=== PATIENT | female | born 1945 | race Caucasian/White ===

== ENCOUNTER → 2020-03-12 13:32 | Outpatient (CLI) | payer MEDICARE, SELFPAY ==
--- NOTE | ~2020-03-12 | MM_ITS ---
EXAMINATION: MM screening jessica BI w piper HISTORY: Screening TECHNIQUE: Craniocaudal and mediolateral oblique 3-D tomosynthesis images were obtained and synthetic 2-D images were generated. CAD analysis was submitted and interpreted. COMPARISON: Comparison to multiple prior studies sequentially, with oldest reviewed study dated 10/19. BREAST PARENCHYMAL COMPOSITION: There are scattered areas of fibroglandular density. FINDINGS: There is no evidence of suspicious mass, calcification, or architectural distortion to sugg est malignancy in either breast. There has been no suspicious interval change. IMPRESSION: 1. No mammographic evidence of malignancy. 2. Recommend routine screening mammography in one year. BI-RADS Category 1: Negative Reviewed, dictated and finalized at location A.
== END ==
PROVIDERS: PCP Family Medicine; Visit Provider Family Medicine
DX: Z12.31 Encounter for screening mammogram for malignant neoplasm of breast (principal)
CPT/HCPCS: 77063; 77067

== ENCOUNTER 2020-04-28 09:16 | Outpatient (CLI) | payer MEDICARE, SELFPAY ==
[2020-04-28 09:58] LABS: Hemoglobin A1C 6.6 % (<5.7)
[2020-04-28 11:10] LABS: Alanine Aminotransferase 21 U/L (4-35); Albumin Level 4.3 g/dL (3.5-5.1); Alkaline Phosphatase 77 U/L (38-126); Anion Gap 8 mmol/L (8-16); Aspartate Amino Transferase 28 U/L (14-36); Bilirubin,Total 0.7 mg/dL (0.2-1.3); Blood Urea Nitrogen 20 mg/dL (7-17); Calcium 9.2 mg/dL (8.4-10.2); Carbon Dioxide 28 mmol/L (22-30); Chloride 103 mmol/L (98-107); Estimated Glomerular Filt Rate > 60; Glucose 142 mg/dL (65-105); Potassium 4.1 mmol/L (3.4-5.0); Sodium 139 mmol/L (137-145)
== END 2020-04-28 09:17 | disposition home or self-care (01) ==
PROVIDERS: PCP Family Medicine; Visit Provider Physician Assistant
DX: E11.65 Type 2 diabetes mellitus with hyperglycemia (principal); E53.8 Deficiency of other specified B group vitamins; I10 Essential (primary) hypertension
CPT/HCPCS: 36415; 80053; 82607; 82746; 83036

== ENCOUNTER 2020-06-03 09:45 | Emergency (ER) | payer MEDICARE, SELFPAY ==
--- NOTE | 2020-06-03 09:48 | ED.GENADULT ---
HPI - General Adult General Chief complaint: Unspecified Stated complaint: right side pain Time Seen by Provider: 06/03/20 10:10 Source: patient and RN notes reviewed Mode of arrival: ambulatory Limitations: no limitations History of Present Illness HPI narrative: 75-year-old female presents with concern for pain under her bra line, going from the right sided back under the axilla and around to the breast. Reports painful skin, hurts when her shirt touches it, she cannot wear a bra. She denies pain with movement, breathing, deep breathing, coughing. Reports history of shingles in that area, denies any current rash, reports however the pain precedes the rash when she gets shingles. Reports has been several years since she has had shingles. She denies any fever, bruising, rash, redness, blisters. MD complaint: Right-sided pain Related Data Allergies Allergy/AdvReac Type Severity Reaction Status Date / Time Sulfa (Sulfonamide Allergy Intermediate Difficulty Verified 06/03/20 10:05 Antibiotics) Breathing codeine Allergy Mild Gastrointestinal Verified 06/03/20 10:05 Upset Review of Systems Review of Systems: Narrative: CONSTITUTIONAL: Denies malaise, chills, sweats, or fever. ENT: Denies rhinorrhea, congestion, sinus pain, otalgia or sore throat. CARDIOVASCULAR: Denies chest pain, palpitations, or edema. RESPIRATORY: Denies cough or dyspnea. GASTROINTESTINAL: Denies abdominal pain, nausea, vomiting, diarrhea, bloody, or mucous stools. GENITOURINARY: Denies dysuria or hematuria. SKIN: Reports right sided skin pain, denies rash MUSCULOSKELETAL: Denies back pain, joint pain, or myalgia. NEUROLOGIC: Denies numbness, weakness, or headache. All systems reviewed & are unremarkable except as noted in HPI and below [facility] Past Medical History Medical History Anxiety CAD (coronary artery disease) CHF (congestive heart failure) Chronic GERD Hypertensive heart disease with heart failure Mild asthma [place] (myocardial infarction) Type 2 diabetes mellitus with hyperglycemia Vitamin B12 deficiency Surgical History Surgical History Hx of CABG Family History Family History Sibling Family history of chronic obstructive pulmonary disease Father Family history of diabetes mellitus in first degree relative Family history of heart disease in male family member before age 55 Diabetes mellitus Family history of cardiovascular disease Mother Family history of lung cancer Social History Social History (Updated 05/08/20 @ 13:31 by Marie Lopez) Smoking status: Never smoker Alcohol intake: never Substance use: never Gender identity (if verbalized by the patient): Female Comments At time of signature, agree with nursing past medical, surgical, social and family history. There is no relevant family history pertinent to the presenting complaint Exam Narrative: Exam Narrative: GENERAL: Well-appearing, well-nourished, and in no acute distress. HEAD: Normocephalic, atraumatic. EYES: PERRLA, conjunctivae clear ENT: Mucous membranes moist. NECK: Supple. CHEST: No respiratory distress. Clear to auscultation. No bony deformities, no asymmetry. Speaks in full sentences. HEART: Regular rate and rhythm. No murmur heard. EXTREMITIES: Right arm has grossly normal range of motion, normal strength and sensation. SKIN: Warm, dry, no rash. No right-sided chest, torso bruising, erythema. Right-sided pain to light touch NEURO: Alert and oriented x3. PSYCH: Normal mood and affect Course Course Emergency Course: Patient is aware of diagnosis, understands and agrees to treatment plan. Anticipatory guidance given. Patient agrees to follow-up as directed and is aware of reasons to seek care at the emergency department. Portions of this record may have been created
[2020-06-03 09:53] VITALS: BP 126/69; PULSE 67; RESP 16; TEMP 36.3; O2SAT 100
== END 2020-06-03 10:25 | disposition home or self-care (01) ==
PROVIDERS: Emergency Provider Nurse Practitioner; PCP Family Medicine
DX: B02.29 Other postherpetic nervous system involvement (principal); F41.9 Anxiety disorder, unspecified; I25.10 Atherosclerotic heart disease of native coronary artery without angina pectoris; I11.0 Hypertensive heart disease with heart failure; I50.9 Heart failure, unspecified; K21.9 Gastro-esophageal reflux disease without esophagitis; M19.90 Unspecified osteoarthritis, unspecified site; I25.2 Old myocardial infarction; E11.9 Type 2 diabetes mellitus without complications
CPT/HCPCS: 99213; G0463

== ENCOUNTER 2020-06-28 17:54 | Emergency (ER) | payer MEDICARE, SELFPAY ==
[2020-06-28 18:15] VITALS: BP 136/61; PULSE 60; RESP 17; TEMP 36.2; O2SAT 99
--- NOTE | 2020-06-28 18:15 | ECG_ITS ---
Measurements Intervals Early Rate: 58 P: 64 NM: 117 QRS: -59 QRSD: 114 T: 7 QT: 452 QTc: 448 Interpretive Statements SINUS BRADYCARDIA WITH SHORT NM INTERVAL INCOMPLETE LEFT BUNDLE BRANCH BLOCK INFERIOR INFARCT, AGE INDETERMINATE ANTEROSEPTAL INFARCT, AGE INDETERMINATE BORDERLINE ST-T WAVE ABNORMALITY- LAT/HIGH LAT LEADS ABNORMAL ECG Electronically Signed On 06-28-2020 18:50:30 [employer] by Martínez Steinberg D.O.
[2020-06-28 18:35] LABS: Basophils Percent Auto 0.4 % (0.2-1.2); Eosinophils Percent Auto 0.1 % (0-4.4); Hematocrit 42.1 % (37.0-47.0); Hemoglobin 13.6 g/dL (12.0-15.0); Immature Granulocyte Absolute 0.04 K/mm3 (0.00-0.031); Immature Granulocyte Percent A 0.4 % (0-0.5); Lymphocytes Percent Auto 14.8 % (18.3-44.2); Mean Corpuscular HGB Conc 32.3 g/dl (32-36); Mean Corpuscular Hemoglobin 27.9 pg (26-34); Mean Corpuscular Volume 86.4 fl (80-100); Mean Platelet Volume 11.5 fl (7.4-10.4); Monocytes Absolute Auto 0.4 K/mm3 (0.1-0.6); Monocytes Percent Auto 3.8 % (2.6-8.5); Neutrophils Absolute Auto 7.6 K/mm3 (1.3-6.7); Neutrophils Percent Auto 80.5 % (45.5-73.1); Platelet Count Result 192 k/mm3 (150-375); Red Blood Count 4.87 M/mm3 (4.2-5.4); Red Cell Distribution Width 15.3 % (11.5-14.5); White Blood Count 9.4 K/mm3 (4.5-10.0)
[2020-06-28 18:44] LABS: Anion Gap 8 mmol/L (8-16); Blood Urea Nitrogen 16 mg/dL (7-17); Calcium 9.3 mg/dL (8.4-10.2); Carbon Dioxide 25 mmol/L (22-30); Chloride 104 mmol/L (98-107); Estimated CRCL calculation 58 ml/min; Estimated Glomerular Filt Rate > 60; Glucose 178 mg/dL (65-105); Sodium 137 mmol/L (137-145)
[2020-06-28] MEDS: MECLIZINE HCL 25 MG TABLET PO (19:19)
[2020-06-28] MEDS: SODIUM CHLORIDE 0.9% IV 1,000 ML 999 ML IV CONT (19:19)
[2020-06-28 19:20] VITALS: BP 141/76; PULSE 60
[2020-06-28 19:22] VITALS: BP 162/80; BP 166/79; PULSE 63; PULSE 65
[2020-06-28 19:57] VITALS: BP 161/67; PULSE 60; RESP 16; O2SAT 97
--- NOTE | 2020-06-28 19:58 | ED.DIZZY ---
HPI - Dizziness General Chief Complaint: Dizziness Stated Complaint: dizziness Time Seen by Provider: 06/28/20 18:09 History of Present Illness HPI Narrative: Patient is a 75-year-old female who presents ER with complaints of vertigo. Patient reports she has had this in the past. Reports she was at physical therapy for her and she got a little upset and she has been around she began to get dizzy. At home she laid down she became extremely nauseated and vomited. Symptoms persist. Has not taken any medications for this. No focal weakness of an arm or leg. No slurred speech. No facial droop. Related Data Allergies Allergy/AdvReac Type Severity Reaction Status Date / Time Sulfa (Sulfonamide Allergy Intermediate Difficulty Verified 06/12/20 13:55 Antibiotics) Breathing codeine Allergy Mild Gastrointestinal Verified 06/12/20 13:55 Upset Review of Systems Review of Systems: All systems reviewed & are unremarkable except as noted in HPI and below Constitutional: Constitutional: Denies chills, Denies fever(s) and Denies weakness ENT: Reports dizziness Cardiovascular: Cardiovascular: Denies chest pain, Denies rapid heart rate and Denies radiating jaw, neck or arm pain Respiratory: Respiratory: Denies cough and Denies dyspnea Gastrointestinal: Gastrointestinal: Denies diarrhea, Reports nausea and Reports vomiting Neurologic: Reports dizziness, Denies syncope, Denies focal weakness and Denies numbness PMFSH Past Medical History Medical History (Updated 06/28/20 @ 20:05 by Greg Rosenthal MD) Anxiety CAD (coronary artery disease) CHF (congestive heart failure) Chronic GERD Hypertensive heart disease with heart failure Mild asthma [place] (myocardial infarction) Type 2 diabetes mellitus with hyperglycemia Vertigo Vitamin B12 deficiency Surgical History Surgical History Hx of CABG Family History Family History Sibling Family history of chronic obstructive pulmonary disease Father Family history of diabetes mellitus in first degree relative Family history of heart disease in male family member before age 55 Diabetes mellitus Family history of cardiovascular disease Mother Family history of lung cancer Social History Social History Smoking status: Never smoker Alcohol intake: never Substance use: never Gender identity (if verbalized by the patient): Female Exam Narrative: Exam Narrative: GENERAL: Well-appearing, well-nourished, and in no acute distress. HEAD: Normocephalic, atraumatic. EYES: PERRL and EOMI. CHEST: Clear to auscultation. No respiratory distress. HEART: Regular rate and rhythm. Normal peripheral pulses. EXTREMITIES: Normal range of motion. No edema. SKIN: Warm, dry, no rash. NEURO: Alert and oriented x3. Course Course Emergency Course: Patient resting comfortably. Feels much better after IV fluid and meclizine. Discharge home with supportive meds. Vital Signs Vital signs: Vital Signs Temperature 97.2 F L 06/28/20 18:15 Pulse Rate 60 06/28/20 18:15 Respiratory Rate 17 06/28/20 18:15 Blood Pressure 136/61 06/28/20 18:15 Pulse Oximetry 99 06/28/20 18:15 Temperature 97.2 F L 06/28/20 18:15 Pulse Rate 60 06/28/20 19:57 Respiratory Rate 16 06/28/20 19:57 Blood Pressure 161/67 H 06/28/20 19:57 Pulse Oximetry 97 06/28/20 19:57 MDM - Dizziness Lab Data Result diagrams: 06/28/20 18:23 06/28/20 18:23 Labs: Lab Results 06/28/20 06/28/20 Range/Units 18:23 18:23 WBC 9.4 (4.5-10.0) K/mm3 RBC 4.87 (4.2-5.4) M/mm3 Hgb 13.6 (12.0-15.0) g/dL Hct 42.1 (37.0-47.0) % MCV 86.4 (80-100) fl MCH 27.9 (26-34) pg MCHC 32.3 (32-36) g/dl RDW 15.3 H (11.5-14.5) % Plt Count 192 (150-375) k/mm3 MPV 11.5 H
== END 2020-06-28 20:22 | disposition home or self-care (01) ==
PROVIDERS: Emergency Provider Emergency Medicine; PCP Family Medicine
DX: R42 Dizziness and giddiness (principal); I25.10 Atherosclerotic heart disease of native coronary artery without angina pectoris; I50.9 Heart failure, unspecified; K21.9 Gastro-esophageal reflux disease without esophagitis; I11.0 Hypertensive heart disease with heart failure; J45.909 Unspecified asthma, uncomplicated; I25.2 Old myocardial infarction; E11.9 Type 2 diabetes mellitus without complications; E53.8 Deficiency of other specified B group vitamins; Z95.1 Presence of aortocoronary bypass graft; R00.1 Bradycardia, unspecified; I44.7 Left bundle-branch block, unspecified; R94.31 Abnormal electrocardiogram [ECG] [EKG]
CPT/HCPCS: 36415; 80048; 85025; 93005; 99284; A9270; J7030

== ENCOUNTER 2020-08-31 08:05 | Outpatient (CLI) | payer MEDICARE, SELFPAY ==
[2020-08-31 08:51] LABS: Hemoglobin A1C 6.7 % (<5.7)
[2020-08-31 08:58] LABS: Alanine Aminotransferase 25 U/L (4-35); Albumin Level 4.5 g/dL (3.5-5.1); Alkaline Phosphatase 75 U/L (38-126); Anion Gap 6 mmol/L (8-16); Aspartate Amino Transferase 33 U/L (14-36); Bilirubin,Total 0.7 mg/dL (0.2-1.3); Blood Urea Nitrogen 18 mg/dL (7-17); Calcium 9.3 mg/dL (8.4-10.2); Carbon Dioxide 30 mmol/L (22-30); Chloride 104 mmol/L (98-107); Estimated Glomerular Filt Rate > 60; Glucose 160 mg/dL (65-105); Potassium 4.3 mmol/L (3.4-5.0); Sodium 140 mmol/L (137-145)
== END 2020-08-31 08:06 | disposition home or self-care (01) ==
PROVIDERS: PCP Family Medicine; Visit Provider Physician Assistant
DX: E11.65 Type 2 diabetes mellitus with hyperglycemia (principal); I11.0 Hypertensive heart disease with heart failure
CPT/HCPCS: 36415; 80053; 83036

== ENCOUNTER 2020-11-09 08:14 | Emergency (ER) | payer MEDICARE, SELFPAY ==
[2020-11-09] VITALS (19 sets, daily range): BP systolic 130–160; BP diastolic 67–94; PULSE 56–73; RESP 11–21; TEMP 36.6; O2SAT 88–100
--- NOTE | ~2020-11-09 | XR_ITS ---
XR chest 1V 11/09/2020 09:20 Indication: Vertigo Procedure: AP view of the chest Comparison: Comparison to multiple prior studies sequentially, with oldest reviewed study dated 05/01. Findings: Status post median sternotomy for CABG. Mild cardiomegaly. No focal air space disease, pulm onary edema, pleural effusion or suspected pneumothorax. Impression: 1: No acute cardiopulmonary disease. 2: Mild cardiomegaly. Reviewed, dictated and finalized at location B. Impression: 1: No acute cardiopulmonary disease. 2: Mild cardiomegaly.
--- NOTE | ~2020-11-09 | CT_ITS ---
EXAMINATION: CT brain wo con DATE: 11/09/2020 09:18 INDICATION: Vertigo. TECHNIQUE: Computed tomography (CT) of the head was performed without intravenous contrast. The mA wa s adjusted according to patient size. Iterative reconstruction technique was employed. The dose-lengt h product was 529.67 mGy-cm. COMPARISON: Head CT 01/12/2018 FINDINGS: Again seen is a small area cystic encephalitis in the right frontal lobe centrum semiovale. There is no intracranial hemorrhage, acute infarction, or abnormal intracranial mass lesion. The alba tricles are normal in size. There is mild mucosal thickening in the paranasal sinuses. There are like ly changes of ocular lens replacement surgeries. The mastoid air cells are normal. IMPRESSION: 1. 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 Reviewed, dictated and finalized at location A. IMPRESSION: 1. Small area of chronic cystic encephalomalacia in the right frontal lobe cent rum semiovale.
--- NOTE | 2020-11-09 09:04 | ECG_ITS ---
Measurements Intervals Coulter Rate: 65 P: 58 VA: 136 QRS: -58 QRSD: 123 T: 80 QT: 463 QTc: 482 Interpretive Statements SINUS RHYTHM INTRAVENTRICULAR CONDUCTION DELAY INFERIOR INFARCT, AGE INDETERMINATE ANTEROSEPTAL INFARCT, AGE INDETERMINATE BASELINE ARTIFACT- II, III, AVR, AVF, V2-V6 ABNORMAL ECG Electronically Signed On 11-09-2020 12:30:25 CDT by Martínez Steinberg D.O.
--- NOTE | 2020-11-09 09:06 | ED.GENADULT ---
HPI - General Adult General Chief complaint: Nausea/Vomiting/Diarrhea Stated complaint: VERTIGO/VOMITING Time Seen by Provider: 11/09/20 08:38 Source: patient, EMS and RN notes reviewed Mode of arrival: EMS Limitations: no limitations History of Present Illness HPI narrative: Patient is 75 years old white female brought to the emergency room by ambulance from home because of vertigo. Patient developed vertigo after getting out of bed this morning, everything spins, associated with nausea, vomiting and diaphoresis. Last similar symptoms was 3 weeks ago, currently patient on Antivert. Patient denies any fever, chills, chest pain, shortness of breath, headache. Vertigo get worse with any movement or when she open her eyes. Better laying down and head turn to the left. Related Data Allergies Allergy/AdvReac Type Severity Reaction Status Date / Time Sulfa (Sulfonamide Allergy Intermediate Difficulty Verified 06/12/20 13:55 Antibiotics) Breathing codeine Allergy Mild Gastrointestinal Verified 06/12/20 13:55 Upset Review of Systems Review of Systems: Narrative: CONSTITUTIONAL: Denies fever, chills, or sweats. EYES: Denies visual changes, redness, or discharge. ENT: Denies rhinorrhea, congestion, sore throat, or otalgia. CARDIOVASCULAR: Denies chest pain, palpitations, or edema. RESPIRATORY: Denies cough or dyspnea. GASTROINTESTINAL: Denies abdominal pain, nausea, vomiting, or diarrhea. GENITOURINARY: Denies dysuria or hematuria. SKIN: Denies rash or itching. MUSCULOSKELETAL: Denies back pain, joint pain, or myalgia. NEUROLOGIC: Denies headache, numbness, or weakness. PSYCHIATRIC: Denies anxiety or depression. [facility] Past Medical History Medical History Anxiety CAD (coronary artery disease) CHF (congestive heart failure) Chronic GERD Hypertensive heart disease with heart failure Mild asthma [place] (myocardial infarction) Type 2 diabetes mellitus with hyperglycemia Vertigo Vitamin B12 deficiency Surgical History Surgical History Hx of CABG Family History Family History Sibling Family history of chronic obstructive pulmonary disease Father Family history of diabetes mellitus in first degree relative Family history of heart disease in male family member before age 55 Diabetes mellitus Family history of cardiovascular disease Mother Family history of lung cancer Social History Social History Smoking status: Never smoker Alcohol intake: never Substance use: never Gender identity (if verbalized by the patient): Female Exam Narrative: Exam Narrative: General appearance: Well-developed, well-nourished, laying down flat, cold towel on her forehead, head turned to the left Skin: Normal color Head: Normocephalic, nontraumatic Eyes: Horizontal nystagmus to the right ENT: Oropharynx normal, ears normal, nose normal Neck: Supple, nontender Chest and respiratory: Airway patent, no respiratory distress, no accessory muscle use Heart: Regular rate/rhythm Abdomen: Soft, nontender, no organomegaly, quiet bowel sounds Vascular: Normal peripheral pulses, normal capillary refill. Musculoskeletal: Normal range of motion, nontender back Neurologic: Alert and oriented ?3, MAILING MANAGER is normal as tested, no gross motor deficit Course Course Emergency Course: Stable Reevaluation(s) Reevaluation #1: Patient feeling much better, no nausea, no vomiting, no nystagmus, no dizziness. Patient ready to go home. Date: 11/09/20 Time: 12:25 Vital Signs
--- NOTE | 2020-11-09 09:10 | PC.NURSE ---
Pt taken to CT scan
[2020-11-09] MEDS: SODIUM CHLORIDE 0.9% IV 1,000 ML 999 ML IV CONT (09:51)
[2020-11-09] MEDS: diazePAM INJ (*CRX) 10 MG/2 ML SYRINGE 5 MG IV PUSH (09:52)
[2020-11-09 09:53] LABS: Basophils Percent Auto 0.3 % (0.2-1.2); Eosinophils Percent Auto 0.1 % (0-4.4); Hematocrit 40.7 % (37.0-47.0); Hemoglobin 12.6 g/dL (12.0-15.0); Immature Granulocyte Absolute 0.03 K/mm3 (0.00-0.031); Immature Granulocyte Percent A 0.3 % (0-0.5); Lymphocytes Absolute Auto 0.84 K/mm3 (0.9-3.2); Lymphocytes Percent Auto 9.3 % (18.3-44.2); Mean Corpuscular Hemoglobin 26.3 pg (26-34); Mean Corpuscular Volume 84.8 fl (80-100); Mean Platelet Volume 11.3 fl (7.4-10.4); Monocytes Absolute Auto 0.2 K/mm3 (0.1-0.6); Monocytes Percent Auto 2.7 % (2.6-8.5); Neutrophils Absolute Auto 7.9 K/mm3 (1.3-6.7); Neutrophils Percent Auto 87.3 % (45.5-73.1); Platelet Count Result 205 k/mm3 (150-375); Red Cell Distribution Width 14.6 % (11.5-14.5)
[2020-11-09] MEDS: ONDANSETRON INJ 4 MG/2 ML VIAL 8 MG IV PUSH (09:53)
[2020-11-09] MEDS: MECLIZINE HCL 25 MG TABLET PO (09:55)
[2020-11-09 10:01] LABS: Alanine Aminotransferase 25 U/L (4-35); Alkaline Phosphatase 77 U/L (38-126); Anion Gap 12 mmol/L (8-16); Aspartate Amino Transferase 31 U/L (14-36); Bilirubin,Total 0.6 mg/dL (0.2-1.3); Blood Urea Nitrogen 20 mg/dL (7-17); Calcium 8.9 mg/dL (8.4-10.2); Carbon Dioxide 24 mmol/L (22-30); Chloride 105 mmol/L (98-107); Estimated CRCL calculation 58 ml/min; Estimated Glomerular Filt Rate > 60; Glucose 195 mg/dL (65-105); Potassium 4.1 mmol/L (3.4-5.0); Sodium 141 mmol/L (137-145)
== END 2020-11-09 12:58 | disposition home or self-care (01) ==
PROVIDERS: Emergency Provider Emergency Medicine; PCP Family Medicine
DX: H81.10 Benign paroxysmal vertigo, unspecified ear (principal); I25.10 Atherosclerotic heart disease of native coronary artery without angina pectoris; Z59.1 Inadequate housing; I50.9 Heart failure, unspecified; K21.9 Gastro-esophageal reflux disease without esophagitis; I11.0 Hypertensive heart disease with heart failure; J45.909 Unspecified asthma, uncomplicated; I25.2 Old myocardial infarction; E11.9 Type 2 diabetes mellitus without complications; E53.8 Deficiency of other specified B group vitamins; I51.7 Cardiomegaly
CPT/HCPCS: 36415; 70450; 71045; 80053; 85025; 93005; 96361; 96374; 96375; 99284; A9270; J2405; J3360; J7030

== ENCOUNTER 2021-01-03 05:36 | Inpatient (IN) | payer MEDICARE, SELFPAY ==
[2021-01-03] VITALS (23 sets, daily range): BP systolic 115–155; BP diastolic 63–115; PULSE 69–122; RESP 14–25; TEMP 36.4–36.8; O2SAT 89–97
--- NOTE | ~2021-01-03 | XR_ITS ---
EXAMINATION: XR chest 1V portable DATE: 01/03/2021 06:10 INDICATION: Shortness of breath TECHNIQUE: frontal view of the chest was obtained. COMPARISON: Chest radiograph dated 11/09/2020 FINDINGS: Diffuse increased interstitial pattern consistent with mild pulmonary edema. Persistent streaky atele ctasis/scarring at the left lung base. No pleural effusion or pneumothorax. Cardiomegaly. Median ster notomy wires and mediastinal surgical clips are seen, likely from prior coronary artery bypass grafti ng. IMPRESSION: 1. Likely congestive heart failure related mild pulmonary edema. 2. Cardiomegaly. Reviewed, dictated and finalized at location A.
--- NOTE | ~2021-01-03 | XR_ITS ---
XR chest 1V portable 01/05/2021 06:02 Indication: Sinus tachycardia Procedure: AP portable chest Comparison: Comparison to multiple prior studies sequentially, with oldest reviewed study dated 10/26. Findings: Status post median sternotomy for CABG. Cardiomegaly. Left basilar infiltrates.. No signifi cant effusion, edema or pneumothorax. Impression: 1: Left basilar infiltrates, most likely atelectasis/scarring. Reviewed, dictated and finalized at location A. Impression: 1: Left basilar infiltrates, most likely atelectasis/scarring.
--- NOTE | 2021-01-03 06:01 | ECG_ITS ---
Measurements Intervals Horace Rate: 75 P: 169 ND: 108 QRS: -52 QRSD: 128 T: 66 QT: 431 QTc: 482 Interpretive Statements SINUS RHYTHM WITH SHORT ND INTERVAL LEFT AXIS DEVIATION LEFT BUNDLE BRANCH BLOCK BASELINE ARTIFACT- I, II, AVR ABNORMAL ECG Electronically Signed On 01-03-2021 6:52:43 CDT by Martínez Steinberg D.O.
[2021-01-03] MEDS: ALBUTEROL SULFATE NEB 2.5 MG/0.5 ML INH 5 MG INHALATION ×4 (06:14→21:59)
[2021-01-03] MEDS: IPRATROPIUM BR 0.02% INH SOLN 0.5 MG/2.5 ML VIAL INHALATION ×4 (06:14→21:59)
--- NOTE | 2021-01-03 06:17 | ED.GENADULT ---
HPI - General Adult General Chief complaint: Shortness of Breath/Dyspnea Stated complaint: DIFFICULTY BREATHING Time Seen by Provider: 01/03/21 05:51 History of Present Illness HPI narrative: Patient 75-year-old female presents emerged part with chief complaint of shortness of breath. Patient reports that she has history of asthma she also reports history of congestive heart failure and states that in the last few hours she started getting more more short of breath. Patient reports she was wheezing reports that she has had no fever no productive cough patient reports no peripheral edema denies PND does report that she gets a bit more short of breath whenever she ambulates. The patient reports this feels more like she has asthma exacerbation. Patient reports that she has been vaccinated for COVID-19 and has completed to 2 doses of the vaccine. Related Data Allergies Allergy/AdvReac Type Severity Reaction Status Date / Time Sulfa (Sulfonamide Allergy Intermediate Difficulty Verified 01/03/21 05:45 Antibiotics) Breathing codeine Allergy Mild Gastrointestinal Verified 01/03/21 05:45 Upset Review of Systems Review of Systems: A 10 system review of systems was completed on the patient and is negative except for what is stated in the HPI. Nursing and ancillary documentation was reviewed. [facility] Past Medical History Medical History Anxiety CAD (coronary artery disease) CHF (congestive heart failure) Chronic GERD Hypertensive heart disease with heart failure Mild asthma [place] (myocardial infarction) Type 2 diabetes mellitus with hyperglycemia Vertigo Vitamin B12 deficiency Surgical History Surgical History Hx of CABG Family History Family History Sibling Family history of chronic obstructive pulmonary disease Father Family history of diabetes mellitus in first degree relative Family history of heart disease in male family member before age 55 Diabetes mellitus Family history of cardiovascular disease Mother Family history of lung cancer Social History Social History Smoking status: Never smoker Alcohol intake: never Substance use: never Gender identity (if verbalized by the patient): Female Exam Narrative: GENERAL: Well-appearing, well-nourished, and in no acute distress. HEAD: Normocephalic, atraumatic. EYES: PERRLA and EOMI. ENT: Nares clear, no rhinorrhea or epistaxis. Mucous membranes moist. NECK: Supple. CHEST: Scattered wheezes present bilaterally. No respiratory distress. HEART: Regular rate and rhythm. No murmur heard. Normal peripheral pulses. ABDOMEN: Soft, nontender, nondistended, normal active bowel sounds. EXTREMITIES: Normal range of motion. No edema. SKIN: Warm, dry, no rash. NEURO: No focal deficits. Alert and oriented x3. PSYCH: Normal mood and affect. Course Vital Signs Vital signs: Vital Signs Pulse Rate 88 01/03/21 05:41 Respiratory Rate 25 H 01/03/21 05:41 Pulse Oximetry 92 01/03/21 05:41 Pulse Rate 81 01/03/21 07:34 Respiratory Rate 24 H 01/03/21 07:34 Blood Pressure 155/115 H 01/03/21 07:34 Pulse Oximetry 95 01/03/21 07:34 Medical Decision Making Vital Signs Vital Signs: Vital Signs Pulse Rate 88 01/03/21 05:41 Respiratory Rate 25 H 01/03/21 05:41 Pulse Oximetry 92 01/03/21 05:41 Pulse Rate 81 01/03/21 07:34 Respiratory Rate 24 H 01/03/21 07:34 Blood Pressure 155/115 H 01/03/21 07:34 Pulse Oximetry 95 01/03/21 07:34 Lab Data Result diagrams: 01/03/21 06:23 01/03/21 06:23 Labs: Lab Results 01/03/21 01/03/21 01/03/21 Range/Units 06:23 06:23 06:23 WBC 8.7 (4.5-10.0) K/mm3 RBC 4.27 (4.2-5.4) M/mm3 Hgb 11.4 L
[2021-01-03] MEDS: methylPREDNISolone SOD SUCC 125 MG VIAL IV PUSH (06:25)
[2021-01-03 06:31] LABS: Basophils Absolute Auto 0.1 K/mm3 (0.0-0.1); Basophils Percent Auto 0.6 % (0.2-1.2); Eosinophils Absolute Auto 0.1 K/mm3 (0-0.3); Eosinophils Percent Auto 1.3 % (0-4.4); Hematocrit 35.7 % (37.0-47.0); Hemoglobin 11.4 g/dL (12.0-15.0); Immature Granulocyte Absolute 0.05 K/mm3 (0.00-0.031); Immature Granulocyte Percent A 0.6 % (0-0.5); Lymphocytes Absolute Auto 1.72 K/mm3 (0.9-3.2); Lymphocytes Percent Auto 19.8 % (18.3-44.2); Mean Corpuscular HGB Conc 31.9 g/dl (32-36); Mean Corpuscular Hemoglobin 26.7 pg (26-34); Mean Corpuscular Volume 83.6 fl (80-100); Mean Platelet Volume 11.9 fl (7.4-10.4); Monocytes Absolute Auto 0.4 K/mm3 (0.1-0.6); Monocytes Percent Auto 5.1 % (2.6-8.5); Neutrophils Absolute Auto 6.3 K/mm3 (1.3-6.7); Neutrophils Percent Auto 72.6 % (45.5-73.1); Platelet Count Result 211 k/mm3 (150-375); Red Blood Count 4.27 M/mm3 (4.2-5.4); Red Cell Distribution Width 16.7 % (11.5-14.5); White Blood Count 8.7 K/mm3 (4.5-10.0)
[2021-01-03 06:41] LABS: Lactic Acid Reflex 1.6 mmol/L (0.7-2.1)
[2021-01-03 06:42] LABS: Add Urine Microscopic? NO; Appearance Urine Clear (Clear); Bilirubin Urine Negative (Negative); Blood Urine Negative (Negative); Color Urine Yellow (Yellow); Glucose Urine UA Negative (Negative); Ketones Urine Negative (Negative); Leukocyte Esterase Ur Negative LEU/UL (Negative); Nitrate Urine Negative (Negative); Protein Urine Negative (Negative); Specific Grav Ur 1.013 (1.001-1.035); Urobilinogen Urine Negative mg/dL (<2.0)
[2021-01-03 06:43] LABS: Alanine Aminotransferase 41 U/L (4-35); Albumin Level 4.1 g/dL (3.5-5.1); Alkaline Phosphatase 86 U/L (38-126); Anion Gap 9 mmol/L (8-16); Aspartate Amino Transferase 39 U/L (14-36); Bilirubin,Total 0.8 mg/dL (0.2-1.3); Blood Urea Nitrogen 15 mg/dL (7-17); Carbon Dioxide 23 mmol/L (22-30); Chloride 103 mmol/L (98-107); Estimated CRCL calculation 68 ml/min; Estimated Glomerular Filt Rate > 60; Glucose 189 mg/dL (65-110); INR 0.9; Potassium 3.7 mmol/L (3.4-5.0); Prothrombin Time 12.2 Seconds (11.1-14.7); Sodium 135 mmol/L (137-145)
[2021-01-03 06:44] LABS: Partial Thromboplastin Time 25.9 SECONDS (22.3-36.8)
[2021-01-03 06:54] LABS: NT Pro B Type Natriuretic Pept 509 pg/mL (5-100); Troponin I < 0.012 ng/mL (0.000-0.034)
[2021-01-03] MEDS: FUROSEMIDE INJ 40 MG/4 ML VIAL IV PUSH ×2 (07:05→20:53)
--- NOTE | 2021-01-03 07:34 | PM.IMHP ---
H&P: HPI History of Present Illness Date/Time: 01/03/21 07:34 patient is a 75-year-old female past medical history of anxiety, Asthma, CHF, CAD, [place] Status post CABG, type 2 diabetes presents to ED with complaints of dyspnea for few hours. she has not had all asthma attack in many years however over the last week she has been using her rescue inhaler multiple times. She has had no triggers for asthma exacerbation. No new exposures or chemicals. She also has history of congestive heart failure for which she takes diuretics however has not had any change to her diet. Normally she gets edema in her lower extremities however she did not note that this time. She has had history of pneumonias in the past but not since getting the Pneumovax. she states that the feeling she has now is not like her previous pneumonias. She has no sputum production or fevers. Patient has been vaccinated for COVID-19 x2. Patient denies fever, chills, nausea, vomiting, diarrhea, chest pain. She endorses wheezing and shortness of breath. patient admitted for observation for asthma exacerbation. Chief Complaint: dyspnea Review of Systems Review of Systems: All systems reviewed & are unremarkable except as noted in HPI and below PMFSH Past Medical History Medical History Anxiety CAD (coronary artery disease) CHF (congestive heart failure) Chronic GERD Hypertensive heart disease with heart failure Mild asthma [place] (myocardial infarction) Type 2 diabetes mellitus with hyperglycemia Vertigo Vitamin B12 deficiency Surgical History Surgical History Hx of CABG Family History Family History Sibling Family history of chronic obstructive pulmonary disease Father Family history of diabetes mellitus in first degree relative Family history of heart disease in male family member before age 55 Diabetes mellitus Family history of cardiovascular disease Mother Family history of lung cancer Social History Social History Smoking status: Never smoker Alcohol intake: never Substance use: never Gender identity (if verbalized by the patient): Female Spiritual care concerns: No Meds Home Medications and Allergies Home Medications Medication Instructions Recorded Confirmed Type albuterol sulfate 90 mcg/actuation 1 inhalation INHALATION Q4H PRN 08/18/19 01/03/21 Rx aerosol inhaler #18 gm meclizine 25 mg PO TID PRN #14 tablet 06/28/20 01/03/21 Rx potassium chloride 10 mEq 20 meq PO DAILY #180 cap 08/01/20 01/03/21 Rx capsule,extended release lancets 30 gauge #100 each 08/23/20 01/03/21 Rx blood sugar diagnostic #100 each 10/09/20 01/03/21 Rx amlodipine 5 mg tablet 5 mg PO DAILY #30 tablet 12/03/20 01/03/21 Rx acetaminophen [Tylenol] 650 mg PO Q4H PRN 01/03/21 01/03/21 History aspirin 324 mg PO DAILY 01/03/21 01/03/21 History buspirone 5 mg PO BID 01/03/21 01/03/21 History cyanocobalamin (vitamin B-12) 500 mcg PO DAILY 01/03/21 01/03/21 History [Vitamin B-12] furosemide 40 mg PO DAILY 01/03/21 01/03/21 History lorazepam 1 mg PO Q6H PRN 01/03/21 01/03/21 History losartan 50 mg PO DAILY 01/03/21 01/03/21 History omeprazole 40 mg PO DAILY 01/03/21 01/03/21 History ondansetron HCl 4 mg PO Q8H PRN 01/03/21 01/03/21 History sitagliptin-metformin [Janumet] 1 tablet PO BIDWM 01/03/21 01/03/21 History Allergies Allergy/AdvReac Type Severity Reaction Status Date / Time Sulfa (Sulfonamide Allergy Intermediate Difficulty Verified 01/03/21 08:54 Antibiotics) Breathing codeine Allergy Mild Gastrointestinal Verified 01/03/21 08:54 Upset Vital Signs Vital Signs - 24 hr 01/03/21 05:41 01/03/21 06:15 01/03/21 06:20 Pulse Rate 88 77 75 Respiratory Rate 25 H 22 H 18 Blood Pressure Pulse
--- NOTE | 2021-01-03 08:42 | ADMGEN ---
This patient, Fina Adair, was admitted to 3 [facility] Room 325-01. Patient/family oriented to hospital policies and general routines including ID bracelet, bed and alarms, visiting hours, pain management, procedures, bathroom and other care routines, personal items, smoking policy, room service/diet, and visiting hours. Information on how to activate the Rapid Response Team has been discussed. Patient/Family are encouraged to report perceived risks to care and to ask questions if they do not understand what they are told or what they should do.
[2021-01-03 09:31] LABS: Troponin I < 0.012 ng/mL (0.000-0.034)
[2021-01-03 12:36] LABS: Troponin I < 0.012 ng/mL (0.000-0.034)
[2021-01-03] MEDS: ACETAMINOPHEN 325 MG TABLET 650 MG PO ×2 (14:42→20:53)
[2021-01-03] MEDS: BENZONATATE 100 MG CAPSULE 200 MG PO ×2 (14:42→20:54)
[2021-01-03] MEDS: busPIRone HCL 5 MG TABLET PO (17:21)
[2021-01-03] MEDS: metFORMIN HCL 500 MG TABLET 1000 MG PO (17:21)
[2021-01-04] VITALS (13 sets, daily range): BP systolic 112–119; BP diastolic 64–83; PULSE 93–136; RESP 16–20; TEMP 36.3–36.6; O2SAT 94–97
[2021-01-04] MEDS: ALBUTEROL SULFATE NEB 2.5 MG/0.5 ML INH 5 MG INHALATION (01:56)
[2021-01-04] MEDS: IPRATROPIUM BR 0.02% INH SOLN 0.5 MG/2.5 ML VIAL INHALATION (01:57)
[2021-01-04 06:45] LABS: Basophils Percent Auto 0.2 % (0.2-1.2); Eosinophils Percent Auto 0.2 % (0-4.4); Hematocrit 35.3 % (37.0-47.0); Immature Granulocyte Absolute 0.05 K/mm3 (0.00-0.031); Immature Granulocyte Percent A 0.4 % (0-0.5); Lymphocytes Absolute Auto 2.97 K/mm3 (0.9-3.2); Lymphocytes Percent Auto 24.3 % (18.3-44.2); Mean Corpuscular HGB Conc 31.2 g/dl (32-36); Mean Corpuscular Hemoglobin 26.2 pg (26-34); Mean Platelet Volume 11.8 fl (7.4-10.4); Monocytes Absolute Auto 0.8 K/mm3 (0.1-0.6); Monocytes Percent Auto 6.7 % (2.6-8.5); Neutrophils Absolute Auto 8.3 K/mm3 (1.3-6.7); Neutrophils Percent Auto 68.2 % (45.5-73.1); Platelet Count Result 203 k/mm3 (150-375); White Blood Count 12.2 K/mm3 (4.5-10.0)
[2021-01-04 06:59] LABS: Anion Gap 8 mmol/L (8-16); Blood Urea Nitrogen 19 mg/dL (7-17); Calcium 9.3 mg/dL (8.4-10.2); Carbon Dioxide 24 mmol/L (22-30); Chloride 104 mmol/L (98-107); Estimated CRCL calculation 68 ml/min; Estimated Glomerular Filt Rate > 60; Glucose 110 mg/dL (65-110); Potassium 3.6 mmol/L (3.4-5.0); Sodium 136 mmol/L (137-145)
[2021-01-04 08:20] LABS: Glucose Point of Care 112 mg/dl (65-105)
[2021-01-04] MEDS: BENZONATATE 100 MG CAPSULE 200 MG PO ×2 (09:13→21:19)
[2021-01-04] MEDS: LOSARTAN POTASSIUM 50 MG TABLET PO (09:14)
[2021-01-04] MEDS: POTASSIUM CHLORIDE 10 MEQ TABLET.ER 20 MEQ PO (09:14)
[2021-01-04] MEDS: CYANOCOBALAMIN 500 MCG TABLET PO (09:15)
[2021-01-04] MEDS: metFORMIN HCL 500 MG TABLET 1000 MG PO ×2 (09:15→18:06)
[2021-01-04] MEDS: predniSONE 20 MG TABLET 40 MG PO (09:15)
[2021-01-04] MEDS: busPIRone HCL 5 MG TABLET PO ×2 (09:16→18:06)
[2021-01-04] MEDS: FUROSEMIDE INJ 40 MG/4 ML VIAL IV PUSH ×2 (09:16→23:48)
[2021-01-04] MEDS: amLODIPine BESYLATE 5 MG TABLET PO (09:16)
[2021-01-04] MEDS: ENOXAPARIN 40 MG/0.4 ML SYRINGE SUB-Q (09:16)
[2021-01-04] MEDS: PANTOPRAZOLE 40 MG TABLET PO ×2 (09:16→21:14)
[2021-01-04] MEDS: ASPIRIN 81 MG CHEWABLE TABLET 324 MG PO (09:17)
--- NOTE | 2021-01-04 11:03 | ECG_ITS ---
Measurements Intervals [place] Rate: 127 P: [place]: 0 QRS: -53 QRSD: 121 T: 89 QT: 326 QTc: 475 Interpretive Statements ATRIAL FLUTTER/TACHYCARDIA WITH RAPID VENTRICULAR RESPONSE LEFT AXIS DEVIATION LEFT BUNDLE BRANCH BLOCK ANTEROSEPTAL INFARCT OR DUE TO LBBB ABNORMAL ECG Electronically Signed On 01-04-2021 12:03:40 CDT by Martínez Steinberg D.O.
[2021-01-04 12:38] LABS: Glucose Point of Care 195 mg/dl (65-105)
--- NOTE | 2021-01-04 13:41 | ECG_ITS ---
Measurements Intervals [place] Rate: 124 P: [place]: 0 QRS: -51 QRSD: 116 T: 116 QT: 328 QTc: 471 Interpretive Statements ATRIAL FLUTTER/TACHYCARDIA WITH RAPID VENTRICULAR RESPONSE LEFT AXIS DEVIATION LEFT BUNDLE BRANCH BLOCK INFERIOR INFARCT, AGE INDETERMINATE ANTEROSEPTAL INFARCT OR DUE TO LBBB ABNORMAL ECG Electronically Signed On 01-04-2021 14:35:39 CDT by Martínez Steinberg D.O.
--- NOTE | 2021-01-04 13:50 | WPDPN ---
Progress Note: A&P Assessment and Plan (1) Sinus tachycardia: Code(s): R00.0 - Tachycardia, unspecified Status: Acute Assessment and Plan: -likely triggered by beta agonist, overall patient feels better, no sign of pneumonia or other triggering etiology - patient has history of perioperative atrial fibrillation for which she was temporarily on Coumadin amiodarone. I reviewed EKG today her heart rate 120s appears to be regular rhythm likely sinus tachycardia. Will give 5 mg IV metoprolol, starting Coreg this evening. On chest x-ray heart is enlarged cardiomegaly. will obtain echocardiogram. Holding off on any anticoagulation at this time. - patient can follow-up with cardiology in 1 week (2) Asthma exacerbation: Qualifiers: Asthma persistence: unspecified Asthma severity: mild Qualified Code(s): J45.901 - Unspecified asthma with (acute) exacerbation Code(s): J45.901 - Unspecified asthma with (acute) exacerbation Status: Acute Assessment and Plan: -continue steroid course and DuoNebs. - Mild persistent asthma with his exacerbation. Patient will be discharged with Rx for inhalers and short steroid course (3) Acute on chronic diastolic (congestive) heart failure: Code(s): I50.33 - Acute on chronic diastolic (congestive) heart failure Status: Acute Assessment and Plan: - continue Lasix changed IV to home PO - echocardiogram, has not had one recently (4) Acute respiratory failure with hypoxia: Code(s): J96.01 - Acute respiratory failure with hypoxia Status: Acute Assessment and Plan: resolved, on room air (5) HTN (hypertension): Qualifiers: Hypertension type: primary hypertension Qualified Code(s): I10 - Essential (primary) hypertension Code(s): I10 - Essential (primary) hypertension Status: Acute Assessment and Plan: continue home medication Additional Plan Diet: Diabetic DVT prophylaxis: Lovenox Code status: Full code disposition: Home tomorrow Time Spent With Patient Time: explained in detail updates to patient and daughter bedside Time with patient: Greater than 35 minutes Subjective Date/time seen: 01/04/21 13:50 Patient examined. She feels well today, no wheezing. However she was tachycardic heart rate 120s. EKG was read as atrial flutter however looks like sinus tachycardia with regular rhythm. atrial tachycardia may have been triggered by beta agonist albuterol. patient denies fever, chills, nausea, vomiting, diarrhea. She states her breathing is improved. Patient has a history of atrial fibrillation. 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 She had postoperative atrial fibrillation which she was on amiodarone and Coumadin for a short period time. Subsequent office visit heart was normal sinus rhythm and her anticoagulation and amiodarone was stopped. she was seen to have small bilateral pleural effusions and pulmonary congestion on x-rays. She previously was on Coreg and losartan. family updated bedside. We discussed trying some beta-nimisha today and getting echocardiogram tomorrow. Review of Systems Review of Systems: All systems reviewed & are unremarkable except as noted in HPI and below Exam Narrative: - GENERAL: No acute distress. Well-nourished. pleasant older woman - EYES: EOMI. Anicteric. - HENT: Moist mucous membranes. - LUNGS: Clear to auscultation bilaterally - CARDIOVASCULAR: Regular rate and rhythm. No murmur. - ABDOMEN: Soft, non-tender and non-distended. No palpable masses. - EXTREMITIES: trace edema. Peripheral pulses 2+. Non-tender. - NEUROLOGIC: No focal neurological deficits. CN II-XII grossly intact. - PSYCHIATRIC: Awake, Alert and oriented x 3. Appropriate mood and affect. - SKIN: No rashes or lesions. Warm. - LYMPH: No cervical lymphadenopathy. Objective Data Vital Signs Vital Sig
[2021-01-04] MEDS: METOPROLOL TARTRATE INJ 5 MG/5 ML VIAL IV PUSH (15:42)
[2021-01-04] MEDS: INSULIN ASPART (*BKC) 100 UNITS/ML SUB-Q (17:19)
[2021-01-04 17:45] LABS: Glucose Point of Care 280 mg/dl (65-105)
[2021-01-04 18:18] LABS: Glucose Point of Care 252 mg/dl (65-105)
[2021-01-04] MEDS: dilTIAZem HCL 30 MG TABLET PO (18:45)
[2021-01-04] MEDS: dilTIAZem HCL TAB 30 MG, dilTIAZem HCL TAB 60 MG 90 MG PO (21:14)
[2021-01-04] MEDS: ACETAMINOPHEN 325 MG TABLET 650 MG PO (21:19)
[2021-01-04 21:28] LABS: Glucose Point of Care 165 mg/dl (65-105)
[2021-01-04] MEDS: carvediloL 3.125 MG TABLET PO (23:48)
[2021-01-05] VITALS (27 sets, daily range): BP systolic 92–131; BP diastolic 58–81; PULSE 67–145; RESP 14–22; TEMP 36.4–36.6; O2SAT 96–100
--- NOTE | 2021-01-05 | ECHO_ITS ---
Patient Info Name: Fina Adair Age: 75 years : 1945 Gender: Female Ht: 64 in Wt: 148 lbs BSA: 1.75 m2 HR: 108 bpm BP: 109 / 77 mmHg Heart Rhythm: Atrial Flutter Technical Quality: Good Exam Date: 01/05/2021 6:55 AM Exam Location: [facility] Card Pulmonary Patient Status: Inpatient Admit Date: 01/03/2021 Staff Ordering Physician: Yolis Ann DO [employer] Lead: Liat Naranjo RDCS Attending Provider: Nico Oglesby MD Referring Physician: Seth TERRY; Exam Type: CA echo dop color flow w con Study Info Complete two-dimensional, color flow and Doppler transthoracic echocardiogram is performed. Summary 1. Complete two-dimensional, color flow and Doppler transthoracic echocardiogram is performed. 2. Left ventricular chamber dimension is normal. 3. Left ventricular systolic function is moderately reduced, estimated at 40-45%. 4. Left ventricular septal wall motion is abnormal with septal motion related to bundle branch block. 5. Left atrial chamber dimension is mildly enlarged. 6. Right atrial chamber dimension is moderately enlarged. 7. There is mild to moderate aortic valve stenosis with a peak velocity of 145.47 cm/s, mean gradient of 5 mmHg, and aortic valve area of 1.42 cm2. 8. There is no aortic valve regurgitation. 9. There is mild aortic valve calcification. 10. There is moderate mitral valve regurgitation. 11. There is severe tricuspid valve regurgitation. 12. No pulmonary hypertension, estimated pulmonary arterial systolic pressure is 34 mmHg. Left Ventricle Left ventricular chamber dimension is normal. Left ventricular systolic function is moderately reduced, estimated at 40-45%. There is mildly increased left ventricular wall thickness. Left ventricular septal wall motion is abnormal with septal motion related to bundle branch block. The left ventricular diastolic function is indeterminate. Right Ventricle Right ventricular chamber dimension is normal. Right ventricular systolic function is normal. Left Atria Left atrial chamber dimension is mildly enlarged. Right Atria Right atrial chamber dimension is moderately enlarged. Aortic Valve The aortic valve is probable trileaflet. There is mild to moderate aortic valve stenosis with a peak velocity of 145.47 cm/s, mean gradient of 5 mmHg, and aortic valve area of 1.42 cm2. There is no aortic valve regurgitation. There is mild aortic valve calcification. Pulmonic Valve The pulmonic valve is not well visualized. There is trace pulmonic regurgitation. Mitral Valve The mitral valve has normal leaflets. There is moderate mitral valve regurgitation. The mitral valve annulus is mildly calcified. Tricuspid Valve The tricuspid valve leaflets are normal. There is severe tricuspid valve regurgitation. No pulmonary hypertension, estimated pulmonary arterial systolic pressure is 34 mmHg. Pericardium/Pleural The pericardium appears normal. There is no pericardial effusion. Inferior Vena Cava Normal inferior vena cava with >50% collapse upon inspiration consistent with normal right atrial pressure, 5 mmHg. Aorta The aortic root size at the sinus of Valsalva is normal. There is mild aortic atherosclerosis. Left Ventricular Outflow Tract Name Value Normal LVOT 2D
--- NOTE | 2021-01-05 02:13 | PC.NURSE ---
Called Dr. Linder at 21:30 about pts HR in the 130s, she ordered a ONCE dose of diltiazem at 90mg and by 11:30pm the patient's heart rate had not changed from 130-135. Called Dr. Linder again and she said to give the patients prescribed coreg as well as a one time dose of lasix with the thought that maybe she is retaining fluid and it is increasing her HR. She has gotten down to 110s since, but consistently stays at 130.. She is having a significant amount of urine output.
--- NOTE | 2021-01-05 03:11 | PC.NURSE ---
called Dr. Linder because the patient's W[place] was in the 140s.. she asked that I give her morning dose of Coreg early.
[2021-01-05] MEDS: carvediloL 3.125 MG TABLET PO (03:19)
--- NOTE | 2021-01-05 03:52 | PC.NURSE ---
called Dr. Linder at 0330 because pt said she felt like her heart is pounding out of her chest .. I checked her blood pressure which was WNL, she states she is feeling shaky and had a small run of A.fib according to tele. The ordered labs and a routine ekg, and chest xray..
--- NOTE | 2021-01-05 04:22 | ECG_ITS ---
Measurements Intervals [place] Rate: 142 P: [place]: 0 QRS: -51 QRSD: 112 T: 110 QT: 310 QTc: 477 Interpretive Statements ATRIAL FLUTTER/TACHYCARDIA WITH RAPID VENTRICULAR RESPONSE LEFT BUNDLE BRANCH BLOCK INFERIOR INFARCT, AGE INDETERMINATE ANTEROSEPTAL INFARCT, AGE INDETERMINATE BASELINE ARTIFACT- I, II, III, AVR, AVL, AVF ABNORMAL ECG Electronically Signed On 01-11-2021 5:52:08 CDT by Martínez Steinberg D.O.
--- NOTE | 2021-01-05 04:37 | PM.EVENT ---
Event Note Event Note Event Note: A rapid response was called to the patient's room due to acute sudden onset of chest pressure upon arrival to the room the patient is sitting by the edge of the bed she signals to her retrosternal area stating that she feels pressure in there. Patient's blood pressure was 130/70 her heart rate was in the 140. Nitroglycerin insulin was 0.4 was given patient stated some relieve, she received morphine 1 mg IV push as well. A stat EKG shows supraventricular tachycardia. Decision was made to transfer the patient to IMU. Patient saturating 100% on room air as well.
[2021-01-05 04:40] LABS: Basophils Percent Auto 0.2 % (0.2-1.2); Eosinophils Percent Auto 0.2 % (0-4.4); Hematocrit 39.4 % (37.0-47.0); Hemoglobin 12.5 g/dL (12.0-15.0); Immature Granulocyte Absolute 0.06 K/mm3 (0.00-0.031); Immature Granulocyte Percent A 0.5 % (0-0.5); Lymphocytes Absolute Auto 4.17 K/mm3 (0.9-3.2); Lymphocytes Percent Auto 31.5 % (18.3-44.2); Mean Corpuscular HGB Conc 31.7 g/dl (32-36); Mean Corpuscular Hemoglobin 26.3 pg (26-34); Mean Corpuscular Volume 82.8 fl (80-100); Mean Platelet Volume 11.7 fl (7.4-10.4); Monocytes Absolute Auto 0.7 K/mm3 (0.1-0.6); Monocytes Percent Auto 5.6 % (2.6-8.5); Neutrophils Absolute Auto 8.2 K/mm3 (1.3-6.7); Platelet Count Result 275 k/mm3 (150-375); Red Blood Count 4.76 M/mm3 (4.2-5.4); White Blood Count 13.2 K/mm3 (4.5-10.0)
[2021-01-05 04:52] LABS: Anion Gap 12 mmol/L (8-16); Blood Urea Nitrogen 22 mg/dL (7-17); Carbon Dioxide 20 mmol/L (22-30); Chloride 103 mmol/L (98-107); Estimated CRCL calculation 58 ml/min; Estimated Glomerular Filt Rate > 60; Glucose 173 mg/dL (65-110); Magnesium 1.8 mg/dL (1.6-2.3); Potassium 4.1 mmol/L (3.4-5.0); Sodium 135 mmol/L (137-145)
[2021-01-05] MEDS: dilTIAZem HCl INJ 25 MG/5 ML VIAL 20 MG IV PUSH (04:52)
[2021-01-05] MEDS: NITROGLYCERIN SL 0.4 MG TABLET SUBLINGUAL (04:55)
[2021-01-05] MEDS: MORPHINE SULFATE (*CRX) 2 MG/ML INJ 1 MG IV PUSH (04:55)
--- NOTE | 2021-01-05 04:56 | PC.NURSE ---
pt transferred to 206 at 0430 due to high HR
[2021-01-05 05:03] LABS: Troponin I < 0.012 ng/mL (0.000-0.034)
[2021-01-05 05:04] LABS: NT Pro B Type Natriuretic Pept 1870 pg/mL (5-100)
[2021-01-05 05:04] LABS: Glucose Point of Care 170 mg/dl (65-105)
--- NOTE | 2021-01-05 05:13 | PC.NURSE ---
called patient's daughter Madhavi about the rapid as well as the room change.
[2021-01-05] MEDS: ACETAMINOPHEN 325 MG TABLET 650 MG PO ×2 (05:15→21:48)
[2021-01-05] MEDS: ENOXAPARIN 80 MG/0.8 ML SYRINGE 70 MG SUB-Q ×2 (05:21→17:20)
--- NOTE | 2021-01-05 06:14 | PC.NURSE ---
This patient, Fina Adair, was received from [facility] on 01/05/21 at 0435. Patient/family oriented to unit policies and routines
--- NOTE | 2021-01-05 08:00 | ECG_ITS ---
Measurements Intervals [place] Rate: 130 P: [place]: 0 QRS: -49 QRSD: 120 T: 91 QT: 324 QTc: 477 Interpretive Statements ATRIAL FLUTTER/TACHYCARDIA WITH RAPID VENTRICULAR RESPONSE LEFT BUNDLE BRANCH BLOCK INFERIOR INFARCT OR DUE TO LBBB EXTENSIVE ANTERIOR INFARCT OR DUE TO LBBB ABNORMAL ECG Electronically Signed On 01-05-2021 16:48:39 CDT by Martínez Steinberg D.O.
[2021-01-05 09:04] LABS: Glucose Point of Care 148 mg/dl (65-105)
[2021-01-05] MEDS: ASPIRIN 81 MG CHEWABLE TABLET 324 MG PO (09:13)
[2021-01-05] MEDS: amLODIPine BESYLATE 5 MG TABLET PO (09:14)
[2021-01-05] MEDS: metFORMIN HCL 500 MG TABLET 1000 MG PO ×2 (09:14→17:19)
[2021-01-05] MEDS: FUROSEMIDE 40 MG TABLET PO (09:14)
[2021-01-05] MEDS: predniSONE 20 MG TABLET 40 MG PO (09:14)
[2021-01-05] MEDS: POTASSIUM CHLORIDE 10 MEQ TABLET.ER 20 MEQ PO (09:14)
[2021-01-05] MEDS: busPIRone HCL 5 MG TABLET PO ×2 (09:15→17:19)
[2021-01-05] MEDS: PANTOPRAZOLE 40 MG TABLET PO ×2 (09:15→21:01)
[2021-01-05] MEDS: LOSARTAN POTASSIUM 50 MG TABLET PO (09:15)
[2021-01-05] MEDS: CYANOCOBALAMIN 500 MCG TABLET PO (09:15)
[2021-01-05] MEDS: METOPROLOL TARTRATE INJ 5 MG/5 ML VIAL IV PUSH (10:43)
--- NOTE | 2021-01-05 12:05 | PM.CNCAR ---
Assessment and Plan Assessment and plan (1) Atrial flutter with rapid ventricular response: Code(s): I48.92 - Unspecified atrial flutter Status: Acute Assessment and Plan: New onset, persistent symptomatic with chest pain, shortness of breath palpitations improved with rate control. Continue diltiazem infusion at 10 milligrams/hour for now. Add metoprolol IV 5 mg x 1 to observe response. Initially oral beta-nimisha therapy with attempt to wean diltiazem off as tolerated. Discussed at length embolic stroke risk, need for systemic anticoagulation. Management strategies including rate versus rhythm control. Discussed CICI guided cardioversion to restore sinus rhythm if atrial flutter persistent and refractory to medical therapy. Discussed options as an outpatient such as ablation depending on clinical course. Patient understands the above and agrees. Will attempt to control with medical therapy, initiate anticoagulation observe tolerance. 2D echocardiogram will be reviewed with recommendation to follow. Pending at this time. Monitor and replete electrolytes as appropriate to keep potassium above 4 magnesium around 2. Check TSH. Enoxaparin 1 milligram/kilogram subcutaneous q.12 hours for now with plans to transition over to oral systemic anticoagulation Eliquis 5 mg b.i.d. insurance permitting. Discussed risks, benefits, alternatives with cardioversion and medical management options. Patient in agreement. Recommendation to follow. (2) CAD (coronary artery disease): Code(s): I25.10 - Atherosclerotic heart disease of [place] coronary artery without angina pectoris Status: Acute Assessment and Plan: Chest pain secondary to atrial flutter with RVR, probable demand ischemia. Negative troponins thus far no evidence for infarction or acute coronary event. Continue medical therapy with aspirin. She needs to be on statin therapy. Initiate atorvastatin 40 mg at bedtime. Check lipid panel. (3) Asthma exacerbation: Qualifiers: Asthma severity: mild Asthma persistence: unspecified Qualified Code(s): J45.901 - Unspecified asthma with (acute) exacerbation Code(s): J45.901 - Unspecified asthma with (acute) exacerbation Status: Acute Assessment and Plan: Per primary service. Stable at this time. Discussed potential bronchoconstriction with beta-nimisha therapy. Will monitor closely although I suspect she will tolerate. Recommendation follow. (4) HTN (hypertension): Qualifiers: Hypertension type: primary hypertension Qualified Code(s): I10 - Essential (primary) hypertension Code(s): I10 - Essential (primary) hypertension Status: Acute Assessment and Plan: Stable, no acute issues at this time. Continue to monitor closely. (5) Type 2 diabetes mellitus with hyperglycemia: Code(s): E11.65 - Type 2 diabetes mellitus with hyperglycemia Status: Acute Assessment and Plan: Per primary service. History of Present Illness History of Present Illness Consult date/time: Date of service: 01/05/21 12:05 Cardiology consultation at the request of Dr. Linder for opinion regarding chest pain and atrial flutter with rapid ventricular response Requesting physician: Tanvir Linder MD Consult reason: chest pain and atrial fibrillation (Atrial flutter with RVR) Reason For Visit: chf exacerbation,dyspnea Narrative: Patient is a very pleasant 75-year-old female with a history of CAD status post three-vessel CABG, diabetes mellitus, hypertension asthma, postoperative atrial fibrillation 2016 he states she was in her usual state of health where she noted worsening intermittent shortness of breath requiring increased use of her inhalers over the past 1-2 weeks. She states 1 week ago she had episode of approximately 45 minutes of elevated heart rate with palpitations which she felt anxious for which he took her anxiety medication which improved her sympt
[2021-01-05] MEDS: INSULIN ASPART (*BKC) 100 UNITS/ML SUB-Q ×2 (12:43→17:20)
[2021-01-05 12:59] LABS: Cholesterol 222 mg/dL (0-200); HDL Direct 59 mg/dL; Triglycerides 265 mg/dL (<150)
[2021-01-05 13:10] LABS: LDL Cholesterol Direct 113 mg/dL
[2021-01-05 13:10] LABS: Glucose Point of Care 327 mg/dl (65-105)
[2021-01-05] MEDS: METOPROLOL TARTRATE 25 MG TABLET PO ×2 (15:04→21:01)
--- NOTE | 2021-01-05 15:39 | PM.IMPN ---
Progress Note: A&P Assessment and Plan (1) Atrial flutter with rapid ventricular response: Code(s): I48.92 - Unspecified atrial flutter Status: Acute Assessment and Plan: -patient started on Cardizem rate of 5 mg/hr, increased this AM to 10 mg/hr -cardiology consult, patient started on metoprolol tartrate 25 mg q.8 hours. Possible cardioversion however will need anticoagulation, started on full-dose Lovenox. We may transition to Eliquis. (2) Acute combined systolic and diastolic heart failure: Code(s): I50.41 - Acute combined systolic (congestive) and diastolic (congestive) heart failure Status: Acute Assessment and Plan: -echocardiogram 01/05/2021: EF of 40-45%, left ventricle septal wall motion abnormality related to bundle-branch block, indeterminate diastolic function. She previous was noted to have diastolic dysfunction, likely has a combination systolic and diastolic heart failure. -patient will need to be on appropriate medications for systolic heart failure. Continue home losartan, continue home Lasix. -cardiology consulted: starting metoprolol for rate control and heart failure (3) Asthma exacerbation: Qualifiers: Asthma persistence: unspecified Asthma severity: mild Qualified Code(s): J45.901 - Unspecified asthma with (acute) exacerbation Code(s): J45.901 - Unspecified asthma with (acute) exacerbation Status: Acute Assessment and Plan: stopping steroids, improved, will give inhalers (4) Acute respiratory failure with hypoxia: Code(s): J96.01 - Acute respiratory failure with hypoxia Status: Acute Assessment and Plan: resolved, on room air (5) Type 2 diabetes mellitus with hyperglycemia: Code(s): E11.65 - Type 2 diabetes mellitus with hyperglycemia Status: Acute Assessment and Plan: Continue Januvia, metformin, sliding scale insulin, hypoglycemia protocol Additional Plan Diet: Diabetic DVT prophylaxis: Lovenox full dose, will transition to Eliquis Code status: Full code disposition: pending clinical course, home in 2-3 days Subjective Date/time seen: 01/05/21 15:39 Patient examined. She was started on diltiazem drip overnight and moved to IMU. Cardiology consult today to start anticoagulation, statin, rate control medications. Echocardiogram for today. She feels well otherwise, denies fever, chills, nausea, vomiting, diarrhea, or chest pain. Review of Systems Review of Systems: All systems reviewed & are unremarkable except as noted in HPI and below Exam Narrative: - GENERAL: No acute distress. Well-nourished. pleasant older woman - EYES: EOMI. Anicteric. - HENT: Moist mucous membranes. - LUNGS: Clear to auscultation bilaterally - CARDIOVASCULAR: Irregularly irregular. No murmur. - ABDOMEN: Soft, non-tender and non-distended. . - EXTREMITIES: trace edema. Peripheral pulses 2+. . - NEUROLOGIC: No focal neurological deficits. CN II-XII grossly intact. - PSYCHIATRIC: Awake, Alert and oriented x 3. Appropriate mood and affect. - SKIN: No rashes or lesions. Warm. - LYMPH: No cervical lymphadenopathy. Objective Data Vital Signs Vital Signs: Vital Signs - 24 hr 01/04/21 16:00 01/04/21 20:00 01/04/21 22:00 Temperature 36.6 C Pulse Rate 129 H 136 H 133 H Respiratory Rate 20 Blood Pressure 119/83 Pulse Oximetry 97 01/04/21 23:48 01/05/21 00:00 01/05/21 03:19 Temperature Pulse Rate 135 H 135 H 145 H Respiratory Rate Blood Pressure Pulse Oximetry 01/05/21 03:34 01/05/21 03:54 01/05/21 03:56 Temperature Pulse Rate 135 H 135 H Respiratory Rate Blood Pressure 131/76 Pulse Oximetry 01/05/21 03:59 01/05/21 04:00 01/05/21 04:10 Temperature 36.6 C Pulse Rate 145 H 139 H 144 H Respiratory Rate 22 H 22 H Blood Pressure 131/76 130/81 Pulse Oximetry 99 01/05/21 04:19 01/05/21 04:28 01/05/21 04:35 Temperature Pulse Rate 142 H 139 H Respi
[2021-01-05 16:56] LABS: Glucose Point of Care 320 mg/dl (65-105)
[2021-01-05 20:53] LABS: Glucose Point of Care 338 mg/dl (65-105)
[2021-01-06] VITALS (16 sets, daily range): BP systolic 91–119; BP diastolic 61–76; PULSE 70–132; RESP 14–20; TEMP 36.3–36.8; O2SAT 97–100
[2021-01-06] MEDS: METOPROLOL TARTRATE 25 MG TABLET PO (05:53)
[2021-01-06] MEDS: ENOXAPARIN 80 MG/0.8 ML SYRINGE 70 MG SUB-Q (05:53)
[2021-01-06 05:55] LABS: LDL Cholesterol Direct 103 mg/dL
[2021-01-06 05:56] LABS: Anion Gap 9 mmol/L (8-16); Blood Urea Nitrogen 24 mg/dL (7-17); Calcium 9.4 mg/dL (8.4-10.2); Carbon Dioxide 21 mmol/L (22-30); Chloride 103 mmol/L (98-107); Cholesterol 209 mg/dL (0-200); Estimated CRCL calculation 58 ml/min; Estimated Glomerular Filt Rate > 60; Glucose 125 mg/dL (65-110); HDL Direct 60 mg/dL; Magnesium 1.9 mg/dL (1.6-2.3); Potassium 3.9 mmol/L (3.4-5.0); Sodium 133 mmol/L (137-145); Triglycerides 206 mg/dL (<150)
[2021-01-06 08:25] LABS: Glucose Point of Care 117 mg/dl (65-105)
[2021-01-06] MEDS: PANTOPRAZOLE 40 MG TABLET PO ×2 (08:33→20:35)
[2021-01-06] MEDS: busPIRone HCL 5 MG TABLET PO ×2 (08:33→17:58)
[2021-01-06] MEDS: POTASSIUM CHLORIDE 10 MEQ TABLET.ER 20 MEQ PO (08:33)
[2021-01-06] MEDS: ASPIRIN 81 MG CHEWABLE TABLET 324 MG PO (08:33)
[2021-01-06] MEDS: FUROSEMIDE 40 MG TABLET PO (08:33)
[2021-01-06] MEDS: CYANOCOBALAMIN 500 MCG TABLET PO (08:33)
[2021-01-06] MEDS: metFORMIN HCL 500 MG TABLET 1000 MG PO ×2 (08:33→17:57)
[2021-01-06] MEDS: ATORVASTATIN 40 MG TABLET PO (08:34)
[2021-01-06 12:20] LABS: Glucose Point of Care 149 mg/dl (65-105)
--- NOTE | 2021-01-06 12:47 | PM.PNCARD ---
Progress Note: A&P Assessment and Plan (1) Atrial flutter with rapid ventricular response: Code(s): I48.92 - Unspecified atrial flutter Status: Acute Assessment and Plan: New onset, persistent symptomatic with chest pain, shortness of breath palpitations improved with rate control. Continue diltiazem infusion at 10 milligrams/hour for now. Add metoprolol IV 5 mg x 1 to observe response. Initially oral beta-nimisha therapy with atte Once again in detail, discussed CICI guided cardioversion to restore sinus rhythm if atrial flutter persistent and refractory to medical therapy. Patient understands the above and agrees. 2D echo with LV dysfunction EF 40-45% difficult assessment due to tachyarrhythmia. Echo personally reviewed and discussed. [id number] aortic stenosis. Monitor and replete electrolytes as appropriate to keep potassium above 4 magnesium around 2. Enoxaparin 1 milligram/kilogram subcutaneous q.12 hours for now with plans to transition over to oral systemic anticoagulation Eliquis 5 mg b.i.d. insurance permitting. Discussed risks, benefits, alternatives with cardioversion and medical management options. Patient in agreement. Recommendation to follow. Increase metoprolol to 50 mg p.o. q.8 hours tolerated. Discontinue diltiazem infusion if heart rate maintaining less than 120 beats per minute. NPO after midnight for CICI guided cardioversion. Continue enoxaparin 1 milligram/kilogram subcutaneous q.12 hours today. Transition to Eliquis 5 mg p.o. b.i.d. beginning this evening. Further recommendation to follow. (2) CAD (coronary artery disease): Code(s): I25.10 - Atherosclerotic heart disease of [place] coronary artery without angina pectoris Status: Acute Assessment and Plan: Chest pain secondary to atrial flutter with RVR, probable demand ischemia. Negative serial troponins without evidence for infarction or acute coronary event. Continue medical therapy with aspirin. Started Atorvastatin 40 mg at bedtime. LDL not ideally controlled 103 goal less than 70. (3) Asthma exacerbation: Qualifiers: Asthma severity: mild Asthma persistence: unspecified Qualified Code(s): J45.901 - Unspecified asthma with (acute) exacerbation Code(s): J45.901 - Unspecified asthma with (acute) exacerbation Status: Acute Assessment and Plan: Per primary service. Stable at this time. Discussed potential bronchoconstriction with beta-nimisha therapy. Will monitor closely although I suspect she will tolerate. Recommendation follow. (4) HTN (hypertension): Qualifiers: Hypertension type: primary hypertension Qualified Code(s): I10 - Essential (primary) hypertension Code(s): I10 - Essential (primary) hypertension Status: Acute Assessment and Plan: Stable, no acute issues at this time. Continue to monitor closely. Hold amlodipine and losartan, BP lower at times and this morning. (5) Type 2 diabetes mellitus with hyperglycemia: Code(s): E11.65 - Type 2 diabetes mellitus with hyperglycemia Status: Acute Assessment and Plan: Per primary service. Subjective Date/time seen: Date of service: 01/06/21 12:47 Follow-up for atrial flutter with rapid ventricular response, shortness of breath Patient had intermittent episodes of tachycardia which appeared to correspond with shortness of breath. No chest pain. Patient fatigued and shortness of breath with activity associated elevated heart rate. Otherwise heart rate has been under better range of 80s to low 100s. Probable atrial flutter with variable AV block, possible intermittent atrial fibrillation. Review of Systems Review of Systems: All systems reviewed & are unremarkable except as noted in HPI and below Constitutional: Constitutional: Reports as per HPI, Reports no additional constitutional complaints, Reports fatigue and Denies headache(s) Eyes: Eyes: Reports as per HPI a
[2021-01-06] MEDS: DOCUSATE SODIUM 100 MG CAPSULE PO (13:25)
[2021-01-06] MEDS: METOPROLOL TARTRATE 50 MG TAB PO ×2 (13:25→22:18)
--- NOTE | 2021-01-06 15:22 | PM.IMPN ---
Progress Note: A&P Assessment and Plan (1) Atrial flutter with rapid ventricular response: Code(s): I48.92 - Unspecified atrial flutter Status: Acute Assessment and Plan: - I discussed case with Cardiology Dr. Ramires for possible cardioversion tomorrow, will keep NPO midnight - increasing metoprolol to 50 mg q.8 hours and will try to remove diltiazem drip today - patient is an anticoagulation now Eliquis (2) Acute combined systolic and diastolic heart failure: Code(s): I50.41 - Acute combined systolic (congestive) and diastolic (congestive) heart failure Status: Acute Assessment and Plan: - continue home Lasix, breathing much more comfortably - new found reduced ejection fraction 40-44%, which may be secondary to tachyarrhythmia, will need to re-evaluate once heart rate is normalized - will stop Cozaar for switching to Entresto - have added beta-nimisha to help with AFib as well as heart failure, patient is on home Lasix already (3) Asthma exacerbation: Qualifiers: Asthma severity: mild Asthma persistence: unspecified Qualified Code(s): J45.901 - Unspecified asthma with (acute) exacerbation Code(s): J45.901 - Unspecified asthma with (acute) exacerbation Status: Acute Assessment and Plan: resolved (4) Acute respiratory failure with hypoxia: Code(s): J96.01 - Acute respiratory failure with hypoxia Status: Acute Assessment and Plan: resolved Additional Plan Diet: Diabetic, NPO midnight for possible cardioversion DVT prophylaxis: starting Eliquis Code status: Full code disposition: possible cardioversion tomorrow, home in 2-3 days Time Spent With Patient Time with patient: 25 - 35 minutes Subjective Date/time seen: 01/06/21 15:22 patient examined. she feels very exhausted even doing little activity, will have PT OT evaluate. I discussed case with Cardiology echocardiogram finding LV dysfunction EF 40-45% that was while patient was in tachyarrhythmia so it is unclear whether true ejection fraction may be once heart is settled. We will plan on Eliquis for anticoagulation, continue statin for hyperlipidemia, patient may require Entresto for heart failure. Plan will be to re-evaluate tomorrow for possible cardioversion. Will keep NPO at midnight. Patient denies fever, chills nausea, vomiting, diarrhea, chest pain, abdominal pains. She endorses generalized weakness. Review of Systems Review of Systems: All systems reviewed & are unremarkable except as noted in HPI and below Exam Narrative: - GENERAL: No acute distress. Well-nourished. pleasant older woman - EYES: EOMI. Anicteric. - HENT: Moist mucous membranes. - LUNGS: Clear to auscultation bilaterally - CARDIOVASCULAR: Irregularly irregular. No murmur. - ABDOMEN: Soft, non-tender and non-distended - EXTREMITIES: trace edema. Peripheral pulses 2+ - NEUROLOGIC: No focal neurological deficits. CN II-XII grossly intact. - PSYCHIATRIC: Awake, Alert and oriented x 3. Appropriate mood and affect. - SKIN: No rashes or lesions. Warm. - LYMPH: No cervical lymphadenopathy. Objective Data Vital Signs Vital Signs: Vital Signs - 24 hr 01/05/21 16:00 01/05/21 17:55 01/05/21 19:27 Temperature 36.4 C 36.6 C Pulse Rate 79 67 74 Respiratory Rate 14 20 Blood Pressure 107/58 L 98/62 L Pulse Oximetry 96 97 01/05/21 20:00 01/05/21 21:01 01/05/21 22:00 Temperature Pulse Rate 74 81 86 Respiratory Rate Blood Pressure Pulse Oximetry 97 01/06/21 00:00 01/06/21 02:00 01/06/21 04:00 Temperature 36.3 C L 36.8 C Pulse Rate 109 H 100 87 Respiratory Rate 16 16 Blood Pressure 104/62 103/67 Pulse Oximetry 99 99 01/06/21 05:53 01/06/21 06:00 01/06/21 08:00 Temperature 36.5 C Pulse Rate 94 89 81 Respiratory Rate 14 Blood Pressure 109/65 Pulse Oximetry 97 01/06/21 09:52 01/06/21 12:00 01/06/21 13:25 Temperature 36.4 C L Pulse Rate 111 H 93 102
[2021-01-06 17:19] LABS: Glucose Point of Care 198 mg/dl (65-105)
[2021-01-06 20:28] LABS: Glucose Point of Care 173 mg/dl (65-105)
[2021-01-06] MEDS: APIXABAN 5 MG TABLET PO (20:32)
[2021-01-07] VITALS (20 sets, daily range): BP systolic 103–122; BP diastolic 56–86; PULSE 57–106; RESP 16–22; TEMP 35.6–36.6; O2SAT 95–100
--- NOTE | 2021-01-07 | ECHO_ITS ---
Patient: Fina Adair MR#: [id number] : 1945 Acct:[id number] Age/Sex: 75 / F ADM Date: 1 Loc: [facility] 206-[address]: Nico Oglesby MD cc: Ayden Gardner MD; Antonio Oglesby MD; Antonio Duarte MD~ TRANSESOPHAGEAL ECHOCARDIOGRAM/CARDIOVERSION Date of procedure:: 01/07/21 Performing physician:: Pierre Nieto MD Indication:: recurrent, symptomatic atrial fib Brief clinical history:: this is a 75-year-old woman with a previous history of coronary disease, surgical revascularization and atrial fibrillation. She entered the hospital with some shortness of breath felt to be have modest congestive heart failure and also in atrial fibrillation in a recurrent fashion. She has been anticoagulated with apixaban and rate controlled with metoprolol. SUKH/cardioversion was recommended to attempt to restore sinus rhythm. Procedure Procedure performed:: Sukh/cardioversion Sedation/Medication given:: intravenous propofol and aliquots total dosage of 70 mg given Estimated blood loss:: no blood loss Procedure note:: patient was brought to the veterinarian laboratory animal care holding area in the postabsorptive state. She was in the supine position where defibrillator patches were placed in the AP position. we then administered topical benzocaine for or pharyngeal topical anesthesia. After this the defibrillator patches were placed in the AP position. The patient then had a bite block placed and she was given propofol 1st dose of 40 mg was given which provided very good sedation for SUKH. The a atrium was dilated and inspected carefully. There was evidence of spontaneous contrast or so-called smoke in the left atrium but no discernible thrombus was identified. The SUKH probe was then withdrawn and the patient was given an additional 30 mg of propofol and after additional sedation was cardioverted in a synchronized fashion using 200 joules restoring sinus bradycardia heart rate of 50. Findings:: As above Conclusion:: successful uncomplicated DC cardioversion following SUHK which was performed to rule out presence of left atrial clot. Two hundred joules was used to successfully restore sinus rhythm. Pierre Nieto MD [facility] This dictation may have been done utilizing a voice recognition system. Attempts have been made to correct errors. However, there may be uncorrected grammatical, spelling, and recognition errors present. Report Initialized date/time: Pierre Nieto MD 01/07/21 / 1237 Electronically signed by: Pierre Nieto MD 01/07/21 1237 [facility]
[2021-01-07 05:25] LABS: Anion Gap 8 mmol/L (8-16); Blood Urea Nitrogen 21 mg/dL (7-17); Calcium 9.2 mg/dL (8.4-10.2); Carbon Dioxide 21 mmol/L (22-30); Chloride 106 mmol/L (98-107); Estimated CRCL calculation 58 ml/min; Estimated Glomerular Filt Rate > 60; Glucose 150 mg/dL (65-110); Magnesium 1.6 mg/dL (1.6-2.3); Sodium 135 mmol/L (137-145)
[2021-01-07] MEDS: METOPROLOL TARTRATE 50 MG TAB PO ×2 (05:57→14:00)
[2021-01-07 09:09] LABS: Glucose Point of Care 186 mg/dl (65-105)
[2021-01-07] MEDS: POTASSIUM CHLORIDE 10 MEQ TABLET.ER 20 MEQ PO (09:32)
[2021-01-07] MEDS: ASPIRIN 81 MG CHEWABLE TABLET 324 MG PO (09:33)
[2021-01-07] MEDS: MAGNESIUM SULF 2 GM/WATER 50ML 2 GM/50 ML BAG IVPB (09:39)
[2021-01-07] MEDS: APIXABAN 5 MG TABLET PO (09:44)
[2021-01-07] MEDS: ATORVASTATIN 40 MG TABLET PO (09:44)
[2021-01-07] MEDS: busPIRone HCL 5 MG TABLET PO ×2 (09:44→17:32)
[2021-01-07] MEDS: FUROSEMIDE 40 MG TABLET PO (09:45)
[2021-01-07] MEDS: CYANOCOBALAMIN 500 MCG TABLET PO (09:45)
[2021-01-07] MEDS: PANTOPRAZOLE 40 MG TABLET PO (09:45)
--- NOTE | 2021-01-07 12:11 | WPDMODSED ---
Moderate Sedation Note-Pt Data Patient Data Diagnosis: atrial fibrillation recurrent /symptomatic coronary artery disease with previous CABG Present Complaint: shortness of breath Procedure to be performed/Plan: CICI/cardioversion Allergies Allergy/AdvReac Type Severity Reaction Status Date / Time Sulfa (Sulfonamide Allergy Intermediate Difficulty Verified 01/03/21 08:54 Antibiotics) Breathing codeine Allergy Mild Gastrointestinal Verified 01/03/21 08:54 Upset Home Medications Medication Instructions Recorded Confirmed Type albuterol sulfate 90 mcg/actuation 1 inhalation INHALATION Q4H PRN 08/18/19 01/03/21 Rx aerosol inhaler #18 gm meclizine 25 mg PO TID PRN #14 tablet 06/28/20 01/03/21 Rx potassium chloride 10 mEq 20 meq PO DAILY #180 cap 08/01/20 01/03/21 Rx capsule,extended release lancets 30 gauge #100 each 08/23/20 01/03/21 Rx blood sugar diagnostic #100 each 10/09/20 01/03/21 Rx amlodipine 5 mg tablet 5 mg PO DAILY #30 tablet 12/03/20 01/03/21 Rx acetaminophen [Tylenol] 650 mg PO Q4H PRN 01/03/21 01/03/21 History aspirin 324 mg PO DAILY 01/03/21 01/03/21 History buspirone 5 mg PO BID 01/03/21 01/03/21 History cyanocobalamin (vitamin B-12) 500 mcg PO DAILY 01/03/21 01/03/21 History [Vitamin B-12] furosemide 40 mg PO DAILY 01/03/21 01/03/21 History lorazepam 1 mg PO Q6H PRN 01/03/21 01/03/21 History losartan 50 mg PO DAILY 01/03/21 01/03/21 History omeprazole 40 mg PO DAILY 01/03/21 01/03/21 History ondansetron HCl 4 mg PO Q8H PRN 01/03/21 01/03/21 History sitagliptin-metformin [Janumet] 1 tablet PO BIDWM 01/03/21 01/03/21 History Current Medications: Active Medications Acetaminophen (Acetaminophen 325 Mg Tablet) 650 mg PO Q4H PRN PRN Reason: Pain Last Admin: 01/05/21 21:48 Dose: 650 mg Documented by: Albuterol (Albuterol Sulfate (*Sp) Aerosol 1 Puff) 1 puff INHALATION Q4H PRN PRN Reason: shortness of breath or wheezing Amlodipine Besylate (Amlodipine Besylate 5 Mg Tablet) 5 mg PO DAILY [facility] Last Admin: 01/05/21 09:14 Dose: 5 mg Documented by: Apixaban (Apixaban 5 Mg Tablet) 5 mg PO Q12HR [facility] Last Admin: 01/07/21 09:44 Dose: 5 mg Documented by: Aspirin (Aspirin 81 Mg Chewable Tablet) 324 mg PO DAILY@0800 [facility] Last Admin: 01/07/21 09:33 Dose: 324 mg Documented by: Atorvastatin Calcium (Atorvastatin 40 Mg Tablet) 40 mg PO DAILY [facility] Last Admin: 01/07/21 09:44 Dose: 40 mg Documented by: Benzonatate (Benzonatate 100 Mg Capsule) 200 mg PO Q6HR PRN PRN Reason: Cough Last Admin: 01/04/21 21:19 Dose: 200 mg Documented by: Buspirone HCl (Buspirone Hcl 5 Mg Tablet) 5 mg PO BID [facility] Last Admin: 01/07/21 09:44 Dose: 5 mg Documented by: Cyanocobalamin (Cyanocobalamin 500 Mcg Tablet) 500 mcg PO DAILY [facility] Last Admin: 01/07/21 09:45 Dose: 500 mcg Documented by: Dextrose (Dextrose 50% 25 Gm/50 Ml Syringe) 12.5 gm IV PUSH PRN PRN; Protocol PRN Reason: Hypoglycemia Docusate Sodium (Docusate Sodium 100 Mg Capsule) 100 mg PO Q12H PRN PRN Reason: Constipation Last Admin: 01/06/21 13:25 Dose: 100 mg Documented by: Furosemide (Furosemide 40 Mg Tablet) 40 mg PO DAILY [facility] Last Admin: 01/07/21 09:45 Dose: 40 mg Documented by: Glucagon (Glucagon For Inj 1 Mg Vial) 1 mg IM PRN PRN; Protocol PRN Reason: Hypoglycemia Glucose (Glucose Oral Gel 15 Gm Of Glucse In 37.5 Gm Tube) 15 gm PO PRN PRN; Protocol PRN Reason: Hypoglycemia Dextrose (Dextrose 5% 1,000 Ml) 1,000 mls @ 100 mls/hr IVPB PRN PRN; Protocol PRN Reason: Hypoglycemia Insulin Aspart (Insulin Aspart (*Bkc) 100 Units/Ml) 3 - 6 units SUB-Q TIDWM [facility]; Protocol Last Admin: 01/07/21 09:30 Dose: Not Given Documented by: Ipratropium [place] (Ipratropium Br 0.02% Inh Soln 0.5 Mg/2.5 Ml Vial) 0.5 mg INHALATION Q6HRT PRN PRN Reason: Dyspnea Levalbuterol HCl (Levalbuterol Neb 1.25 Mg/0.5 Ml) 1.25 mg INHALATION Q6HRT PRN PRN Reason: Dyspnea Lorazepam (Lorazepam (*Crx) 1 Mg Tablet) 1 mg PO Q6H PRN PRN Reason: anx
--- NOTE | 2021-01-07 12:34 | WPDCARDPROC ---
Cardiac Cath Procedure Note Date of procedure:: 01/07/21 Performing physician:: Pierre Nieto MD Indication:: recurrent, symptomatic atrial fib Brief clinical history:: this is a 75-year-old woman with a previous history of coronary disease, surgical revascularization and atrial fibrillation. She entered the hospital with some shortness of breath felt to be have modest congestive heart failure and also in atrial fibrillation in a recurrent fashion. She has been anticoagulated with apixaban and rate controlled with metoprolol. SUKH/cardioversion was recommended to attempt to restore sinus rhythm. Procedure Procedure performed:: Sukh/cardioversion Sedation/Medication given:: intravenous propofol and aliquots total dosage of 70 mg given Estimated blood loss:: no blood loss Procedure note:: patient was brought to the agricultural labor camp manager holding area in the postabsorptive state. She was in the supine position where defibrillator patches were placed in the AP position. we then administered topical benzocaine for or pharyngeal topical anesthesia. After this the defibrillator patches were placed in the AP position. The patient then had a bite block placed and she was given propofol 1st dose of 40 mg was given which provided very good sedation for SUKH. The a atrium was dilated and inspected carefully. There was evidence of spontaneous contrast or so-called smoke in the left atrium but no discernible thrombus was identified. The SUKH probe was then withdrawn and the patient was given an additional 30 mg of propofol and after additional sedation was cardioverted in a synchronized fashion using 200 joules restoring sinus bradycardia heart rate of 50. Findings:: As above Conclusion:: successful uncomplicated DC cardioversion following SUKH which was performed to rule out presence of left atrial clot. Two hundred joules was used to successfully restore sinus rhythm. Pierre Nieto MD [facility]
[2021-01-07 12:36] LABS: Glucose Point of Care 182 mg/dl (65-105)
--- NOTE | 2021-01-07 12:39 | ECG_ITS ---
Measurements Intervals [place] Rate: 53 P: 54 NH: 154 QRS: -52 QRSD: 111 T: 71 QT: 464 QTc: 436 Interpretive Statements SINUS BRADYCARDIA ATRIAL PREMATURE COMPLEX LOW QRS VOLTAGE IN PRECORDIAL LEADS ANTEROSEPTAL INFARCT, AGE INDETERMINATE INFERIOR INFARCT, AGE INDETERMINATE ST-T WAVE ABNORMALITY IN HIGH LATERAL LEADS- CONSIDER ISCHEMIA ABNORMAL ECG Electronically Signed On 01-07-2021 12:45:33 CDT by Martínez Steinberg D.O.
--- NOTE | 2021-01-07 16:50 | PM.DS ---
DS: Admitting Diagnosis Admitting Diagnosis Asthma exacerbation DS: Discharge Diagnosis Discharge Diagnosis (1) Asthma exacerbation: Qualifiers: Asthma severity: mild Asthma persistence: unspecified Qualified Code(s): J45.901 - Unspecified asthma with (acute) exacerbation Code(s): J45.901 - Unspecified asthma with (acute) exacerbation Status: Acute Assessment and Plan: Patient presented with wheezing and history of asthma exacerbation with improvement with albuterol. She appeared to be in asthma exacerbation treated with steroids and DuoNebs. However she had rapid improvement and steroids were discontinued (2) Acute combined systolic and diastolic heart failure: Code(s): I50.41 - Acute combined systolic (congestive) and diastolic (congestive) heart failure Status: Acute Assessment and Plan: Echocardiogram was done while patient was in atrial flutter, EF reduced to 40-45%, left ventricle septal wall motion abnormal with septal motion related to bundle-branch block. The reduced EF is new on this hospitalization, it may be related to the flutter so is unclear what her true ejection fraction is. We discussed starting beta-nimisha, patient is already on an Arb. Patient will follow-up with cardiology to see if she needs to be on Entresto and further management of her heart failure. She will be started on cholesterol medication statin Lipitor. She could not tolerate statin therapy in the past, however she will try again, she may be a candidate for Repatha or an alternative. Patient was weaned very quickly on to room air after single dose of diuretic, with her wheezing and lack of rales unclear how much of a component of her dyspnea was from heart failure as opposed asthma exacerbation. (3) Atrial flutter with rapid ventricular response: Code(s): I48.92 - Unspecified atrial flutter Status: Acute Assessment and Plan: Patient at 1st was thought to have developed atrial tachycardia secondary to the albuterol which was you being used for treating asthma. Later appeared to be in atrial flutter rhythm. She was started on diltiazem drip and started on metoprolol with not much improvement she was subsequently cardioverted with 200 joules x1. She return to normal sinus rhythm and will be continued on metoprolol succinate 100 mg daily for rate control. For anticoagulation she will be on apixaban. Patient will follow-up with cardiology for any other medication changes. (4) Acute respiratory failure with hypoxia: Code(s): J96.01 - Acute respiratory failure with hypoxia Status: Acute Assessment and Plan: Secondary to asthma exacerbation, resolved DS: Summary Hospital Course Reason for hospitalization: Shortness of breath, asthma exacerbation Hospital Course: Patient is a 75-year-old female with past medical history of anxiety, is asthma, CHF, CAD, [place] status post CABG, type 2 diabetes who presents to ED with complaints of dyspnea. She is found to have significant wheezing throughout on lung exam suggesting asthma exacerbation as per her history of asthma. She had not had an asthma exacerbation in many years however over last week she has been using her rescue inhaler many times which has helped. She has no known triggers for asthma exacerbations no new chemicals or exposures. She was treated with DuoNebs and steroids with rapid improvement weaning down to room air the next day. Her steroids were stopped and patient may need further workup for her asthma. She may need outpatient PFTs. For now we will continue rescue inhaler and she will follow-up with PCP for further management of asthma especially considering this is been very rare episodes of exacerbations. She then developed a tachyarrhythmia at 1st thought to be atrial tachycardia later found to be atrial flutter which did not improve despite being on diltiazem drip and metoprolol. She successfully was cardioverted with 200
[2021-01-07 17:10] LABS: Glucose Point of Care 234 mg/dl (65-105)
== END 2021-01-07 17:35 | disposition home or self-care (01) | DRG 292 ==
LOC: ANHED 07:40 → ANH3MEDSUR 08:06 → ANHIMU 01-05 04:45
PROVIDERS: Internal Medicine; Internal Medicine Cardiovascular Disease; Specialist; Admitting Provider Internal Medicine; Emergency Provider Emergency Medicine; PCP Family Medicine; Visit Provider Student in an Organized Health Care Education/Training Program
PROC: 5A2204Z Restoration of Cardiac Rhythm, Single (ICD-10-PCS; principal; 2021-01-07 12:30)
PROC: B24BZZ4 Ultrasonography of Heart with Aorta, Transesophageal (ICD-10-PCS; CPT 93312; 2021-01-07 12:30)
DX: I11.0 Hypertensive heart disease with heart failure (principal); J45.901 Unspecified asthma with (acute) exacerbation; I48.92 Unspecified atrial flutter; I50.33 Acute on chronic diastolic (congestive) heart failure; E11.65 Type 2 diabetes mellitus with hyperglycemia; H81.10 Benign paroxysmal vertigo, unspecified ear; I25.10 Atherosclerotic heart disease of native coronary artery without angina pectoris; E11.649 Type 2 diabetes mellitus with hypoglycemia without coma
CPT/HCPCS: 36415; 71045; 80048; 80053; 80061; 81003; 82948; 83605; 83735; 83880; 84443; 84484; 85025; 85610; 85730; 92960; 93005; 93312; 93320; 93325; 94640; 96365; 96366; 96372; 96374; 96375; 96376; 97161; 97165; 99285; A9270; C8929; G0378; J1650; J1815; J1940; J2270; J2704; J2930; J3475; J7040; J7512; Q9957

== ENCOUNTER 2021-01-12 20:23 | Observation (INO) | payer MEDICARE, SELFPAY ==
--- NOTE | ~2021-01-12 | XR_ITS ---
EXAMINATION: XR chest 2V DATE: 01/12/2021 21:00 INDICATION: Chest tightness and shortness of breath. TECHNIQUE: PA and lateral views of the chest were obtained. COMPARISON: Chest radiograph dated 01/05/2021 FINDINGS: Minimally increased interstitial pattern at the lower lung zones consistent with mild pulmonary edema . Tiny right pleural effusion. No pneumothorax. Mild cardiomegaly. Median sternotomy wires, ostial ma rkers and mediastinal surgical clips consistent with prior coronary artery bypass grafting. Thoracolu mbar levocurvature with moderate to severe spondylosis. IMPRESSION: 1. Minimal increased interstitial pattern at the lower lung zones most likely mild pulmonary edema wi th differential including less likely pneumonia. 2. Tiny right pleural effusion. 3. Cardiomegaly. Reviewed, dictated and finalized at location A. IMPRESSION: 1. Minimal increased interstitial pattern at the lower lung zones most likely m ild pulmonary edema with differential including less likely pneumonia. 2. Tiny right pleural effusion. 3. Cardiomegaly.
--- NOTE | ~2021-01-12 | CT_ITS ---
EXAMINATION: CTA chest PE protocol DATE: 01/12/2021 21:18 INDICATION: Shortness of breath TECHNIQUE: Computed tomography (CT) pulmonary angiogram of the chest was performed with 100 mL Omnipa que-350 intravenous contrast. Additional 3D reconstructions utilizing coronal maximum intensity proje ction (MIP) were performed. Automated exposure control and iterative reconstruction technique were em ployed. The dose-length product was 358.45 mGy-cm. COMPARISON: None FINDINGS: Excellent contrast opacification of the pulmonary arteries. There is mild streak artifact from dense contrast in the superior vena cava and right atrium. Minimal scattered respiratory motion artifact wh ich does not significantly limit evaluation. No pulmonary embolism. Mild smooth septal line thickenin g at the basilar left lower lobe consistent with minimal pulmonary edema. Small right pleural effusio n with minimal atelectasis at the right posterior sulcus. Mild emphysema. No pneumonia. Borderline he art size with biatrial enlargement. Postoperative change of prior median sternotomy and coronary khoi ry bypass grafting. Thoracic aorta is normal in caliber. No pathologically enlarged thoracic lymphade nopathy. Diffuse hepatic steatosis. Moderate thoracic spondylosis. IMPRESSION: 1. No pulmonary embolism. 2. Likely congestive heart failure with borderline heart size, minimal pulmonary edema at the left jacqueline ng base and small right pleural effusion. 3. Mild emphysema. 4. Diffuse hepatic steatosis. Reviewed, dictated and finalized at location A. IMPRESSION: 1. No pulmonary embolism. 2. Likely congestive heart failure with borderline heart size, minimal pulmonar y edema at the left lung base and small right pleural effusion. 3. Mild emphysema. 4. Diffuse hepatic steatosis.
--- NOTE | 2021-01-12 20:31 | ECG_ITS ---
Measurements Intervals [place] Rate: 54 P: MS: 0 QRS: -53 QRSD: 111 T: 34 QT: 457 QTc: 434 Interpretive Statements SINUS RHYTHM WITH SINUS ARRHYTHMIA AND WITH SHORT MS INTERVAL LEFT AXIS DEVIATION INTRAVENTRICULAR CONDUCTION DELAY INFERIOR INFARCT, AGE INDETERMINATE ANTEROSEPTAL INFARCT, AGE INDETERMINATE BASELINE ARTIFACT- I, II, AVR, AVL, AVF, V1-V6 ABNORMAL ECG Electronically Signed On 01-13-2021 6:49:44 CDT by Martínez Steinberg D.O.
[2021-01-12 20:42] VITALS: BP 135/64; PULSE 54; RESP 17; TEMP 36.3; O2SAT 100
[2021-01-12 21:17] LABS: Estimated CRCL calculation 50 ml/min; Estimated Glomerular Filt Rate > 60
[2021-01-12 21:24] LABS: Basophils Percent Auto 0.3 % (0.2-1.2); Eosinophils Absolute Auto 0.1 K/mm3 (0-0.3); Eosinophils Percent Auto 1.2 % (0-4.4); Hematocrit 35.7 % (37.0-47.0); Hemoglobin 10.9 g/dL (12.0-15.0); Immature Granulocyte Absolute 0.08 K/mm3 (0.00-0.031); Immature Granulocyte Percent A 0.8 % (0-0.5); Lymphocytes Percent Auto 26.3 % (18.3-44.2); Mean Corpuscular HGB Conc 30.5 g/dl (32-36); Mean Corpuscular Hemoglobin 26.2 pg (26-34); Mean Corpuscular Volume 85.8 fl (80-100); Mean Platelet Volume 12.2 fl (7.4-10.4); Monocytes Absolute Auto 0.6 K/mm3 (0.1-0.6); Monocytes Percent Auto 6.5 % (2.6-8.5); Neutrophils Absolute Auto 6.2 K/mm3 (1.3-6.7); Neutrophils Percent Auto 64.9 % (45.5-73.1); Platelet Count Result 226 k/mm3 (150-375); Red Blood Count 4.16 M/mm3 (4.2-5.4); Red Cell Distribution Width 16.8 % (11.5-14.5); White Blood Count 9.5 K/mm3 (4.5-10.0)
[2021-01-12 21:29] LABS: INR 1.1; Partial Thromboplastin Time 28.6 SECONDS (22.3-36.8); Prothrombin Time 14.3 Seconds (11.1-14.7)
[2021-01-12 21:30] LABS: Alanine Aminotransferase 90 U/L (4-35); Alkaline Phosphatase 126 U/L (38-126); Anion Gap 13 mmol/L (8-16); Aspartate Amino Transferase 53 U/L (14-36); Bilirubin,Total 0.6 mg/dL (0.2-1.3); Blood Urea Nitrogen 18 mg/dL (7-17); Calcium 9.3 mg/dL (8.4-10.2); Carbon Dioxide 19 mmol/L (22-30); Chloride 105 mmol/L (98-107); Estimated CRCL calculation 50 ml/min; Estimated Glomerular Filt Rate > 60; Glucose 127 mg/dL (65-110); Potassium 4.6 mmol/L (3.4-5.0); Sodium 137 mmol/L (137-145)
[2021-01-12 21:31] VITALS: BP 122/59; PULSE 54; RESP 12; O2SAT 99
[2021-01-12 21:42] LABS: NT Pro B Type Natriuretic Pept 1380 pg/mL (5-100); Troponin I < 0.012 ng/mL (0.000-0.034)
[2021-01-12] MEDS: FUROSEMIDE INJ 40 MG/4 ML VIAL IV PUSH (22:14)
--- NOTE | 2021-01-12 22:30 | ED.SOB ---
HPI - SOB/Dyspnea General Chief Complaint: Shortness of Breath/Dyspnea Stated Complaint: short of breath Time Seen by Provider: 01/12/21 20:39 History of Present Illness HPI Narrative: Patient presents with shortness of breath. Patient reports recent hospitalization for asthma CHF A. fib requiring cardioversion. Patient initially felt well on discharge however since that time she has been having increasing shortness of breath and difficult to see with minimal physical activity so she came back in for repeat evaluation. She denies any chest pain or cough she reports mild lightheadedness denies any fevers, chills, nausea, vomiting Related Data Home Medications Medication Instructions Recorded Confirmed Janumet 1 tablet PO BIDWM 01/03/21 01/03/21 acetaminophen [Tylenol] 650 mg PO Q4H PRN 01/03/21 01/03/21 aspirin 324 mg PO DAILY 01/03/21 01/03/21 buspirone 5 mg PO BID 01/03/21 01/03/21 cyanocobalamin (vitamin B-12) 500 mcg PO DAILY 01/03/21 01/03/21 [Vitamin B-12] furosemide 40 mg PO DAILY 01/03/21 01/03/21 lorazepam 1 mg PO Q6H PRN 01/03/21 01/03/21 losartan 50 mg PO DAILY 01/03/21 01/03/21 omeprazole 40 mg PO DAILY 01/03/21 01/03/21 ondansetron HCl 4 mg PO Q8H PRN 01/03/21 01/03/21 Allergies Allergy/AdvReac Type Severity Reaction Status Date / Time Sulfa (Sulfonamide Allergy Intermediate Difficulty Verified 01/03/21 08:54 Antibiotics) Breathing codeine Allergy Mild Gastrointestinal Verified 01/03/21 08:54 Upset Review of Systems Review of Systems: CONSTITUTIONAL: Denies fever, chills, or sweats. EYES: Denies visual changes, redness, or discharge. ENT: Denies rhinorrhea, congestion, sore throat, or otalgia. CARDIOVASCULAR: Denies chest pain, palpitations, or edema. RESPIRATORY: Reports shortness of breath GASTROINTESTINAL: Denies abdominal pain, nausea, vomiting, or diarrhea. GENITOURINARY: Denies dysuria or hematuria. SKIN: Denies rash or itching. MUSCULOSKELETAL: Denies back pain, joint pain, or myalgia. NEUROLOGIC: Denies headache, numbness, or weakness. PSYCHIATRIC: Denies anxiety or depression. All systems reviewed & are unremarkable except as noted in HPI and below PMFSH Past Medical History Medical History Anxiety CAD (coronary artery disease) CHF (congestive heart failure) Chronic GERD Hypertensive heart disease with heart failure Mild asthma [place] (myocardial infarction) Type 2 diabetes mellitus with hyperglycemia Vertigo Vitamin B12 deficiency Surgical History Surgical History Hx of CABG Family History Family History Sibling Family history of chronic obstructive pulmonary disease Father Family history of diabetes mellitus in first degree relative Family history of heart disease in male family member before age 55 Diabetes mellitus Family history of cardiovascular disease Mother Family history of lung cancer Social History Social History Smoking status: Never smoker Alcohol intake: never Substance use: never Gender identity (if verbalized by the patient): Female Spiritual care concerns: No Exam Narrative: GENERAL: Well-appearing, well-nourished, and in no acute distress. HEAD: Normocephalic, atraumatic. EYES: PERRLA and EOMI. ENT: Nares clear, no rhinorrhea or epistaxis. Mucous membranes moist. NECK: Supple. No masses. No JVD CHEST: Clear to auscultation. No respiratory distress. No wheezes rales or rhonchi HEART: Irregular bradycardia. No murmur heard. Normal peripheral pulses. ABDOMEN: Soft, nontender, nondistended, normal active bowel sounds. EXTREMITIES: Normal range of motion. No edema. SKIN: Warm, dry, no rash. NEURO: No focal deficits. Alert and oriented x3. PSYCH: Normal mood and affect. Course Reevaluation(s) Reevaluation #1: P
[2021-01-12 23:41] VITALS: BP 109/50; PULSE 54; RESP 20; O2SAT 99
[2021-01-13] VITALS (10 sets, daily range): BP systolic 109–128; BP diastolic 48–59; PULSE 49–60; RESP 16–20; TEMP 35.7–36.6; O2SAT 96–99; BMI 25.7
[2021-01-13 00:18] LABS: Troponin I < 0.012 ng/mL (0.000-0.034)
--- NOTE | 2021-01-13 01:14 | ADMGEN ---
This patient, Fina Adair, was admitted to 3 Med Surg Room 321-01. Patient/family oriented to hospital policies and general routines including ID bracelet, bed and alarms, visiting hours, pain management, procedures, bathroom and other care routines, personal items, smoking policy, room service/diet, and visiting hours. Information on how to activate the Rapid Response Team has been discussed. Patient/Family are encouraged to report perceived risks to care and to ask questions if they do not understand what they are told or what they should do.
--- NOTE | 2021-01-13 02:12 | PM.IMHP ---
H&P: HPI History of Present Illness Date/Time: 01/13/21 02:13 Chief Complaint: Shortness of breath Narrative: Patient presents with shortness of breath. Patient reports recent hospitalization for asthma CHF A. fib requiring cardioversion. Patient initially felt well on discharge however since thursday she started noticing increased shortness of breath with minimal activity. She went to see her cableman on Thursday and had an EKG done which showed normal sinus rhythm she was sent home over the weekend she started getting more short of breath with minimal physical activity and hence came in for evaluation She denies any chest pain or cough she reports mild lightheadedness denies any fevers, chills, nausea, vomiting. Repeat EKG in the ER reveals atrial fibrillation Chest x-ray with minimal increased interstitial pattern to the lower lung zones most likely mild pulmonary edema with differential included a less likely pneumonia. Tiny right pleural effusion. Cardiomegaly CTA with no PE likely congestive heart failure with borderline heart size, minimal pulmonary edema at the left lung base and small right pleural effusion. Mild emphysema. Diffuse hepatic steatosis Review of Systems Review of Systems: - CONSTITUTIONAL: Denies weight loss, fever and chills. - HEENT: Denies changes in vision and hearing - RESPIRATORY: Reports SOB and denies cough. - CV: Denies palpitations and CP. - GI: Denies abdominal pain, nausea, vomiting and diarrhea. - : Denies dysuria and urinary frequency. - MSK: Denies myalgia and joint pain. - SKIN: Denies rash and pruritus. - NEUROLOGICAL: Denies headache and syncope. - PSYCHIATRIC: Denies recent changes in mood. Denies anxiety and depression. All systems reviewed & are unremarkable except as noted in HPI and below Constitutional: Constitutional: Reports fatigue and Reports weakness Neurologic: Reports weakness Endocrine: Endocrine: Reports fatigue [facility] Past Medical History Medical History Anxiety CAD (coronary artery disease) CHF (congestive heart failure) Chronic GERD Hypertensive heart disease with heart failure Mild asthma [place] (myocardial infarction) Type 2 diabetes mellitus with hyperglycemia Vertigo Vitamin B12 deficiency Surgical History Surgical History Hx of CABG Family History Family History Sibling Family history of chronic obstructive pulmonary disease Father Family history of diabetes mellitus in first degree relative Family history of heart disease in male family member before age 55 Diabetes mellitus Family history of cardiovascular disease Mother Family history of lung cancer Social History Social History Smoking status: Never smoker Alcohol intake: never Substance use: never Gender identity (if verbalized by the patient): Female Spiritual care concerns: No Meds Home Medications and Allergies Home Medications Medication Instructions Recorded Confirmed Type meclizine 25 mg PO TID PRN #14 tablet 06/28/20 01/13/21 Rx potassium chloride 10 mEq 20 meq PO DAILY #180 cap 08/01/20 01/13/21 Rx capsule,extended release lancets 30 gauge #100 each 08/23/20 01/13/21 Rx blood sugar diagnostic #100 each 10/09/20 01/13/21 Rx amlodipine 5 mg tablet 5 mg PO DAILY #30 tablet 12/03/20 01/13/21 Rx Janumet 1 tablet PO BIDWM 01/03/21 01/13/21 History acetaminophen [Tylenol] 650 mg PO Q4H PRN 01/03/21 01/13/21 History aspirin 324 mg PO DAILY 01/03/21 01/13/21 History buspirone 5 mg PO BID 01/03/21 01/13/21 History cyanocobalamin (vitamin B-12) 500 mcg PO DAILY 01/03/21 01/13/21 History [Vitamin B-12] furosemide 40 mg PO DAILY 01/03/21 01/13/21 History lorazepam 1 mg PO Q6H PRN 01/03/21 01/13/21 History losartan 50 mg PO DAILY 01/03
[2021-01-13 03:38] LABS: Troponin I < 0.012 ng/mL (0.000-0.034)
--- NOTE | 2021-01-13 06:00 | ECG_ITS ---
Measurements Intervals [place] Rate: 49 P: 39 CT: 123 QRS: -54 QRSD: 109 T: 8 QT: 513 QTc: 465 Interpretive Statements SINUS BRADYCARDIA WITH SHORT CT INTERVAL EXTENSIVE ANTERIOR INFARCT, AGE INDETERMINATE INFERIOR INFARCT, AGE INDETERMINATE BORDERLINE ST ABNORMALITY- HIGH LATERAL LEADS ABNORMAL ECG Electronically Signed On 01-13-2021 12:05:20 CDT by Martínez Steinberg D.O.
[2021-01-13] MEDS: POTASSIUM CHLORIDE 20 MEQ TABLET PO (08:37)
[2021-01-13] MEDS: metFORMIN HCL 500 MG TABLET 1000 MG PO (08:37)
[2021-01-13] MEDS: ASPIRIN 81 MG CHEWABLE TABLET 324 MG PO (08:37)
[2021-01-13] MEDS: FUROSEMIDE INJ 40 MG/4 ML VIAL IV PUSH ×2 (08:38→16:47)
[2021-01-13] MEDS: CYANOCOBALAMIN 500 MCG TABLET PO (08:38)
[2021-01-13] MEDS: LOSARTAN POTASSIUM 50 MG TABLET PO (08:38)
[2021-01-13] MEDS: busPIRone HCL 5 MG TABLET PO ×2 (08:38→16:47)
[2021-01-13] MEDS: APIXABAN 5 MG TABLET PO ×2 (08:38→20:17)
[2021-01-13] MEDS: amLODIPine BESYLATE 5 MG TABLET PO (08:38)
[2021-01-13] MEDS: METOPROLOL SUCCINATE EXT REL 100 MG TABCR PO (08:39)
[2021-01-13] MEDS: PANTOPRAZOLE 40 MG TABLET PO (08:40)
[2021-01-13] MEDS: ATORVASTATIN 40 MG TABLET PO (09:46)
[2021-01-13 09:57] LABS: Glucose Point of Care 152 mg/dl (65-105)
--- NOTE | 2021-01-13 11:50 | PC.NURSE ---
Patient c/o mid sternal chest pressure, denies pain states feels short of breath. b/p 142/67 pulse 54 resp 20 100% on room air. states may have had this pain along time ago, doesn't remember, denies any radiation of pain. Dr. Crawford here examined patient orders received and recorded. secured entrance monitor placed on patient. shows SB 53
--- NOTE | 2021-01-13 12:02 | PM.EVENT ---
Event Note Event Note Event Note: pt w epigastric pain (CP) serial trops and STAT EKG has already had negative trops x 3 since admission. Cardiology was consulted on admission. carafate x 1 PPI QD
[2021-01-13 12:14] LABS: Glucose Point of Care 180 mg/dl (65-105)
[2021-01-13 12:30] LABS: Hemoglobin A1C 7.6 % (<5.7)
--- NOTE | 2021-01-13 12:45 | PM.CNCAR ---
Assessment and Plan Additional Plan Acute on chronic likely systolic heart failure, Hx of CAD and prior CABG, Paroxysmal AF, HTN, plan TTE, lasix IV 40 mg BID, cont metoprolol, chnage amlodipine to lisinopril if EF confirmed in TTE to be < 40%. History of Present Illness History of Present Illness Consult date/time: 01/13/21 12:45 Reason For Visit: chf excerbation Narrative: Patient presents with progressive SOB that started on and currently SOB with minimal activity including walking to bathroom and occasionally SOB in bed, feels better with sitting rather than lying flat. She was recenrtl admitted to hospital with CHF and paroxysmal AF required cardioversion. She was discharged on thursday and started feeling bad on Thursday. She is compliant with her medications and diet. She had Hx of CAG and prior CABG Review of Systems Review of Systems: All systems reviewed & are unremarkable except as noted in HPI and below PMFSH Past Medical History Medical History Anxiety CAD (coronary artery disease) CHF (congestive heart failure) Chronic GERD Hypertensive heart disease with heart failure Mild asthma [place] (myocardial infarction) Type 2 diabetes mellitus with hyperglycemia Vertigo Vitamin B12 deficiency Surgical History Surgical History Hx of CABG Family History Family History Sibling Family history of chronic obstructive pulmonary disease Father Family history of diabetes mellitus in first degree relative Family history of heart disease in male family member before age 55 Diabetes mellitus Family history of cardiovascular disease Mother Family history of lung cancer Social History Social History Smoking status: Never smoker Alcohol intake: never Substance use: never Gender identity (if verbalized by the patient): Female Spiritual care concerns: No Meds Home Medications and Allergies Home Medications Medication Instructions Recorded Confirmed Type meclizine 25 mg PO TID PRN #14 tablet 06/28/20 01/13/21 Rx potassium chloride 10 mEq 20 meq PO DAILY #180 cap 08/01/20 01/13/21 Rx capsule,extended release lancets 30 gauge #100 each 08/23/20 01/13/21 Rx blood sugar diagnostic #100 each 10/09/20 01/13/21 Rx amlodipine 5 mg tablet 5 mg PO DAILY #30 tablet 12/03/20 01/13/21 Rx Janumet 1 tablet PO BIDWM 01/03/21 01/13/21 History acetaminophen [Tylenol] 650 mg PO Q4H PRN 01/03/21 01/13/21 History aspirin 324 mg PO DAILY 01/03/21 01/13/21 History buspirone 5 mg PO BID 01/03/21 01/13/21 History cyanocobalamin (vitamin B-12) 500 mcg PO DAILY 01/03/21 01/13/21 History [Vitamin B-12] furosemide 40 mg PO DAILY 01/03/21 01/13/21 History lorazepam 1 mg PO Q6H PRN 01/03/21 01/13/21 History losartan 50 mg PO DAILY 01/03/21 01/13/21 History omeprazole 40 mg PO DAILY 01/03/21 01/13/21 History ondansetron HCl 4 mg PO Q8H PRN 01/03/21 01/13/21 History albuterol sulfate [ProAir HFA] 1 inhalation INHALATION Q4H PRN 01/07/21 01/13/21 Rx #18 gm apixaban [Eliquis] 5 mg PO Q12HR 30 Days #60 tablet 01/07/21 01/13/21 Rx atorvastatin 40 mg PO DAILY 30 Days #30 tablet 01/07/21 01/13/21 Rx metoprolol succinate 100 mg PO DAILY #30 tablet 01/07/21 01/13/21 Rx Allergies Allergy/AdvReac Type Severity Reaction Status Date / Time Sulfa (Sulfonamide Allergy Intermediate Difficulty Verified 01/03/21 08:54 Antibiotics) Breathing codeine Allergy Mild Gastrointestinal Verified 01/03/21 08:54 Upset Vital Signs Vital Signs - 24 hr 01/12/21 20:42 01/12/21 21:31 01/12/21 23:41 Temperature 36.3 C L Pulse Rate 54 L 54 L 54 L Respiratory Rate 17 12 20 Blood Pressure 135/64 122/59 L 109/50 L Pulse Oximetry 100 99 99 01/13/21 00:00 01/13/21 00:35 01/13/21 04:21 Temperature 35.7 C L 36
[2021-01-13] MEDS: SUCRALFATE SUSP 100 MG/ML 10 ML UDC 1000 MG PO (12:46)
[2021-01-13 13:05] LABS: Troponin I < 0.012 ng/mL (0.000-0.034)
[2021-01-13] MEDS: PANTOPRAZOLE SODIUM IV 40 MG VIAL IV PUSH (16:47)
[2021-01-13 16:48] LABS: Glucose Point of Care 144 mg/dl (65-105)
[2021-01-13 21:56] LABS: Glucose Point of Care 210 mg/dl (65-105)
[2021-01-14] VITALS (11 sets, daily range): BP systolic 102–136; BP diastolic 52–61; PULSE 49–57; RESP 18; TEMP 36–36.7; O2SAT 94–98
[2021-01-14 07:31] LABS: Hemoglobin 10.9 g/dL (12.0-15.0); Mean Corpuscular HGB Conc 31.1 g/dl (32-36); Mean Corpuscular Hemoglobin 26.7 pg (26-34); Mean Corpuscular Volume 85.6 fl (80-100); Mean Platelet Volume 12.1 fl (7.4-10.4); Platelet Count Result 216 k/mm3 (150-375); Red Blood Count 4.09 M/mm3 (4.2-5.4); Red Cell Distribution Width 16.8 % (11.5-14.5); White Blood Count 7.8 K/mm3 (4.5-10.0)
[2021-01-14 08:45] LABS: Glucose Point of Care 158 mg/dl (65-105)
[2021-01-14 08:49] LABS: Anion Gap 3 mmol/L (8-16); Blood Urea Nitrogen 16 mg/dL (7-17); Carbon Dioxide 25 mmol/L (22-30); Chloride 105 mmol/L (98-107); Estimated CRCL calculation 58 ml/min; Estimated Glomerular Filt Rate > 60; Glucose 151 mg/dL (65-110); Potassium 3.8 mmol/L (3.4-5.0); Sodium 133 mmol/L (137-145)
[2021-01-14] MEDS: busPIRone HCL 5 MG TABLET PO ×2 (09:28→16:54)
[2021-01-14] MEDS: ATORVASTATIN 40 MG TABLET PO (09:28)
[2021-01-14] MEDS: amLODIPine BESYLATE 5 MG TABLET PO (09:29)
[2021-01-14] MEDS: APIXABAN 5 MG TABLET PO ×2 (09:29→21:17)
[2021-01-14] MEDS: LOSARTAN POTASSIUM 50 MG TABLET PO ×2 (09:29→11:57)
[2021-01-14] MEDS: METOPROLOL SUCCINATE EXT REL 100 MG TABCR PO (09:29)
[2021-01-14] MEDS: CYANOCOBALAMIN 500 MCG TABLET PO (09:30)
[2021-01-14] MEDS: POTASSIUM CHLORIDE 20 MEQ TABLET PO (09:30)
[2021-01-14] MEDS: FUROSEMIDE INJ 40 MG/4 ML VIAL IV PUSH ×2 (09:30→16:50)
[2021-01-14] MEDS: PANTOPRAZOLE SODIUM IV 40 MG VIAL IV PUSH (09:30)
[2021-01-14] MEDS: ASPIRIN 81 MG CHEWABLE TABLET PO (09:31)
--- NOTE | 2021-01-14 09:34 | PM.PNCARD ---
Progress Note: A&P Assessment and Plan (1) Acute systolic CHF (congestive heart failure): Code(s): I50.21 - Acute systolic (congestive) heart failure Status: Acute Assessment and Plan: Cardiomyopathy, EF 40-45%. Diuresing and feeling better. Rec one more day of IV diuretics, switch to p.o. tomorrow, probably discharge tomorrow. Usually takes furosemide 40 mg daily at home, will increase to 60 mg. Maximize ARB; increase losartan to: 100 mg daily. If low blood pressure will discontinue the amlodipine. (2) Paroxysmal atrial flutter: Code(s): I48.92 - Unspecified atrial flutter Status: Acute Assessment and Plan: New onset atrial flutter, status post cardioversion last week. Persistently bradycardic but not excessively so, at rest. Continue metoprolol and Eliquis. (3) CAD (coronary artery disease): Code(s): I25.10 - Atherosclerotic heart disease of [place] coronary artery without angina pectoris Status: Acute Assessment and Plan: History of CAD and CABG, stable. (4) Hypertensive heart disease with heart failure: Code(s): I11.0 - Hypertensive heart disease with heart failure Status: Acute Assessment and Plan: Systolic blood pressure running in the 130s. Increasing losartan. Subjective Date/time seen: 01/14/21 09:34 Interval history: Follow-up for CHF, atrial flutter, CAD. The patient has a history of CAD and CABG followed by Dr. Nieto. Also diabetes hypertension, and asthma. Admitted 01/03/2021 with asthma and developed new onset atrial flutter, and underwent a CICI guided cardioversion. EF was 40-45%. She was discharged on Eliquis and metoprolol. She was readmitted with congestive heart failure on 01/13/2021. Chest x-ray showed mild CHF and proBNP was 1400. Started on Lasix 40 mg IV push b.i.d. EKG shows patient has maintained sinus rhythm/sinus bradycardia. Date of service 01/14/2021: Feeling better, no longer short of breath walking to the bathroom, urinating a lot. Never had any swelling. Still has a dry cough. Always sleeps with her head of bed up, but no problems with PND. Hopes to go home soon. Heart rate 49-60 BPM. Review of Systems Constitutional: Constitutional: Reports fatigue ENT: Denies epistaxis and Denies nasal congestion Cardiovascular: Cardiovascular: Denies chest pain, Denies pedal edema, Denies leg edema, Denies lightheadedness and Denies palpitations Respiratory: Respiratory: Denies chest congestion, Reports cough, Denies hemoptysis and Denies dyspnea Gastrointestinal: Gastrointestinal: Denies abdominal pain Genitourinary: Genitourinary: Denies hematuria Musculoskeletal: Musculoskeletal: Reports no additional musculoskeletal complaints Psychiatric: Psychiatric: Reports no additional psychiatric complaints Exam Const: General: comfortable and no acute distress HENMT: General nose exam: no epistaxis Eyes: EOM: EOMs intact bilaterally Neck: Neck: supple Resp: Auscultation: rales Other: Very few fine scattered rales in the bases Cardio: Rate: regular rate and bradycardic Rhythm: regular rhythm GI: GI Palp: Yes Soft to palpation Skin: General skin exam: no rashes or lesions noted Neuro: Cognition (Neuro): normal cognition Speech: normal speech Motor exam (neuro): Normal motor muscle tone present throughout Extrem: General: no edema and no pedal edema Psych: Mental Status: mental status grossly normal Affect: normal affect Objective Data Vital Signs Vital Signs: Vital Signs - 24 hr 01/13/21 12:00 01/13/21 14:00 01/13/21 16:00 Temperature 96.9 F L Pulse Rate 53 L 58 L 49 L Respiratory Rate 20 Blood Pressure
--- NOTE | 2021-01-14 11:57 | PM.IMPN ---
Progress Note: A&P Assessment and Plan (1) CHF (congestive heart failure): Qualifiers: Heart failure chronicity: unspecified Heart failure type: unspecified Qualified Code(s): I50.9 - Heart failure, unspecified Code(s): I50.9 - Heart failure, unspecified Status: Acute Assessment and Plan: Patient present with SOB with CXR consistent with congestive heart failure. Recent Echo showing EF 40-45%. BNP 1380. Started on Lasix IV. Clinically improved and patietn feels back to baseline. Plan to transtion to oral Lasix in the morning. Appreciate Turning Lathe Tender input (2) Atrial fibrillation with controlled ventricular rate: Code(s): I48.91 - Unspecified atrial fibrillation Status: Acute Assessment and Plan: Patient with AFIb earlier this month when hospitalized. She underwent CICI cardioversion with successful return to sinus mechanism. Maintianing sinus mechanism with bradycardia at times. Continue Eliquis for stroke prophylaxis and Toprol (3) HTN (hypertension): Qualifiers: Hypertension type: primary hypertension Qualified Code(s): I10 - Essential (primary) hypertension Code(s): I10 - Essential (primary) hypertension Status: Acute Assessment and Plan: Patient's blood pressure was reviewed on 01/14 Blood pressure remains well controlled. Medications being adjusted. Will continue current medications. Monitor closely. (4) CAD (coronary artery disease): Code(s): I25.10 - Atherosclerotic heart disease of [place] coronary artery without angina pectoris Status: Acute Assessment and Plan: CAD s/p CABG. Continue medical management (5) Mild asthma: Code(s): J45.909 - Unspecified asthma, uncomplicated Status: Acute Assessment and Plan: No wheezing. She does have mild cough but could be related to the resolving pulmonary edema. Albuterol available prn. Follow (6) Type 2 diabetes mellitus with hyperglycemia: Code(s): E11.65 - Type 2 diabetes mellitus with hyperglycemia Status: Acute Assessment and Plan: A1c 7.6. The patient's blood glucose was reviewed on 01/14 Glucose remains mostly well controlled with glucose running 150-210. Continue AccuCheks covering with sliding scale. Hypoglycemia protocol available as needed. (7) DVT prophylaxis: Code(s): Z29.9 - Encounter for prophylactic measures, unspecified Status: Acute Assessment and Plan: Eliquis Subjective Date/time seen: 01/14/21 11:57 Interval history: 75yo female with history of CAD s/pCABG, DM, HTn and asthma here for SOB and found to have CHF exacerbation. She was admitted 01/03 with asthma and developed new onset atrial flutte, and underwent a CICI guided cardioversion on 01/07. ECHO with EF of 40-45%, mild-mod and moderate MR. Home on Eliquis and metoprolol. She was readmitted with congestive heart failure on 01/13/2021. Assuming care. Chart reviewed. She feels much better. No longer SOB. Walking to the BR and denies GALLAGHER. Sleeps normally with 2 pillows and she feels this is back to baseline. No CP. No pedal edema. Slight nagging cough. Slept okay last night. Exam Narrative: AF 96.8 131/61 57 18 94% ra Gen - NARD lying semi-recumbent in bed Chest - CTA bilaterally, nml RR CV - RRR S1/S2; Tele showing sinus bradycardia with brief runs of NSVT (3-4 beats) Abd - Soft, NT/ND, Positive BS Ext - No pedal edema Psych - Nml mood and affect Skin - Warm and dry Objective Data Vital Signs Vital Signs: Vital Signs - 24 hr 01/13/21 12:00 01/13/21 14:00 01/13/21 16:00 Temperature 96.9 F L Pulse Rate 53 L 58 L 49 L Respiratory Rate 20 Blood Pressure 121/58 L Pulse Oximetry 96 01/13/21 20:00 01/13/21 20:49 01/14/21 00:50 Temperature 97.8 F Pulse Rate 52 L 52 L 49 L Respiratory Rate 16 Blood Pressure 128/48 L Pulse Oximetry 97 01/14/21 02:01 01/14/21 04
[2021-01-14 12:11] LABS: Glucose Point of Care 257 mg/dl (65-105)
[2021-01-14] MEDS: INSULIN ASPART (*BKC) 100 UNITS/ML SUB-Q ×2 (12:43→17:28)
[2021-01-14 16:46] LABS: Glucose Point of Care 205 mg/dl (65-105)
[2021-01-15] VITALS: PULSE 51
[2021-01-15 04:00] VITALS: PULSE 56
[2021-01-15 06:00] VITALS: BP 141/60; PULSE 52; RESP 20; TEMP 36.3; O2SAT 94
[2021-01-15 07:19] LABS: Anion Gap 9 mmol/L (8-16); Blood Urea Nitrogen 16 mg/dL (7-17); Calcium 8.7 mg/dL (8.4-10.2); Carbon Dioxide 25 mmol/L (22-30); Chloride 100 mmol/L (98-107); Estimated CRCL calculation 68 ml/min; Estimated Glomerular Filt Rate > 60; Glucose 164 mg/dL (65-110); Potassium 3.3 mmol/L (3.4-5.0); Sodium 134 mmol/L (137-145)
[2021-01-15] MEDS: ASPIRIN 81 MG CHEWABLE TABLET PO (08:45)
[2021-01-15] MEDS: POTASSIUM CHLORIDE 20 MEQ TABLET PO ×2 (08:45→10:14)
[2021-01-15] MEDS: FUROSEMIDE 20 MG TABLET 60 MG PO (08:46)
[2021-01-15] MEDS: busPIRone HCL 5 MG TABLET PO (08:46)
[2021-01-15] MEDS: APIXABAN 5 MG TABLET PO (08:46)
[2021-01-15 08:47] VITALS: PULSE 72
[2021-01-15] MEDS: METOPROLOL SUCCINATE EXT REL 100 MG TABCR PO (08:47)
[2021-01-15] MEDS: ATORVASTATIN 40 MG TABLET PO (08:48)
[2021-01-15] MEDS: amLODIPine BESYLATE 5 MG TABLET PO (08:48)
[2021-01-15] MEDS: LOSARTAN POTASSIUM 100 MG TABLET PO (08:48)
[2021-01-15] MEDS: PANTOPRAZOLE SODIUM IV 40 MG VIAL IV PUSH (08:49)
[2021-01-15] MEDS: CYANOCOBALAMIN 500 MCG TABLET PO (08:49)
[2021-01-15 09:50] LABS: Glucose Point of Care 179 mg/dl (65-105)
--- NOTE | 2021-01-15 11:34 | PM.PNCARD ---
Progress Note: A&P Assessment and Plan (1) Acute systolic CHF (congestive heart failure): Code(s): I50.21 - Acute systolic (congestive) heart failure Status: Acute Assessment and Plan: Cardiomyopathy, EF 40-45%. Diuresing and feeling better. She has been shifted to p.o. furosemide. Usually takes furosemide 40 mg daily at home, will increase to 60 mg. Maximize ARB; increase losartan to: 100 mg daily. BP has been acceptable. (2) Paroxysmal atrial flutter: Code(s): I48.92 - Unspecified atrial flutter Status: Acute Assessment and Plan: New onset atrial flutter, status post cardioversion last week. Persistently bradycardic but not excessively so, at rest. Continue metoprolol and Eliquis. (3) CAD (coronary artery disease): Code(s): I25.10 - Atherosclerotic heart disease of [place] coronary artery without angina pectoris Status: Acute Assessment and Plan: History of CAD and CABG, stable. (4) Hypertensive heart disease with heart failure: Code(s): I11.0 - Hypertensive heart disease with heart failure Status: Acute Assessment and Plan: Systolic blood pressure running in the 130s. Increasing losartan. Subjective Date/time seen: 01/15/21 11:34 Interval history: Follow-up for CHF, atrial flutter, CAD. The patient has a history of CAD and CABG followed by Dr. Nieto. Also diabetes hypertension, and asthma. Admitted 01/03/2021 with asthma and developed new onset atrial flutter, and underwent a CICI guided cardioversion. EF was 40-45%. She was discharged on Eliquis and metoprolol. She was readmitted with congestive heart failure on 01/13/2021. Chest x-ray showed mild CHF and proBNP was 1400. Started on Lasix 40 mg IV push b.i.d. EKG shows patient has maintained sinus rhythm/sinus bradycardia. Date of service 01/14/2021: Feeling better, no longer short of breath walking to the bathroom, urinating a lot. Never had any swelling. Still has a dry cough. Always sleeps with her head of bed up, but no problems with PND. Hopes to go home soon. Heart rate 49-60 BPM. Date of service 01/15/2021: She feels well today. Denies any shortness of breath, no dyspnea with exertion. Denies palpitations. Heart rate remains well controlled. Plan for discharge today. Review of Systems Review of Systems: All systems reviewed & are unremarkable except as noted in HPI and below Constitutional: Constitutional: Reports fatigue ENT: Denies epistaxis and Denies nasal congestion Cardiovascular: Cardiovascular: Denies chest pain, Denies pedal edema, Denies leg edema, Denies lightheadedness, Denies palpitations and Denies dyspnea Respiratory: Respiratory: Denies chest congestion, Reports cough, Denies hemoptysis and Denies dyspnea Gastrointestinal: Gastrointestinal: Denies abdominal pain Genitourinary: Genitourinary: Denies hematuria Musculoskeletal: Musculoskeletal: Reports no additional musculoskeletal complaints Psychiatric: Psychiatric: Reports no additional psychiatric complaints Endocrine: Endocrine: Reports fatigue and Denies palpitations Exam Const: General: comfortable and no acute distress Other: Able to lie flat HENMT: General nose exam: Normal nares present and no epistaxis Mouth: Yes moist mucous membranes Eyes: General: appearance normal, both eyes and all related structures Pupils: Equal, round and reactive pupils present EOM: EOMs intact bilaterally Neck: Neck: supple, JVD and no JVD Carotids: no bruits Resp: Effort & Inspection: normal respiratory effort Auscultation: clear to auscultation bilaterally Cardio: Rate: bradycardic Rhythm: regular rhythm Heart sounds:
[2021-01-15 12:39] LABS: Glucose Point of Care 285 mg/dl (65-105)
--- NOTE | 2021-01-15 12:47 | PM.DS ---
DS: Admitting Diagnosis Admitting Diagnosis Shortness of breath DS: Discharge Diagnosis Discharge Diagnosis (1) CHF (congestive heart failure): Qualifiers: Heart failure chronicity: unspecified Heart failure type: unspecified Qualified Code(s): I50.9 - Heart failure, unspecified Code(s): I50.9 - Heart failure, unspecified Status: Acute Assessment and Plan: Patient present with SOB. CXR consistent with congestive heart failure. Recent Echo showing EF 40-45%. BNP 1380. Started on Lasix IV. I/O's not accurate. Clinically improved and patient feels back to baseline. Transitioned to oral Lasix. Appreciate Deck Steward input. (2) Atrial fibrillation with controlled ventricular rate: Code(s): I48.91 - Unspecified atrial fibrillation Status: Acute Assessment and Plan: Patient with AFIb earlier this month when hospitalized. She underwent CICI cardioversion with successful return to sinus mechanism. Maintaining sinus mechanism with bradycardia at times. We continued Eliquis for stroke prophylaxis and Toprol XL. (3) HTN (hypertension): Qualifiers: Hypertension type: primary hypertension Qualified Code(s): I10 - Essential (primary) hypertension Code(s): I10 - Essential (primary) hypertension Status: Acute Assessment and Plan: Patient's blood pressure was monitored closely. We advnaced her Cozaar and she toelrted this well. (4) CAD (coronary artery disease): Code(s): I25.10 - Atherosclerotic heart disease of [place] coronary artery without angina pectoris Status: Acute Assessment and Plan: Patient with hx of CAD s/p CABG. We continued medical management. (5) Mild asthma: Code(s): J45.909 - Unspecified asthma, uncomplicated Status: Acute Assessment and Plan: No wheezing appreciated. She does have mild cough but felt related to the resolving pulmonary edema. Albuterol was available prn. (6) Type 2 diabetes mellitus with hyperglycemia: Code(s): E11.65 - Type 2 diabetes mellitus with hyperglycemia Status: Acute Assessment and Plan: A1c 7.6. The patient's blood glucose was monitored closely with AccuCheks covering with sliding scale. Hypoglycemia protocol was available as needed. DS: Summary Hospital Course Reason for hospitalization: 75yo female with history of CAD s/pCABG, DM, HTN and asthma here for SOB and found to have CHF exacerbation. Please see H&P for detials Hospital Course: Please see above for details of hospital course Status at Discharge Cognitive/behavioral status at discharge: Stable Time Spent with Patient Time attestation: Total time spent providing and/or coordinating discharge services:38 minutes Time spent: Greater than 30 minutes Exam Narrative: AF 97.3 141/60 52 20 94% ra Gen - NARD lying semi-recumbent in bed Chest - CTA bilaterally, nml RR CV - RRR S1/S2; Tele showing sinus bradycardia at times Abd - Soft, NT/ND, Positive BS Ext - No pedal edema Psych - Nml mood and affect Skin - Warm and dry DS: Data Data Completed and Pending Labs on day of discharge: Labs from last 24 hours 01/15/21 01/15/21 01/15/21 12:15 08:44 06:27 Sodium 134 L Potassium 3.3 L Chloride 100 Carbon Dioxide 25 Anion Gap 9 BUN 16 Creatinine 0.50 L Estim Creat Clear Calc 68 Estimated GFR > 60 Glucose 164 H POC Capillary Glucose 285 H 179 H Calcium 8.7 01/14/21 16:29 Sodium Potassium Chloride Carbon Dioxide Anion Gap BUN Creatinine Estim Creat Clear Calc Estimated GFR Glucose POC Capillary Glucose 205 H Calcium Discharge Plan Discharge Attending physician on discharge: Nico Oglesby Consulting providers: Lucius Guzman Discharging Clinician: Nico Oglesby Anticipated Discharge Date/Time: 01/15/21 12:58 Patient Disposition: Home, Self-Care
[2021-01-15] MEDS: INSULIN ASPART (*BKC) 100 UNITS/ML SUB-Q (12:55)
== END 2021-01-15 15:45 | disposition home or self-care (01) ==
LOC: ANHED 22:35 → ANH3MEDSUR 01-14 07:54
PROVIDERS: Emergency Medicine; Hospitalist; Internal Medicine Cardiovascular Disease; Admitting Provider Internal Medicine; Emergency Provider Emergency Medicine; PCP Family Medicine; Visit Provider Internal Medicine
DX: I11.0 Hypertensive heart disease with heart failure (principal); I50.43 Acute on chronic combined systolic (congestive) and diastolic (congestive) heart failure; I48.92 Unspecified atrial flutter; R09.02 Hypoxemia; R06.00 Dyspnea, unspecified; I25.10 Atherosclerotic heart disease of native coronary artery without angina pectoris; E11.65 Type 2 diabetes mellitus with hyperglycemia; I48.91 Unspecified atrial fibrillation; I25.2 Old myocardial infarction; I35.0 Nonrheumatic aortic (valve) stenosis; J45.909 Unspecified asthma, uncomplicated; F41.9 Anxiety disorder, unspecified; E53.8 Deficiency of other specified B group vitamins; K21.9 Gastro-esophageal reflux disease without esophagitis; Z95.1 Presence of aortocoronary bypass graft; Z79.01 Long term (current) use of anticoagulants; Z79.82 Long term (current) use of aspirin; Z79.51 Long term (current) use of inhaled steroids; Z79.84 Long term (current) use of oral hypoglycemic drugs
CPT/HCPCS: 36415; 71046; 71275; 80048; 80076; 82948; 83036; 83880; 84484; 85025; 85027; 85610; 85730; 93005; 96374; 96375; 96376; 99285; A9270; C9113; G0378; J1815; J1940; Q9967

== ENCOUNTER 2021-01-22 09:37 | Outpatient (CLI) | payer MEDICARE, SELFPAY ==
[2021-01-22 10:34] LABS: Alanine Aminotransferase 42 U/L (4-35); Albumin Level 4.2 g/dL (3.5-5.1); Alkaline Phosphatase 89 U/L (38-126); Anion Gap 10 mmol/L (8-16); Aspartate Amino Transferase 30 U/L (14-36); Bilirubin,Total 1.1 mg/dL (0.2-1.3); Blood Urea Nitrogen 18 mg/dL (7-17); Calcium 9.3 mg/dL (8.4-10.2); Carbon Dioxide 21 mmol/L (22-30); Chloride 105 mmol/L (98-107); Estimated Glomerular Filt Rate > 60; Glucose 203 mg/dL (65-110); Potassium 4.2 mmol/L (3.4-5.0); Sodium 136 mmol/L (137-145)
[2021-01-22 11:32] LABS: Hemoglobin A1C 7.6 % (<5.7)
== END 2021-01-22 09:38 | disposition home or self-care (01) ==
PROVIDERS: PCP Family Medicine; Referring Provider Internal Medicine; Visit Provider Physician Assistant
DX: E11.65 Type 2 diabetes mellitus with hyperglycemia (principal); I11.0 Hypertensive heart disease with heart failure
CPT/HCPCS: 36415; 80053; 83036

== ENCOUNTER 2021-02-24 10:42 | Emergency (ER) | payer MEDICARE, SELFPAY ==
[2021-02-24] VITALS (12 sets, daily range): BP systolic 109–120; BP diastolic 56–74; PULSE 83–94; RESP 16–26; TEMP 36.6; O2SAT 92–97
--- NOTE | ~2021-02-24 | XR_ITS ---
EXAMINATION: XR chest 2V EXAM DATE: 02/24/2021 11:25 INDICATION: Shortness of breath, hx CHF, CAD, [place] DM2 . TECHNIQUE: Frontal and lateral projections of the chest obtained and reviewed. Comparison is made to prior examination from 01/12/2021. FINDINGS: There is mild cardiomegaly and pulmonary vascular congestion. There is indistinct reticula tion with a bibasal predominance which may indicate pulmonary edema. Small right pleural effusion. Pn eumonia not excludable. There is no pneumothorax suspected. Sternotomy wires are present without find ings to suggest sternal dehiscence. There are bony degenerative changes. IMPRESSION: Findings consistent with CHF exacerbation. Pneumonia not excludable. Reviewed, dictated and finalized at location A. IMPRESSION: Findings consistent with CHF exacerbation. Pneumonia not excludabl e.
--- NOTE | 2021-02-24 10:55 | ECG_ITS ---
Measurements Intervals [place] Rate: 86 P: ND: 0 QRS: 220 QRSD: 128 T: 170 QT: 392 QTc: 470 Interpretive Statements ATRIAL FIBRILLATION LIMB LEAD REVERSAL LEFT BUNDLE BRANCH BLOCK ANTEROSEPTAL INFARCT OR DUE TO LBBB INFERIOR INFARCT OR DUE TO LBBB BASELINE ARTIFACT- I, II, III, AVR, AVL, AVF ABNORMAL ECG Electronically Signed On 02-24-2021 11:17:21 CDT by Martínez Steinberg D.O.
[2021-02-24 11:48] LABS: Basophils Percent Auto 0.3 % (0.2-1.2); Eosinophils Absolute Auto 0.1 K/mm3 (0-0.3); Eosinophils Percent Auto 0.6 % (0-4.4); Hemoglobin 11.4 g/dL (12.0-15.0); Immature Granulocyte Absolute 0.06 K/mm3 (0.00-0.031); Immature Granulocyte Percent A 0.6 % (0-0.5); Lymphocytes Percent Auto 13.8 % (18.3-44.2); Mean Corpuscular HGB Conc 31.7 g/dl (32-36); Mean Corpuscular Hemoglobin 28.1 pg (26-34); Mean Corpuscular Volume 88.9 fl (80-100); Mean Platelet Volume 11.8 fl (7.4-10.4); Monocytes Absolute Auto 0.4 K/mm3 (0.1-0.6); Monocytes Percent Auto 4.5 % (2.6-8.5); Neutrophils Absolute Auto 7.6 K/mm3 (1.3-6.7); Neutrophils Percent Auto 80.2 % (45.5-73.1); Platelet Count Result 206 k/mm3 (150-375); Red Blood Count 4.05 M/mm3 (4.2-5.4); Red Cell Distribution Width 15.9 % (11.5-14.5); White Blood Count 9.4 K/mm3 (4.5-10.0)
[2021-02-24] MEDS: FUROSEMIDE INJ 40 MG/4 ML VIAL IV PUSH (11:50)
[2021-02-24 11:59] LABS: INR 1.4; Prothrombin Time 16.7 Seconds (11.1-14.7)
[2021-02-24 12:00] LABS: Partial Thromboplastin Time 29.9 SECONDS (22.3-36.8)
[2021-02-24 12:02] LABS: Anion Gap 9 mmol/L (8-16); Blood Urea Nitrogen 22 mg/dL (7-17); Calcium 9.3 mg/dL (8.4-10.2); Carbon Dioxide 26 mmol/L (22-30); Chloride 102 mmol/L (98-107); Estimated CRCL calculation 52 ml/min; Estimated Glomerular Filt Rate > 60; Glucose 231 mg/dL (65-110); Potassium 4.3 mmol/L (3.4-5.0); Sodium 137 mmol/L (137-145)
[2021-02-24 12:14] LABS: NT Pro B Type Natriuretic Pept 1440 pg/mL (5-100); Troponin I < 0.012 ng/mL (0.000-0.034)
--- NOTE | 2021-02-24 12:24 | ED.SOB ---
HPI - SOB/Dyspnea General Chief Complaint: Shortness of Breath/Dyspnea Stated Complaint: SOB Time Seen by Provider: 02/24/21 10:59 History of Present Illness HPI Narrative: Patient presents with shortness of breath. Patient ports she has felt short since her last hospitalization for CHF exacerbation. Reports her symptoms of being progressive worse over the past couple days and this morning had a left-sided chest pain which is now resolved. The pain is atypical or so she came to the ER for evaluation she has not noted fevers or cough denies any abdominal pain nausea vomiting or diaphoresis Related Data Home Medications Medication Instructions Recorded Confirmed buspirone 5 mg PO BID 01/03/21 01/24/21 cyanocobalamin (vitamin B-12) 500 mcg PO DAILY 01/03/21 01/24/21 [Vitamin B-12] lorazepam 1 mg PO Q6H PRN 01/03/21 01/24/21 omeprazole 40 mg PO DAILY 01/03/21 01/24/21 amiodarone 200 mg PO QAM 02/24/21 amiodarone 400 mg PO QPM 02/24/21 furosemide 80 mg PO DAILY 02/24/21 Allergies Allergy/AdvReac Type Severity Reaction Status Date / Time Sulfa (Sulfonamide Allergy Intermediate Difficulty Verified 02/24/21 11:05 Antibiotics) Breathing codeine AdvReac Mild Gastrointestinal Verified 02/24/21 11:05 Upset Review of Systems Review of Systems: CONSTITUTIONAL: Denies fever, chills, or sweats. EYES: Denies visual changes, redness, or discharge. ENT: Denies rhinorrhea, congestion, sore throat, or otalgia. CARDIOVASCULAR: Denies palpitations, or edema. RESPIRATORY: Denies cough GASTROINTESTINAL: Denies abdominal pain, nausea, vomiting, or diarrhea. GENITOURINARY: Denies dysuria or hematuria. SKIN: Denies rash or itching. MUSCULOSKELETAL: Denies back pain, joint pain, or myalgia. NEUROLOGIC: Denies headache, numbness, dizziness, or weakness. PSYCHIATRIC: Denies anxiety or depression. All systems reviewed & are unremarkable except as noted in HPI and below PMFSH Past Medical History Medical History Anxiety CAD (coronary artery disease) CHF (congestive heart failure) Chronic GERD Hypertensive heart disease with heart failure Mild asthma [place] (myocardial infarction) Paroxysmal atrial flutter Type 2 diabetes mellitus with hyperglycemia Vertigo Vitamin B12 deficiency Surgical History Surgical History Hx of CABG Family History Family History Sibling Family history of chronic obstructive pulmonary disease Father Family history of diabetes mellitus in first degree relative Family history of heart disease in male family member before age 55 Diabetes mellitus Family history of cardiovascular disease Mother Family history of lung cancer Social History Social History Smoking status: Never smoker Alcohol intake: never Substance use: never Gender identity (if verbalized by the patient): Female Spiritual care concerns: No Exam Narrative: GENERAL: Well-appearing, well-nourished, and in no acute distress. HEAD: Normocephalic, atraumatic. EYES: PERRLA and EOMI. ENT: Nares clear, no rhinorrhea or epistaxis. Mucous membranes moist. NECK: Supple. No masses. CHEST: Clear to auscultation. No respiratory distress. No appreciable wheezing or rhonchi HEART: Regular rate and rhythm. No murmur heard. Normal peripheral pulses. ABDOMEN: Soft, nontender, nondistended, normal active bowel sounds. EXTREMITIES: Normal range of motion. SKIN: Warm, dry, no rash. NEURO: No focal deficits. Alert and oriented x3. PSYCH: Normal mood and affect. Course Reevaluation(s) Reevaluation #1: Patient reports feeling improved patient reports she is ambulating with less shortness of breath. Results discussed with patient. Patient would prefer to go home and follow-up with her adzing and boring machine operator patient instructed
--- NOTE | 2021-02-24 13:05 | PC.NURSE ---
PT AMBULATORY AROUND ED NURSES STATION, PULSE OX 91-92 % ON RA, HR 98-103.
== END 2021-02-24 13:45 | disposition home or self-care (01) ==
PROVIDERS: Emergency Provider Emergency Medicine; PCP Family Medicine
DX: I50.9 Heart failure, unspecified (principal); F41.9 Anxiety disorder, unspecified; I25.10 Atherosclerotic heart disease of native coronary artery without angina pectoris; I11.0 Hypertensive heart disease with heart failure; I25.2 Old myocardial infarction; I48.92 Unspecified atrial flutter; E11.9 Type 2 diabetes mellitus without complications; Z95.1 Presence of aortocoronary bypass graft
CPT/HCPCS: 36415; 71046; 80048; 83880; 84484; 85025; 85610; 85730; 93005; 96374; 99284; J1940

== ENCOUNTER → 2021-03-05 10:00 | Day surgery (SDC) | payer MEDICARE, SELFPAY ==
--- NOTE | 2021-03-05 10:00 | ECG_ITS ---
Measurements Intervals [place] Rate: 82 P: 198 AR: 271 QRS: -52 QRSD: 128 T: 72 QT: 427 QTc: 501 Interpretive Statements SINUS RHYTHM WITH FIRST DEGREE AV BLOCK WITH MARKED RHYTHM IRREGULARITY, POSSIBLE NON-CONDUCTED PAC, SA BLOCK, AV BLOCK, OR SIN LEFT AXIS DEVIATION LEFT BUNDLE BRANCH BLOCK ANTEROSEPTAL INFARCT OR DUE TO LBBB INFERIOR INFARCT OR DUE TO LBBB BASELINE ARTIFACT- I, II, AVR ABNORMAL ECG Electronically Signed On 03-05-2021 11:50:04 CDT by Martínez Steinberg D.O.
[2021-03-05 10:50] VITALS: BP 125/78; PULSE 88; RESP 16; TEMP 36.1; O2SAT 97
[2021-03-05 10:59] VITALS: BMI 26.9
[2021-03-05 11:16] LABS: Anion Gap 9 mmol/L (8-16); Blood Urea Nitrogen 21 mg/dL (7-17); Calcium 9.1 mg/dL (8.4-10.2); Carbon Dioxide 30 mmol/L (22-30); Chloride 100 mmol/L (98-107); Estimated CRCL calculation 45 ml/min; Estimated Glomerular Filt Rate > 60; Glucose 172 mg/dL (65-110); Magnesium 1.3 mg/dL (1.6-2.3); Potassium 3.8 mmol/L (3.4-5.0); Sodium 139 mmol/L (137-145)
--- NOTE | 2021-03-05 11:29 | ECG_ITS ---
Measurements Intervals [place] Rate: 88 P: [place]: 0 QRS: -51 QRSD: 133 T: 59 QT: 445 QTc: 539 Interpretive Statements ATRIAL FIBRILLATION LEFT AXIS DEVIATION LEFT BUNDLE BRANCH BLOCK ANTEROSEPTAL INFARCT OR DUE TO LBBB INFERIOR INFARCT OR DUE TO LBBB ABNORMAL ECG Electronically Signed On 03-06-2021 8:18:02 CDT by Martínez Steinberg D.O.
--- NOTE | 2021-03-05 11:30 | ECG_ITS ---
Measurements Intervals [place] Rate: 88 P: 252 AL: 247 QRS: -50 QRSD: 136 T: 65 QT: 441 QTc: 534 Interpretive Statements SINUS RHYTHM WITH FIRST DEGREE AV BLOCK LEFT BUNDLE BRANCH BLOCK INFERIOR INFARCT OR DUE TO LBBB ANTEROSEPTAL INFARCT OR DUE TO LBBB BASELINE ARTIFACT- II, III ABNORMAL ECG Electronically Signed On 03-05-2021 10:27:25 CDT by Martínez Steinberg D.O.
--- NOTE | 2021-04-22 11:02 | SUR.PREOP ---
Late entry, patient was cancelled due to questionable EKG (SR VS Afib) MD confirmed. EM charges entered late.
== END | disposition home or self-care (01) ==
PROVIDERS: Internal Medicine Cardiovascular Disease; PCP Family Medicine; Visit Provider Specialist
PROC: 5A2204Z Restoration of Cardiac Rhythm, Single (ICD-10-PCS; principal; 2021-03-05 11:30)
DX: I48.92 Unspecified atrial flutter (principal); Z53.9 Procedure and treatment not carried out, unspecified reason
CPT/HCPCS: 36415; 80048; 83735; 99211; 99212; G0463

== ENCOUNTER 2021-03-16 16:44 | Emergency (ER) | payer MEDICARE, SELFPAY ==
--- NOTE | ~2021-03-16 | XR_ITS ---
EXAMINATION: XR chest 1V portable DATE: 03/16/2021 17:22 INDICATION: Shortness of breath. TECHNIQUE: A single frontal view of the chest was obtained. COMPARISON: Chest 2 views 02/24/2021, chest CT 01/12/2021 FINDINGS: There is mild atelectasis at left lung base. No pleural effusion or pneumothorax. Cardiomeg eliana is noted. Median sternotomy wires and mediastinal surgical clips are seen, likely from prior tyler nary artery bypass grafting. IMPRESSION: 1. Mild atelectasis at left lung base. 2. Cardiomegaly. Reviewed, dictated and finalized at location A.
--- NOTE | 2021-03-16 16:45 | ECG_ITS ---
Measurements Intervals [place] Rate: 46 P: [place]: 0 QRS: -56 QRSD: 113 T: 45 QT: 486 QTc: 428 Interpretive Statements ECTOPIC ATRIAL BRADYCARDIA INCOMPLETE LEFT BUNDLE BRANCH BLOCK ANTEROSEPTAL INFARCT, AGE INDETERMINATE INFERIOR INFARCT, AGE INDETERMINATE BORDERLINE ST ABNORMALITY- HIGH LATERAL LEADS ABNORMAL ECG Electronically Signed On 03-17-2021 6:34:31 CDT by Martínez Steinberg D.O.
[2021-03-16 16:47] VITALS: BP 131/57; PULSE 46; RESP 20; TEMP 37.2; O2SAT 100
[2021-03-16 17:02] VITALS: PULSE 46
[2021-03-16 17:05] LABS: Basophils Absolute Auto 0.1 K/mm3 (0.0-0.1); Basophils Percent Auto 0.5 % (0.2-1.2); Eosinophils Absolute Auto 0.1 K/mm3 (0-0.3); Eosinophils Percent Auto 0.9 % (0-4.4); Hematocrit 36.1 % (37.0-47.0); Hemoglobin 11.4 g/dL (12.0-15.0); Immature Granulocyte Absolute 0.05 K/mm3 (0.00-0.031); Immature Granulocyte Percent A 0.5 % (0-0.5); Lymphocytes Absolute Auto 2.73 K/mm3 (0.9-3.2); Lymphocytes Percent Auto 27.6 % (18.3-44.2); Mean Corpuscular HGB Conc 31.6 g/dl (32-36); Mean Corpuscular Hemoglobin 28.2 pg (26-34); Mean Corpuscular Volume 89.4 fl (80-100); Mean Platelet Volume 11.8 fl (7.4-10.4); Monocytes Absolute Auto 0.8 K/mm3 (0.1-0.6); Monocytes Percent Auto 7.7 % (2.6-8.5); Neutrophils Absolute Auto 6.2 K/mm3 (1.3-6.7); Neutrophils Percent Auto 62.8 % (45.5-73.1); Platelet Count Result 225 k/mm3 (150-375); Red Blood Count 4.04 M/mm3 (4.2-5.4); Red Cell Distribution Width 15.2 % (11.5-14.5); White Blood Count 9.9 K/mm3 (4.5-10.0)
[2021-03-16 17:15] LABS: INR 1.1; Prothrombin Time 14.1 Seconds (11.1-14.7)
[2021-03-16 17:16] LABS: Partial Thromboplastin Time 29.8 SECONDS (22.3-36.8)
--- NOTE | 2021-03-16 17:18 | PC.NURSE ---
Called lab and spoke to Diana to add on Hepatic
--- NOTE | 2021-03-16 17:25 | ED.SOB ---
HPI - SOB/Dyspnea General Chief Complaint: Shortness of Breath/Dyspnea Stated Complaint: SOB Time Seen by Provider: 03/16/21 16:59 Source: patient History of Present Illness HPI Narrative: Patient presents with shortness of breath. Reports symptoms started last night have been getting progressively worse so she came to the ER for evaluation. Reports a history of CHF and asthma. She attempted her albuterol inhaler but not noticed any improvement in her symptoms. Shortness of breath is constant she is unsure if she is having increased from her baseline cough she denies fevers, nausea, vomiting. She denies any chest pain, known sick contacts. Related Data Home Medications Medication Instructions Recorded Confirmed buspirone 5 mg PO BID 01/03/21 01/24/21 cyanocobalamin (vitamin B-12) 500 mcg PO DAILY 01/03/21 01/24/21 [Vitamin B-12] lorazepam 1 mg PO Q6H PRN 01/03/21 01/24/21 omeprazole 40 mg PO DAILY 01/03/21 01/24/21 furosemide 80 mg PO DAILY 02/24/21 Allergies Allergy/AdvReac Type Severity Reaction Status Date / Time Sulfa (Sulfonamide Allergy Intermediate Difficulty Verified 03/16/21 16:51 Antibiotics) Breathing codeine AdvReac Mild Gastrointestinal Verified 03/16/21 16:51 Upset Review of Systems Review of Systems: CONSTITUTIONAL: Denies fever, chills, or sweats. EYES: Denies visual changes, redness, or discharge. ENT: Denies rhinorrhea, congestion, sore throat, or otalgia. CARDIOVASCULAR: Denies chest pain, palpitations, or edema. RESPIRATORY: Shortness of breath and cough GASTROINTESTINAL: Denies abdominal pain, nausea, vomiting, or diarrhea. GENITOURINARY: Denies dysuria or hematuria. SKIN: Denies rash or itching. MUSCULOSKELETAL: Denies back pain, joint pain, or myalgia. NEUROLOGIC: Denies headache, numbness, dizziness, or weakness. PSYCHIATRIC: Denies anxiety or depression. All systems reviewed & are unremarkable except as noted in HPI and below PMFSH Past Medical History Medical History Anxiety CAD (coronary artery disease) CHF (congestive heart failure) Chronic GERD Hypertensive heart disease with heart failure Mild asthma [place] (myocardial infarction) Paroxysmal atrial flutter Type 2 diabetes mellitus with hyperglycemia Vertigo Vitamin B12 deficiency Surgical History Surgical History Hx of CABG Family History Family History Sibling Family history of chronic obstructive pulmonary disease Father Family history of diabetes mellitus in first degree relative Family history of heart disease in male family member before age 55 Diabetes mellitus Family history of cardiovascular disease Mother Family history of lung cancer Social History Social History Smoking status: Never smoker Alcohol intake: never Substance use: never Gender identity (if verbalized by the patient): Female Spiritual care concerns: No Exam Narrative: GENERAL: Well-appearing, well-nourished, and in no acute distress. HEAD: Normocephalic, atraumatic. EYES: PERRLA and EOMI. ENT: Nares clear, no rhinorrhea or epistaxis. Mucous membranes moist. NECK: Supple. No masses. No JVD CHEST: Clear to auscultation. No respiratory distress. No wheezes rales or rhonchi HEART: Regular rate and rhythm. No murmur heard. Normal peripheral pulses. ABDOMEN: Soft, nontender, nondistended, normal active bowel sounds. EXTREMITIES: Normal range of motion. No edema. SKIN: Warm, dry, no rash. NEURO: No focal deficits. Alert and oriented x3. PSYCH: Normal mood and affect. Course Reevaluation(s) Reevaluation #1: I patient feels much improved particularly when she ambulates compared to earlier today discussed results with patient. Patient prefers to be discharged home and follow-up with her ornamental bronze worker.
[2021-03-16 17:28] LABS: Alanine Aminotransferase 48 U/L (4-35); Albumin Level 4.9 g/dL (3.5-5.1); Alkaline Phosphatase 80 U/L (38-126); Aspartate Amino Transferase 99 U/L (14-36); Bilirubin,Total 0.7 mg/dL (0.2-1.3)
[2021-03-16] MEDS: FUROSEMIDE INJ 40 MG/4 ML VIAL IV PUSH (17:28)
[2021-03-16 17:33] LABS: Anion Gap 16 mmol/L (8-16); Blood Urea Nitrogen 36 mg/dL (7-17); Calcium 9.5 mg/dL (8.4-10.2); Carbon Dioxide 21 mmol/L (22-30); Chloride 99 mmol/L (98-107); Estimated CRCL calculation 34 ml/min; Estimated Glomerular Filt Rate 54; Glucose 177 mg/dL (65-110); Potassium 4.5 mmol/L (3.4-5.0); Sodium 136 mmol/L (137-145)
[2021-03-16] MEDS: IPRATROPIUM BR 0.02% INH SOLN 0.5 MG/2.5 ML VIAL INHALATION ×3 (17:35→17:37)
[2021-03-16] MEDS: ALBUTEROL SULFATE NEB 2.5 MG/0.5 ML INH 5 MG INHALATION ×3 (17:35→17:38)
[2021-03-16 17:38] VITALS: PULSE 49; RESP 19
[2021-03-16 17:44] LABS: NT Pro B Type Natriuretic Pept 1200 pg/mL (5-100); Troponin I < 0.012 ng/mL (0.000-0.034)
[2021-03-16 19:30] VITALS: BP 110/60; PULSE 52; RESP 18; O2SAT 96
== END 2021-03-16 19:47 | disposition home or self-care (01) ==
PROVIDERS: Emergency Medicine; Emergency Provider Emergency Medicine; PCP Family Medicine
DX: R00.1 Bradycardia, unspecified (principal); R06.00 Dyspnea, unspecified; I25.10 Atherosclerotic heart disease of native coronary artery without angina pectoris; I50.9 Heart failure, unspecified; I11.0 Hypertensive heart disease with heart failure; E11.9 Type 2 diabetes mellitus without complications; I25.2 Old myocardial infarction; J45.909 Unspecified asthma, uncomplicated; I48.92 Unspecified atrial flutter; K21.9 Gastro-esophageal reflux disease without esophagitis; E53.8 Deficiency of other specified B group vitamins; F41.9 Anxiety disorder, unspecified; Z95.1 Presence of aortocoronary bypass graft; I51.7 Cardiomegaly; Z79.01 Long term (current) use of anticoagulants; Z79.82 Long term (current) use of aspirin
CPT/HCPCS: 36415; 71045; 80048; 80076; 83880; 84484; 85025; 85610; 85730; 93005; 94640; 96374; 99284; J1940

== ENCOUNTER 2021-03-18 15:53 | Emergency (ER) | payer MEDICARE, SELFPAY ==
--- NOTE | ~2021-03-18 | CT_ITS ---
EXAMINATION: CTA chest PE protocol DATE: 03/18/2021 19:41 INDICATION: Shortness of breath and chest tightness TECHNIQUE: Computed tomography angiography (CTA) of the chest was performed with 100 mL Omnipaque-350 intravenous contrast timed to evaluate the pulmonary arteries. Coronal maximum intensity projection 3D-reconstructions were created by the technologist. The dose-length product (DLP) was 214.15 mGy-cm. Automated exposure control and iterative reconstruction technique were employed. COMPARISON: 01/12/2021 FINDINGS: The pulmonary arteries are well-opacified. No pulmonary embolism is identified. There is mi ld emphysema. The lungs are free of acute opacities. There is no pleural effusion or pneumothorax. Ca rdiomegaly is noted. There are no pathologically enlarged thoracic lymph nodes. Changes of coronary a rtery bypass grafting are noted. There is moderate thoracic spondylosis. IMPRESSION: 1. No pulmonary embolism or acute cardiopulmonary abnormality. 2. Mild emphysema. 3. Cardiomegaly. Reviewed, dictated and finalized at location A.
--- NOTE | ~2021-03-18 | XR_ITS ---
EXAMINATION: XR chest 1V portable INDICATION: Shortness of breath TECHNIQUE: Portable AP chest at 1638 hours COMPARISON: 03/16/2021 FINDINGS: Cardiomegaly is noted. The lungs are free of acute opacities. There is no pleural effusion or pneumothorax. Median sternotomy wires and mediastinal surgical clips are seen, likely from prior c oronary artery bypass grafting. IMPRESSION: 1. Cardiomegaly. Reviewed, dictated and finalized at location A. IMPRESSION: 1. Cardiomegaly.
--- NOTE | 2021-03-18 16:10 | ECG_ITS ---
Measurements Intervals [place] Rate: 40 P: [place]: 0 QRS: -56 QRSD: 122 T: -2 QT: 523 QTc: 428 Interpretive Statements SINUS OR ECTOPIC ATRIAL BRADYCARDIA LEFT BUNDLE BRANCH BLOCK INFERIOR INFARCT OR DUE TO LBBB ANTEROSEPTAL INFARCT OR DUE TO LBBB ABNORMAL ECG Electronically Signed On 03-18-2021 17:16:45 CDT by Martínez Steinberg D.O.
[2021-03-18 16:11] VITALS: BP 115/58; PULSE 40; RESP 20; TEMP 36.3; O2SAT 99
[2021-03-18 16:41] VITALS: BP 115/49; PULSE 41; RESP 20; O2SAT 98
[2021-03-18 16:52] VITALS: PULSE 40
[2021-03-18 17:07] LABS: Anion Gap 13 mmol/L (8-16); Blood Urea Nitrogen 36 mg/dL (7-17); Calcium 9.1 mg/dL (8.4-10.2); Carbon Dioxide 23 mmol/L (22-30); Chloride 99 mmol/L (98-107); Estimated CRCL calculation 30 ml/min; Estimated Glomerular Filt Rate 43; Glucose 162 mg/dL (65-110); Potassium 4.4 mmol/L (3.4-5.0); Sodium 135 mmol/L (137-145)
[2021-03-18 17:16] LABS: Basophils Percent Auto 0.5 % (0.2-1.2); Eosinophils Absolute Auto 0.1 K/mm3 (0-0.3); Eosinophils Percent Auto 0.9 % (0-4.4); Hematocrit 34.7 % (37.0-47.0); Hemoglobin 10.9 g/dL (12.0-15.0); Immature Granulocyte Absolute 0.04 K/mm3 (0.00-0.031); Immature Granulocyte Percent A 0.5 % (0-0.5); Lymphocytes Absolute Auto 1.94 K/mm3 (0.9-3.2); Lymphocytes Percent Auto 22.9 % (18.3-44.2); Mean Corpuscular HGB Conc 31.4 g/dl (32-36); Mean Corpuscular Hemoglobin 28.2 pg (26-34); Mean Corpuscular Volume 89.7 fl (80-100); Mean Platelet Volume 12.6 fl (7.4-10.4); Monocytes Absolute Auto 0.7 K/mm3 (0.1-0.6); Monocytes Percent Auto 7.7 % (2.6-8.5); Neutrophils Absolute Auto 5.7 K/mm3 (1.3-6.7); Neutrophils Percent Auto 67.5 % (45.5-73.1); Platelet Count Result 191 k/mm3 (150-375); Red Blood Count 3.87 M/mm3 (4.2-5.4); Red Cell Distribution Width 15.4 % (11.5-14.5); White Blood Count 8.5 K/mm3 (4.5-10.0)
[2021-03-18 17:19] LABS: NT Pro B Type Natriuretic Pept 1790 pg/mL (5-100); Troponin I < 0.012 ng/mL (0.000-0.034)
[2021-03-18 17:34] LABS: INR 1.2
[2021-03-18 17:35] LABS: Partial Thromboplastin Time 30.1 SECONDS (22.3-36.8)
--- NOTE | 2021-03-18 18:11 | PC.NURSE ---
Called lab to add D Dimer on at 18:11
--- NOTE | 2021-03-18 18:18 | ED.GENADULT ---
HPI - General Adult General Chief complaint: Shortness of Breath/Dyspnea Stated complaint: sob Time Seen by Provider: 03/18/21 17:34 Source: patient History of Present Illness HPI narrative: Patient is a 76 y/o female complaining of moderate SOB for last 3 days. She states that activity makes her SOB worse. She also has some chest tightness. She had leg swelling yesterday, but that resolved today. Related Data Home Medications Medication Instructions Recorded Confirmed buspirone 5 mg PO BID 01/03/21 01/24/21 cyanocobalamin (vitamin B-12) 500 mcg PO DAILY 01/03/21 01/24/21 [Vitamin B-12] lorazepam 1 mg PO Q6H PRN 01/03/21 01/24/21 omeprazole 40 mg PO DAILY 01/03/21 01/24/21 furosemide 80 mg PO DAILY 02/24/21 Allergies Allergy/AdvReac Type Severity Reaction Status Date / Time Sulfa (Sulfonamide Allergy Intermediate Difficulty Verified 03/16/21 16:51 Antibiotics) Breathing codeine AdvReac Mild Gastrointestinal Verified 03/16/21 16:51 Upset Review of Systems Constitutional: Constitutional: Denies chills, Denies fever(s), Denies headache(s) and Denies weakness Eyes: Eyes: Denies blurry vision ENT: Denies headache(s) and Denies neck pain Cardiovascular: Cardiovascular: Reports chest pain and Reports dyspnea Respiratory: Respiratory: Denies cough and Reports dyspnea Gastrointestinal: Gastrointestinal: Denies abdominal pain, Denies diarrhea, Denies nausea and Denies vomiting Genitourinary: Genitourinary: Denies hematuria and Denies dysuria Musculoskeletal: Musculoskeletal: Denies back pain and Denies neck pain Neurologic: Denies headache(s) and Denies weakness [facility] Past Medical History Medical History Anxiety CAD (coronary artery disease) CHF (congestive heart failure) Chronic GERD Hypertensive heart disease with heart failure Mild asthma [place] (myocardial infarction) Paroxysmal atrial flutter Type 2 diabetes mellitus with hyperglycemia Vertigo Vitamin B12 deficiency Surgical History Surgical History Hx of CABG Family History Family History Sibling Family history of chronic obstructive pulmonary disease Father Family history of diabetes mellitus in first degree relative Family history of heart disease in male family member before age 55 Diabetes mellitus Family history of cardiovascular disease Mother Family history of lung cancer Social History Social History Smoking status: Never smoker Alcohol intake: never Substance use: never Gender identity (if verbalized by the patient): Female Spiritual care concerns: No Exam Const: General: no acute distress and well developed Orientation/consciousness: oriented to person, oriented to place, oriented to time and patient oriented x3 HENMT: Head: normocephalic Ears: external ears normal General nose exam: Normal external nose present Eyes: General: appearance normal, both eyes and all related structures Conjunctivae: conjunctivae normal Neck: Neck: normal visual inspection and full ROM Chest: Chest palpation & inspection: normal inspection of the chest and no tenderness Resp: Effort & Inspection: normal respiratory effort Auscultation: clear to auscultation bilaterally Cardio: Rate: regular rate Rhythm: regular rhythm GI: GI Palp: No abdominal tenderness and Yes Soft to palpation Skin: General skin exam: normal color and turgor normal Neuro: General: oriented to person, oriented to place, oriented to time and patient oriented x3 Cognition (Neuro): normal cognition Extrem: General: normal to inspection, full ROM and no pedal edema Psych: Appearance: grossly normal Mental Status: mental status grossly normal Affect: normal affect Course Vital Signs Vital signs: Vital Signs Temperature 36.3 C L
[2021-03-18 18:19] LABS: D Dimer 0.78 ug/mL (<0.48)
[2021-03-18 19:24] VITALS: BP 114/54; PULSE 47; RESP 17; O2SAT 100
[2021-03-19 02:01] VITALS: BP 138/48; PULSE 48; RESP 14; O2SAT 97
== END 2021-03-18 21:05 | disposition home or self-care (01) ==
PROVIDERS: Emergency Medicine; Emergency Provider Emergency Medicine; PCP Family Medicine
DX: I11.0 Hypertensive heart disease with heart failure (principal); I50.9 Heart failure, unspecified; I25.10 Atherosclerotic heart disease of native coronary artery without angina pectoris; J45.909 Unspecified asthma, uncomplicated; I25.2 Old myocardial infarction; I48.92 Unspecified atrial flutter; E11.9 Type 2 diabetes mellitus without complications; E53.8 Deficiency of other specified B group vitamins; K21.9 Gastro-esophageal reflux disease without esophagitis; F41.9 Anxiety disorder, unspecified; Z95.1 Presence of aortocoronary bypass graft; Z79.82 Long term (current) use of aspirin; Z79.01 Long term (current) use of anticoagulants; Z79.84 Long term (current) use of oral hypoglycemic drugs; I44.7 Left bundle-branch block, unspecified; R94.31 Abnormal electrocardiogram [ECG] [EKG]
CPT/HCPCS: 36415; 71045; 71275; 80048; 83880; 84484; 85025; 85380; 85610; 85730; 93005; 99284; Q9967

== ENCOUNTER → 2021-05-07 14:49 | Outpatient (CLI) | payer MEDICARE, SELFPAY ==
--- NOTE | ~2021-05-07 | MM_ITS ---
EXAMINATION: MM screening jessica BI w piper HISTORY: Screening TECHNIQUE: Craniocaudal and mediolateral oblique 3-D tomosynthesis images were obtained and synthetic 2-D images were generated. CAD analysis was submitted and interpreted. COMPARISON: Comparison to multiple prior studies sequentially, with oldest reviewed study dated 10/20. BREAST PARENCHYMAL COMPOSITION: Breast composed of scattered areas of fibroglandular density. FINDINGS: There is no evidence of suspicious mass, calcification, or architectural distortion to sugg est malignancy in either breast. There has been no suspicious interval change. IMPRESSION: 1. No mammographic evidence of malignancy. 2. Recommend routine screening mammography in one year. BI-RADS Category 1: Negative Reviewed, dictated and finalized at location A. TICS LOADER
== END ==
PROVIDERS: PCP Family Medicine; Visit Provider Family Medicine
DX: Z12.31 Encounter for screening mammogram for malignant neoplasm of breast (principal)
CPT/HCPCS: 77063; 77067

== ENCOUNTER 2021-05-30 10:33 | Outpatient (CLI) | payer MEDICARE, SELFPAY ==
[2021-05-30 11:28] LABS: Alanine Aminotransferase 17 U/L (4-35); Albumin Level 4.9 g/dL (3.5-5.1); Alkaline Phosphatase 73 U/L (38-126); Anion Gap 12 mmol/L (8-16); Aspartate Amino Transferase 24 U/L (14-36); Bilirubin,Total 0.7 mg/dL (0.2-1.3); Blood Urea Nitrogen 16 mg/dL (7-17); Calcium 9.8 mg/dL (8.4-10.2); Carbon Dioxide 26 mmol/L (22-30); Chloride 102 mmol/L (98-107); Estimated Glomerular Filt Rate > 60; Glucose 161 mg/dL (65-110); Potassium 4.1 mmol/L (3.4-5.0); Sodium 140 mmol/L (137-145)
[2021-05-30 11:33] LABS: Hemoglobin A1C 7.4 % (<5.7)
== END 2021-05-30 10:34 | disposition home or self-care (01) ==
LOC: ANHLAB 10:36
PROVIDERS: PCP Family Medicine; Visit Provider Physician Assistant
DX: E11.65 Type 2 diabetes mellitus with hyperglycemia (principal); I10 Essential (primary) hypertension
CPT/HCPCS: 36415; 80053; 83036

== ENCOUNTER 2021-06-20 14:57 | Observation (INO) | payer MEDICARE, SELFPAY ==
--- NOTE | ~2021-06-20 | XR_ITS ---
EXAMINATION: XR chest 2V EXAM DATE: 06/20/2021 15:20 INDICATION: Chest pain, left side sharp pain, h/o open heart sx. TECHNIQUE: Frontal and lateral projections of the chest obtained and reviewed. Comparison is made to prior examination from 03/18/2021. FINDINGS: Sternotomy wires are present without findings to suggest sternal dehiscence. Mild cardiome ana. Mild chronic hyperinflation. No confluent consolidation or pneumothorax. There are bony degener ative changes. IMPRESSION: Mild cardiomegaly and hyperinflation. No acute findings. Reviewed, dictated and finalized at location B. ERY OPERATOR
[2021-06-20 14:58] VITALS: BP 125/69; PULSE 100; RESP 20; TEMP 37.1; O2SAT 97
--- NOTE | 2021-06-20 15:05 | ECG_ITS ---
Measurements Intervals [place] Rate: 81 P: [place]: 0 QRS: -51 QRSD: 124 T: 78 QT: 397 QTc: 464 Interpretive Statements SINUS OR ECTOPIC ATRIAL RHYTHM ATRIAL PREMATURE COMPLEXES LEFT BUNDLE BRANCH BLOCK ANTEROSEPTAL INFARCT OR DUE TO LBBB INFERIOR INFARCT OR DUE TO LBBB ABNORMAL ECG Electronically Signed On 06-20-2021 15:29:37 ENGINEERING SURVEYOR by Martínez Steinberg D.O.
[2021-06-20 15:20] LABS: Basophils Absolute Auto 0.1 K/mm3 (0.0-0.1); Basophils Percent Auto 0.8 % (0.2-1.2); Eosinophils Absolute Auto 0.1 K/mm3 (0-0.3); Eosinophils Percent Auto 1.4 % (0-4.4); Hematocrit 36.5 % (37.0-47.0); Hemoglobin 11.7 g/dL (12.0-15.0); Immature Granulocyte Absolute 0.03 K/mm3 (0.00-0.031); Immature Granulocyte Percent A 0.4 % (0-0.5); Lymphocytes Absolute Auto 1.89 K/mm3 (0.9-3.2); Mean Corpuscular HGB Conc 32.1 g/dl (32-36); Mean Corpuscular Hemoglobin 27.9 pg (26-34); Mean Corpuscular Volume 86.9 fl (80-100); Monocytes Absolute Auto 0.5 K/mm3 (0.1-0.6); Monocytes Percent Auto 5.8 % (2.6-8.5); Neutrophils Absolute Auto 5.3 K/mm3 (1.3-6.7); Neutrophils Percent Auto 67.6 % (45.5-73.1); Platelet Count Result 214 k/mm3 (150-375); Red Cell Distribution Width 15.8 % (11.5-14.5); White Blood Count 7.9 K/mm3 (4.5-10.0)
[2021-06-20 15:29] LABS: Alanine Aminotransferase 17 U/L (4-35); Albumin Level 4.4 g/dL (3.5-5.1); Alkaline Phosphatase 69 U/L (38-126); Anion Gap 13 mmol/L (8-16); Aspartate Amino Transferase 25 U/L (14-36); Bilirubin,Total 0.6 mg/dL (0.2-1.3); Blood Urea Nitrogen 14 mg/dL (7-17); Calcium 9.1 mg/dL (8.4-10.2); Carbon Dioxide 20 mmol/L (22-30); Chloride 104 mmol/L (98-107); Estimated CRCL calculation 49 ml/min; Estimated Glomerular Filt Rate > 60; Glucose 176 mg/dL (65-110); Lipase 88 U/L (23-300); Sodium 137 mmol/L (137-145)
[2021-06-20 15:30] LABS: Prothrombin Time 13.5 Seconds (11.1-14.7)
[2021-06-20 15:31] LABS: Partial Thromboplastin Time 29.1 SECONDS (22.3-36.8)
[2021-06-20 15:41] LABS: Troponin I < 0.012 ng/mL (0.000-0.034)
--- NOTE | 2021-06-20 16:01 | ED.GENADULT ---
HPI - General Adult General Chief complaint: Chest Pain Stated complaint: chest pain Time Seen by Provider: 06/20/21 15:27 History of Present Illness HPI narrative: Patient is 76-year-old female who presents the emergency department with chief complaint of chest discomfort. Patient states that she has history of A. fib and started having some tightness in her chest and also some sharp pain. The patient states that she had an episode yesterday that lasted for short period of time and then this morning she started having discomfort that is been pretty well constant by the time she arrived to the emergency department it is improved and is almost completely resolved the patient states that prior to coming to the emergency department she called her mixer operator helper hot metal office who recommended that she come to the ER. Related Data Home Medications Medication Instructions Recorded Confirmed cyanocobalamin (vitamin B-12) 500 mcg PO DAILY 01/03/21 05/30/21 [Vitamin B-12] omeprazole 40 mg PO DAILY 01/03/21 05/30/21 furosemide 80 mg PO DAILY 02/24/21 05/30/21 Allergies Allergy/AdvReac Type Severity Reaction Status Date / Time Sulfa (Sulfonamide Allergy Intermediate Difficulty Verified 05/30/21 09:55 Antibiotics) Breathing atorvastatin [From Lipitor] AdvReac Severe Swelling / Verified 05/30/21 09:55 painful legs / hard to walk codeine AdvReac Mild Gastrointestinal Verified 05/30/21 09:55 Upset Review of Systems Review of Systems: A 10 system review of systems was completed on the patient and is negative except for what is stated in the HPI. Nursing and ancillary documentation was reviewed. [facility] Past Medical History Medical History Anxiety CAD (coronary artery disease) CHF (congestive heart failure) Chronic GERD Hypertensive heart disease with heart failure Mild asthma [place] (myocardial infarction) Paroxysmal atrial flutter Type 2 diabetes mellitus with hyperglycemia Vertigo Vitamin B12 deficiency Surgical History Surgical History Hx of CABG Family History Family History Sibling Family history of chronic obstructive pulmonary disease Father Family history of diabetes mellitus in first degree relative Family history of heart disease in male family member before age 55 Diabetes mellitus Family history of cardiovascular disease Mother Family history of lung cancer Social History Social History Alcohol intake: never Substance use: never Gender identity (if verbalized by the patient): Female Spiritual care concerns: No Exam Narrative: GENERAL: Well-appearing, well-nourished, and in no acute distress. HEAD: Normocephalic, atraumatic. EYES: PERRLA and EOMI. ENT: Nares clear, no rhinorrhea or epistaxis. Mucous membranes moist. NECK: Supple. CHEST: Clear to auscultation. No respiratory distress. HEART: Regular rate and rhythm. No murmur heard. Normal peripheral pulses. ABDOMEN: Soft, nontender, nondistended, normal active bowel sounds. EXTREMITIES: Normal range of motion. No edema. SKIN: Warm, dry, no rash. NEURO: No focal deficits. Alert and oriented x3. PSYCH: Normal mood and affect. Course Vital Signs Vital signs: Vital Signs Temperature 37.1 C 06/20/21 14:58 Pulse Rate 100 06/20/21 14:58 Respiratory Rate 06/20/21 14:58 Blood Pressure 125/69 06/20/21 14:58 Pulse Oximetry 97 06/20/21 14:58 Temperature 37.1 C 06/20/21 14:58 Pulse Rate 100 06/20/21 14:58 Respiratory Rate 06/20/21 14:58 Blood Pressure 125/69 06/20/21 14:58 Pulse Oximetry 97 06/20/21 14:58 Medical Decision Making Vital Signs Vital Signs: Vital Signs Temperature 37.1 C 06/20/21 14:58 Pulse Rate 100 0
[2021-06-20] MEDS: NITROGLYCERIN SL 0.4 MG TABLET SUBLINGUAL ×2 (16:47→22:10)
--- NOTE | 2021-06-20 17:05 | PC.NURSE ---
patient received 1 nitro and reports pain relief. Dr britton
[2021-06-20] MEDS: BELLADONNA ALK/PHENOB ELIX 10 ML, MAG HYDROX/ALUMINUM HYD/SIMETH 30 ML, LIDOCAINE HCL 2... PO ×2 (18:05→22:10)
[2021-06-20 18:10] LABS: NT Pro B Type Natriuretic Pept 985 pg/mL (5-100)
--- NOTE | 2021-06-20 19:30 | PM.IMHP ---
H&P: HPI History of Present Illness Date/Time: 06/20/21 19:30 Chief Complaint: Chest pain. Narrative: This is a 76-year-old female with coronary artery disease status post bypass 2016, hypertension, paroxysmal atrial flutter, asthma, and type 2 diabetes who presented to the emergency department earlier today from home for evaluation of chest pain. At about 10:00, perhaps a couple of hours after eating Cheerios for breakfast, she developed a sharp stabbing pain in the left lateral chest region which pretty quickly turned into a dull and constant aching discomfort radiating across her lower chest/upper abdomen. She took a couple of Tylenol however her symptoms did not improve and she decided to come in for evaluation. She reports a similar episode that woke her from sleep at 04:00 yesterday, lasting an hour so after taking Tylenol. Aside from mild shortness of breath she has no other associated symptoms and she specifically denies syncope, near syncope, nausea, vomiting, and sweats. She denies chest pain with exertion, pleuritic pain, reproducible chest pain, lower extremity edema, and history of venous thromboembolism. She also denies history of gallbladder disease, pancreatitis, and peptic ulcers. Symptoms are not similar to though she experiences with GERD. Review of Systems Review of Systems: Twelve systems were reviewed. Patient has had intermittent episodes of atrial flutter over the last several months and in fact she wore an event monitor for approximately 1 month in May. She was referred to Dr. Arce, plate mill mill hand at [place], and has an upcoming appoint with him within the next month or so. She occasionally feels palpitations but is not feeling them at this time however her heart rate does vary between the low 90s to upper 1 teens at the time my evaluation. She really sees a glucose over 130. No recent cold or flu symptoms. Except as documented, all other systems were reviewed and are negative. [facility] Past Medical History Medical History (Updated 06/20/21 @ 21:28 by Lexii Jean PA-C) Anxiety Chronic GERD Combined systolic and diastolic congestive heart failure Coronary artery disease Mild asthma Paroxysmal atrial flutter Type 2 diabetes mellitus Vertigo Vitamin B12 deficiency Surgical History Surgical History (Updated 06/20/21 @ 21:28 by Lexii Jean PA-C) History of hysterectomy History of three vessel coronary artery bypass (2016) Family History Family History Sibling Family history of chronic obstructive pulmonary disease Father Family history of diabetes mellitus in first degree relative Family history of heart disease in male family member before age 55 Diabetes mellitus Family history of cardiovascular disease Mother Family history of lung cancer Social History Social History (Updated 06/20/21 @ 21:28 by Lexii Jean PA-C) Social History: Surrogate decision maker: Madhavi Weems, daughter. Code status: Full code. Smoking status: Never smoker Alcohol intake: never Substance use: never Meds Home Medications and Allergies Home Medications Medication Instructions Recorded Confirmed Type lancets 30 gauge #100 each 08/23/20 05/30/21 Rx blood sugar diagnostic #100 each 10/09/20 05/30/21 Rx cyanocobalamin (vitamin B-12) 500 mcg PO DAILY 01/03/21 05/30/21 History [Vitamin B-12] omeprazole 40 mg PO DAILY 01/03/21 05/30/21 History albuterol sulfate [ProAir HFA] 1 inhalation INHALATION Q4H PRN 01/07/21 05/30/21 Rx #18 gm aspirin [Children's Aspirin] 81 mg PO DAILY@0800 #0 tablet 01/15/21 05/30/21 Rx furosemide 80 mg PO DAILY 02/24/21 05/30/21 History potassium chloride 10 mEq 20 meq PO DAILY #180 cap 03/21/21 05/30/21 Rx capsule,extended release meclizine 25 mg tablet 25 mg PO TID PRN #60 tablet 04/05/21 05/30/21 Rx amlodipine 5 mg tablet 5 mg PO DAILY #30 tablet 05/20/21 05/30/21 Rx alprazolam 0.25 mg
[2021-06-20 19:48] LABS: Troponin I < 0.012 ng/mL (0.000-0.034)
[2021-06-20 20:26] LABS: SARS-CoV-2 RNA PCR Negative
--- NOTE | 2021-06-20 21:55 | PC.NURSE ---
patient c/o left chest pain with radiating across chest. Dr Linder aware and new orders received
[2021-06-20 22:30] LABS: Troponin I < 0.012 ng/mL (0.000-0.034)
[2021-06-21] VITALS (14 sets, daily range): BP systolic 111–147; BP diastolic 67–87; PULSE 89–120; RESP 17–20; TEMP 36.4–37; O2SAT 95–98; BMI 22.5
--- NOTE | 2021-06-21 00:14 | PC.NURSE ---
c/o left chest pain started at 2230 startes under left breast going to substernal area sharp pain 02/08
--- NOTE | 2021-06-21 00:33 | PC.NURSE ---
spoke with dr dunn informed of patients chest pain will order ntg paste and ms for pain
[2021-06-21] MEDS: MORPHINE SULFATE (*CRX) 2 MG/ML INJ 1 MG IV PUSH (00:48)
--- NOTE | 2021-06-21 01:55 | PC.NURSE ---
This patient, Fina Adair, was admitted to IMU Room 201-01. Patient/family oriented to hospital policies and general routines including ID bracelet, bed and alarms, visiting hours, pain management, procedures, bathroom and other care routines, personal items, smoking policy, room service/diet, and visiting hours. Information on how to activate the Rapid Response Team has been discussed. Patient/Family are encouraged to report perceived risks to care and to ask questions if they do not understand what they are told or what they should do.
--- NOTE | 2021-06-21 02:01 | PC.NURSE ---
pharm called at 1245 for ntg transdermal patch did not receive ntg before pt was transported to [facility]
[2021-06-21] MEDS: NITROGLYCERIN 0.4 MG/HR PATCH 1 PATCH TRANSDERM (02:32)
--- NOTE | 2021-06-21 07:33 | PM.IMPN ---
Progress Note: A&P Assessment and Plan (1) Chest pain: Qualifiers: Chest pain type: unspecified Qualified Code(s): R07.9 - Chest pain, unspecified Code(s): R07.9 - Chest pain, unspecified Status: Acute Assessment and Plan: Patient currently evaluated for atypical chest pain. Somewhat atypical presentation for cardiac related pain. She has had 3 negative troponins and EKG shows no acute findings. There is no reproducible tenderness to palpation of the chest wall. Pancreatitis and cholecystitis are considerations but seem less likely given lab in exam findings. Patient has a previously known diagnosis of atrial flutter, is aware of her arrhythmia that she describes as a fluttering. However she is not able to certify whether or not her chest pain is related to episodes of fluttering. (2) Paroxysmal atrial flutter: Code(s): I48.92 - Unspecified atrial flutter Status: Acute Assessment and Plan: Currently in atrial flutter with variable heart rate. Her chest discomfort does not seem to be related to the atrial flutter. Continue apixaban for stroke prophylaxis. (3) Type 2 diabetes mellitus: Code(s): E11.9 - Type 2 diabetes mellitus without complications Status: Acute Assessment and Plan: Recent hemoglobin A1c was 7.4%. Continue Janumet. Fasting blood glucose was 176. Initiate sliding scale insulin, Accu-Cheks, and hypoglycemic protocol. (4) Combined systolic and diastolic congestive heart failure: Code(s): I50.40 - Unspecified combined systolic (congestive) and diastolic (congestive) heart failure Status: Acute Assessment and Plan: Clinically compensated. Subjective Date/time seen: 06/21/21 07:33 Narrative: Ms. Fina Adair is a 76-year-old lady with previously diagnosed coronary artery disease status post bypass 2016, hypertension, paroxysmal atrial flutter, asthma, and type 2 diabetes who presented to the emergency department yesterday from home for evaluation of chest pain. She describes a sharp stabbing pain in the left lateral chest region which pretty quickly turned into a dull and constant aching discomfort radiating across her lower chest/upper abdomen at 10:00 a.m. her symptoms did not improve with Tylenol. She reports a previous similar episode that woke her from sleep at 04:00 on the day before yesterday, lasting an hour so after taking Tylenol. Aside from mild shortness of breath she has no other associated symptoms and she specifically denies syncope, near syncope, nausea, vomiting, and sweats. She denies chest pain with exertion, pleuritic pain, reproducible chest pain, lower extremity edema, and history of venous thromboembolism. She also denies history of gallbladder disease, pancreatitis, and peptic ulcers. Symptoms are not similar to though she experiences with GERD. Three sets of troponin were negative. EKG did not reveal any ST-T changes. Patient has a known history of paroxysmal atrial flutter, currently on prophylactic anticoagulation with Eliquis and scheduled to see an ferry captain, Dr. Arce, at [place] in the upcoming months. Cardiology was consulted. S:Patient was seen and examined at the bedside. At the moment left-sided chest pain is rated 2/10. Pain does not seem to worsen with deep inspiration, or changes of position. Patient is aware of her atrial flutter that she describes as a fluttering sensation. Review of Systems Review of Systems: All systems reviewed & are unremarkable except as noted in HPI and below Constitutional: Constitutional: Reports as per HPI and Reports no additional constitutional complaints Eyes: Eyes: Reports as per HPI, Reports no additional eye complaints and Denies loss of vision ENT: Reports system reviewed and no additional complaints, except as documented and Reports as per HPI Cardiovascular: Cardiovascular: Reports as per HPI, Reports no additional cardiovascular complaints, R
[2021-06-21 08:28] LABS: Glucose Point of Care 165 mg/dl (65-105)
--- NOTE | 2021-06-21 09:57 | PM.CNCAR ---
Assessment and Plan Additional Plan 76-year-old lady with: Coronary artery disease with surgical revascularization about 5-6 years ago and no significant ischemic problems since then. Her current symptoms of chest and epigastric pain are atypical in nature and acute coronary syndrome has been ruled out with serial troponins. As stated above she also has a history of atrial flutter which has been persistent for about 3 or 4 months at this time. Obviously this has nothing to do with the chest pain that began yesterday. She is not really on anything at all for rate control at this time I am going to recommend shifting her from amlodipine to diltiazem and of course continuing systemic anticoagulation with apixaban. I believe she can be discharged later today after taking a dose of diltiazem in watching her heart rhythm for a little while. There is no need in my opinion to initiate an ischemia workup at this time since the symptoms are atypical and the troponin levels are negative. Pierre Nieto MD [facility] History of Present Illness History of Present Illness Consult date/time: 06/21/21 09:57 Consult reason: chest pain Reason For Visit: chest pain Narrative: This is a very pleasant 76-year-old woman who I know from office follow-up in previous care at the hospital. She has a history of coronary artery disease as well as atrial flutter. She came into the hospital yesterday afternoon because of some chest pain symptoms that raise concern. She was at home conducting her normal household activities about 10:00 a.m. in the morning she said she had the onset of some sharp pain under the left breast in the inframammary region after short time this then began to be more of a dull aching sensation in the low substernal to epigastric region. The symptoms were persistent for most of the day she called the office and was directed to the emergency room for evaluation. In the emergency room she was not clinically unstable she is in atrial flutter with a controlled ventricular response with a left bundle branch block which is a chronic finding. Cardiac biomarkers were negative she was admitted to the hospital IMU for further evaluation and management. She has had 3 sets of troponin levels done which are all negative. She feels reasonably well this morning the discomfort she came in with has largely subsided but is still present with a small amount of discomfort in the epigastrium. She is being seen in consultation in this setting. The electrocardiogram in addition atrial flutter of course shows her chronic left bundle branch block. The patient has a history of coronary artery disease initially presenting to this hospital in September of 2015. She underwent catheterization following which she was referred to [facility] for coronary bypass grafting which was done at that time. She initially did very well following surgery she has had quite a bit of difficulty with atrial arrhythmias in the past she did have some atrial fibrillation but primarily she has a history of atrial flutter. She was seen a number of times throughout the year 2020 for appointments in the office admissions in the hospital with shortness of breath and tachyarrhythmias. She underwent a CICI guided cardioversion last summer after which she was unfortunately found to be back in atrial flutter. Amiodarone as an outpatient was increased to a loading dose she underwent a another attempted cardioversion her however when she came into the hospital the procedure was canceled because of suspicion she might be in sinus rhythm. In retrospect she was still in atrial flutter with a controlled ventricular response. She was continued on amiodarone as an outpatient and eventually she did medically convert to sinus rhythm but when she was in sinus rhythm she was severely bradycardic with heart rates in the 40s. At that time both amiodarone and metoprolol were discontinued. As expected after short period of time she was
[2021-06-21] MEDS: APIXABAN 5 MG TABLET PO (11:27)
[2021-06-21] MEDS: ASPIRIN 81 MG CHEWABLE TABLET PO (11:27)
[2021-06-21] MEDS: LOSARTAN POTASSIUM 100 MG TABLET PO (11:27)
[2021-06-21] MEDS: dilTIAZem HCL CD 180 MG CAP.ER.24H PO (11:27)
[2021-06-21] MEDS: POTASSIUM CHLORIDE 10 MEQ TABLET.ER 20 MEQ PO (11:27)
[2021-06-21] MEDS: FUROSEMIDE 40 MG TABLET 80 MG PO (11:28)
[2021-06-21] MEDS: CYANOCOBALAMIN 500 MCG TABLET PO (11:28)
[2021-06-21] MEDS: ALPRAZolam (*CRX) 0.125 MG TABLET PO (11:29)
[2021-06-21 11:54] LABS: Glucose Point of Care 151 mg/dl (65-105)
[2021-06-21 15:50] LABS: Glucose Point of Care 309 mg/dl (65-105)
--- NOTE | 2021-06-21 16:54 | PM.DS ---
DS: Admitting Diagnosis Discharge Date 06/21/2021. Admitting Diagnosis Chest pain DS: Summary Hospital Course Reason for hospitalization: Chest pain. Hospital Course: Please refer to admission H& P. Briefly, this is a pleasant 76-year-old lady well known from our cardiology group who carries a past medical history of coronary artery disease and atrial flutter. She came into the hospital yesterday afternoon because of some chest pain symptoms that raise concern. She was at home conducting her normal household activities about 10:00 a.m. in the morning she said she had the onset of some sharp pain under the left breast in the inframammary region after short time this then began to be more of a dull aching sensation in the low substernal to epigastric region. The symptoms were persistent for most of the day she called the office and was directed to the emergency room for evaluation. In the emergency room she was not clinically unstable she is in atrial flutter with a controlled ventricular response with a left bundle branch block which is a chronic finding. Cardiac biomarkers were negative she was admitted to the hospital IMU for further evaluation and management. She has had 3 sets of troponin levels done which are all negative. She feels reasonably well this morning the discomfort she came in with has largely subsided but is still present with a small amount of discomfort in the epigastrium. She is being seen in consultation in this setting. The electrocardiogram in addition atrial flutter of course shows her chronic left bundle branch block. The patient has a history of coronary artery disease initially presenting to this hospital in September of 2015. She underwent catheterization following which she was referred to [facility] for coronary bypass grafting which was done at that time. She initially did very well following surgery she has had quite a bit of difficulty with atrial arrhythmias in the past she did have some atrial fibrillation but primarily she has a history of atrial flutter. She was seen a number of times throughout the year 2020 for appointments in the office admissions in the hospital with shortness of breath and tachyarrhythmias. She underwent a CICI guided cardioversion last summer after which she was unfortunately found to be back in atrial flutter. Amiodarone as an outpatient was increased to a loading dose she underwent a another attempted cardioversion her however when she came into the hospital the procedure was canceled because of suspicion she might be in sinus rhythm. In retrospect she was still in atrial flutter with a controlled ventricular response. She was continued on amiodarone as an outpatient and eventually she did medically convert to sinus rhythm but when she was in sinus rhythm she was severely bradycardic with heart rates in the 40s. At that time both amiodarone and metoprolol were discontinued. As expected after short period of time she was back in atrial flutter and has been seen in the office on number of occasions. She does not wish to resume either amiodarone or metoprolol and has been anticoagulated with apixaban. If after all of this she was referred for consultation to electrophysiology at [place] who saw the patient in April. She was persisting in atrial flutter with a reasonable heart rate. She had a 30 day event monitor done. Attempts at rhythm control with alternative antiarrhythmic medication or ablation were discussed at were declined by the patient. According to the records she has therefore been in atrial flutter for about 3-4 months at this time. A currently the patient is at bedrest in the IMU has heart rate that varies between the 90s to about 120. She is not specifically aware of this in the way of palpitations or sense of tachycardia. She also admits to a significant amount of anxiety and stress at home since the of her in the early summer. Coronary artery disease
[2021-06-21] MEDS: metFORMIN HCL 500 MG TABLET 1000 MG PO (17:02)
== END 2021-06-21 17:00 | disposition home or self-care (01) ==
LOC: ANHED 18:15 → ANHIMU 22:30
PROVIDERS: Emergency Medicine; Admitting Provider Internal Medicine; Emergency Provider Emergency Medicine; PCP Family Medicine; Visit Provider Internal Medicine
DX: R07.9 Chest pain, unspecified (principal); I50.40 Unspecified combined systolic (congestive) and diastolic (congestive) heart failure; I48.91 Unspecified atrial fibrillation; I25.10 Atherosclerotic heart disease of native coronary artery without angina pectoris; I25.2 Old myocardial infarction; I11.0 Hypertensive heart disease with heart failure; R06.02 Shortness of breath; E11.9 Type 2 diabetes mellitus without complications; E53.8 Deficiency of other specified B group vitamins; F41.8 Other specified anxiety disorders; Z79.82 Long term (current) use of aspirin; Z79.84 Long term (current) use of oral hypoglycemic drugs; J45.909 Unspecified asthma, uncomplicated; Z95.1 Presence of aortocoronary bypass graft; Z79.01 Long term (current) use of anticoagulants; Z20.822 Contact with and (suspected) exposure to COVID-19; Z90.710 Acquired absence of both cervix and uterus
CPT/HCPCS: 36415; 71046; 80053; 82948; 83690; 83880; 84484; 85025; 85610; 85730; 93005; 96374; 99285; A9270; C9803; G0378; J2270; U0003; U0005

== ENCOUNTER 2021-09-10 10:32 | Outpatient (CLI) | payer MEDICARE, SELFPAY ==
[2021-09-10 11:08] LABS: Alanine Aminotransferase 15 U/L (4-35); Albumin Level 4.5 g/dL (3.5-5.1); Alkaline Phosphatase 86 U/L (38-126); Anion Gap 12 mmol/L (8-16); Aspartate Amino Transferase 28 U/L (14-36); Bilirubin,Total 0.7 mg/dL (0.2-1.3); Blood Urea Nitrogen 20 mg/dL (7-17); Calcium 8.9 mg/dL (8.4-10.2); Carbon Dioxide 24 mmol/L (22-30); Chloride 100 mmol/L (98-107); Estimated Glomerular Filt Rate > 60; Glucose 258 mg/dL (65-110); Sodium 136 mmol/L (137-145)
[2021-09-10 11:21] LABS: Hemoglobin A1C 6.8 % (<5.7)
== END 2021-09-10 10:33 | disposition home or self-care (01) ==
PROVIDERS: PCP Family Medicine; Visit Provider Physician Assistant
DX: E11.65 Type 2 diabetes mellitus with hyperglycemia (principal); I10 Essential (primary) hypertension
CPT/HCPCS: 36415; 80053; 83036

== ENCOUNTER 2021-10-09 00:24 | Observation (INO) | payer MEDICARE, SELFPAY ==
[2021-10-09] VITALS (18 sets, daily range): BP systolic 113–154; BP diastolic 70–95; PULSE 81–117; RESP 18–28; TEMP 36.4–36.8; O2SAT 91–97; BMI 26.1
--- NOTE | 2021-10-09 | ECHO_ITS ---
Patient Info Name: Fina Adair Age: 76 years : 1945 Gender: Female Ht: 63 in Wt: 147 lbs BSA: 1.74 m2 HR: 98 bpm BP: 132 / 70 mmHg Heart Rhythm: Atrial Fibrillation Technical Quality: Fair Exam Date: 10/09/2021 3:36 PM Exam Location: [facility] Patient Status: Outpatient Admit Date: 10/09/2021 Staff Ordering Physician: Tanvir Linder MD Outreach Consultant: Gi Fajardo RDCS Attending Provider: Tanvir Linder MD Referring Physician: Kailash FRANCO; Exam Type: CA echo doppler color flow Study Info Indications - sob Complete two-dimensional, color flow and Doppler transthoracic echocardiogram is performed. Summary 1. Complete two-dimensional, color flow and Doppler transthoracic echocardiogram is performed. 2. Left ventricular chamber dimension is moderately enlarged. 3. Left ventricular systolic function is moderately reduced, estimated at 30-35%. 4. The left ventricular diastolic function is abnormal. 5. E/e' 19.6 is elevated. 6. Right ventricular systolic function is reduced. 7. Left atrial chamber dimension is severely enlarged. 8. There is mild aortic valve sclerosis. 9. There is moderate to severe mitral valve regurgitation. 10. There is mild to moderate tricuspid valve regurgitation. 11. Mild pulmonary hypertension, estimated pulmonary arterial systolic pressure is 40 mmHg. 12. There is trace pulmonic regurgitation. Left Ventricle Left ventricular chamber dimension is moderately enlarged. Left ventricular systolic function is moderately reduced, estimated at 30-35%. There is no increased left ventricular wall thickness. Left ventricular septal wall motion is normal. The left ventricular diastolic function is abnormal. E/e' 19.6 is elevated. Right Ventricle Right ventricular chamber dimension is normal. Right ventricular systolic function is reduced. Left Atria Left atrial chamber dimension is severely enlarged. Right Atria Right atrial chamber dimension is normal. Atrial Septum Intact interatrial septum visualized by color flow imaging. Aortic Valve The aortic valve is trileaflet. There is mild aortic valve sclerosis. There is no aortic valve stenosis. There is no aortic valve regurgitation. Pulmonic Valve The pulmonic valve is normal. There is no pulmonic valve stenosis. There is trace pulmonic regurgitation. Mitral Valve The mitral valve has normal leaflets. There is no mitral valve stenosis. There is moderate to severe mitral valve regurgitation. Tricuspid Valve The tricuspid valve leaflets are normal. There is no significant tricuspid valve stenosis. There is mild to moderate tricuspid valve regurgitation. Mild pulmonary hypertension, estimated pulmonary arterial systolic pressure is 40 mmHg. Pericardium/Pleural The pericardium appears normal. There is no pericardial effusion. Inferior Vena Cava Normal inferior vena cava with <50% collapse upon inspiration consistent with elevated right atrial pressure, 10 mmHg. Aorta The aortic root size at the sinus of Valsalva is normal. The prox ascending aorta size is normal. Left Ventricular Outflow Tract Name Value Normal LVOT 2D LVOT Diameter 2.
--- NOTE | ~2021-10-09 | XR_ITS ---
EXAMINATION: XR chest 2V DATE: 10/09/2021 01:14 INDICATION: Shortness of breath TECHNIQUE: PA and lateral views of the chest are obtained. COMPARISON: 06/20/2021 FINDINGS: Cardiomegaly is noted. There are minimal interstitial opacities of the lower lung zones. Th ere is no pleural effusion or pneumothorax. Median sternotomy wires and mediastinal surgical clips ar e seen, likely from prior coronary artery bypass grafting. There is severe thoracic spondylosis. IMPRESSION: 1. Cardiomegaly with mild pulmonary edema. Reviewed, dictated and finalized at location A.
[2021-10-09 00:59] LABS: Basophils Absolute Auto 0.1 K/mm3 (0.0-0.1); Basophils Percent Auto 0.4 % (0.2-1.2); Eosinophils Absolute Auto 0.2 K/mm3 (0-0.3); Eosinophils Percent Auto 1.3 % (0-4.4); Hematocrit 33.7 % (37.0-47.0); Hemoglobin 10.4 g/dL (12.0-15.0); Immature Granulocyte Absolute 0.05 K/mm3 (0.00-0.031); Immature Granulocyte Percent A 0.4 % (0-0.5); Lymphocytes Absolute Auto 2.26 K/mm3 (0.9-3.2); Lymphocytes Percent Auto 19.6 % (18.3-44.2); Mean Corpuscular HGB Conc 30.9 g/dl (32-36); Mean Corpuscular Hemoglobin 27.1 pg (26-34); Mean Corpuscular Volume 87.8 fl (80-100); Mean Platelet Volume 11.2 fl (7.4-10.4); Monocytes Absolute Auto 0.6 K/mm3 (0.1-0.6); Monocytes Percent Auto 5.5 % (2.6-8.5); Neutrophils Absolute Auto 8.4 K/mm3 (1.3-6.7); Neutrophils Percent Auto 72.8 % (45.5-73.1); Platelet Count Result 227 k/mm3 (150-375); Red Blood Count 3.84 M/mm3 (4.2-5.4); Red Cell Distribution Width 15.5 % (11.5-14.5); White Blood Count 11.5 K/mm3 (4.5-10.0)
--- NOTE | 2021-10-09 01:01 | ECG_ITS ---
Measurements Intervals [place] Rate: 105 P: [place]: 0 QRS: -37 QRSD: 122 T: 99 QT: 366 QTc: 484 Interpretive Statements ATRIAL FIBRILLATION WITH RAPID VENTRICULAR RESPONSE VENTRICULAR PREMATURE COMPLEX LEFT BUNDLE BRANCH BLOCK ANTEROSEPTAL INFARCT OR DUE TO LBBB INFERIOR INFARCT OR DUE TO LBBB ABNORMAL ECG Electronically Signed On 10-09-2021 6:46:35 CDT by Martínez Steinberg D.O.
[2021-10-09 01:10] LABS: Alanine Aminotransferase 16 U/L (6-35); Alkaline Phosphatase 84 U/L (38-126); Anion Gap 8 mmol/L (8-16); Aspartate Amino Transferase 23 U/L (14-36); Bilirubin,Total 0.5 mg/dL (0.2-1.3); Blood Urea Nitrogen 18 mg/dL (7-17); Calcium 8.7 mg/dL (8.4-10.2); Carbon Dioxide 20 mmol/L (22-30); Chloride 106 mmol/L (98-107); Estimated CRCL calculation 57 ml/min; Estimated Glomerular Filt Rate > 60; Glucose 135 mg/dL (65-110); INR 1.2; Prothrombin Time 15.1 Seconds (11.1-14.7); Sodium 134 mmol/L (137-145)
[2021-10-09 01:22] LABS: NT Pro B Type Natriuretic Pept 814 pg/mL (5-100); Troponin I < 0.012 ng/mL (0.000-0.034)
[2021-10-09 01:35] LABS: SARS-CoV-2 RNA PCR Negative
--- NOTE | 2021-10-09 02:08 | ED.GENADULT ---
HPI - General Adult General Chief complaint: Shortness of Breath/Dyspnea Stated complaint: cough, short of breath, chest pressure Time Seen by Provider: 10/09/21 00:45 Source: patient, family, RN notes reviewed and old records reviewed Mode of arrival: ambulatory Limitations: no limitations History of Present Illness HPI narrative: 76-year-old female history of paroxysmal atrial fibrillation and congestive heart failure presented to the emergency department for evaluation of worsening shortness of breath over the last 3 days. Patient reports the shortness of breath has been progressive does occur with exertion but patient also has increased work of breathing even at rest. Patient is not on oxygen at home. Patient is on Eliquis for her paroxysmal A. fib. Patient is rate controlled with Cardizem. Patient also does take furosemide 80 mg daily. Patient is scheduled to have a cardiac ablation at [facility] by Dr. 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 Patient does complain of shortness of breath but denies any associated chest pain. Patient states she does have some abdominal tightness which she associates with worsened cough and heavier breathing. Patient does appear winded during the exam. Related Data Home Medications Medication Instructions Recorded Confirmed cyanocobalamin (vitamin B-12) 500 mcg PO DAILY 01/03/21 10/09/21 [Vitamin B-12] furosemide 80 mg PO DAILY 02/24/21 10/09/21 Allergies Allergy/AdvReac Type Severity Reaction Status Date / Time Sulfa (Sulfonamide Allergy Intermediate Difficulty Verified 09/17/21 10:18 Antibiotics) Breathing atorvastatin [From Lipitor] AdvReac Severe Swelling / Verified 09/17/21 10:18 painful legs / hard to walk codeine AdvReac Mild Gastrointestinal Verified 09/17/21 10:18 Upset Review of Systems Review of Systems: CONSTITUTIONAL: Denies fever, chills, or sweats. EYES: Denies visual changes, redness, or discharge. ENT: Denies rhinorrhea, congestion, sore throat, or otalgia. CARDIOVASCULAR: Denies chest pain, palpitations, or edema. RESPIRATORY: See HPI GASTROINTESTINAL: Denies abdominal pain, nausea, vomiting, or diarrhea. GENITOURINARY: Denies dysuria or hematuria. SKIN: Denies rash or itching. MUSCULOSKELETAL: Denies back pain, joint pain, or myalgia. NEUROLOGIC: Denies headache, numbness, or weakness. [facility] Past Medical History Medical History Anxiety Chronic GERD Combined systolic and diastolic congestive heart failure Coronary artery disease Mild asthma Paroxysmal atrial flutter Type 2 diabetes mellitus Vertigo Vitamin B12 deficiency Surgical History Surgical History History of hysterectomy History of three vessel coronary artery bypass (2016) Family History Family History Sibling Family history of chronic obstructive pulmonary disease Father Family history of diabetes mellitus in first degree relative Family history of heart disease in male family member before age 55 Diabetes mellitus Family history of cardiovascular disease Mother Family history of lung cancer Social History Social History Social History: Surrogate decision maker: Madhavi Weems, daughter. Code status: Full code. Smoking status: Never smoker Second hand tobacco smoke exposure: No Alcohol intake: never Substance use: never Substance use type: does not use Spiritual care concerns: No Exam Narrative: APPEARANCE: increased work of breathing HEAD: normocephalic, atraumatic. EYES: PERRLA/EOMI, conjunctivae clear. NOSE: Normal no drainage NECK: Supple. No adenopathy, no masses. RESPIRATORY: Airway patent, respirations nonlabored. Rhonchi bilaterally CARDIOVASCULAR: Regular rate and rhythm without murmurs rubs or gallops.
[2021-10-09] MEDS: FUROSEMIDE INJ 40 MG/4 ML VIAL IV PUSH ×3 (02:13→20:07)
--- NOTE | 2021-10-09 02:30 | PM.IMHP ---
H&P: HPI History of Present Illness Date/Time: 10/09/21 02:30 Chief Complaint: SHORTNESS OF BREATH. Narrative: This is a 76-year-old female with past medical history significant for coronary artery disease status post coronary artery bypass graft, paroxysmal atrial fibrillation, systolic heart failure, GERD, type 2 diabetes mellitus controlled with oral agents. Patient comes to the hospital due to progressively worsening shortness of breath over the last 3 days or so initially present at minimal exertion now is present at rest as well, patient denies any cough, sputum production, fevers, rigors, chills, no leg swelling, no pedal swelling, no chest pain, no dizziness, no lightheadedness, no calves pain. Patient presents from home with her daughter. Upon arrival to the emergency room patient was noted to be working hard to breathe and her oxygen saturation was 90% sitting at the edge of the bed. Daughter remarked that her father's 1 year anniversary since his passing away is coming up and this could be possibly affecting her as well. Decision has been made to admit the patient for further evaluation management and treatment. Review of Systems Review of Systems: Shortness of breath initially with minimal exertion and now present at rest. Constitutional: Constitutional: Denies chills, Denies fatigue, Denies fever(s), Denies malaise, Denies night sweats, Denies poor appetite, Denies weakness and Reports weight loss Eyes: Eyes: Denies change in vision ENT: Denies dysphagia, Denies vertigo, Denies dizziness, Denies nasal congestion, Denies nasal discharge, Denies nasal obstruction and Denies odynophagia Cardiovascular: Cardiovascular: Denies chest pain, Denies chest pain with activity, Denies pedal edema, Denies claudication, Denies leg edema, Denies lightheadedness, Denies radiating jaw, neck or arm pain, Reports dyspnea on exertion and Reports orthopnea Respiratory: Respiratory: Denies cough, Denies excessive phlegm production and Denies wheezing Gastrointestinal: Gastrointestinal: Denies abdominal pain, Denies dyspepsia, Denies heartburn, Denies diarrhea, Denies nausea and Denies vomiting Genitourinary: Genitourinary: Denies dysuria Musculoskeletal: Musculoskeletal: Denies myalgias, Denies arthralgias and Denies joint swelling Integumentary/Breasts: Skin/Breast: Denies rash Neurologic: Denies focal weakness, Denies Sensory deficit (Neuro) and Reports tremor(s) Psychiatric: Psychiatric: Reports no additional psychiatric complaints and Reports as per HPI Endocrine: Endocrine: Denies cold intolerance, Denies heat intolerance, Denies polyphagia, Denies polydipsia and Denies palpitations Hematologic/Lymphatic: Hematologic/Lymphatic: Reports no additional hematologic/lymphatic complaints and Reports as per HPI Allergic/Immunologic: Allergic/Immunologic: Reports no additional allergic/immunologic complaints and Reports as per HPI [facility] Past Medical History Medical History Anxiety Chronic GERD Combined systolic and diastolic congestive heart failure Coronary artery disease Mild asthma Paroxysmal atrial flutter Type 2 diabetes mellitus Vertigo Vitamin B12 deficiency Surgical History Surgical History History of hysterectomy History of three vessel coronary artery bypass (2016) Family History Family History Sibling Family history of chronic obstructive pulmonary disease Father Family history of diabetes mellitus in first degree relative Family history of heart disease in male family member before age 55 Diabetes mellitus Family history of cardiovascular disease Mother Family history of lung cancer Social History Social History Social History: Surrogate decision maker: Madhavi Weems, daughter. Code status: Full code.
[2021-10-09 02:40] LABS: Appearance Urine Clear (Clear); Bilirubin Urine Negative (Negative); Blood Urine Negative (Negative); Color Urine Yellow (Yellow); Glucose Urine UA Negative (Negative); Ketones Urine Negative (Negative); Leukocyte Esterase Ur Negative LEU/UL (Negative); Nitrate Urine Negative (Negative); Protein Urine Negative (Negative); Urobilinogen Urine 0.2 mg/dL (<2.0); pH Urine 5.5 (5.0-9.0)
[2021-10-09 02:44] LABS: Mucus Urine Rare /lpf; RBC Urine 0-2 /hpf (0-2); Squamous Epithelial Cell Urine Occasional /hpf (Few); WBC Urine 0-3 /hpf
[2021-10-09] MEDS: ALBUTEROL SULFATE NEB 2.5 MG/3 ML INH 5 MG INHALATION (02:47)
[2021-10-09 02:48] LABS: Add Urine Microscopic? NO
--- NOTE | 2021-10-09 04:06 | ADMGEN ---
This patient, Fina Adair, was admitted to 3 Med Surg Room 326-01. Patient/family oriented to hospital policies and general routines including ID bracelet, bed and alarms, visiting hours, pain management, procedures, bathroom and other care routines, personal items, smoking policy, room service/diet, and visiting hours. Information on how to activate the Rapid Response Team has been discussed. Patient/Family are encouraged to report perceived risks to care and to ask questions if they do not understand what they are told or what they should do.
[2021-10-09 07:01] LABS: Troponin I < 0.012 ng/mL (0.000-0.034)
[2021-10-09 08:14] LABS: Glucose Point of Care 168 mg/dl (65-105)
[2021-10-09] MEDS: INSULIN ASPART (*BKC) 100 UNITS/ML SUB-Q ×3 (08:35→17:02)
[2021-10-09] MEDS: IPRATROPIUM BR 0.02% INH SOLN 0.5 MG/2.5 ML VIAL INHALATION ×3 (09:01→20:27)
[2021-10-09] MEDS: ALBUTEROL SULFATE NEB 2.5 MG/3 ML INH INHALATION ×3 (09:02→20:27)
[2021-10-09 12:02] LABS: Glucose Point of Care 160 mg/dl (65-105)
[2021-10-09] MEDS: ACETAMINOPHEN 325 MG TABLET 650 MG PO (12:25)
--- NOTE | 2021-10-09 13:27 | PM.IMPN ---
Progress Note: A&P Assessment and Plan (1) Asthma: Code(s): J45.909 - Unspecified asthma, uncomplicated Status: Acute Assessment and Plan: Continue nebulizer treatments (2) Combined systolic and diastolic congestive heart failure: Code(s): I50.40 - Unspecified combined systolic (congestive) and diastolic (congestive) heart failure Status: Acute Assessment and Plan: BNP slightly elevated at 800 IV lasix bid to continue Echocardiogram in a.m. (3) Atrial fibrillation with controlled ventricular rate: Code(s): I48.91 - Unspecified atrial fibrillation Status: Acute Assessment and Plan: Continue home meds Continue to monitor (4) CAD (coronary artery disease): Code(s): I25.10 - Atherosclerotic heart disease of [place] coronary artery without angina pectoris Status: Acute Assessment and Plan: Chest pain Continue to monitor (5) Hypertensive heart disease with heart failure: Code(s): I11.0 - Hypertensive heart disease with heart failure Status: Acute Assessment and Plan: Continue home meds Continue to monitor (6) Chronic GERD: Code(s): K21.9 - Gastro-esophageal reflux disease without esophagitis Status: Acute Assessment and Plan: PPI as needed (7) Type 2 diabetes mellitus: Code(s): E11.9 - Type 2 diabetes mellitus without complications Status: Acute Assessment and Plan: Patient on sitagliptin metformin will be holding Insulin sliding scale as needed (8) Benign paroxysmal positional vertigo: Code(s): H81.10 - Benign paroxysmal vertigo, unspecified ear Status: Acute Assessment and Plan: Meclizine p.r.n. as needed Subjective Date/time seen: 10/09/21 13:27 Interval history: 76-year-old female with past medical history significant for coronary artery disease status post coronary artery bypass graft, paroxysmal atrial fibrillation, systolic heart failure, GERD, type 2 diabetes mellitus controlled with oral agents. Patient comes to the hospital due to progressively worsening shortness of breath over the last 3 days. Pt still feeling SOB today continue current treatment with iv lasix and nebulizer treatments Review of Systems Review of Systems: All systems reviewed & are unremarkable except as noted in HPI and below Exam Narrative: Pt is unwell sob with cough Resp: Effort & Inspection: normal respiratory effort Auscultation: diminished lung sounds Cardio: Jugular venous distension: no JVD Rate: regular rate Rhythm: abnormal rhythm irregularly irregular Heart sounds: S1 normal heart sound present and S2 normal heart sound present GI: Inspection: normal to inspection Extrem: General: normal to inspection, full ROM, no joint enlargement and no pedal edema Objective Data Vital Signs Vital Signs: Vital Signs - 24 hr 10/09/21 00:40 10/09/21 00:50 10/09/21 02:13 Temperature 36.4 C L Pulse Rate 105 H 97 Respiratory Rate 24 H 19 Blood Pressure 154/87 H 122/82 Pulse Oximetry 95 94 95 10/09/21 02:48 10/09/21 02:58 10/09/21 03:28 Temperature Pulse Rate 109 H 90 83 Respiratory Rate 28 H 19 22 H Blood Pressure 139/95 H Pulse Oximetry 97 10/09/21 04:15 10/09/21 09:02 10/09/21 09:03 Temperature 36.4 C Pulse Rate 98 91 Respiratory Rate 18 20 Blood Pressure 132/70 Pulse Oximetry 91 95 10/09/21 09:12 10/09/21 12:00 Temperature Pulse Rate 96 92 Respiratory Rate 22 H Blood Pressure Pulse Oximetry Intake/Output Intake/Output: Intake & Output 10/06/21 10/07/21 10/08/21 10/09/21 23:59 23:59 23:59 23:59 Intake Total 100 Balance 100 Meds/Results Medications: Active Medications Generic Name Dose Route Start Last Admin Trade Name Freq PRN Reason Stop Dose Admin Acetaminophen 650 mg 10/09/21 12:02 10/09/21 12:25 Acetaminophen 325 Mg Tablet PO 650 mg Q8H PRN Administration Mild Pain (1-3)
[2021-10-09 16:34] LABS: Glucose Point of Care 213 mg/dl (65-105)
[2021-10-09] MEDS: PANTOPRAZOLE 40 MG TABLET PO (20:13)
[2021-10-09] MEDS: APIXABAN 5 MG TABLET PO (20:14)
[2021-10-09] MEDS: ALPRAZolam (*CRX) 0.125 MG TABLET PO (21:16)
--- NOTE | 2021-10-09 21:31 | ECG_ITS ---
Measurements Intervals [place] Rate: 127 P: MI: 0 QRS: -44 QRSD: 126 T: 102 QT: 341 QTc: 496 Interpretive Statements ATRIAL FIBRILLATION WITH RAPID VENTRICULAR RESPONSE LEFT AXIS DEVIATION LEFT BUNDLE BRANCH BLOCK BASELINE ARTIFACT- I, III, AVR, AVL, AVF ABNORMAL ECG Electronically Signed On 10-10-2021 6:35:35 CDT by Martínez Steinberg D.O.
[2021-10-10] VITALS (10 sets, daily range): BP systolic 105–110; BP diastolic 67–76; PULSE 73–107; RESP 15–20; TEMP 36.2–36.7; O2SAT 92–95
[2021-10-10] MEDS: IPRATROPIUM BR 0.02% INH SOLN 0.5 MG/2.5 ML VIAL INHALATION ×2 (02:32→14:44)
[2021-10-10] MEDS: ALBUTEROL SULFATE NEB 2.5 MG/3 ML INH INHALATION ×2 (02:32→14:44)
--- NOTE | 2021-10-10 04:14 | PC.NURSE ---
10/11 at 2210 Pt o sabra had been runnung Aib but was crossing into [facility] with [facility] Talked to Zeina and that the had missed a dose of diltiem was missed.Zeina said to give her dose of diltizem at this time.
[2021-10-10 07:24] LABS: Potassium 3.7 mmol/L (3.4-5.0)
[2021-10-10 08:27] LABS: Glucose Point of Care 174 mg/dl (65-105)
[2021-10-10] MEDS: INSULIN ASPART (*BKC) 100 UNITS/ML SUB-Q ×2 (09:45→12:26)
[2021-10-10] MEDS: metFORMIN HCL 500 MG TABLET 1000 MG PO (09:45)
[2021-10-10] MEDS: PANTOPRAZOLE 40 MG TABLET PO (09:46)
[2021-10-10] MEDS: LOSARTAN POTASSIUM 100 MG TABLET PO (09:46)
[2021-10-10] MEDS: ASPIRIN 81 MG CHEWABLE TABLET PO (09:46)
[2021-10-10] MEDS: APIXABAN 5 MG TABLET PO (09:46)
[2021-10-10] MEDS: CYANOCOBALAMIN 500 MCG TABLET PO (09:46)
[2021-10-10] MEDS: POTASSIUM CHLORIDE 10 MEQ TABLET.ER 20 MEQ PO (09:47)
[2021-10-10] MEDS: FUROSEMIDE INJ 40 MG/4 ML VIAL IV PUSH (09:47)
[2021-10-10] MEDS: dilTIAZem HCL CD 180 MG CAP.ER.24H PO (09:50)
--- NOTE | 2021-10-10 11:07 | PM.CNCAR ---
Assessment and Plan Assessment and plan (1) Acute on chronic HFrEF (heart failure with reduced ejection fraction): Code(s): I50.23 - Acute on chronic systolic (congestive) heart failure Status: Acute Assessment and Plan: Continue IV Lasix today. May be able to transition to oral Lasix tomorrow depending on response. Discontinue losartan in favor of Entresto 24/26 mg twice daily to begin after 36 hour washout. Last dose of losartan 100 mg a.m. 10/10/2021. Discussed consideration for repeat ischemic evaluation although troponins negative, no anginal symptoms yet EF has declined to 30-35% by echocardiogram down from 40-45% December 2020. Discussed preference to avoid diltiazem given LV dysfunction, however, given her complex history with tachycardia bradycardia syndrome, and limited medical options at this time will continue with diltiazem for the time being. This was discussed at length. She understands and accepts this plan of care. Further recommendations to follow based on patient's response to therapy. Accurate input and output, daily weight. 2 g daily sodium intake. (2) Ischemic cardiomyopathy: Code(s): I25.5 - Ischemic cardiomyopathy Status: Acute Assessment and Plan: Decline in EF precise etiology unclear, however, cannot exclude progression of underlying CAD although troponins negative, no anginal symptoms. Ischemic evaluation reasonable but will be deferred until patient is further stabilized. Possibility this is related to poorly controlled tachyarrhythmia, however, she is scheduled for ablation within 1 month. Continue stabilization. Discontinue losartan in favor of Entresto as above. (3) Atrial fibrillation with rapid ventricular response: Code(s): I48.91 - Unspecified atrial fibrillation Status: Acute Assessment and Plan: Heart rate reasonably controlled on diltiazem. As above, prefer to avoid given LV dysfunction, however, previous intolerance of amiodarone plus metoprolol due to bradycardia. She has historically difficult to manage atrial fibrillation and at this time she is reasonable with regards to heart rate control and tolerance. Therefore despite suboptimal management will continue this time as options are limited. She is scheduled for AFib ablation as above within 1 month. Continue apixaban 5 mg twice daily. Telemetry. Will prefer not to up titrate diltiazem as eventually alternative management would be ideal heart rate is not unreasonable at breath. Discussed all these options on clinical scenario at length with the patient who verbalized understanding and agreed with plan of care. All questions answered to their satisfaction. (4) CAD (coronary artery disease): Qualifiers: Associated angina: without angina Coronary Disease-Associated Artery/Lesion type: [place] artery [place] vs. transplanted heart: [place] heart Qualified Code(s): I25.10 - Atherosclerotic heart disease of [place] coronary artery without angina pectoris Code(s): I25.10 - Atherosclerotic heart disease of [place] coronary artery without angina pectoris Status: Acute Assessment and Plan: Negative troponins, no anginal symptoms. See above. Aspirin 81 mg daily. She is intolerant to statins, PCSK9 inhibitor discussions as an outpatient have been held already. (5) Type 2 diabetes mellitus: Qualifiers: Diabetes mellitus complication status: with circulatory complication Diabetes mellitus half-way insulin use: without meterman use Code(s): E11.9 - Type 2 diabetes mellitus without complications Status: Acute Assessment and Plan: Management per primary service. History of Present Illness History of Present Illness Consult date/time: Date of service: 10/10/21 11:07 Cardiology consultation at the request of Dr. Kaplan for our opinion regarding CHF and atrial fibrillation. Requesting physician: Emi Kaplan MD Consult reason: atrial f
[2021-10-10 11:36] LABS: Glucose Point of Care 211 mg/dl (65-105)
--- NOTE | 2021-10-10 15:04 | PM.DS ---
DS: Admitting Diagnosis Discharge Date October 10, 2021 Admitting Diagnosis Shortness of breath DS: Discharge Diagnosis Discharge Diagnosis (1) Asthma: Code(s): J45.909 - Unspecified asthma, uncomplicated Status: Acute Assessment and Plan: Continue nebulizer treatments (2) Combined systolic and diastolic congestive heart failure: Code(s): I50.40 - Unspecified combined systolic (congestive) and diastolic (congestive) heart failure Status: Acute Assessment and Plan: BNP slightly elevated at 800 IV lasix bid to continue Echocardiogram in a.m. (3) Atrial fibrillation with controlled ventricular rate: Code(s): I48.91 - Unspecified atrial fibrillation Status: Acute Assessment and Plan: Continue home meds Continue to monitor (4) CAD (coronary artery disease): Qualifiers: Coronary Disease-Associated Artery/Lesion type: [place] artery [place] vs. transplanted heart: [place] heart Associated angina: without angina Qualified Code(s): I25.10 - Atherosclerotic heart disease of [place] coronary artery without angina pectoris Code(s): I25.10 - Atherosclerotic heart disease of [place] coronary artery without angina pectoris Status: Acute Assessment and Plan: Chest pain Continue to monitor (5) Hypertensive heart disease with heart failure: Code(s): I11.0 - Hypertensive heart disease with heart failure Status: Acute Assessment and Plan: Continue home meds Continue to monitor (6) Chronic GERD: Code(s): K21.9 - Gastro-esophageal reflux disease without esophagitis Status: Acute Assessment and Plan: PPI as needed (7) Type 2 diabetes mellitus: Qualifiers: Diabetes mellitus keno terminal operator insulin use: without keno terminal operator use Diabetes mellitus complication status: with circulatory complication Code(s): E11.9 - Type 2 diabetes mellitus without complications Status: Acute Assessment and Plan: Patient on sitagliptin metformin will be holding Insulin sliding scale as needed (8) Benign paroxysmal positional vertigo: Code(s): H81.10 - Benign paroxysmal vertigo, unspecified ear Status: Acute Assessment and Plan: Meclizine p.r.n. as needed DS: Summary Hospital Course Reason for hospitalization: Shortness of breath Hospital Course: 68-year-old female with past medical history significant for coronary disease status post CABG, paroxysmal atrial fibrillation, systolic heart failure, GERD, type 2 diabetes mellitus is presenting to the ER with shortness of breath, worsening over the last 3 days. Add 1st bullet with exertion, prior to admission it was also happening at rest. She denied cough, fevers or chills. No swelling of her hands or feet or calves. In the ER, she was noted to have an oxygen saturation 90% on room air. Of note, daughter stated that it has been over 1 year since her father, the patient's , . She was admitted and noted to have adult onset asthma they will likely need better management with her inhalers from her family doctor. Chest x-ray did show hyperinflation but no other acute findings. Coronary disease appeared stable. She was started on IV Lasix and nebulizer treatments and seemed to improve significantly. Cardiology was consulted and recommend starting Entresto and discontinuing losartan. Echo done recently showed an EF of 30-35% down 45 in December 2020. Diltiazem was continued despite concern of her low EF due to her complex history of tachy-nelsy syndrome. Patient symptoms resolved and she was discharged in good condition mass on new p.o. medications per Cardiology recommendations. Status at Discharge Overall status at discharge: patient is progressing back to baseline Time Spent with Patient Time attestation: Total time spent providing and/or coordinating discharge services: Greater than 30 minutes Time spent: Greater than 30 minutes Exam Const
== END 2021-10-10 16:50 | disposition home or self-care (01) ==
LOC: ANHED 00:52 → ANH3MEDSUR 03:28
PROVIDERS: Family Medicine; Admitting Provider Internal Medicine; Emergency Provider Emergency Medicine; PCP Family Medicine; Visit Provider Student in an Organized Health Care Education/Training Program
DX: I11.0 Hypertensive heart disease with heart failure (principal); I50.23 Acute on chronic systolic (congestive) heart failure; I48.0 Paroxysmal atrial fibrillation; I25.5 Ischemic cardiomyopathy; I25.10 Atherosclerotic heart disease of native coronary artery without angina pectoris; J45.909 Unspecified asthma, uncomplicated; E11.9 Type 2 diabetes mellitus without complications; E53.8 Deficiency of other specified B group vitamins; K21.9 Gastro-esophageal reflux disease without esophagitis; H81.10 Benign paroxysmal vertigo, unspecified ear; F41.9 Anxiety disorder, unspecified; Z95.1 Presence of aortocoronary bypass graft; Z79.01 Long term (current) use of anticoagulants; Z20.822 Contact with and (suspected) exposure to COVID-19
CPT/HCPCS: 36415; 71046; 80053; 81003; 82948; 83880; 84132; 84484; 85025; 85610; 93005; 93306; 94640; 96374; 96376; 99285; A9270; C9803; G0378; J1815; J1940; U0003; U0005

== ENCOUNTER 2022-01-06 09:00 | Outpatient (CLI) | payer MEDICARE, SELFPAY ==
[2022-01-06 09:42] LABS: Basophils Percent Auto 0.5 % (0.2-1.2); Eosinophils Absolute Auto 0.1 K/mm3 (0-0.3); Eosinophils Percent Auto 1.3 % (0-4.4); Hematocrit 44.6 % (37.0-47.0); Hemoglobin 13.7 g/dL (12.0-15.0); Immature Granulocyte Absolute 0.03 K/mm3 (0.00-0.031); Immature Granulocyte Percent A 0.4 % (0-0.5); Lymphocytes Absolute Auto 2.33 K/mm3 (0.9-3.2); Lymphocytes Percent Auto 30.3 % (18.3-44.2); Mean Corpuscular HGB Conc 30.7 g/dl (32-36); Monocytes Absolute Auto 0.5 K/mm3 (0.1-0.6); Monocytes Percent Auto 6.5 % (2.6-8.5); Neutrophils Absolute Auto 4.7 K/mm3 (1.3-6.7); Platelet Count Result 230 k/mm3 (150-375); Red Blood Count 5.07 M/mm3 (4.2-5.4); Red Cell Distribution Width 15.6 % (11.5-14.5); White Blood Count 7.7 K/mm3 (4.5-10.0)
[2022-01-06 10:00] LABS: Hemoglobin A1C 8.3 % (<5.7)
[2022-01-06 10:06] LABS: Alanine Aminotransferase 20 U/L (6-35); Albumin Level 4.8 g/dL (3.5-5.1); Alkaline Phosphatase 115 U/L (38-126); Anion Gap 13 mmol/L (8-16); Aspartate Amino Transferase 26 U/L (14-36); Bilirubin,Total 0.7 mg/dL (0.2-1.3); Blood Urea Nitrogen 23 mg/dL (7-17); Calcium 9.9 mg/dL (8.4-10.2); Carbon Dioxide 28 mmol/L (22-30); Chloride 98 mmol/L (98-107); Cholesterol 307 mg/dL (0-200); Estimated Glomerular Filt Rate > 60; Glucose 223 mg/dL (65-110); HDL Direct 77 mg/dL; Sodium 139 mmol/L (137-145); Triglycerides 196 mg/dL (<150)
[2022-01-06 10:08] LABS: Appearance Urine Clear (Clear); Bilirubin Urine Negative (Negative); Blood Urine Negative (Negative); Color Urine Yellow (Yellow); Glucose Urine UA 2+ mg/dL (Negative); Ketones Urine Negative (Negative); Leukocyte Esterase Ur Negative LEU/UL (NEGATIVE); Nitrate Urine Negative (Negative); Protein Urine Negative (Negative); Urobilinogen Urine 0.2 mg/dL (<2.0)
[2022-01-06 10:14] LABS: Mucus Urine Rare /lpf; RBC Urine 0-2 /hpf (0-2); Squamous Epithelial Cell Urine Rare /hpf (Few); WBC Urine 0-3 /hpf (0-3)
[2022-01-06 10:18] LABS: LDL Cholesterol Direct 175 mg/dL
[2022-01-06 10:21] LABS: Microalbumin Urine Random 6.4 mg/L (0-16.7)
[2022-01-06 10:27] LABS: Add Urine Microscopic? YES
[2022-01-06 11:11] LABS: Folic Acid 10.3 ng/mL (2.76->20)
== END 2022-01-06 09:01 | disposition home or self-care (01) ==
LOC: ANHLAB 09:01
PROVIDERS: PCP Family Medicine; Visit Provider Physician Assistant
DX: E11.9 Type 2 diabetes mellitus without complications (principal); R00.0 Tachycardia, unspecified; I48.92 Unspecified atrial flutter; I25.10 Atherosclerotic heart disease of native coronary artery without angina pectoris; I11.0 Hypertensive heart disease with heart failure; I10 Essential (primary) hypertension; F41.9 Anxiety disorder, unspecified; E53.8 Deficiency of other specified B group vitamins
CPT/HCPCS: 36415; 80053; 80061; 81001; 82043; 82607; 82746; 83036; 84443; 85025

== ENCOUNTER 2022-01-13 12:58 | Outpatient (CLI) | payer MEDICARE, SELFPAY ==
[2022-01-13 13:51] LABS: Appearance Urine Slightly Cloudy (Clear); Bilirubin Urine Negative (Negative); Color Urine Yellow (Yellow); Glucose Urine UA 3+ mg/dL (Negative); Ketones Urine Negative (Negative); Leukocyte Esterase Ur 1+ LEU/UL (NEGATIVE); Nitrate Urine Negative (Negative); Protein Urine Negative (Negative); Urobilinogen Urine 0.2 mg/dL (<2.0)
[2022-01-13 13:55] LABS: Mucus Urine Rare /lpf; Squamous Epithelial Cell Urine Rare /hpf (Few); WBC Clumps Urine Present /HPF; WBC Urine 51-75 /hpf (0-3)
[2022-01-13 13:56] LABS: Add Urine Microscopic? YES; Blood Urine Trace-Intact (Negative)
== END 2022-01-13 12:59 | disposition home or self-care (01) ==
LOC: ANHLAB 13:00
PROVIDERS: PCP Family Medicine; Visit Provider Nurse Practitioner Family
DX: N39.0 Urinary tract infection, site not specified (principal)
CPT/HCPCS: 81001; 87086; 87088

== ENCOUNTER 2022-05-07 09:26 | Outpatient (CLI) | payer MEDICARE, SELFPAY ==
[2022-05-07 10:03] LABS: Alanine Aminotransferase 23 U/L (6-35); Albumin Level 4.7 g/dL (3.5-5.1); Alkaline Phosphatase 105 U/L (38-126); Anion Gap 10 mmol/L (8-16); Aspartate Amino Transferase 27 U/L (14-36); Bilirubin,Total 0.8 mg/dL (0.2-1.3); Blood Urea Nitrogen 17 mg/dL (7-17); Calcium 9.1 mg/dL (8.4-10.2); Carbon Dioxide 28 mmol/L (22-30); Chloride 97 mmol/L (98-107); Estimated Glomerular Filt Rate > 60; Glucose 286 mg/dL (65-110); Potassium 3.9 mmol/L (3.4-5.0); Sodium 135 mmol/L (137-145)
[2022-05-07 10:48] LABS: Hemoglobin A1C 9.3 % (<5.7)
== END 2022-05-07 09:27 | disposition home or self-care (01) ==
PROVIDERS: PCP Family Medicine; Visit Provider Physician Assistant
DX: E11.9 Type 2 diabetes mellitus without complications (principal)
CPT/HCPCS: 36415; 80053; 83036

== ENCOUNTER → 2022-07-22 13:18 | Outpatient (CLI) | payer MEDICARE, SELFPAY ==
--- NOTE | ~2022-07-22 | MM_ITS ---
EXAMINATION: MM screening jessica BI w piper HISTORY: Screening mammogram TECHNIQUE: Craniocaudal and mediolateral oblique 3-D tomosynthesis images were obtained and synthetic 2-D images were generated. CAD analysis was submitted and interpreted. COMPARISON: 05/07/2021, 03/12/2020, 12/10/2018 bilateral screening mammogram examinations BREAST PARENCHYMAL COMPOSITION: The breasts are heterogeneously dense, which may obscure small masses . FINDINGS: Scattered bilateral benign calcifications. There is no evidence of suspicious mass, calcifi cation, or architectural distortion to suggest malignancy in either breast. There has been no suspici ous interval change. IMPRESSION: 1. No mammographic evidence of malignancy. 2. Recommend routine screening mammography in one year. BI-RADS Category 2: Benign finding(s). Reviewed, dictated and finalized at location A. IFIED TECHNICIAN SPECIALIST
--- NOTE | ~2022-07-22 | DEXA_ITS ---
Bone Density Report Name: KENDRA COMBS Age: 77 Sex: Female Ethnicity: White Date of : 1945 Indication: postmenopausal; screening for osteoporosis; height loss; hysterectomy; Referring Provider: BERNARDA NG Study: Bone densitometry was performed. Exam Date: July 22, 2022 Accession number: [id number] Bone Density: Region BMD T-score Z-score Classification AP Spine (L1-L4) 1.189 1.3 3.9 Normal Femoral Neck (Left) 0.712 -1.2 1.0 Osteopenia Total Hip (Left) 0.845 -0.8 1.2 Normal Femoral Neck (Right) 0.746 -0.9 1.3 Normal Total Hip (Right) 0.851 -0.7 1.3 Normal Total Hip Mean 0.848 -0.8 1.3 Normal World Health Organization criteria for BMD impression classify patients as: Normal (T-score at or above -1.0), Osteopenia (T-score between -1.0 and -2.5), or Osteoporosis (T-score at or below -2.5). 10-year Fracture Risk(1): Major Osteoporotic Fracture 12% Hip Fracture 2.6% Reported Risk Factors: [place] (), Neck BMD=0.712, BMI=25.1 (1) FRAX(R) Version 3.08. Fracture probability calculated for an untreated patient. Fracture probability may be lower if the patient has received treatment. Previous Exams: Region Exam Age BMD T-score BMD Change BMD Change Date g/cm2 vs Baseline vs Previous AP Spine(L1-L4) 07/22/2022 77 1.189 1.3 -0.098* -0.111* 09/11/2011 66 1.300 2.3 0.013 -0.008 07/25/2009 64 1.307 2.4 0.021 0.021 09/02/2004 59 1.287 2.2 Total Hip(Left) 07/22/2022 77 0.845 -0.8 -0.385* -0.207* 09/11/2011 66 1.052 0.9 -0.178* -0.040* 07/25/2009 64 1.092 1.2 -0.138* -0.138* 09/02/2004 59 1.230 2.4 Total Hip(Right) 07/22/2022 77 0.851 -0.7 -0.317* -0.181* 09/11/2011 66 1.032 0.7 -0.136* -0.018 07/25/2009 64 1.050 0.9 -0.118* -0.118* 09/02/2004 59 1.168 1.9 *Denotes significance at 95% confidence level, LSC for AP Spine = 0.022 g/cm2, LSC for Total Hip = 0.027 g/cm2 Clinical Information Provided by Patient: Has the following medical conditions: Hysterectomy Patient maximum height was 64.0 Menopause Age: 38 No regular weight bearing exercise Onset of menses at age 12 Number of children 5 Impression: The patient has low bone mass, based on the Left Femoral Neck T-score. The patient has an estimated
== END ==
PROVIDERS: PCP Family Medicine; Visit Provider Physician Assistant
DX: Z12.31 Encounter for screening mammogram for malignant neoplasm of breast (principal); Z78.0 Asymptomatic menopausal state; M85.852 Other specified disorders of bone density and structure, left thigh
CPT/HCPCS: 77063; 77067; 77080

== ENCOUNTER 2022-08-22 10:37 | Inpatient (IN) | payer MEDICARE, SELFPAY ==
[2022-08-22] VITALS (20 sets, daily range): BP systolic 95–136; BP diastolic 51–82; PULSE 72–134; RESP 16–22; TEMP 36.4–36.9; O2SAT 90–100; BMI 25.1
--- NOTE | ~2022-08-22 | CT_ITS ---
Non-contrast CT scan of the Abdomen and Pelvis Clinical indication: Bacteremia Technique: 2.5 mm axial scans were obtained through the abdomen and pelvis without intravenous or or al contrast. Dose reduction technique was used on this scan by utilizing automated exposure control a nd iterative reconstruction technique. The dose-length product (DLP) was 321.56 mGy-cm. COMPARISON: 10/03/2015 Findings: Images through the lung bases reveal no abnormalities. There is no evidence of renal or ureteral calculi. The kidneys and the ureters are nondilated. The liver, spleen, pancreas, and adrenals appear normal. Cholelithiasis noted. There are atherosclero tic calcifications of the aorta. There is no evidence of bowel obstruction. Images through the pelvis were performed. There is no evidence of ascites or lymphadenopathy. Urinary bladder unremarkable. No pelvic mass seen. Impression: Cholelithiasis. Reviewed, dictated and finalized at [facility]. Impression: Cholelithiasis.
--- NOTE | ~2022-08-22 | XR_ITS ---
XR chest 1V portable DATE: 08/23/2022 18:51 INDICATION: Altered mental state. Open heart surgery in 2016. TECHNIQUE: Portable upright AP chest on 08/23/2022 at 1841 hours COMPARISON: 08/18/2022 portable AP views at 1221 hours FINDINGS: Status post sternotomy and coronary artery bypass graft surgery. There is cardiomegaly. The re is aortic calcification and mild unfolding. Suggestion of mild infiltrate in the right mid and lower lung soria and minimal atelectasis at the l eft lung base. Right-sided Leila B-lines are suggested, which may be due to interstitial edema or pn eumonitis. No pleural effusion is evident. Pulmonary vascularity appears within normal range. Osteopenia. IMPRESSION: Status post coronary petrous graft surgery Cardiomegaly Aortic atherosclerosis Mild infiltrate in the right mid and lower lung zone Mild atelectasis at left lung base Reviewed, dictated and finalized at location A.
--- NOTE | ~2022-08-22 | XR_ITS ---
EXAMINATION: XR chest 1V portable INDICATION: Chest pain TECHNIQUE: Portable AP chest at 1221 hours COMPARISON: 10/09/2021 FINDINGS: Cardiomegaly is noted. The lungs are free of acute opacities. No pleural effusion or pneumo thorax. Median sternotomy wires and mediastinal surgical clips are seen, likely from prior coronary a rtery bypass grafting. IMPRESSION: 1. Cardiomegaly. Reviewed, dictated and finalized at location B. IMPRESSION: 1. Cardiomegaly.
--- NOTE | 2022-08-22 10:38 | ECG_ITS ---
Measurements Intervals [place] Rate: 122 P: MT: 0 QRS: -66 QRSD: 129 T: 91 QT: 318 QTc: 454 Interpretive Statements ATRIAL FIBRILLATION WITH RAPID VENTRICULAR RESPONSE LEFT AXIS DEVIATION LEFT BUNDLE BRANCH BLOCK INFERIOR INFARCT OR DUE TO LBBB EXTENSIVE ANTERIOR INFARCT OR DUE TO LBBB ABNORMAL ECG COMPARED TO ECG 10/09/2021 21:49:28 NO SIGNIFICANT CHANGES Electronically Signed On 08-22-2022 12:40:13 CDT by Martínez Steinberg D.O.
[2022-08-22 11:07] LABS: Hematocrit 41.9 % (37.0-47.0); Hemoglobin 13.9 g/dL (12.0-15.0); Mean Corpuscular HGB Conc 33.2 g/dl (32-36); Mean Corpuscular Hemoglobin 30.3 pg (26-34); Mean Corpuscular Volume 91.5 fl (80-100); Mean Platelet Volume 11.4 fl (7.4-10.4); Platelet Count Result 192 k/mm3 (150-375); Red Blood Count 4.58 M/mm3 (4.2-5.4); White Blood Count 10.2 K/mm3 (4.5-10.0)
[2022-08-22 11:20] LABS: INR 1.2; Prothrombin Time 14.4 Seconds (11.1-14.7)
[2022-08-22 11:26] LABS: Magnesium 1.9 mg/dL (1.6-2.3)
[2022-08-22] MEDS: dilTIAZem 100 MG/100 ML 100 MG/100 ML BAG IV CONT (11:31)
[2022-08-22 11:32] LABS: Band Neutrophils Percent 14 % (0-6); Lymphocytes Absolute Manual 0.61 K/mm3 (1.1-4.5); Lymphocytes Percent Manual 6 % (18-44); Monocytes Percent Manual 1 % (3-9); Neutrophils Absolute Manual 9.48 K/mm3 (1.7-7.2); Neutrophils Percent Manual 79 % (46-73); Platelet Estimate Adequate (Adequate); Schistocytes None Seen (NORMAL); Total Cells Counted 100
[2022-08-22 11:33] LABS: Alanine Aminotransferase 22 U/L (6-35); Albumin Level 4.1 g/dL (3.5-5.1); Alkaline Phosphatase 100 U/L (38-126); Anion Gap 11 mmol/L (8-16); Aspartate Amino Transferase 25 U/L (14-36); Bilirubin,Total 1.7 mg/dL (0.2-1.3); Blood Urea Nitrogen 16 mg/dL (7-17); Calcium 8.7 mg/dL (8.4-10.2); Carbon Dioxide 22 mmol/L (22-30); Chloride 104 mmol/L (98-107); Estimated CRCL calculation 60 ml/min; Estimated Glomerular Filt Rate > 60; Glucose 169 mg/dL (65-110); Lipase 35 U/L (23-300); Potassium 3.7 mmol/L (3.4-5.0); Sodium 137 mmol/L (137-145)
[2022-08-22 11:35] LABS: NT Pro B Type Natriuretic Pept 2820 pg/mL (19.9-100)
[2022-08-22 11:36] LABS: NT Pro B Type Natriuretic Pept 2830 pg/mL (19.9-100)
[2022-08-22 11:43] LABS: Troponin I < 0.012 ng/mL (0.000-0.034)
[2022-08-22 11:57] LABS: Appearance Urine Clear (Clear); Bilirubin Urine Negative (Negative); Blood Urine Negative (Negative); Color Urine Yellow (Yellow); Glucose Urine UA 3+ mg/dL (Negative); Ketones Urine 3+ mg/dL (Negative); Leukocyte Esterase Ur Negative LEU/UL (Negative); Nitrate Urine Negative (Negative); Protein Urine Negative (Negative); Specific Grav Ur 1.028 (1.001-1.035); Urobilinogen Urine 0.2 mg/dL (<2.0); pH Urine 5.5 (5.0-9.0)
[2022-08-22 12:20] LABS: Influenza A QL RT-PCR Negative (Negative); Influenza B QL RT-PCR Negative (Negative); SARS-CoV-2 RNA PCR Negative
[2022-08-22 12:23] LABS: Add Urine Microscopic? NO
--- NOTE | 2022-08-22 12:37 | ED.CHESTPAIN ---
HPI - Chest Pain General Chief Complaint: Chest Pain Stated Complaint: chest tightness that began this morning Time Seen by Provider: 08/22/22 10:52 Source: RN notes reviewed History of Present Illness HPI narrative: Patient presents emergency department from home for chest pain shortness of breath. Patient states she awoke this morning and felt very shaky states that she had pain in the lower midsternal chest that was described as a pressure and felt short of breath. She denies having fevers or chills she denies any abdominal pain nausea vomiting or any other symptoms. States she has a history of atrial fibrillation is followed by Dr. Nieto states she did not take her morning medications this morning because she felt shaky. States that nothing makes the chest pain better or worse Related Data Home Medications Medication Instructions Recorded Confirmed cyanocobalamin (vitamin B-12) 500 500 mcg PO DAILY 01/03/21 07/22/22 mcg tablet (Vitamin B-12) furosemide 40 mg tablet 40 mg PO BID 12/11/21 07/22/22 carvedilol 6.25 mg tablet 6.25 mg PO Q12H 07/22/22 07/22/22 Allergies Allergy/AdvReac Type Severity Reaction Status Date / Time Sulfa (Sulfonamide Allergy Intermediate Difficulty Verified 08/22/22 10:59 Antibiotics) Breathing atorvastatin [From Lipitor] AdvReac Severe Swelling / Verified 08/22/22 10:59 painful legs / hard to walk codeine AdvReac Mild Gastrointestinal Verified 08/22/22 10:59 Upset Review of Systems Review of Systems: Gen.: Denies fevers or chills ENT: Denies congestion Respiratory: Reports shortness of breath CV: Reports chest pain GI: Denies abdominal pain nausea, emesis or diarrhea Musculoskeletal: Denies back pain or muscle pain Neuro: Denies numbness, tingling, weakness or focal weakness Skin: Denies rash Except as documented, all other systems reviewed and negative [facility] Past Medical History Medical History Anxiety Chronic GERD Combined systolic and diastolic congestive heart failure Coronary artery disease Mild asthma Paroxysmal atrial flutter Type 2 diabetes mellitus Vertigo Vitamin B12 deficiency Surgical History Surgical History History of hysterectomy History of three vessel coronary artery bypass (2016) Family History Family History Sibling Family history of chronic obstructive pulmonary disease Father Family history of diabetes mellitus in first degree relative Family history of heart disease in male family member before age 55 Diabetes mellitus Family history of cardiovascular disease Mother Family history of lung cancer Social History Social History Social History: Surrogate decision maker: Madhavi Weems, daughter. Code status: Full code. Smoking status: Never smoker Second hand tobacco smoke exposure: No Alcohol intake: never Substance use: never Substance use type: does not use Living arrangements: with family Occupation/Education: retired Spiritual care concerns: No Exam Narrative: APPEARANCE: No acute distress, nontoxic, resting in bed EYES: EOMI HEENT: Normocephalic, atraumatic, OMM RESPIRATORY: No respiratory distress Clear to auscultation bilaterally with no rhonchi wheezing or rales. CARDIOVASCULAR: Tachycardic and irregular without murmurs rubs or gallops. ABDOMINAL: Soft, nontender, nondistended, no rebound or guarding MUSCULOSKELETAl: Moves all extremities. No clubbing, cyanosis or edema. NEURO: Awake and alert. Following commands, speech normal, no focal deficits SKIN:: Warm, dry. No rashes lesions or abrasions PSYCHIATRIC: Normal affect/mood, Course Course Emergency Course: Patient started on Cardizem for A-fib with RVR Called and discussed with HARLAN Irene for Dr. Wolf
[2022-08-22] MEDS: APIXABAN 5 MG TABLET PO ×2 (13:04→21:39)
[2022-08-22 14:06] LABS: Troponin I < 0.012 ng/mL (0.000-0.034)
--- NOTE | 2022-08-22 14:48 | PM.CNCAR ---
Assessment and Plan Assessment and plan (1) Atrial fibrillation with rapid ventricular response: Code(s): I48.91 - Unspecified atrial fibrillation Status: Acute (2) Ischemic cardiomyopathy: Code(s): I25.5 - Ischemic cardiomyopathy Status: Acute (3) Chest pain: Qualifiers: Chest pain type: unspecified Qualified Code(s): R07.9 - Chest pain, unspecified Code(s): R07.9 - Chest pain, unspecified Status: Acute Plan This is a 77-year-old white female with a challenging situation including underlying coronary disease ischemic LV dysfunction and recurrent problem problematic atrial fibrillation. She is symptomatic today with yet another recurrence of her atrial fib. There are probably not many antiarrhythmic drug options that can be considered to attempt to maintain normal rhythm in this lady since she failed amiodarone already. 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 I suspect that the latter is probably where we have arrived at this point. I would like to transition her beta-nimisha from carvedilol to metoprolol which is more effective for heart rate control. After she gets some metoprolol we will hopefully be able to wean off the diltiazem infusion. I would continue her Entresto and apixaban which have been on her chronic med list at home. Follow her with you during this hospitalization and hopefully we can get her feeling better with control of her heart rate Pierre Nieto MD [facility] History of Present Illness History of Present Illness Consult date/time: 08/22/22 14:48 Consult reason: atrial fibrillation Reason For Visit: chest tightness that began this morning Narrative: This is a 77-year-old patient well known to me history of ischemic heart disease and atrial fibrillation as well as ischemic cardiomyopathy who is being seen in the emergency room. She presented here short time ago with symptoms of chest pain with generalized weakness and tachycardia that began abruptly this morning. She states she arouse arose from sleep this morning feeling fairly well she went into her whole a kitchen and was carrying on normal activities in the mole of the morning and suddenly felt the onset of a feeling unwell with some discomfort in her chest and tachycardia and palpitations. She has been in atrial fib with RVR a number of times in the past was obviously concerned about this and her family that brought her into the hospital for evaluation and management. Her electrocardiogram on arrival shows atrial fib with RVR with an incomplete left bundle branch block pattern. She has been given intravenous diltiazem which has slowed her heart rate down into the 90s with that maneuver she feels better she is no longer having any chest discomfort and is relatively comfortable visiting with her daughters who are with her in the emergency room. The patient is known to have coronary disease and underwent coronary bypass for revascularization at [place] I believe back in 2015. She has had problematic atrial fib as well as atypical atrial flutter for the last couple of years. The patient has been treated here at [facility] a number of times with antiarrhythmic drugs most recently with amiodarone and despite cardioversions has failed to maintain sinus rhythm. She was referred to Dr. Arce at [place] for electrophysiology evaluation and she underwent ablation procedure at [place] in October of 2021. Following that she has been in sinus rhythm for the most part. She has recent follow-up with her conservation of resources commissioner and an event monitor that was done last fall that demonstrated a low AF burden but perm primarily sinus rhythm. She was seen
--- NOTE | 2022-08-22 15:15 | ADMGEN ---
This patient, Fina Adair, was admitted to IMU Room 211-01. Patient/family oriented to hospital policies and general routines including ID bracelet, bed and alarms, visiting hours, pain management, procedures, bathroom and other care routines, personal items, smoking policy, room service/diet, and visiting hours. Information on how to activate the Rapid Response Team has been discussed. Patient/Family are encouraged to report perceived risks to care and to ask questions if they do not understand what they are told or what they should do.
--- NOTE | 2022-08-22 15:45 | PM.IMHP ---
H&P: HPI History of Present Illness Date/Time: 08/22/22 15:45 Chief Complaint: Chest tightness and shortness of breath. Narrative: This is a pleasant 77-year-old female with coronary artery disease status post bypass 2015, ischemic cardiomyopathy with an EF of 30 to 35% in September 2021, hypertension, paroxysmal atrial fibrillation and flutter, asthma, and type 2 diabetes mellitus who presented to the emergency department earlier today from home for evaluation of chest tightness and shortness of breath. Patient provides the following history. She felt fine awoke this morning and she did her usual morning routine including checking her weight and glucose which were both unremarkable. While brushing her teeth she developed sudden shaking and she describes what sounds like rigors. She was so cold that she went back to bed and got underneath several covers. She called her daughter Madhavi who came over and opted to take her to the ER as the patient seemed to be a bit short of breath. Daughter also noted that the patient coughed several times this morning though that was nonproductive. The patient did not have a fever to her knowledge and she denies sweats. She also denies chest and pleuritic pain, sinus congestion, sore throat, sensations of racing heart, fluttering, nausea, vomiting, diarrhea, dysuria, syncope, and near syncope. She denies sick contacts. On arrival to the ED she was found to be in atrial fibrillation with rapid ventricular response and was started on a diltiazem drip. Vital signs are otherwise stable. Labs showed a mild leukocytosis (10.2) with 14% bands noted on differential. Chemistries were relatively unremarkable. COVID and influenza negative. Urine showed 3+ glucose and proteins but was otherwise unremarkable. Chest x-ray showed cardiomegaly with no acute findings. Currently she feels back to her usual self and she has complaints. Review of Systems Review of Systems: Twelve systems were reviewed and are negative except for as per HPI. [facility] Past Medical History Medical History (Updated 08/22/22 @ 20:57 by Lexii Jean PA-C) Anxiety Chronic anticoagulation Chronic GERD Combined systolic and diastolic congestive heart failure Coronary artery disease Ischemic cardiomyopathy Mild asthma Paroxysmal atrial fibrillation Paroxysmal atrial flutter Type 2 diabetes mellitus Vertigo Vitamin B12 deficiency Surgical History Surgical History History of hysterectomy History of three vessel coronary artery bypass (2016) Family History Family History Sibling Family history of chronic obstructive pulmonary disease Father Family history of diabetes mellitus in first degree relative Family history of heart disease in male family member before age 55 Diabetes mellitus Family history of cardiovascular disease Mother Family history of lung cancer Social History Social History Social History: Surrogate decision maker: Madhavi Weems, daughter. Code status: Full code. Smoking status: Never smoker Second hand tobacco smoke exposure: No Alcohol intake: former Substance use: never Substance use type: does not use Lack of Transportation: No Lack of Food: Never True Current Housing: I Have Housing Concerned About Future Housing: No Difficulty Paying Gas/Electric Bills: No Difficulty Paying for Meds: No Currently Unemployed: No Education: High School Diploma/GED Difficulty w/ Childcare or Family Care: No Living arrangements: with family Occupation/Education: retired Spiritual care concerns: No Meds Home Medications and Allergies Home Medications Medication Instructions Recorded Confirmed Type cyanocobalamin (vitamin B-12) 500 500 mcg PO DAILY 01/03/21 08/22/22 History mcg tablet (Vitamin B-12) albuterol nicholson
[2022-08-22] MEDS: METOPROLOL SUCCINATE EXT REL 50 MG TABCR PO (16:57)
[2022-08-22 17:06] LABS: Troponin I < 0.012 ng/mL (0.000-0.034)
[2022-08-22 18:51] LABS: Glucose Point of Care 254 mg/dl (65-105)
[2022-08-22 20:45] LABS: Glucose Point of Care 231 mg/dl (65-105)
[2022-08-22] MEDS: ACETAMINOPHEN 500 MG TABLET 1000 MG PO (21:36)
[2022-08-22] MEDS: ALPRAZolam (*CRX) 0.125 MG TABLET PO (21:37)
[2022-08-22] MEDS: SACUBITRIL/VALSARTAN 24-26 MG TABLET 1 TAB PO (21:39)
[2022-08-22] MEDS: ONDANSETRON INJ 4 MG/2 ML VIAL IV PUSH (21:43)
[2022-08-22 22:09] LABS: Hemoglobin A1C 8.2 % (<5.7)
[2022-08-23] VITALS (19 sets, daily range): BP systolic 86–127; BP diastolic 45–78; PULSE 78–131; RESP 18–36; TEMP 36.2–39.4; O2SAT 90–99
--- NOTE | 2022-08-23 | ECHO_ITS ---
Patient Info Name: Fina Adair Age: 77 years : 1945 Gender: Female Ht: 62 in Wt: 144 lbs BSA: 1.71 m2 HR: 95 bpm BP: 86 / 48 mmHg Heart Rhythm: Atrial Fibrillation Technical Quality: Fair Exam Date: 08/23/2022 12:46 PM Exam Location: [facility]am Room: 211 Patient Status: Inpatient Admit Date: 08/22/2022 Staff Ordering Physician: Randi Garcia DO Process Planner: Kendy Albright RDCS Attending Provider: Gee Beckman MD Referring Physician: Jose WELLS; Exam Type: CA echo doppler color flow Study Info Indications - AFIB CHF BACTEREMI chf Complete two-dimensional, color flow and Doppler transthoracic echocardiogram is performed. Summary 1. Complete two-dimensional, color flow and Doppler transthoracic echocardiogram is performed. 2. Left ventricular enlargement with moderate global systolic dysfunction ejection fraction approximately 40%. 3. Sclerotic aortic valve which is not stenotic. 4. Severe biatrial dilation. 5. Mild right ventricular dilation. 6. Mild mitral and tricuspid regurgitation. 7. Compared to examination from September of 2021 findings are similar other than mitral valve regurgitation is less. 8. Atrial fibrillation. Left Ventricle Left ventricular chamber dimension is moderately enlarged. Left ventricular systolic function is moderately reduced, estimated at 35-40%. The left ventricular diastolic function is abnormal. Right Ventricle Right ventricular chamber dimension is mildly enlarged. Left Atria Left atrial chamber dimension is severely enlarged. Right Atria Right atrial chamber dimension is severely enlarged. Aortic Valve The aortic valve is trileaflet. There is mild aortic valve sclerosis. Pulmonic Valve The pulmonic valve is not well visualized. Mitral Valve The mitral valve has normal leaflets. There is mild mitral valve regurgitation. Tricuspid Valve The tricuspid valve leaflets are normal. There is mild tricuspid valve regurgitation. Pericardium/Pleural The pericardium appears normal. Aorta The aortic root size at the sinus of Valsalva is normal. Left Ventricular Outflow Tract Name Value Normal LVOT 2D LVOT Diameter 2.0 cm LVOT Doppler LVOT Peak Gradient 5 mmHg LVOT Mean Gradient 3 mmHg LVOT VTI 17 cm LVOT VTI/AV VTI Ratio 0.9 LVOT Stroke Volume 54 ml LVOT CO 14.1 l/min LVOT CI 8.3 l/min/m2 Pulmonic Valve Name Value Normal PV Doppler PV Peak Gradient 2 mmHg Mitral Valve Name Value Normal
[2022-08-23 04:00] LABS: Basophils Percent Auto 0.3 % (0.2-1.2); Hematocrit 35.6 % (37.0-47.0); Hemoglobin 11.6 g/dL (12.0-15.0); Immature Granulocyte Absolute 0.04 K/mm3 (0.00-0.031); Immature Granulocyte Percent A 0.4 % (0-0.5); Lymphocytes Percent Auto 13.4 % (18.3-44.2); Mean Corpuscular HGB Conc 32.6 g/dl (32-36); Mean Corpuscular Hemoglobin 29.6 pg (26-34); Mean Corpuscular Volume 90.8 fl (80-100); Mean Platelet Volume 11.8 fl (7.4-10.4); Monocytes Absolute Auto 0.5 K/mm3 (0.1-0.6); Monocytes Percent Auto 4.6 % (2.6-8.5); Neutrophils Absolute Auto 8.5 K/mm3 (1.3-6.7); Neutrophils Percent Auto 81.3 % (45.5-73.1); Platelet Count Result 167 k/mm3 (150-375); Red Blood Count 3.92 M/mm3 (4.2-5.4); Red Cell Distribution Width 14.3 % (11.5-14.5); White Blood Count 10.4 K/mm3 (4.5-10.0)
[2022-08-23 04:15] LABS: Alanine Aminotransferase 31 U/L (6-35); Albumin Level 3.6 g/dL (3.5-5.1); Alkaline Phosphatase 92 U/L (38-126); Anion Gap 6 mmol/L (8-16); Aspartate Amino Transferase 55 U/L (14-36); Bilirubin,Total 1.9 mg/dL (0.2-1.3); Blood Urea Nitrogen 19 mg/dL (7-17); Calcium 8.3 mg/dL (8.4-10.2); Carbon Dioxide 25 mmol/L (22-30); Chloride 102 mmol/L (98-107); Estimated CRCL calculation 44 ml/min; Estimated Glomerular Filt Rate > 60; Glucose 202 mg/dL (65-110); Magnesium 2.2 mg/dL (1.6-2.3); Potassium 3.7 mmol/L (3.4-5.0); Sodium 133 mmol/L (137-145)
--- NOTE | 2022-08-23 05:24 | PM.PNCARD ---
Progress Note: A&P Assessment and Plan (1) Atrial fibrillation with rapid ventricular response: Code(s): I48.91 - Unspecified atrial fibrillation Status: Acute (2) Chest pain: Code(s): R07.9 - Chest pain, unspecified Status: Acute (3) Coronary artery disease: Code(s): I25.10 - Atherosclerotic heart disease of tanana coronary artery without angina pectoris Status: Acute Plan This is a 77-year-old woman as described above with chronic ischemic heart disease, previous CABG as well as problematic atrial fibrillation. She also in the past has had atypical atrial flutter. Patient has undergone aggressive measures to attempt to maintain sinus rhythm including antiarrhythmic treatment including with amiodarone, previous cardioversions and ablation/pulmonary vein isolation in October of 2021 over at [facility]. Despite this she is back in atrial fibrillation and the likelihood she will have to except chronic AF. I have transitioned her beta-nimisha from Coreg to metoprolol which seems to be providing good rate control at this time. Later today she needs to be ambulated to observe her heart rate response and if she is under reasonable control she can be discharged. Follow up will be with myself as well as Dr. Arce, her occupational physician to ensure that there are no other measures to be considered to restore sinus rhythm. If she can be made to feel well with rate control with metoprolol then further procedures we may not be required. Pierre Nieto MD [facility] Subjective Date/time seen: Date date of service: 08/23/22 05:24 Interval history: Follow-up visit in this 77-year-old woman with: Chronic coronary artery disease with previous CABG and paroxysmal AFib admitted with symptomatic recurrence of this yesterday. Patient also has moderate ischemic cardiomyopathy. Patient was placed on metoprolol for rate control. IV diltiazem has been discontinued. She is asymptomatic this morning Exam Const: General: comfortable and no acute distress Other: Very pleasant woman appearing her stated age resting quietly in bed offers no complaints upon awakening no chest pain no palpitations no dyspnea this morning HENMT: Mouth: Yes moist mucous membranes Eyes: Sclera: sclerae normal Pupils: Equal, round and reactive pupils present Neck: Neck: supple and no JVD Resp: Effort & Inspection: normal respiratory effort Auscultation: clear to auscultation bilaterally Cardio: Rate: regular rate Rhythm: abnormal rhythm irregularly irregular GI: GI Palp: Yes Soft to palpation Auscultation: normal bowel sounds Skin: General skin exam: normal color Neuro: Other: Alert and oriented normal mentation Extrem: Other: No edema good distal perfusion Objective Data Vital Signs Vital Signs: Vital Signs - 24 hr 08/22/22 10:42 08/22/22 10:55 08/22/22 11:00 Temperature 36.6 C Pulse Rate 134 H 120 H Respiratory Rate 20 20 Blood Pressure 131/62 128/82 Pulse Oximetry 96 96 Oxygen Delivery Room Air Room Air Room Air 08/22/22 11:31 08/22/22 10:58 08/22/22 11:01 Temperature Pulse Rate 128 H 134 H 125 H Respiratory Rate 20 20 Blood Pressure 114/73 108/67 128/82 Pulse Oximetry 98 96 Oxygen Delivery 08/22/22 12:09 08/22/22 13:01 08/22/22 13:00 Temperature Pulse Rate 109 H 110 H 75 Respiratory Rate 18 18 Blood Pressure 105/70 111/66 111/66 Pulse Oximetry 97 95 Oxygen Delivery 08/22/22 12:15 08/22/22 13:15 08/22/22 14:04 Temperature Pulse Rate 113 H 110 H 105 H Respiratory Rate 19 21 H 22 H Blood Pressure 105/70 112/60 95/69 L Pulse Oximetry 95 95 95 Oxygen Delivery 08/22/22 15:00 08/22/22 16:00 08/22/22 15:15 Temperature 36.4 C L Pulse Rate 96 88 Respiratory Rate 20 18 Blood Pressure 110/71 105/57 L Pulse Oximetry 95 98 Oxygen Delivery Room Air 08/22/22 16:00 08/22/22 16:57 08/22/22 17:29 Temperature Pulse Rate 98 76 72 Respiratory R
[2022-08-23 05:28] LABS: Thyroid Stimulating Hormone Reflex 0.374 uIU/mL (0.465-4.68)
[2022-08-23 06:05] LABS: Free T4 Free Thyroxine Reflex 1.29 ng/dL (0.78-2.19)
[2022-08-23 07:32] LABS: Glucose Point of Care 208 mg/dl (65-105)
[2022-08-23] MEDS: ALPRAZolam (*CRX) 0.125 MG TABLET PO ×2 (08:49→23:39)
[2022-08-23] MEDS: ACETAMINOPHEN 500 MG TABLET 1000 MG PO ×2 (08:49→17:53)
[2022-08-23] MEDS: ASPIRIN 81 MG CHEWABLE TABLET PO (08:50)
[2022-08-23] MEDS: PANTOPRAZOLE 40 MG TABLET PO (08:50)
[2022-08-23] MEDS: metFORMIN HCL 500 MG TABLET PO ×2 (08:50→13:56)
[2022-08-23] MEDS: CYANOCOBALAMIN 500 MCG TABLET PO (08:50)
[2022-08-23] MEDS: FUROSEMIDE 40 MG TABLET PO ×2 (08:51→17:20)
[2022-08-23] MEDS: EMPAGLIFLOZIN 25 MG TABLET PO (08:51)
[2022-08-23] MEDS: SACUBITRIL/VALSARTAN 24-26 MG TABLET 1 TAB PO ×2 (08:51→21:03)
[2022-08-23] MEDS: POTASSIUM CHLORIDE 10 MEQ TABLET.ER PO (08:51)
[2022-08-23] MEDS: APIXABAN 5 MG TABLET PO ×2 (08:51→21:03)
[2022-08-23] MEDS: METOPROLOL SUCCINATE EXT REL 50 MG TABCR PO (08:52)
[2022-08-23] MEDS: INSULIN ASPART (*BKC) 100 UNITS/ML SUB-Q ×2 (08:57→11:46)
--- NOTE | 2022-08-23 11:44 | PM.IMPN ---
Progress Note: A&P Assessment and Plan (1) Atrial fibrillation with rapid ventricular response: Code(s): I48.91 - Unspecified atrial fibrillation Status: Acute Assessment and Plan: Appreciate cardiology consultation, Coreg has been discontinued in favor of metoprolol, patient has a long history of refractory AFib having failed multiple antiarrhythmic drugs and ablation in 2021, Cardiology is recommending stabilization here and then discharge with EP consultation and possible AV node ablation with pacemaker implantation (2) Chest tightness: Code(s): R07.89 - Other chest pain Status: Acute Assessment and Plan: Resolved (3) Ischemic cardiomyopathy: Code(s): I25.5 - Ischemic cardiomyopathy Status: Acute Assessment and Plan: As above (4) Combined systolic and diastolic congestive heart failure: Code(s): I50.40 - Unspecified combined systolic (congestive) and diastolic (congestive) heart failure Status: Acute Assessment and Plan: Echo from September 2021 showed an EF of 30-35% with abnormal diastolic dysfunction, mild pulmonary hypertension and moderate to severe valvular dysfunction (5) Chronic anticoagulation: Code(s): 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 Status: Acute Assessment and Plan: Eliquis (6) Type 2 diabetes mellitus: Qualifiers: Diabetes mellitus complication status: with circulatory complication Diabetes mellitus ad terminal makeup operator insulin use: without mcc use Code(s): E11.9 - Type 2 diabetes mellitus without complications Status: Acute Assessment and Plan: Uncontrolled, A1c 8.2 Accu-Cheks, sliding scale insulin (7) Bacteremia: Code(s): R78.81 - Bacteremia Status: Acute Assessment and Plan: Gram-negative bacilli growing in both the anaerobic and aerobic bottles of 1 of 2 cultures Check urine culture, procalcitonin, lactic acid, CRP, d-dimer Broad-spectrum antibiotic coverage with imipenem, do not suspect MRSA, could be ESBL E coli MRSA swab pending Unsure of source at this time, suspect urinary, but UA was benign, follow urine culture Check echo, minimal concern for endocarditis at this time Concern for possible urinary retention, check bladder scan/PVR Plan DVT prophylaxis with Eliquis GI prophylaxis with PPI Code status full code Subjective Date/time seen: 08/23/22 11:44 Interval history: 77-year-old female with coronary artery disease with previous CABG, ischemic cardiomyopathy with an EF of 30-35% 10/20, diabetes, paroxysmal AFib admitted with chest pain and shortness of breath and found to have AFib with RVR, Cardiology discontinue Coreg in favor of metoprolol for improved rate control and are recommending outpatient EP consultation for possible AV node ablation with pacemaker implantation. No overnight events noted. No chest pain or shortness of breath. No nausea, vomiting or diarrhea. No fevers or chills. She does state that when she urinates she feels like she is not completely emptying her bladder. She denies dysuria, hematuria or pain with urination. Review of Systems Review of Systems: 12 point review of systems was assessed and was negative except as noted in the HPI Exam Narrative: General: No acute distress, alert and oriented per baseline HEENT: Atraumatic, normocephalic, mucous membranes moist, no JVD CV: Irregularly irregular, S1, S2 Lungs: Clear to auscultation bilaterally, no rales or crackles noted, no wheezes, good air entry Abdomen: Soft, nontender, nondistended Extremities: Normal to inspection Skin: No rashes noted, no lesions or wounds seen Psych: Euthymic, normal affect Objective Data Vital Signs Vital Signs: Vital Signs - 24 hr 08/22/22 12:09 08/22/22 13:01 08/22/22 13:00 Temperature Pulse Rate 109 H 110 H 75 Respiratory Rate 18 18 Blood Pressure 105/70 111/66 11
[2022-08-23 12:07] LABS: Glucose Point of Care 231 mg/dl (65-105)
[2022-08-23 13:03] LABS: D Dimer 0.38 ug/mL (<0.48)
[2022-08-23 13:06] LABS: CRP 7.5 mg/dL (<1.0)
[2022-08-23 14:11] LABS: Total Triiodothyronine (T3) 0.71 NG/ML (0.97-1.69)
[2022-08-23 14:21] LABS: Procalcitonin 25.5 ng/mL
[2022-08-23 15:45] LABS: Reflex Lactic Acid Yes or No Add Lactic
[2022-08-23 16:23] LABS: Lactic Acid 5.1 mmol/L (0.7-2.0)
[2022-08-23 17:08] LABS: Glucose Point of Care 205 mg/dl (65-105)
[2022-08-23] MEDS: LORazepam INJ (*CRX) 2 MG/ML VIAL 1 MG IV PUSH (17:19)
[2022-08-23 17:57] LABS: Glucose Point of Care 241 mg/dl (65-105)
[2022-08-23 18:42] LABS: Lactic Acid Reflex 1.9 mmol/L (0.7-2.0)
[2022-08-23 18:53] LABS: Troponin I < 0.012 ng/mL (0.000-0.034)
[2022-08-23] MEDS: metroNIDAZOLE 500 MG/ISO 100ML 500 MG/100 ML BAG 100 MG IVPB (19:00)
[2022-08-23 20:06] LABS: Procalcitonin 18.1 ng/mL
[2022-08-23 20:07] LABS: Glucose Point of Care 307 mg/dl (65-105)
[2022-08-24] VITALS (16 sets, daily range): BP systolic 83–112; BP diastolic 51–78; PULSE 74–109; RESP 12–20; TEMP 36.4–37.1; O2SAT 90–100
[2022-08-24] MEDS: metroNIDAZOLE 500 MG/ISO 100ML 500 MG/100 ML BAG 100 MG IVPB ×4 (01:35→18:39)
[2022-08-24 04:05] LABS: Estimated CRCL calculation 50 ml/min; Estimated Glomerular Filt Rate > 60
[2022-08-24] MEDS: ACETAMINOPHEN 500 MG TABLET 1000 MG PO ×2 (06:28→20:40)
[2022-08-24] MEDS: ALPRAZolam (*CRX) 0.125 MG TABLET PO (06:28)
--- NOTE | 2022-08-24 08:02 | PM.IMPN ---
Progress Note: A&P Assessment and Plan (1) Pneumonia: Code(s): J18.9 - Pneumonia, unspecified organism Status: Acute Assessment and Plan: infection not noted on admission, preliminary blood cultures came back positive with GNB, vanc + imipenem + flagyl started 08/23 CXR done late 08/23 showed new pneumonia not seen on 08/22 CXR Blood and urine cultures pending, continue current antibiotics for now, will likely be able to deescalate soon (2) Bacteremia: Code(s): R78.81 - Bacteremia Status: Acute Assessment and Plan: Likely 2/2 PNA, see above Gram-negative bacilli growing in both the anaerobic and aerobic bottles of 1 of 2 cultures Broad-spectrum antibiotic coverage with imipenem, do not suspect MRSA, could be ESBL E coli MRSA swab pending Check echo, minimal concern for endocarditis at this time Concern for possible urinary retention, check bladder scan/PVR CXR 08/23 shows pna that was not seen on 08/22 (3) Atrial fibrillation with rapid ventricular response: Code(s): I48.91 - Unspecified atrial fibrillation Status: Acute Assessment and Plan: Appreciate cardiology consultation, Coreg has been discontinued in favor of metoprolol, patient has a long history of refractory AFib having failed multiple antiarrhythmic drugs and ablation in 2021, Cardiology is recommending stabilization here and then discharge with EP consultation and possible AV node ablation with pacemaker implantation (4) Chest tightness: Code(s): R07.89 - Other chest pain Status: Acute Assessment and Plan: Resolved (5) Ischemic cardiomyopathy: Code(s): I25.5 - Ischemic cardiomyopathy Status: Acute Assessment and Plan: As above (6) Combined systolic and diastolic congestive heart failure: Code(s): I50.40 - Unspecified combined systolic (congestive) and diastolic (congestive) heart failure Status: Acute Assessment and Plan: Appears euvolemic, cont home po diuretics, monitor Echo from September 2021 showed an EF of 30-35% with abnormal diastolic dysfunction, mild pulmonary hypertension and moderate to severe valvular dysfunction (7) Chronic anticoagulation: Code(s): Z79.01 - retirement (current) use of anticoagulants Status: Acute Assessment and Plan: Priyankaquerick (8) Type 2 diabetes mellitus: Qualifiers: Diabetes mellitus complication status: with circulatory complication 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 insulin use: without bed bug exterminator use Code(s): E11.9 - Type 2 diabetes mellitus without complications Status: Acute Assessment and Plan: Uncontrolled, A1c 8.2 Accu-Cheks, sliding scale insulin Plan DVT prophylaxis with Eliquis GI prophylaxis with PPI Code status full code Subjective Date/time seen: 08/24/22 08:02 Interval history: 77-year-old female with coronary artery disease with previous CABG, ischemic cardiomyopathy with an EF of 30-35% 10/20, diabetes, paroxysmal AFib admitted with chest pain and shortness of breath and found to have AFib with RVR, Cardiology discontinue Coreg in favor of metoprolol for improved rate control and are recommending outpatient EP consultation for possible AV node ablation with pacemaker implantation. No overnight events noted. No chest pain or shortness of breath. No nausea, vomiting or diarrhea. No fevers or chills. Patient states she feels better when she came in but continues to have shaking spells. Daughter in laws in the room and states patient has a long history of anxiety. Patient admits that when she gets any kind of chills episode she does then have a panic attack. Ativan has been helping. Review of Systems Review of Systems: 12 point review of systems was assessed and was negative except as noted in the HPI Exam Narrative: General: No acute distress, alert and oriented per baseline HEENT: Atraumatic, normocephalic, mucous mem
[2022-08-24 08:07] LABS: Glucose Point of Care 188 mg/dl (65-105)
[2022-08-24 08:28] LABS: Basophils Percent Auto 0.4 % (0.2-1.2); Eosinophils Percent Auto 0.4 % (0-4.4); Hematocrit 33.1 % (37.0-47.0); Hemoglobin 10.8 g/dL (12.0-15.0); Immature Granulocyte Absolute 0.01 K/mm3 (0.00-0.031); Immature Granulocyte Percent A 0.1 % (0-0.5); Lymphocytes Absolute Auto 1.64 K/mm3 (0.9-3.2); Lymphocytes Percent Auto 22.1 % (18.3-44.2); Mean Corpuscular HGB Conc 32.6 g/dl (32-36); Mean Corpuscular Hemoglobin 30.5 pg (26-34); Mean Corpuscular Volume 93.5 fl (80-100); Mean Platelet Volume 12.2 fl (7.4-10.4); Monocytes Absolute Auto 0.7 K/mm3 (0.1-0.6); Platelet Count Result 144 k/mm3 (150-375); Red Blood Count 3.54 M/mm3 (4.2-5.4); Red Cell Distribution Width 14.4 % (11.5-14.5); White Blood Count 7.4 K/mm3 (4.5-10.0)
[2022-08-24 08:39] LABS: Alanine Aminotransferase 53 U/L (6-35); Albumin Level 3.3 g/dL (3.5-5.1); Alkaline Phosphatase 115 U/L (38-126); Anion Gap 5 mmol/L (8-16); Aspartate Amino Transferase 64 U/L (14-36); Bilirubin,Total 1.2 mg/dL (0.2-1.3); Blood Urea Nitrogen 21 mg/dL (7-17); Calcium 8.1 mg/dL (8.4-10.2); Carbon Dioxide 27 mmol/L (22-30); Chloride 103 mmol/L (98-107); Estimated CRCL calculation 50 ml/min; Estimated Glomerular Filt Rate > 60; Glucose 205 mg/dL (65-110); Potassium 3.5 mmol/L (3.4-5.0); Sodium 135 mmol/L (137-145)
--- NOTE | 2022-08-24 09:55 | PM.PNCARD ---
Progress Note: A&P Assessment and Plan (1) Atrial fibrillation with rapid ventricular response: Code(s): I48.91 - Unspecified atrial fibrillation Status: Acute Plan 77-year-old lady with chronic ischemic heart disease as well as problematic atrial arrhythmias. Admitted with sustained recurrence of her atrial fibrillation. Heart rate is well controlled after shifting her beta-nimisha to metoprolol. Systemic anticoagulation is being continued. Surprisingly and unexpectedly she now has been found to be febrile and have Gram-negative bacteremia/sepsis. Obviously this significantly complicates the management and will lengthen this hospitalization. Pierre Nieto MD [facility] Subjective Date/time seen: Date of service: 08/24/22 09:55 Interval history: Follow-up visit in this 77-year-old woman with: Chronic coronary artery disease with previous CABG and paroxysmal AFib admitted with symptomatic recurrence of this yesterday. Patient also has moderate ischemic cardiomyopathy. Patient was placed on metoprolol for rate control. IV diltiazem has been discontinued. She is asymptomatic this morning 08/24/2022: Patient has no cardiovascular complaints today. Her heart rate is well controlled with metoprolol. Was called last night when she was once again a bit more tachycardic however was also total the same time that she now has blood cultures positive for Gram-negative rods. This is under evaluation. She was febrile at that time as well Exam Const: General: comfortable and no acute distress Other: Very pleasant woman appearing her stated age resting quietly in bed offers no complaints upon awakening no chest pain no palpitations no dyspnea this morning HENMT: Mouth: Yes moist mucous membranes Eyes: Sclera: sclerae normal Pupils: Equal, round and reactive pupils present Neck: Neck: supple and no JVD Resp: Effort & Inspection: normal respiratory effort Auscultation: clear to auscultation bilaterally Cardio: Rate: regular rate Rhythm: abnormal rhythm irregularly irregular GI: Auscultation: normal bowel sounds Skin: General skin exam: normal color Neuro: Cranial nerves: Yes Equal, round and reactive pupils present Other: Alert and oriented normal mentation Extrem: Other: No edema good distal perfusion Objective Data Vital Signs Vital Signs: Vital Signs - 24 hr 08/23/22 10:00 08/23/22 12:00 08/23/22 12:00 Temperature 37.2 C Pulse Rate 99 86 Respiratory Rate 20 Blood Pressure 86/48 L Pulse Oximetry 91 96 Oxygen Delivery Room Air Oxygen Flow Rate 08/23/22 12:00 08/23/22 14:00 08/23/22 16:00 Temperature Pulse Rate 111 H 108 H Respiratory Rate Blood Pressure Pulse Oximetry Oxygen Delivery Room Air Oxygen Flow Rate 08/23/22 16:00 08/23/22 16:00 08/23/22 17:53 Temperature 38.1 C H 39.4 C H Pulse Rate 109 H 113 H Respiratory Rate 20 Blood Pressure 108/45 L Pulse Oximetry 90 Oxygen Delivery Oxygen Flow Rate 08/23/22 17:45 08/23/22 18:08 08/23/22 18:00 Temperature Pulse Rate 126 H 131 H 122 H Respiratory Rate 20 36 H Blood Pressure 127/78 Pulse Oximetry 91 91 Oxygen Delivery Nasal Cannula Oxygen Flow Rate 4 08/23/22 18:28 08/23/22 18:57 08/23/22 20:00 Temperature 39.3 C H 38.5 C H Pulse Rate 121 H Respiratory Rate 20 Blood Pressure 90/56 L Pulse Oximetry 92 97 Oxygen Delivery High Flow Therapy with Na Oxygen Flow Rate 4 08/24/22 00:00 08/23/22 20:00 08/24/22 00:00 Temperature 37.1 C Pulse Rate 88 Respiratory Rate 16 Blood Pressure 83/51 L Pulse Oximetry 90 99 99 Oxygen Delivery High Flow Nasal Cannula High Flow Nasal Cannula Oxygen Flow Rate 4 4 08/23/22 20:00 08/23/22 22:00 08/24/22 00:00 Temperature Pulse Rate 108 H 93 83 Respiratory Rate Blood Pressure Pulse Oximetry Oxygen Delivery Oxygen Flow Rate 08/24/22 02:00 08/24/22 04:00
[2022-08-24] MEDS: ASPIRIN 81 MG CHEWABLE TABLET PO (11:05)
[2022-08-24] MEDS: metFORMIN HCL 500 MG TABLET PO ×3 (11:06→16:59)
[2022-08-24] MEDS: CYANOCOBALAMIN 500 MCG TABLET PO (11:06)
[2022-08-24] MEDS: APIXABAN 5 MG TABLET PO ×2 (11:06→20:40)
[2022-08-24] MEDS: FUROSEMIDE 40 MG TABLET PO ×2 (11:06→16:59)
[2022-08-24] MEDS: METOPROLOL SUCCINATE EXT REL 50 MG TABCR PO (11:07)
[2022-08-24] MEDS: EMPAGLIFLOZIN 25 MG TABLET PO (11:07)
[2022-08-24] MEDS: POTASSIUM CHLORIDE 10 MEQ TABLET.ER PO (11:07)
[2022-08-24] MEDS: PANTOPRAZOLE 40 MG TABLET PO ×2 (11:08→16:59)
[2022-08-24] MEDS: SACUBITRIL/VALSARTAN 24-26 MG TABLET 1 TAB PO ×2 (11:08→20:40)
[2022-08-24 12:42] LABS: Glucose Point of Care 217 mg/dl (65-105)
[2022-08-24] MEDS: LORazepam (*CRX) 0.5 MG TABLET PO ×3 (13:51→20:40)
[2022-08-24 17:37] LABS: Glucose Point of Care 222 mg/dl (65-105)
[2022-08-24 20:03] LABS: Glucose Point of Care 188 mg/dl (65-105)
--- NOTE | 2022-08-24 22:17 | PC.NURSE ---
PATIENT CALLED OUT STATING THAT SHE WAS FREEZING, SOB, FEELING ANXIOUS. O2 ON ROOM AIR AT THAT TIME WAS 98%. NO TEMP. TEMP WAS 97.2. SHE CALLED OUT MULTIPLE TIMES SAYING THAT SHE WAS FREEZING AND COULDN'T BREATHE. I WAS STILL WAITING TO TALK TO DR. 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 OK TO GIVE MEDICATION EARLY FOR ANXIETY. SHE C/O HEADACHE. TYLENOL GIVEN. PLACED PATIENT ON 2L NC. PATIENT WAS BREATHING VERY SHALLOW AND O2 DROPPED INTO MID 80'S.
[2022-08-25] VITALS (11 sets, daily range): BP systolic 101–122; BP diastolic 56–77; PULSE 64–115; RESP 18–22; TEMP 36.4–36.9; O2SAT 94–100
[2022-08-25] MEDS: metroNIDAZOLE 500 MG/ISO 100ML 500 MG/100 ML BAG 100 MG IVPB ×2 (00:08→06:02)
[2022-08-25] MEDS: ACETAMINOPHEN 500 MG TABLET 1000 MG PO (03:31)
[2022-08-25 05:12] LABS: Basophils Percent Auto 0.5 % (0.2-1.2); Eosinophils Absolute Auto 0.1 K/mm3 (0-0.3); Eosinophils Percent Auto 1.4 % (0-4.4); Hematocrit 33.6 % (37.0-47.0); Hemoglobin 11.3 g/dL (12.0-15.0); Immature Granulocyte Absolute 0.02 K/mm3 (0.00-0.031); Immature Granulocyte Percent A 0.3 % (0-0.5); Lymphocytes Absolute Auto 0.97 K/mm3 (0.9-3.2); Lymphocytes Percent Auto 13.2 % (18.3-44.2); Mean Corpuscular HGB Conc 33.6 g/dl (32-36); Mean Corpuscular Hemoglobin 30.1 pg (26-34); Mean Corpuscular Volume 89.4 fl (80-100); Mean Platelet Volume 11.8 fl (7.4-10.4); Monocytes Absolute Auto 0.6 K/mm3 (0.1-0.6); Monocytes Percent Auto 8.6 % (2.6-8.5); Neutrophils Absolute Auto 5.6 K/mm3 (1.3-6.7); Platelet Count Result 161 k/mm3 (150-375); Red Blood Count 3.76 M/mm3 (4.2-5.4); Red Cell Distribution Width 14.1 % (11.5-14.5); White Blood Count 7.3 K/mm3 (4.5-10.0)
[2022-08-25 05:26] LABS: Alanine Aminotransferase 44 U/L (6-35); Albumin Level 3.4 g/dL (3.5-5.1); Alkaline Phosphatase 94 U/L (38-126); Anion Gap 5 mmol/L (8-16); Aspartate Amino Transferase 44 U/L (14-36); Bilirubin,Total 1.3 mg/dL (0.2-1.3); Blood Urea Nitrogen 16 mg/dL (7-17); Carbon Dioxide 26 mmol/L (22-30); Chloride 107 mmol/L (98-107); Estimated CRCL calculation 68 ml/min; Estimated Glomerular Filt Rate > 60; Glucose 135 mg/dL (65-110); Potassium 3.4 mmol/L (3.4-5.0); Sodium 138 mmol/L (137-145)
[2022-08-25] MEDS: LORazepam (*CRX) 0.5 MG TABLET PO ×2 (06:02→12:22)
[2022-08-25] MEDS: CYANOCOBALAMIN 500 MCG TABLET PO (08:44)
[2022-08-25] MEDS: POTASSIUM CHLORIDE 10 MEQ TABLET.ER PO (08:44)
[2022-08-25] MEDS: metFORMIN HCL 500 MG TABLET PO ×3 (08:44→16:06)
[2022-08-25] MEDS: APIXABAN 5 MG TABLET PO ×2 (08:44→20:54)
[2022-08-25] MEDS: EMPAGLIFLOZIN 25 MG TABLET PO (08:45)
[2022-08-25] MEDS: PANTOPRAZOLE 40 MG TABLET PO ×2 (08:45→16:07)
[2022-08-25] MEDS: ASPIRIN 81 MG CHEWABLE TABLET PO (08:45)
[2022-08-25] MEDS: FUROSEMIDE 40 MG TABLET PO ×2 (08:46→16:07)
[2022-08-25] MEDS: SACUBITRIL/VALSARTAN 24-26 MG TABLET 1 TAB PO ×2 (08:46→20:53)
--- NOTE | 2022-08-25 09:27 | PM.PNCARD ---
Progress Note: A&P Assessment and Plan (1) Atrial fibrillation with rapid ventricular response: Code(s): I48.91 - Unspecified atrial fibrillation Status: Acute Assessment and Plan: Persistent atrial fibrillation s/p multiple cardioversions. She presented to the hospital with a chief complaint of shortness of breath and was found to be in atrial fibrillation with RVR. She is being rate controlled with metoprolol and is on systemic anticoagulation with apixaban. Will increase her metoprolol dose to 75mg daily as she is still having some episodes of tachycardia. Continue telemetry for now. Subjective Date/time seen: 08/25/22 09:27 Interval history: Follow-up visit in this 77-year-old woman with: Chronic coronary artery disease with previous CABG and paroxysmal AFib admitted with symptomatic recurrence of this yesterday. Patient also has moderate ischemic cardiomyopathy. Patient was placed on metoprolol for rate control. IV diltiazem has been discontinued. She is asymptomatic this morning 08/24/2022: Patient has no cardiovascular complaints today. Her heart rate is well controlled with metoprolol. Was called last night when she was once again a bit more tachycardic however was also total the same time that she now has blood cultures positive for Gram-negative rods. This is under evaluation. She was febrile at that time as well 08/25/2022: She is generally well rate controlled but is having some tachycardia, at which times she can feel palpitations. No chest pain or shortness of breath. Complaining of fever and chills. Review of Systems Constitutional: Constitutional: Reports fatigue Eyes: Eyes: Reports no additional eye complaints ENT: Reports system reviewed and no additional complaints, except as documented Cardiovascular: Cardiovascular: Reports as per HPI, Reports chest pain and Reports palpitations Respiratory: Respiratory: Reports no additional respiratory complaints Gastrointestinal: Gastrointestinal: Reports no additional gastrointestinal complaints Musculoskeletal: Musculoskeletal: Reports no additional musculoskeletal complaints Integumentary/Breasts: Skin/Breast: Reports system reviewed and no additional complaints, except as docu Endocrine: Endocrine: Reports no additional endocrine complaints, Reports fatigue and Reports palpitations Hematologic/Lymphatic: Hematologic/Lymphatic: Reports no additional hematologic/lymphatic complaints Allergic/Immunologic: Allergic/Immunologic: Reports no additional allergic/immunologic complaints Exam Const: General: comfortable and no acute distress Other: Very pleasant woman appearing her stated age resting quietly in bed offers no complaints upon awakening no chest pain no palpitations no dyspnea this morning HENMT: Mouth: Yes moist mucous membranes Eyes: Sclera: sclerae normal Pupils: Equal, round and reactive pupils present Neck: Neck: supple and no JVD Resp: Effort & Inspection: normal respiratory effort Auscultation: clear to auscultation bilaterally Cardio: Rate: regular rate Rhythm: abnormal rhythm irregularly irregular GI: Auscultation: normal bowel sounds Skin: General skin exam: normal color Neuro: Cranial nerves: Yes Equal, round and reactive pupils present Other: Alert and oriented normal mentation Extrem: Other: No edema good distal perfusion Objective Data Vital Signs Vital Signs: Vital Signs - 24 hr 08/24/22 09:32 08/24/22 11:07 08/24/22 12:00 Temperature 36.4 C Pulse Rate 91 87 Respiratory Rate 16 Blood Pressure 99/60 L Pulse Oximetry 96 99 Oxygen Delivery High Flow Nasal Cannula Oxygen Flow Rate 5 Fraction of Inspired Oxygen 08/24/22 16:20 08/24/22 10:00 08/24/22 12:00 Temperature Pulse Rate 91 99 100 Respiratory Rate 18 Blood Pressure Pulse Oximetry 96 Oxygen Delivery Room Air Oxygen Flow Rate Fraction of Inspired Oxygen 21 08/24/22 14:00 03
--- NOTE | 2022-08-25 09:51 | PM.IMPN ---
Progress Note: A&P Assessment and Plan (1) Pneumonia: Code(s): J18.9 - Pneumonia, unspecified organism Status: Acute Assessment and Plan: Infection not noted on admission, initial chest x-ray was nonacute, however, preliminary blood cultures came back positive with GNB, vanc + imipenem + flagyl started 08/23, CXR done late 08/23 showed new pneumonia not seen on 08/22 CXR MRSA swab positive, do not suspect MRSA infection, however, vanc d/c 08/25 2/ Blood cultures from 08/22 showed pansensitive E coli, repeat blood cultures 08/25 pending Plan to de-escalate to augmentin to complete 14 day course once repeat blood cultures from 08/25 are negative 08/25: D/c vanc, imipenem, flagyl, start ampicillin 500 mg IV q6h for now (2) Bacteremia: Code(s): R78.81 - Bacteremia Status: Acute Assessment and Plan: Likely 2/2 PNA, see above, echo negative for vegetations CXR 08/23 shows pna that was not seen on 08/22 (3) Atrial fibrillation with rapid ventricular response: Code(s): I48.91 - Unspecified atrial fibrillation Status: Acute Assessment and Plan: Appreciate cardiology consultation, Coreg has been discontinued in favor of metoprolol, patient has a long history of refractory AFib having failed multiple antiarrhythmic drugs and ablation in 2021, Cardiology is recommending stabilization here and then discharge with EP consultation and possible AV node ablation with pacemaker implantation (4) Chest tightness: Code(s): R07.89 - Other chest pain Status: Acute Assessment and Plan: Resolved (5) Ischemic cardiomyopathy: Code(s): I25.5 - Ischemic cardiomyopathy Status: Acute Assessment and Plan: As above (6) Combined systolic and diastolic congestive heart failure: Code(s): I50.40 - Unspecified combined systolic (congestive) and diastolic (congestive) heart failure Status: Acute Assessment and Plan: Appears euvolemic, cont home po diuretics, monitor Echo from September 2021 showed an EF of 30-35% with abnormal diastolic dysfunction, mild pulmonary hypertension and moderate to severe valvular dysfunction Repeat echo 08/21 is essentially unchanged, no vegetation noted (7) Chronic anticoagulation: Code(s): Z79.01 - alf (current) use of anticoagulants Status: Acute Assessment and Plan: Eliquis (8) Type 2 diabetes mellitus: Qualifiers: Diabetes mellitus complication status: with circulatory complication 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 insulin use: without skilled nursing use Code(s): E11.9 - Type 2 diabetes mellitus without complications Status: Acute Assessment and Plan: Uncontrolled, A1c 8.2 Accu-Cheks, sliding scale insulin Blood glucose reviewed 08/25 (9) Panic attack as reaction to stress: Code(s): F41.0 - Panic disorder [episodic paroxysmal anxiety]; F43.0 - Acute stress reaction Status: Acute Assessment and Plan: Shaking spells appear to be functional in nature, not correlating with physiologic course, strong correlation with stress and anxiety response, responding to Ativan, will transition to Klonopin due to its longer half-life for more prophylaxis to her panic attacks at this time Plan DVT prophylaxis with Eliquis GI prophylaxis with PPI Code status full code Subjective Date/time seen: 08/25/22 09:51 Interval history: 77-year-old female with chronic coronary artery disease with previous CABG and paroxysmal AFib admitted with symptomatic recurrence of this yesterday. Patient also has moderate ischemic cardiomyopathy. Patient was placed on metoprolol for rate control. IV diltiazem has been discontinued. She is asymptomatic this morning 08/24: Patient has no cardiovascular complaints today. Her heart rate is well controlled with metoprolol. Was called last night when she was once again a bit more tachycardic however was also total th
[2022-08-25] MEDS: METOPROLOL SUCCINATE EXT REL 50 MG TABCR PO (10:01)
[2022-08-25 11:10] LABS: Glucose Point of Care 133 mg/dl (65-105)
[2022-08-25] MEDS: clonazePAM (*CRX) 0.5 MG TABLET 1 MG PO ×2 (16:06→20:54)
[2022-08-25 16:46] LABS: Glucose Point of Care 225 mg/dl (65-105)
[2022-08-25] MEDS: cefTRIAXone 2 GM/NS 100 ML 2 GM/100 ML BAG IVPB (17:18)
[2022-08-25 17:47] LABS: Glucose Point of Care 138 mg/dl (65-105)
[2022-08-25 20:07] LABS: Glucose Point of Care 201 mg/dl (65-105)
[2022-08-25 21:00] LABS: Vancomycin Trough 10.2 ug/mL (10.0-20.0)
[2022-08-25] MEDS: ONDANSETRON INJ 4 MG/2 ML VIAL IV PUSH (22:27)
[2022-08-26] VITALS (14 sets, daily range): BP systolic 92–122; BP diastolic 63–76; PULSE 88–134; RESP 14–20; TEMP 36.4–37.1; O2SAT 92–99
[2022-08-26] MEDS: ACETAMINOPHEN 500 MG TABLET 1000 MG PO ×2 (04:46→21:51)
[2022-08-26 05:14] LABS: Basophils Percent Auto 0.4 % (0.2-1.2); Eosinophils Absolute Auto 0.1 K/mm3 (0-0.3); Hematocrit 37.1 % (37.0-47.0); Hemoglobin 12.2 g/dL (12.0-15.0); Immature Granulocyte Absolute 0.03 K/mm3 (0.00-0.031); Immature Granulocyte Percent A 0.4 % (0-0.5); Lymphocytes Absolute Auto 1.95 K/mm3 (0.9-3.2); Lymphocytes Percent Auto 29.2 % (18.3-44.2); Mean Corpuscular HGB Conc 32.9 g/dl (32-36); Mean Corpuscular Hemoglobin 30.2 pg (26-34); Mean Corpuscular Volume 91.8 fl (80-100); Mean Platelet Volume 11.4 fl (7.4-10.4); Monocytes Absolute Auto 0.6 K/mm3 (0.1-0.6); Monocytes Percent Auto 8.7 % (2.6-8.5); Neutrophils Percent Auto 60.3 % (45.5-73.1); Platelet Count Result 185 k/mm3 (150-375); Red Blood Count 4.04 M/mm3 (4.2-5.4); White Blood Count 6.7 K/mm3 (4.5-10.0)
[2022-08-26 05:24] LABS: Alanine Aminotransferase 36 U/L (6-35); Albumin Level 3.6 g/dL (3.5-5.1); Alkaline Phosphatase 111 U/L (38-126); Anion Gap 9 mmol/L (8-16); Aspartate Amino Transferase 29 U/L (14-36); Bilirubin,Total 0.9 mg/dL (0.2-1.3); Blood Urea Nitrogen 16 mg/dL (7-17); Calcium 8.3 mg/dL (8.4-10.2); Carbon Dioxide 29 mmol/L (22-30); Chloride 100 mmol/L (98-107); Estimated CRCL calculation 57 ml/min; Estimated Glomerular Filt Rate > 60; Glucose 142 mg/dL (65-110); Potassium 3.4 mmol/L (3.4-5.0); Sodium 138 mmol/L (137-145)
[2022-08-26] MEDS: metFORMIN HCL 500 MG TABLET PO ×3 (08:35→17:00)
[2022-08-26] MEDS: SACUBITRIL/VALSARTAN 24-26 MG TABLET 1 TAB PO ×2 (08:36→21:55)
[2022-08-26] MEDS: FUROSEMIDE 40 MG TABLET PO ×2 (08:36→17:00)
[2022-08-26] MEDS: EMPAGLIFLOZIN 25 MG TABLET PO (08:36)
[2022-08-26] MEDS: METOPROLOL SUCCINATE EXT REL 25 MG TABCR 75 MG PO (08:36)
[2022-08-26] MEDS: PANTOPRAZOLE 40 MG TABLET PO ×2 (08:36→17:00)
[2022-08-26] MEDS: POTASSIUM CHLORIDE 10 MEQ TABLET.ER PO (08:36)
[2022-08-26] MEDS: ASPIRIN 81 MG CHEWABLE TABLET PO (08:36)
[2022-08-26] MEDS: CYANOCOBALAMIN 500 MCG TABLET PO (08:36)
[2022-08-26] MEDS: APIXABAN 5 MG TABLET PO ×2 (08:36→21:54)
[2022-08-26 08:42] LABS: Glucose Point of Care 139 mg/dl (65-105)
--- NOTE | 2022-08-26 09:14 | PM.IMPN ---
Progress Note: A&P Assessment and Plan (1) Pneumonia: Code(s): J18.9 - Pneumonia, unspecified organism Status: Acute Assessment and Plan: Infection not noted on admission, initial chest x-ray was nonacute, however, preliminary blood cultures came back positive with GNB, vanc + imipenem + flagyl started 08/23, CXR done late 08/23 showed new pneumonia not seen on 08/22 CXR MRSA swab positive, do not suspect MRSA infection, however, vanc d/c 08/25 07/03 Blood cultures from 08/22 showed pansensitive E coli, repeat blood cultures 08/25 pending Plan to de-escalate to augmentin to complete 14 day course once repeat blood cultures from 08/25 are negative 08/25: D/c vanc, imipenem, flagyl, start rocephin 2g q24h 08/26: Cont rocephin, f/u blood cx, pending, NGTD (2) Bacteremia: Code(s): R78.81 - Bacteremia Status: Acute Assessment and Plan: Likely 2/2 PNA, see above, echo negative for vegetations CXR 08/23 shows pna that was not seen on 08/22 (3) Atrial fibrillation with rapid ventricular response: Code(s): I48.91 - Unspecified atrial fibrillation Status: Acute Assessment and Plan: Appreciate cardiology consultation, Coreg has been discontinued in favor of metoprolol, patient has a long history of refractory AFib having failed multiple antiarrhythmic drugs and ablation in 2021, Cardiology is recommending stabilization here and then discharge with EP consultation and possible AV node ablation with pacemaker implantation (4) Chest tightness: Code(s): R07.89 - Other chest pain Status: Acute Assessment and Plan: Resolved (5) Ischemic cardiomyopathy: Code(s): I25.5 - Ischemic cardiomyopathy Status: Acute Assessment and Plan: As above (6) Combined systolic and diastolic congestive heart failure: Code(s): I50.40 - Unspecified combined systolic (congestive) and diastolic (congestive) heart failure Status: Acute Assessment and Plan: Appears euvolemic, cont home po diuretics, monitor Echo from September 2021 showed an EF of 30-35% with abnormal diastolic dysfunction, mild pulmonary hypertension and moderate to severe valvular dysfunction Repeat echo 08/21 is essentially unchanged, no vegetation noted (7) Chronic anticoagulation: Code(s): 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 Status: Acute Assessment and Plan: Eliquis (8) Type 2 diabetes mellitus: Qualifiers: Diabetes mellitus complication status: with circulatory complication Diabetes mellitus fpc insulin use: without exterminator use Code(s): E11.9 - Type 2 diabetes mellitus without complications Status: Acute Assessment and Plan: Uncontrolled, A1c 8.2 Accu-Cheks, sliding scale insulin Blood glucose reviewed 08/26 (9) Panic attack as reaction to stress: Code(s): F41.0 - Panic disorder [episodic paroxysmal anxiety]; F43.0 - Acute stress reaction Status: Acute Assessment and Plan: Shaking spells appear to be functional in nature, not correlating with physiologic course, strong correlation with stress and anxiety response, responding to Ativan, attempted to transition to Klonopin 08/25 due to its longer half-life for more prophylaxis to her panic attacks but this caused patient to feel loopy, Klonopin discontinued in favor of Ativan 08/26 Plan DVT prophylaxis with Eliquis GI prophylaxis with PPI Code status full code Subjective Date/time seen: 08/26/22 09:14 Interval history: 77-year-old female with chronic coronary artery disease with previous CABG and paroxysmal AFib admitted with symptomatic recurrence of this yesterday. Patient also has moderate ischemic cardiomyopathy. Patient was placed on metoprolol for rate control. IV diltiazem has been discontinued. She is asymptomatic this morning 08/24: Patient has no cardiovascular complaints today. Her h
--- NOTE | 2022-08-26 10:50 | PM.PNCARD ---
Progress Note: A&P Assessment and Plan (1) Atrial fibrillation with rapid ventricular response: Code(s): I48.91 - Unspecified atrial fibrillation Status: Acute Assessment and Plan: Persistent atrial fibrillation s/p multiple cardioversions. She presented to the hospital with a chief complaint of shortness of breath and was found to be in atrial fibrillation with RVR. She is being rate controlled with metoprolol and is on systemic anticoagulation with apixaban. Will give an extra 25mg metoprolol now and increase her daily metoprolol dose to 100mg daily as she is still having some episodes of tachycardia. Hopefully her rate will settle down as her infection improves. Continue telemetry for now. Subjective Date/time seen: 08/26/22 10:50 Interval history: Follow-up visit in this 77-year-old woman with: Chronic coronary artery disease with previous CABG and paroxysmal AFib admitted with symptomatic recurrence of this yesterday. Patient also has moderate ischemic cardiomyopathy. Patient was placed on metoprolol for rate control. IV diltiazem has been discontinued. She is asymptomatic this morning 08/24/2022: Patient has no cardiovascular complaints today. Her heart rate is well controlled with metoprolol. Was called last night when she was once again a bit more tachycardic however was also total the same time that she now has blood cultures positive for Gram-negative rods. This is under evaluation. She was febrile at that time as well 08/25/2022: She is generally well rate controlled but is having some tachycardia, at which times she can feel palpitations. No chest pain or shortness of breath. Complaining of fever and chills. 08/26/2022: Feeling better today - no fever or chills. She states she had a bad night last night because she had an allergic reaction to one of her antibiotics and had shortness of breath and diaphoresis. No complaints otherwise. No chest pain, palpitations, shortness of breath. Review of Systems Constitutional: Constitutional: Reports fatigue Eyes: Eyes: Reports no additional eye complaints ENT: Reports system reviewed and no additional complaints, except as documented Cardiovascular: Cardiovascular: Reports as per HPI, Reports chest pain and Reports palpitations Respiratory: Respiratory: Reports no additional respiratory complaints Gastrointestinal: Gastrointestinal: Reports no additional gastrointestinal complaints Musculoskeletal: Musculoskeletal: Reports no additional musculoskeletal complaints Integumentary/Breasts: Skin/Breast: Reports system reviewed and no additional complaints, except as docu Endocrine: Endocrine: Reports no additional endocrine complaints, Reports fatigue and Reports palpitations Hematologic/Lymphatic: Hematologic/Lymphatic: Reports no additional hematologic/lymphatic complaints Allergic/Immunologic: Allergic/Immunologic: Reports no additional allergic/immunologic complaints Exam Const: General: comfortable and no acute distress HENMT: Mouth: Yes moist mucous membranes Eyes: Sclera: sclerae normal Pupils: Equal, round and reactive pupils present Neck: Neck: supple and no JVD Resp: Effort & Inspection: normal respiratory effort Auscultation: clear to auscultation bilaterally Cardio: Rate: tachycardic Rhythm: abnormal rhythm irregularly irregular GI: Auscultation: normal bowel sounds Skin: General skin exam: normal color Neuro: Cranial nerves: Yes Equal, round and reactive pupils present Other: Alert and oriented normal mentation Extrem: Other: No edema good distal perfusion Objective Data Vital Signs Vital Signs: Vital Signs - 24 hr 08/25/22 12:00 08/25/22 12:00 08/25/22 12:00 Temperature 36.4 C Pulse Rate 97 106 H Respiratory Rate 18 Blood Pressure 122/72 Pulse Oximetry 98 98 Oxygen Delivery Room Air Fraction of Inspired Oxygen 08/25/22 16:00 08/25/22 16:00 08/25/22 20:00 Temperat
[2022-08-26] MEDS: INSULIN ASPART (*BKC) 100 UNITS/ML SUB-Q (11:41)
[2022-08-26 12:20] LABS: Glucose Point of Care 215 mg/dl (65-105)
[2022-08-26] MEDS: METOPROLOL SUCCINATE EXT REL 25 MG TABCR PO (14:49)
[2022-08-26 15:59] LABS: Glucose Point of Care 216 mg/dl (65-105)
[2022-08-26] MEDS: cefTRIAXone 2 GM/NS 100 ML 2 GM/100 ML BAG IVPB (17:07)
[2022-08-26 19:53] LABS: Glucose Point of Care 265 mg/dl (65-105)
[2022-08-26] MEDS: LORazepam (*CRX) 0.5 MG TABLET PO (21:52)
[2022-08-27] VITALS (14 sets, daily range): BP systolic 94–108; BP diastolic 51–68; PULSE 69–111; RESP 14–18; TEMP 36.4–36.8; O2SAT 96–100
[2022-08-27] MEDS: ACETAMINOPHEN 500 MG TABLET 1000 MG PO ×2 (03:45→21:10)
[2022-08-27 06:33] LABS: Basophils Percent Auto 0.7 % (0.2-1.2); Eosinophils Absolute Auto 0.1 K/mm3 (0-0.3); Eosinophils Percent Auto 1.7 % (0-4.4); Hematocrit 36.5 % (37.0-47.0); Hemoglobin 11.9 g/dL (12.0-15.0); Immature Granulocyte Absolute 0.04 K/mm3 (0.00-0.031); Immature Granulocyte Percent A 0.7 % (0-0.5); Lymphocytes Absolute Auto 2.63 K/mm3 (0.9-3.2); Lymphocytes Percent Auto 44.1 % (18.3-44.2); Mean Corpuscular HGB Conc 32.6 g/dl (32-36); Mean Corpuscular Hemoglobin 30.3 pg (26-34); Mean Corpuscular Volume 92.9 fl (80-100); Mean Platelet Volume 11.1 fl (7.4-10.4); Monocytes Absolute Auto 0.5 K/mm3 (0.1-0.6); Monocytes Percent Auto 7.5 % (2.6-8.5); Neutrophils Absolute Auto 2.7 K/mm3 (1.3-6.7); Neutrophils Percent Auto 45.3 % (45.5-73.1); Platelet Count Result 208 k/mm3 (150-375); Red Blood Count 3.93 M/mm3 (4.2-5.4); Red Cell Distribution Width 13.7 % (11.5-14.5)
[2022-08-27 06:47] LABS: Alanine Aminotransferase 28 U/L (6-35); Albumin Level 3.6 g/dL (3.5-5.1); Alkaline Phosphatase 102 U/L (38-126); Anion Gap 6 mmol/L (8-16); Aspartate Amino Transferase 24 U/L (14-36); Bilirubin,Total 0.6 mg/dL (0.2-1.3); Blood Urea Nitrogen 18 mg/dL (7-17); Calcium 8.7 mg/dL (8.4-10.2); Carbon Dioxide 31 mmol/L (22-30); Chloride 102 mmol/L (98-107); Estimated CRCL calculation 57 ml/min; Estimated Glomerular Filt Rate > 60; Glucose 158 mg/dL (65-110); Potassium 3.4 mmol/L (3.4-5.0); Sodium 139 mmol/L (137-145)
[2022-08-27 08:05] LABS: Platelet Estimate Adequate (Adequate)
[2022-08-27 08:07] LABS: Schistocytes None Seen (NORMAL)
[2022-08-27 08:08] LABS: Atypical Lymphocytes Present
[2022-08-27 08:37] LABS: Glucose Point of Care 145 mg/dl (65-105)
[2022-08-27] MEDS: metFORMIN HCL 500 MG TABLET PO ×3 (08:54→16:35)
[2022-08-27] MEDS: ASPIRIN 81 MG CHEWABLE TABLET PO (08:54)
[2022-08-27] MEDS: EMPAGLIFLOZIN 25 MG TABLET PO (08:55)
[2022-08-27] MEDS: POTASSIUM CHLORIDE 10 MEQ TABLET.ER PO (08:55)
[2022-08-27] MEDS: PANTOPRAZOLE 40 MG TABLET PO ×2 (08:55→16:35)
[2022-08-27] MEDS: APIXABAN 5 MG TABLET PO ×2 (08:55→21:11)
[2022-08-27] MEDS: CYANOCOBALAMIN 500 MCG TABLET PO (08:55)
[2022-08-27] MEDS: METOPROLOL SUCCINATE EXT REL 100 MG TABCR PO ×2 (08:56→11:28)
[2022-08-27] MEDS: SACUBITRIL/VALSARTAN 24-26 MG TABLET 1 TAB PO ×2 (08:56→21:12)
[2022-08-27] MEDS: FUROSEMIDE 40 MG TABLET PO ×2 (08:56→16:35)
--- NOTE | 2022-08-27 10:46 | PM.PNCARD ---
Progress Note: A&P Assessment and Plan (1) Atrial fibrillation with rapid ventricular response: Code(s): I48.91 - Unspecified atrial fibrillation Status: Acute Assessment and Plan: Persistent atrial fibrillation s/p multiple cardioversions. She presented to the hospital with a chief complaint of shortness of breath and was found to be in atrial fibrillation with RVR. She is being rate controlled with metoprolol and is on systemic anticoagulation with apixaban. Metoprolol increased to 100mg with some improvement in rate control. Will increase to 200mg today to optimize rate control. Hopefully her rate will settle down as her infection improves. Continue telemetry for now. Subjective Date/time seen: 08/27/22 10:46 Interval history: Follow-up visit in this 77-year-old woman with: Chronic coronary artery disease with previous CABG and paroxysmal AFib admitted with symptomatic recurrence of this yesterday. Patient also has moderate ischemic cardiomyopathy. Patient was placed on metoprolol for rate control. IV diltiazem has been discontinued. She is asymptomatic this morning 08/24/2022: Patient has no cardiovascular complaints today. Her heart rate is well controlled with metoprolol. Was called last night when she was once again a bit more tachycardic however was also total the same time that she now has blood cultures positive for Gram-negative rods. This is under evaluation. She was febrile at that time as well 08/25/2022: She is generally well rate controlled but is having some tachycardia, at which times she can feel palpitations. No chest pain or shortness of breath. Complaining of fever and chills. 08/26/2022: Feeling better today - no fever or chills. She states she had a bad night last night because she had an allergic reaction to one of her antibiotics and had shortness of breath and diaphoresis. No complaints otherwise. No chest pain, palpitations, shortness of breath. 08/27/2022: Still with some RVR overnight and early this morning. Patient states she did have palpitations and chest tightness. Got some Tylenol for her chest tightness which made it better. Feeling better this morning. Review of Systems Review of Systems: 8 point ROS obtained. Negative, unless stated in HPI. Exam Const: General: comfortable and no acute distress HENMT: Mouth: Yes moist mucous membranes Eyes: General: appearance normal, both eyes and all related structures Sclera: sclerae normal Neck: Neck: supple Resp: Effort & Inspection: normal respiratory effort Auscultation: clear to auscultation bilaterally Cardio: Rate: tachycardic Rhythm: abnormal rhythm irregularly irregular Skin: General skin exam: normal color Neuro: Speech: normal speech Other: Alert and oriented normal mentation Extrem: Other: No edema good distal perfusion Psych: Mental Status: mental status grossly normal Affect: normal affect Objective Data Vital Signs Vital Signs: Vital Signs - 24 hr 08/26/22 11:56 08/26/22 12:00 08/26/22 14:49 Temperature Pulse Rate 107 H 95 Respiratory Rate Blood Pressure 92/68 L Pulse Oximetry Oxygen Delivery 08/26/22 14:49 08/26/22 16:00 08/26/22 16:00 Temperature 36.6 C Pulse Rate 110 H 109 H Respiratory Rate 14 Blood Pressure 109/68 Pulse Oximetry 97 Oxygen Delivery 08/26/22 19:52 08/26/22 21:51 08/26/22 20:00 Temperature 36.6 C 37.1 C Pulse Rate 92 88 Respiratory Rate 20 Blood Pressure 115/63 Pulse Oximetry 97 Oxygen Delivery 08/26/22 23:25 08/27/22 03:45 08/27/22 05:42 Temperature 36.6 C 36.8 C Pulse Rate 99 Respiratory Rate 20 Blood Pressure 122/76 Pulse Oximetry 98 97 Oxygen Delivery 08/27/22 00:00 08/27/22 04:00 08/27/22 08:00 Temperature 36.4 C Pulse Rate 107 H 105 H 100 Respiratory Rate 14 Blood Pressure 94/51 L Pulse Oximetry 96 Oxygen Delivery 08/27/22 08:56 08/27/22 08
[2022-08-27] MEDS: INSULIN ASPART (*BKC) 100 UNITS/ML SUB-Q (11:33)
[2022-08-27 11:44] LABS: Glucose Point of Care 214 mg/dl (65-105)
[2022-08-27] MEDS: cefTRIAXone 2 GM/NS 100 ML 2 GM/100 ML BAG IVPB (16:35)
[2022-08-27 16:51] LABS: Glucose Point of Care 175 mg/dl (65-105)
--- NOTE | 2022-08-27 17:47 | PM.IMPN ---
Progress Note: A&P Assessment and Plan (1) Pneumonia: Code(s): J18.9 - Pneumonia, unspecified organism Status: Acute Assessment and Plan: Infection not noted on admission, initial chest x-ray was nonacute, however, preliminary blood cultures came back positive with GNB, vanc + imipenem + flagyl started 08/23, CXR done late 08/23 showed new pneumonia not seen on 08/22 CXR MRSA swab positive, do not suspect MRSA infection, however, vanc d/c 08/25 07/03 Blood cultures from 08/22 showed pansensitive E coli, repeat blood cultures 08/25 NGTD Plan to de-escalate to Augmentin to complete 14 day course once repeat blood cultures from 08/25 are negative 08/25: D/c vanc, imipenem, flagyl, start rocephin 2g q24h 08/26: Cont rocephin, f/u blood cx, pending, NGTD 08/27: Continue Rocephin for today. Repeat blood cultures are negative. Switch to Augmentin tomorrow. (2) Bacteremia: Code(s): R78.81 - Bacteremia Status: Acute Assessment and Plan: Patient with E coli bacteremia in both bottles. Urinalysis noted. Urine culture negative. Etiology unclear of the source of the E coli. Pneumonia is not commonly caused by E coli. No abdominal pain but will check CT abdomen/pelvis to assess for GI source of bacteremia. BCx were repeated and remain negative. (3) Atrial fibrillation with rapid ventricular response: Code(s): I48.91 - Unspecified atrial fibrillation Status: Acute Assessment and Plan: Appreciate cardiology consultation. Patient has a long history of refractory AFib having failed multiple antiarrhythmic drugs and ablation in 2021. Coreg was discontinued in favor of metoprolol. Cardiology is recommending stabilization here and then discharge with EP consultation and possible AV node ablation with pacemaker implantation. Continue Eliquis. (4) Chest tightness: Code(s): R07.89 - Other chest pain Status: Acute Assessment and Plan: Resolved (5) Ischemic cardiomyopathy: Code(s): I25.5 - Ischemic cardiomyopathy Status: Acute Assessment and Plan: Echo showing moderate global systolic dysfunction with EF of 35-40%, severe biatrial enlargement, mild right ventricular dilation and mild mitral regurgitation. Continue empagliflozin, Lasix, Entresto and Toprol-XL. (6) Combined systolic and diastolic congestive heart failure: Code(s): I50.40 - Unspecified combined systolic (congestive) and diastolic (congestive) heart failure Status: Acute Assessment and Plan: As above. Continue medical management (7) Type 2 diabetes mellitus: Qualifiers: Diabetes mellitus fci insulin use: without fci use Diabetes mellitus complication status: with circulatory complication Code(s): E11.9 - Type 2 diabetes mellitus without complications Status: Acute Assessment and Plan: A1c 8.2. The patient's blood glucose was reviewed on 08/27 Glucose remains mostly well controlled. Continue AccuCheks covering with sliding scale. Hypoglycemia protocol available as needed. Continue current medications. (8) Panic attack as reaction to stress: Code(s): F41.0 - Panic disorder [episodic paroxysmal anxiety]; F43.0 - Acute stress reaction Status: Acute Assessment and Plan: Shaking spells appear to be functional in nature, not correlating with physiologic course unless related to rigors from the bacteremia. Other providers felt there was a strong correlation with stress and anxiety response, responding to Ativan, attempted to transition to Klonopin 08/25 due to its longer half-life for more prophylaxis to her panic attacks but this caused patient to feel loopy, Klonopin discontinued in favor of Ativan 08/26. Mood stable now. Follow Plan DVT prophylaxis with Eliquis Code status full code Dispo: home in 1-2 days. Subjective Date/time seen: 08/27/22 17:47 Interval history: 77yo female with C
[2022-08-27 19:38] LABS: Glucose Point of Care 246 mg/dl (65-105)
[2022-08-27] MEDS: LORazepam (*CRX) 0.5 MG TABLET PO (21:11)
[2022-08-28] VITALS (7 sets, daily range): BP systolic 99–113; BP diastolic 62–80; PULSE 67–109; RESP 20; TEMP 36.4–36.7; O2SAT 96–99
[2022-08-28 04:40] LABS: Anion Gap 7 mmol/L (8-16); Blood Urea Nitrogen 18 mg/dL (7-17); Calcium 8.4 mg/dL (8.4-10.2); Carbon Dioxide 30 mmol/L (22-30); Chloride 101 mmol/L (98-107); Estimated CRCL calculation 57 ml/min; Estimated Glomerular Filt Rate > 60; Glucose 144 mg/dL (65-110); Magnesium 2.3 mg/dL (1.6-2.3); Potassium 3.2 mmol/L (3.4-5.0); Sodium 138 mmol/L (137-145)
[2022-08-28 07:55] LABS: Glucose Point of Care 147 mg/dl (65-105)
[2022-08-28] MEDS: EMPAGLIFLOZIN 25 MG TABLET PO (09:31)
[2022-08-28] MEDS: AMOXICILLIN/CLAVULANATE K 875-125 MG TAB 1 TABLET PO (09:31)
[2022-08-28] MEDS: POTASSIUM CHLORIDE 10 MEQ TABLET.ER PO (09:32)
[2022-08-28] MEDS: PANTOPRAZOLE 40 MG TABLET PO ×2 (09:32→17:35)
[2022-08-28] MEDS: ASPIRIN 81 MG CHEWABLE TABLET PO (09:32)
[2022-08-28] MEDS: POTASSIUM CHLORIDE 20 MEQ TABLET 40 MEQ PO (09:32)
[2022-08-28] MEDS: CYANOCOBALAMIN 500 MCG TABLET PO (09:32)
[2022-08-28] MEDS: APIXABAN 5 MG TABLET PO (09:32)
[2022-08-28] MEDS: FUROSEMIDE 40 MG TABLET PO ×2 (09:33→17:35)
[2022-08-28] MEDS: metFORMIN HCL 500 MG TABLET PO ×3 (09:33→17:35)
[2022-08-28] MEDS: METOPROLOL SUCCINATE EXT REL 100 MG TABCR 200 MG PO (09:33)
[2022-08-28] MEDS: SACUBITRIL/VALSARTAN 24-26 MG TABLET 1 TAB PO (09:33)
[2022-08-28 11:55] LABS: Glucose Point of Care 234 mg/dl (65-105)
[2022-08-28] MEDS: INSULIN ASPART (*BKC) 100 UNITS/ML SUB-Q (12:16)
--- NOTE | 2022-08-28 16:52 | PM.DS ---
DS: Admitting Diagnosis Discharge Date 08/28/22 Admitting Diagnosis Chest tightness and shortness of breath DS: Discharge Diagnosis Discharge Diagnosis (1) Pneumonia: Code(s): J18.9 - Pneumonia, unspecified organism Status: Acute (2) Bacteremia: Code(s): R78.81 - Bacteremia Status: Acute (3) Atrial fibrillation with rapid ventricular response: Code(s): I48.91 - Unspecified atrial fibrillation Status: Acute (4) Chest tightness: Code(s): R07.89 - Other chest pain Status: Acute (5) Ischemic cardiomyopathy: Code(s): I25.5 - Ischemic cardiomyopathy Status: Acute (6) Combined systolic and diastolic congestive heart failure: Code(s): I50.40 - Unspecified combined systolic (congestive) and diastolic (congestive) heart failure Status: Acute (7) Type 2 diabetes mellitus: Qualifiers: 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 Please see H&P for details Hospital Course: Patient with chest pain and shortness a breath on admission. Was found to have symptomatic recurrence of her AFib. Cardiology was consulted. Coreg was discontinued in favor metoprolol. Plan is for discharge home and having her follow-up with EP consultation. She was continued on Eliquis. Echo showing moderate global systolic dysfunction with EF of 35-40%, severe biatrial enlargement, mild right ventricular dilation and mild mitral regurgitation.? Heart rate became better controlled. Chest x-ray on admission showed no acute findings. Urine culture was negative but blood cultures returned positive for E coli. Source of the infection was unclear. A CT of the abdomen pelvis showed cholelithiasis but no acute findings. Repeat chest x-ray showed mild infiltrate in the right mid and lower lung zone concerning for possible pneumonia but the CT of the abdomen showed that the images through the lung bases were clear. Patient was started on IV antibiotics on 08/23/2022. Blood culture growing pansensitive E coli. Antibiotics were narrowed. She ultimately was switched to Augmentin with plans to complete a 14 day course. She did have a positive ApneaLink. She overall did well. She has been up ambulating with minimal dyspnea on exertion. She feels well enough for discharge. She overall did well was discharged home on 08/28/2022. Status at Discharge Cognitive/behavioral status at discharge: stable Time Spent with Patient Time attestation: Total time spent providing and/or coordinating discharge services: 35 minutes Time spent: Greater than 30 minutes Exam Narrative: AF 97.5 99/62 95 20 99% ra Gen - NARD Chest - CTA bilaterally, nml RR CV -irregularly irregular. Telemetry showing AFib with controlled rate Abd - Soft, NT/ND, Positive BS Ext - No pedal edema Psych - Nml mood and affect Skin - Warm and dry DS: Data Data Completed and Pending Labs on day of discharge: Labs from last 24 hours 08/28/22 08/28/22 08/28/22 11:36 07:44 04:08 Sodium 138 Potassium 3.2 L Chloride 101 Carbon Dioxide 30 Anion Gap 7 L BUN 18 H Creatinine 0.60 L Estim Creat Clear Calc 57 Estimated GFR > 60 Glucose 144 H POC Capillary Glucose 234 H 147 H Calcium 8.4 Magnesium 2.3 08/27/22 19:29 Sodium Potassium Chloride Carbon Dioxide Anion Gap BUN Creatinine Estim Creat Clear Calc Estimated GFR Glucose POC Capilla
[2022-08-28 17:24] LABS: Glucose Point of Care 143 mg/dl (65-105)
== END 2022-08-28 17:55 | disposition home or self-care (01) | DRG 308 ==
LOC: ANHED 13:33 → ANHIMU 15:22
PROVIDERS: Physician Assistant; Student in an Organized Health Care Education/Training Program; Admitting Provider Internal Medicine; Emergency Provider Emergency Medicine; PCP Specialist; Visit Provider Internal Medicine
DX: I48.0 Paroxysmal atrial fibrillation (principal); J18.9 Pneumonia, unspecified organism; I50.42 Chronic combined systolic (congestive) and diastolic (congestive) heart failure; R78.81 Bacteremia; B96.20 Unspecified Escherichia coli [E. coli] as the cause of diseases classified elsewhere; I11.0 Hypertensive heart disease with heart failure; R07.89 Other chest pain; I25.5 Ischemic cardiomyopathy; E11.9 Type 2 diabetes mellitus without complications; F41.0 Panic disorder [episodic paroxysmal anxiety]; F43.0 Acute stress reaction; Z20.822 Contact with and (suspected) exposure to COVID-19; K21.9 Gastro-esophageal reflux disease without esophagitis; F41.9 Anxiety disorder, unspecified; I25.10 Atherosclerotic heart disease of native coronary artery without angina pectoris; E53.8 Deficiency of other specified B group vitamins; Z95.1 Presence of aortocoronary bypass graft; Z90.710 Acquired absence of both cervix and uterus; Z79.01 Long term (current) use of anticoagulants; Z79.82 Long term (current) use of aspirin; Z22.322 Carrier or suspected carrier of Methicillin resistant Staphylococcus aureus
CPT/HCPCS: 36415; 71045; 74176; 80048; 80053; 80202; 81003; 82565; 82948; 83036; 83605; 83690; 83735; 83880; 84145; 84439; 84443; 84480; 84484; 85025; 85380; 85610; 85730; 86140; 87040; 87077; 87081; 87086; 87088; 87147; 87181; 87186; 87636; 93005; 93306; 94762; 96365; 96366; 96367; 96375; 99285; A9270; G0378; J0290; J0696; J0743; J1815; J2060; J2405; J3370

== ENCOUNTER 2022-08-31 19:20 | Inpatient (IN) | payer MEDICARE, SELFPAY ==
[2022-08-31] VITALS (7 sets, daily range): BP systolic 114–128; BP diastolic 41–70; PULSE 47–57; RESP 12–25; TEMP 36–36.6; O2SAT 97–100
--- NOTE | ~2022-08-31 | XR_ITS ---
EXAMINATION: XR chest 1V portable Exam Date/Time: 08/31/2022 20:00 CDT HISTORY: weakness, shortness of breath Comparison: 08/23/2022. RESULT: Lines, tubes, and devices: Intact sternotomy wires. Ostial markers. Mediastinal surgical clips.. Lungs and pleura: Senescent changes, otherwise clear. Cardiomediastinal silhouette: Stable. Other: No acute osseous or upper abdominal finding. IMPRESSION: No acute cardiopulmonary process. Reviewed, dictated and finalized at location K.
--- NOTE | ~2022-08-31 | CT_ITS ---
EXAMINATION: CTA chest PE protocol DATE: 08/31/2022 21:55 INDICATION: Weakness and shortness of breath TECHNIQUE: Computed tomography angiography (CTA) of the chest was performed with 100 mL Omnipaque-350 intravenous contrast timed to evaluate the pulmonary arteries. Coronal maximum intensity projection 3D-reconstructions were created by the technologist. The dose-length product (DLP) was 245.80 mGy-cm. Automated exposure control and iterative reconstruction technique were employed. COMPARISON: 03/18/2021 FINDINGS: The pulmonary arteries are well-opacified. No pulmonary embolism is identified. There is mi ld emphysema. No pleural effusion or pneumothorax. The lungs are free of acute opacities. Cardiomegal y is noted. There are changes of coronary artery bypass grafting. There are no pathologically enlarge d thoracic lymph nodes. There is severe thoracic spondylosis. IMPRESSION: 1. No pulmonary embolism or acute cardiopulmonary abnormality. 2. Mild emphysema. 3. Cardiomegaly. Reviewed, dictated and finalized at location B.
--- NOTE | 2022-08-31 19:21 | ECG_ITS ---
Measurements Intervals [place] Rate: 49 P: 94 MD: 156 QRS: -66 QRSD: 130 T: 119 QT: 499 QTc: 453 Interpretive Statements SINUS BRADYCARDIA WITH OCCASIONAL SUPRAVENTRICULAR PREMATURE COMPLEXES MARKED LEFT AXIS DEVIATION [QRS AXIS < -30] ANTEROSEPTAL MYOCARDIAL INFARCTION , PROBABLY OLD COMPARED TO ECG 08/22/2022 10:43:13 SINUS BRADYCARDIA NOW PRESENT Electronically Signed On 09-01-2022 12:18:41 CDT by Remy Mobley M.D.
--- NOTE | 2022-08-31 19:28 | ECG_ITS ---
Measurements Intervals [place] Rate: 48 P: 74 [place]: 131 QRS: -67 QRSD: 131 T: 1 QT: 513 QTc: 461 Interpretive Statements SINUS BRADYCARDIA INTRAVENTRICULAR CONDUCTION DELAY [130+ ms QRS DURATION] INFERIOR MYOCARDIAL INFARCTION , PROBABLY OLD ANTEROSEPTAL MYOCARDIAL INFARCTION , INDETERMINATE AGE COMPARED TO ECG 08/31/2022 19:25:25 NO SIGNIFICANT CHANGES Electronically Signed On 09-01-2022 12:19:37 CDT by Reym Mobley M.D.
[2022-08-31 19:49] LABS: Basophils Absolute Auto 0.1 K/mm3 (0.0-0.1); Basophils Percent Auto 0.6 % (0.2-1.2); Eosinophils Absolute Auto 0.1 K/mm3 (0-0.3); Eosinophils Percent Auto 0.9 % (0-4.4); Hematocrit 36.5 % (37.0-47.0); Hemoglobin 11.9 g/dL (12.0-15.0); Immature Granulocyte Percent A 1.1 % (0-0.5); Lymphocytes Absolute Auto 2.86 K/mm3 (0.9-3.2); Lymphocytes Percent Auto 32.4 % (18.3-44.2); Mean Corpuscular HGB Conc 32.6 g/dl (32-36); Mean Corpuscular Hemoglobin 30.2 pg (26-34); Mean Corpuscular Volume 92.6 fl (80-100); Mean Platelet Volume 10.9 fl (7.4-10.4); Monocytes Absolute Auto 0.4 K/mm3 (0.1-0.6); Neutrophils Absolute Auto 5.3 K/mm3 (1.3-6.7); Platelet Count Result 325 k/mm3 (150-375); Red Blood Count 3.94 M/mm3 (4.2-5.4); Red Cell Distribution Width 14.2 % (11.5-14.5); White Blood Count 8.8 K/mm3 (4.5-10.0)
[2022-08-31 19:59] LABS: INR 1.2; Prothrombin Time 14.6 Seconds (11.1-14.7)
[2022-08-31 20:00] LABS: Alanine Aminotransferase 64 U/L (6-35); Albumin Level 4.1 g/dL (3.5-5.1); Alkaline Phosphatase 128 U/L (38-126); Anion Gap 9 mmol/L (8-16); Aspartate Amino Transferase 159 U/L (14-36); Bilirubin,Total 0.7 mg/dL (0.2-1.3); Blood Urea Nitrogen 19 mg/dL (7-17); Carbon Dioxide 25 mmol/L (22-30); Chloride 100 mmol/L (98-107); Estimated CRCL calculation 39 ml/min; Estimated Glomerular Filt Rate > 60; Glucose 273 mg/dL (65-110); Lipase 50 U/L (23-300); Partial Thromboplastin Time 29.7 SECONDS (22.3-36.8); Potassium 3.9 mmol/L (3.4-5.0); Sodium 134 mmol/L (137-145)
[2022-08-31] MEDS: ASPIRIN 81 MG CHEWABLE TABLET 324 MG PO (20:06)
--- NOTE | 2022-08-31 20:07 | PC.NURSE ---
Addendum entered by Ceferino Mcdonald RN 08/31/22 20:15: Spoke with Dr. Duarte about the patient taking a baby aspirin today already and Dr. Duarte would still like the patient to take all four baby aspirins (324mg). Original Note: Patient stated that she already took one baby aspirin today.
[2022-08-31 20:12] LABS: Troponin I < 0.012 ng/mL (0.000-0.034)
[2022-08-31 20:18] LABS: Lactic Acid Reflex 2.6 mmol/L (0.7-2.0)
[2022-08-31 20:40] LABS: Procalcitonin 0.4 ng/mL
[2022-08-31 20:55] LABS: NT Pro B Type Natriuretic Pept 1330 pg/mL (19.9-100)
[2022-08-31 21:11] LABS: Appearance Urine Clear (Clear); Bilirubin Urine Negative (Negative); Blood Urine Negative (Negative); Color Urine Yellow (Yellow); Glucose Urine UA 3+ mg/dL (Negative); Ketones Urine Negative (Negative); Leukocyte Esterase Ur Negative LEU/UL (Negative); Nitrate Urine Negative (Negative); Protein Urine Negative (Negative); Specific Grav Ur 1.019 (1.001-1.035); Urobilinogen Urine 0.2 mg/dL (<2.0)
--- NOTE | 2022-08-31 21:13 | ED.GENADULT ---
HPI - General Adult General Chief complaint: Arrhythmia/Palpitations Stated complaint: SOB, Low HR Time Seen by Provider: 08/31/22 19:51 History of Present Illness HPI narrative: Patient is a 76-year-old female who presents the emergency department with chief complaint of shortness of breath. Patient reports that she was recently in the hospital for bacteremia and also atrial fibrillation with rapid ventricular response. The patient reports prior to discharge they increased her metoprolol to 200 mg and reports that she has been on oral antibiotics since she was discharged the patient states she started having diarrhea and reports that now she is starting to get short of breath today. The patient also noticed that her heart rate was running very slow in the 50s today and reported that whenever she ambulates she gets very short of breath. Related Data Home Medications Medication Instructions Recorded Confirmed cyanocobalamin (vitamin B-12) 500 500 mcg PO DAILY 01/03/21 08/22/22 mcg tablet (Vitamin B-12) furosemide 40 mg tablet 40 mg PO BID 12/11/21 08/22/22 metformin 500 mg tablet 500 mg PO TID 08/22/22 08/22/22 Allergies Allergy/AdvReac Type Severity Reaction Status Date / Time Sulfa (Sulfonamide Allergy Intermediate Difficulty Verified 08/22/22 10:59 Antibiotics) Breathing atorvastatin [From Lipitor] AdvReac Severe Swelling / Verified 08/22/22 10:59 painful legs / hard to walk codeine AdvReac Mild Gastrointestinal Verified 08/22/22 10:59 Upset Review of Systems Review of Systems: A 10 system review of systems was completed on the patient and is negative except for what is stated in the HPI. Nursing and ancillary documentation was reviewed. [facility] Past Medical History Medical History Anxiety Chronic anticoagulation Chronic GERD Combined systolic and diastolic congestive heart failure Coronary artery disease Ischemic cardiomyopathy Mild asthma Paroxysmal atrial fibrillation Paroxysmal atrial flutter Type 2 diabetes mellitus Vertigo Vitamin B12 deficiency Surgical History Surgical History History of hysterectomy History of three vessel coronary artery bypass (2016) Family History Family History Sibling Family history of chronic obstructive pulmonary disease Father Family history of diabetes mellitus in first degree relative Family history of heart disease in male family member before age 55 Diabetes mellitus Family history of cardiovascular disease Mother Family history of lung cancer Social History Social History Social History: Surrogate decision maker: Madhavi Weems, daughter. Code status: Full code. Smoking status: Never smoker Second hand tobacco smoke exposure: No Alcohol intake: former Substance use: never Substance use type: does not use Lack of Transportation: No Lack of Food: Never True Current Housing: I Have Housing Concerned About Future Housing: No Difficulty Paying Gas/Electric Bills: No Difficulty Paying for Meds: No Currently Unemployed: No Education: High School Diploma/GED Difficulty w/ Childcare or Family Care: No Living arrangements: with family Occupation/Education: retired Spiritual care concerns: No Exam Narrative: GENERAL: Well-appearing, well-nourished, and in no acute distress. HEAD: Normocephalic, atraumatic. EYES: PERRLA and EOMI. ENT: Nares clear, no rhinorrhea or epistaxis. Mucous membranes moist. NECK: Supple. CHEST: Clear to auscultation. No respiratory distress. HEART: Regular rate and rhythm. No murmur heard. Normal peripheral pulses. ABDOMEN: Soft, nontender, nondistended, normal active bowel sounds. EXTREMITIES: Normal range of motion. N
[2022-08-31 21:18] LABS: Add Urine Microscopic? NO
[2022-08-31 23:03] LABS: Reflex Lactic Acid Yes or No Add Lactic
[2022-08-31 23:15] LABS: Troponin I < 0.012 ng/mL (0.000-0.034)
[2022-09-01] VITALS (10 sets, daily range): BP systolic 102–128; BP diastolic 51–58; PULSE 42–74; RESP 16–21; TEMP 36.2–36.6; O2SAT 94–100; BMI 25.0
[2022-09-01] LABS: Lactic Acid 1.6 mmol/L (0.7-2.0)
[2022-09-01] MEDS: SODIUM CHLORIDE 0.9% IV 500 ML 250 ML IV CONT (00:13)
--- NOTE | 2022-09-01 00:49 | ADMGEN ---
This patient, Fina Adair, was admitted to 2 Medical Room 253-01. Patient/family oriented to hospital policies and general routines including ID bracelet, bed and alarms, visiting hours, pain management, procedures, bathroom and other care routines, personal items, smoking policy, room service/diet, and visiting hours. Information on how to activate the Rapid Response Team has been discussed. Patient/Family are encouraged to report perceived risks to care and to ask questions if they do not understand what they are told or what they should do.
[2022-09-01 02:20] LABS: Troponin I 0.013 ng/mL (0.000-0.034)
--- NOTE | 2022-09-01 09:26 | PM.CNCAR ---
Assessment and Plan Assessment and plan (1) Bradycardia: Code(s): R00.1 - Bradycardia, unspecified Status: Acute Assessment and Plan: She is in sinus bradycardia. She is mildly bradycardic with heart rate generally in the mid 40s to lower 50s. Would hold her metoprolol for now and observe her heart rate response. Perhaps restart tomorrow at a lower dose. Her blood pressure has remained stable despite this mild bradycardia. (2) Dyspnea: Code(s): R06.00 - Dyspnea, unspecified Status: Acute Assessment and Plan: Cause for this is unclear. She does not have any evidence of CHF or pulmonary embolism on her imaging studies. Currently, she is breathing comfortably and saturating well on room air. (3) Bacteremia: Code(s): R78.81 - Bacteremia Status: Acute Assessment and Plan: Remains on Augmentin. Management per hospitalist (4) Chronic anticoagulation: Code(s): Z79.01 - USP (current) use of anticoagulants Status: Acute Assessment and Plan: On apixaban 5 mg b.i.d.. No signs of bleeding, H&H stable. (5) Paroxysmal atrial fibrillation: Code(s): I48.0 - Paroxysmal atrial fibrillation Status: Acute Assessment and Plan: She is sinus rhythm now. Continue anticoagulation with apixaban 5 mg b.i.d. 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 Arce, bottom filler at [place]. (6) Ischemic cardiomyopathy: Code(s): I25.5 - Ischemic cardiomyopathy Status: Acute Assessment and Plan: EF 35%. She does not have any evidence of CHF on exam. Continue medical therapy with Entresto, Jardiance, and beta-nimisha when able to tolerate. History of Present Illness History of Present Illness Consult date/time: 09/01/22 09:26 Requesting physician: Nico Duarte MD Consult reason: Other (Bradycardia) Reason For Visit: dyspnea,bradycardia Narrative: Fina Adair is a 77-year-old female with a history of ischemic cardiomyopathy and atrial fibrillation. This is a patient who is followed in our office by Dr. Nieto. she was recently hospitalized here at [facility] with complaints of chest pain and palpitations. She was found to be in atrial fibrillation with RVR. Because of a history of multiple cardioversions and treatment with anti arrhythmic drugs that had failed, a rate control strategy was pursued. She was placed on metoprolol for this. Unfortunately, during that hospitalization she also became bacteremic and required a prolonged hospitalization for Treatment of that. She returns to the hospital now with a chief complaint of shortness of breath. She tells me that she had an abrupt onset of shortness of breath while climbing a flight of stairs yesterday. She was also complaining of significant diarrhea that she attributed to her antibiotic. She denies any chest pain, palpitations, edema, orthopnea. Review of Systems Review of Systems: All systems reviewed & are unremarkable except as noted in HPI and below PMFSH Past Medical History Medical History Anxiety Chronic anticoagulation Chronic GERD Combined systolic and diastolic congestive heart failure Coronary artery disease Ischemic cardiomyopathy Mild asthma Paroxysmal atrial fibrillation Paroxysmal atrial flutter Type 2 diabetes mellitus Vertigo Vitamin B12 deficiency Surgical History Surgical History History of hysterectomy History of three vessel coronary artery bypass (2016) Family History Family History Sibling Family history of chronic obstructive pulmonary disease Father Family history of diabetes mellitus in first degree relative Family history of heart disease in male family member before age 55 Diabetes mellitus Family history of cardiovascular disease Mother Family hist
[2022-09-01 10:30] LABS: Hematocrit 36.1 % (37.0-47.0); Hemoglobin 11.5 g/dL (12.0-15.0); Mean Corpuscular HGB Conc 31.9 g/dl (32-36); Mean Corpuscular Hemoglobin 29.8 pg (26-34); Mean Corpuscular Volume 93.5 fl (80-100); Mean Platelet Volume 10.5 fl (7.4-10.4); Platelet Count Result 273 k/mm3 (150-375); Red Blood Count 3.86 M/mm3 (4.2-5.4); Red Cell Distribution Width 14.5 % (11.5-14.5); White Blood Count 8.8 K/mm3 (4.5-10.0)
[2022-09-01 10:42] LABS: Anion Gap 5 mmol/L (8-16); Blood Urea Nitrogen 18 mg/dL (7-17); Calcium 8.8 mg/dL (8.4-10.2); Carbon Dioxide 29 mmol/L (22-30); Chloride 101 mmol/L (98-107); Estimated CRCL calculation 51 ml/min; Estimated Glomerular Filt Rate > 60; Glucose 228 mg/dL (65-110); Potassium 4.3 mmol/L (3.4-5.0); Sodium 135 mmol/L (137-145)
[2022-09-01] MEDS: ASPIRIN 81 MG CHEWABLE TABLET PO (10:48)
[2022-09-01] MEDS: APIXABAN 5 MG TABLET PO ×2 (10:48→21:05)
[2022-09-01] MEDS: FUROSEMIDE 40 MG TABLET PO ×2 (10:49→17:48)
[2022-09-01] MEDS: POTASSIUM CHLORIDE 10 MEQ TABLET.ER PO (10:49)
[2022-09-01] MEDS: CYANOCOBALAMIN 500 MCG TABLET PO (10:49)
[2022-09-01] MEDS: PANTOPRAZOLE 40 MG TABLET PO (14:10)
--- NOTE | 2022-09-01 14:32 | PCCCNOTE ---
On 09/01/22, the student, [Penny Radford ], provided care and completed [facility] documentation on this patient. I have reviewed the student's documentation and agree with the findings.
--- NOTE | 2022-09-01 15:06 | PM.IMHP ---
H&P: HPI History of Present Illness Date/Time: 09/01/22 15:06 Chief Complaint: Dyspnea Narrative: Date of service: 09/01/2022 Fina Adair is a 77-year-old female with history of atrial fibrillation on chronic anticoagulation, CAD, CHF type 2 diabetes mellitus, and recent hospital admission from 08/22-08/28/2022 for atrial fibrillation, pneumonia, and bacteremia currently on p.o. antibiotics who presented to the emergency department on 08/31/2022 with complaints of shortness of breath ongoing for 1 day. Patient states that upon discharge on , she was feeling better but she did develop diarrhea upon returning home. States that she had several episodes of loose stools , Thursday, and Thursday. She was still tolerating her diet in reports still drinking fluids, however notes pretty much everything she ate was going right through her. She stop taking her Augmentin on Thursday due to the diarrhea. Patient stated that she had a long drive and could not risk having diarrhea while driving. Upon return home on Thursday, she noticed that she felt very short of breath and lightheaded. She noticed this especially when climbing flight of stairs at her daughter's house, when she reached the top of the stairs she had to sit down to rest which is unusual for her. She checked her blood pressure and heart rate several times and stated that her heart rate got down to 53. Due to this, her daughter encouraged her to come to the ER for evaluation. Upon presentation, her R was 55, respiratory rate 25, additional vital signs stable, patient afebrile, CBC and BMP unremarkable, troponin negative, lactic acid 2.6, CXR showed no acute cardiopulmonary process, and CTA of the chest showed no pulmonary embolism or acute cardiopulmonary abnormality. Patient has been admitted to the hospitalist service. On my encounter, she states that she is feeling improved. She only noticed dyspnea with exertion before but today states that she has been back and forth to the bathroom multiple times and no episodes of dyspnea. She denies chest pain or palpitations. She has been tolerating her diet. Last bowel movement was yesterday, states her stools are soft but not liquid. Denies any blood in her stool. Denies fevers or chills. No nausea or vomiting. Review of Systems Review of Systems: All systems reviewed & are unremarkable except as noted in HPI and below PMFSH Past Medical History Medical History Anxiety Chronic anticoagulation Chronic GERD Combined systolic and diastolic congestive heart failure Coronary artery disease Ischemic cardiomyopathy Mild asthma Paroxysmal atrial fibrillation Paroxysmal atrial flutter Type 2 diabetes mellitus Vertigo Vitamin B12 deficiency Surgical History Surgical History History of hysterectomy History of three vessel coronary artery bypass (2016) Family History Family History Sibling Family history of chronic obstructive pulmonary disease Father Family history of diabetes mellitus in first degree relative Family history of heart disease in male family member before age 55 Diabetes mellitus Family history of cardiovascular disease Mother Family history of lung cancer Social History Social History (Updated 09/01/22 @ 15:14 by Mary Connolly PA-C) Social History: Surrogate decision maker: Madhavi Weems, daughter. Code status: Full code. Smoking status: Never smoker Second hand tobacco smoke exposure: No Alcohol intake: never Substance use: never Substance use type: does not use Lack of Transportation: No Lack of Food: Never True Current Housing: I Have Housing Concerned About Future Housing: No Difficulty Paying Gas/Electric Bills: No Difficulty Paying for Meds: No Currently Unemployed: No Education: [employer]
[2022-09-01 17:20] LABS: Glucose Point of Care 203 mg/dl (65-105)
[2022-09-01] MEDS: SACCHAROMYCES BOULARDII 250 MG CAPSULE PO (17:47)
[2022-09-01] MEDS: ACETAMINOPHEN 325 MG TABLET 650 MG PO (17:47)
--- NOTE | 2022-09-01 17:54 | PC.NURSE ---
Dr Mcgee notified of holding dinner insulin due to glucose 203 and not eating.
[2022-09-01 18:01] LABS: Toxigenic C. Diff NEGATIVE (NEGATIVE)
[2022-09-01 20:08] LABS: Glucose Point of Care 208 mg/dl (65-105)
[2022-09-01] MEDS: AMOXICILLIN/CLAVULANATE K 875-125 MG TAB 1 TABLET PO (21:04)
[2022-09-02] VITALS (9 sets, daily range): BP systolic 110–125; BP diastolic 52–60; PULSE 48–69; RESP 16–17; TEMP 36.3–36.9; O2SAT 94–98
[2022-09-02] MEDS: ACETAMINOPHEN 325 MG TABLET 650 MG PO (01:37)
[2022-09-02 06:14] LABS: Hematocrit 35.7 % (37.0-47.0); Hemoglobin 11.1 g/dL (12.0-15.0); Mean Corpuscular HGB Conc 31.1 g/dl (32-36); Mean Corpuscular Hemoglobin 29.8 pg (26-34); Mean Corpuscular Volume 95.7 fl (80-100); Mean Platelet Volume 11.4 fl (7.4-10.4); Platelet Count Result 230 k/mm3 (150-375); Red Blood Count 3.73 M/mm3 (4.2-5.4); Red Cell Distribution Width 14.4 % (11.5-14.5)
[2022-09-02 06:30] LABS: Anion Gap 9 mmol/L (8-16); Blood Urea Nitrogen 16 mg/dL (7-17); Calcium 8.6 mg/dL (8.4-10.2); Carbon Dioxide 25 mmol/L (22-30); Chloride 104 mmol/L (98-107); Estimated CRCL calculation 51 ml/min; Estimated Glomerular Filt Rate > 60; Glucose 168 mg/dL (65-110); Potassium 3.9 mmol/L (3.4-5.0); Sodium 138 mmol/L (137-145)
[2022-09-02] MEDS: ASPIRIN 81 MG CHEWABLE TABLET PO (08:26)
[2022-09-02] MEDS: APIXABAN 5 MG TABLET PO ×2 (08:26→22:05)
[2022-09-02] MEDS: AMOXICILLIN/CLAVULANATE K 875-125 MG TAB 1 TABLET PO ×2 (08:26→22:05)
[2022-09-02] MEDS: SACCHAROMYCES BOULARDII 250 MG CAPSULE PO ×3 (08:27→17:30)
[2022-09-02] MEDS: FUROSEMIDE 40 MG TABLET PO ×2 (08:27→17:30)
[2022-09-02] MEDS: CYANOCOBALAMIN 500 MCG TABLET PO (08:27)
[2022-09-02] MEDS: POTASSIUM CHLORIDE 10 MEQ TABLET.ER PO (08:27)
[2022-09-02 08:41] LABS: Glucose Point of Care 176 mg/dl (65-105)
--- NOTE | 2022-09-02 09:13 | PM.PNCARD ---
Progress Note: A&P Assessment and Plan (1) Bradycardia: Code(s): R00.1 - Bradycardia, unspecified Status: Acute Assessment and Plan: She is in sinus rhythm with intermittent mild bradycardia today. Will resume low-dose metoprolol tomorrow morning. cardiology will sign off. Please do not hesitate to contact us with any further questions. (2) Dyspnea: Code(s): R06.00 - Dyspnea, unspecified Status: Acute Assessment and Plan: Cause for this is unclear. She does not have any evidence of CHF or pulmonary embolism on her imaging studies. Currently, she is breathing comfortably and saturating well on room air. (3) Bacteremia: Code(s): R78.81 - Bacteremia Status: Acute Assessment and Plan: Remains on Augmentin. Management per hospitalist (4) Chronic anticoagulation: Code(s): Z79.01 - assisted (current) use of anticoagulants Status: Acute Assessment and Plan: On apixaban 5 mg b.i.d.. No signs of bleeding, H&H stable. (5) Paroxysmal atrial fibrillation: Code(s): I48.0 - Paroxysmal atrial fibrillation Status: Acute Assessment and Plan: She is sinus rhythm now. Continue anticoagulation with apixaban 5 mg b.i.d. 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 Arce, bargeman at [place]. (6) Ischemic cardiomyopathy: Code(s): I25.5 - Ischemic cardiomyopathy Status: Acute Assessment and Plan: EF 35%. She does not have any evidence of CHF on exam. Continue medical therapy with Entresto, Jardiance, and beta-nimisha when able to tolerate. Subjective Date/time seen: 09/02/22 09:13 Cardiology follow-up for bradycardia she is complaining of diarrhea this morning. Otherwise, has no complaints. No shortness of breath, palpitations, chest pain, swelling. Review of Systems Review of Systems: All systems reviewed & are unremarkable except as noted in HPI and below Exam Const: General: comfortable, no acute distress, alert and awake Orientation/consciousness: patient oriented x3 HENMT: Head: normal to inspection Eyes: General: appearance normal, both eyes and all related structures Pupils: Equal, round and reactive pupils present Neck: Neck: normal visual inspection, supple and no JVD Carotids: normal carotid upstroke Resp: Effort & Inspection: normal respiratory effort Auscultation: clear to auscultation bilaterally Cardio: Rate: regular rate Rhythm: regular rhythm Heart sounds: S1 normal heart sound present, S2 normal heart sound present and no murmurs GI: Auscultation: normal bowel sounds Skin: General skin exam: normal color Neuro: General: patient oriented x3 Cranial nerves: Yes Equal, round and reactive pupils present Extrem: General: normal to inspection Psych: Appearance: grossly normal Mental Status: mental status grossly normal Objective Data Vital Signs Vital Signs: Vital Signs - 24 hr 09/01/22 12:00 09/01/22 14:15 09/01/22 16:00 Temperature 36.6 C Pulse Rate 59 L 46 L 60 Respiratory Rate 16 Blood Pressure 112/57 L Pulse Oximetry 94 Oxygen Delivery 09/01/22 21:03 09/01/22 20:00 09/02/22 00:00 Temperature 36.6 C Pulse Rate 48 L 74 48 L Respiratory Rate 18 Blood Pressure 128/58 L Pulse Oximetry 97 Oxygen Delivery 09/02/22 04:00 09/02/22 05:34 09/02/22 08:00 Temperature 36.9 C Pulse Rate 53 L 52 L Respiratory Rate 17 Blood Pressure 115/55 L Pulse Oximetry 95 95 Oxygen Delivery Room Air Intake/Output Intake/Output: Intake & Output 08/30/22 08/31/22 09/01/22 09/02/22 23:59 23:59 23:59 23:59 Intake Total 1020 250 Output Total 700 900 Balance 320 -650 Meds/Results Medications: Active Medications Generic Name Dose Route Start Last Admin Trade Name Freq PRN Reason Stop Dose Admin Acetaminophen 650 mg 09/01/22 17:30 09/02/22 01:37 Acetaminophen 325 Mg Tablet PO 650 mg Q4H PRN Administration Heada
[2022-09-02] MEDS: ALPRAZolam (*CRX) 0.125 MG TABLET PO (09:14)
[2022-09-02 12:07] LABS: Glucose Point of Care 243 mg/dl (65-105)
[2022-09-02] MEDS: INSULIN ASPART (*BKC) 100 UNITS/ML SUB-Q (12:17)
[2022-09-02] MEDS: PANTOPRAZOLE 40 MG TABLET PO (12:17)
--- NOTE | 2022-09-02 12:27 | PM.IMPN ---
Progress Note: A&P Assessment and Plan (1) Bradycardia: Code(s): R00.1 - Bradycardia, unspecified Status: Acute Assessment and Plan: EKG on presentation showed sinus bradycardia with a rate of 48. Patient in sinus bradycardia. Metoprolol on hold at this time. Continue to monitor on telemetry. Appreciate cardiology consultation and recommendations. (2) Diarrhea: Code(s): R19.7 - Diarrhea, unspecified Status: Acute Assessment and Plan: Patient with complaints of loose stools for 4 days prior to presentation. Attributes this to recent antibiotic use. Infectious etiology unlikely based on history and clinical picture. C diff negative. Pt has 4 days remaining on Augmentin and diarrhea has improved, therefore will continue at this time with addition of probiotic. Monitor closely. (3) Dyspnea: Code(s): R06.00 - Dyspnea, unspecified Status: Acute Assessment and Plan: Patient presented with complaints of dyspnea on exertion. CXR and CTA of the chest with no acute findings. Negative for PE. Likely secondary to bradycardia vs dehydration from ongoing diarrhea. Symptoms resolved at this time. Continue with treatment as above (4) Bacteremia: Code(s): R78.81 - Bacteremia Status: Acute Assessment and Plan: E coli bacteremia managed at last admission. Discharged with 9 day course of Augmentin. Continue as described above. Blood cultures repeated on 08/31/2022 are negative to date (5) Pneumonia: Code(s): J18.9 - Pneumonia, unspecified organism Status: Acute Assessment and Plan: Managed at last admission. CXR and CTA with no acute cardiopulmonary findings (6) Paroxysmal atrial fibrillation: Code(s): I48.0 - Paroxysmal atrial fibrillation Status: Acute Assessment and Plan: With slow ventricular response. Metoprolol on hold. Appreciate Cardiology recommendations. Continue Eliquis (7) Type 2 diabetes mellitus: Qualifiers: Diabetes mellitus shelter insulin use: without shelter use Diabetes mellitus complication status: with circulatory complication Code(s): E11.9 - Type 2 diabetes mellitus without complications Status: Acute Assessment and Plan: A1c is 8.2. Continue accu-Cheks, sliding scale insulin, hypoglycemic protocol. Hold home metformin Subjective Date/time seen: 09/02/22 12:28 Interval history: Date of service: 09/02/2022 Fina Adair is a 77-year-old female with history of atrial fibrillation on chronic anticoagulation, CAD, CHF type 2 diabetes mellitus, and recent hospital admission from 08/22-08/28/2022 for atrial fibrillation, pneumonia, and bacteremia currently on p.o. antibiotics who?is seen in follow-up for bradycardia. Patient reports that is feeling better today. She denies palpitations, shortness of breath, or chest pain. She continues to endorse loose stool, states that is becoming more formed and having smaller volumes. She reports 1 episode of diarrhea this morning immediately after eating breakfast. She felt a bit lightheaded after this episode of diarrhea when standing up since that 1 episode, she has had no further lightheadedness or dizziness. Denies nausea, vomiting, fever, or chills. No abdominal pain. Review of Systems Review of Systems: All systems reviewed & are unremarkable except as noted in HPI and below Exam Narrative: General: Well-nourished, well-appearing 77-year-old female, sitting up in bed, comfortable, NARD Neuro: awake, alert and oriented x4, speech clear, no focal neuro deficits noted HEENMT: normocephalic, atraumatic, EOMI, sclerae anicteric, moist oral mucosa Respiratory: clear to auscultation bilaterally, nonlabored breathing Cardio: Bradycardic, regular rhythm with S1-S2 Abdomen: nondistended, normoactive bowel sounds, soft, nontender to palpation Extremities: no edema, erythema, or tenderne
[2022-09-02 17:28] LABS: Glucose Point of Care 169 mg/dl (65-105)
[2022-09-02 22:05] LABS: Glucose Point of Care 196 mg/dl (65-105)
[2022-09-03] VITALS (11 sets, daily range): BP systolic 114–147; BP diastolic 53–78; PULSE 55–67; RESP 16–17; TEMP 36.4–36.7; O2SAT 94–98
[2022-09-03 04:02] LABS: Glucose Point of Care 175 mg/dl (65-105)
[2022-09-03] MEDS: ALPRAZolam (*CRX) 0.125 MG TABLET PO (04:21)
[2022-09-03 06:07] LABS: Hemoglobin 10.8 g/dL (12.0-15.0); Mean Corpuscular HGB Conc 31.8 g/dl (32-36); Mean Corpuscular Hemoglobin 29.4 pg (26-34); Mean Corpuscular Volume 92.6 fl (80-100); Mean Platelet Volume 11.5 fl (7.4-10.4); Platelet Count Result 253 k/mm3 (150-375); Red Blood Count 3.67 M/mm3 (4.2-5.4); Red Cell Distribution Width 14.2 % (11.5-14.5); White Blood Count 7.2 K/mm3 (4.5-10.0)
[2022-09-03 06:22] LABS: Anion Gap 6 mmol/L (8-16); Blood Urea Nitrogen 15 mg/dL (7-17); Calcium 8.7 mg/dL (8.4-10.2); Carbon Dioxide 28 mmol/L (22-30); Chloride 103 mmol/L (98-107); Estimated CRCL calculation 51 ml/min; Estimated Glomerular Filt Rate > 60; Glucose 184 mg/dL (65-110); Potassium 3.3 mmol/L (3.4-5.0); Sodium 137 mmol/L (137-145)
[2022-09-03 08:25] LABS: Glucose Point of Care 198 mg/dl (65-105)
[2022-09-03] MEDS: FUROSEMIDE 40 MG TABLET PO ×2 (08:49→16:43)
[2022-09-03] MEDS: POTASSIUM CHLORIDE 10 MEQ TABLET.ER PO (08:50)
[2022-09-03] MEDS: AMOXICILLIN/CLAVULANATE K 875-125 MG TAB 1 TABLET PO (08:50)
[2022-09-03] MEDS: SACCHAROMYCES BOULARDII 250 MG CAPSULE PO ×3 (08:50→16:43)
[2022-09-03] MEDS: APIXABAN 5 MG TABLET PO ×2 (08:51→20:50)
[2022-09-03] MEDS: CYANOCOBALAMIN 500 MCG TABLET PO (08:51)
[2022-09-03] MEDS: ASPIRIN 81 MG CHEWABLE TABLET PO (08:51)
[2022-09-03] MEDS: METOPROLOL SUCCINATE EXT REL 25 MG TABCR PO (08:54)
[2022-09-03 10:56] LABS: Magnesium 2.3 mg/dL (1.6-2.3)
[2022-09-03] MEDS: POTASSIUM CHLORIDE 20 MEQ PACKET (FOR LIQUID) PO (11:59)
[2022-09-03] MEDS: PANTOPRAZOLE 40 MG TABLET PO (12:00)
[2022-09-03 12:05] LABS: Glucose Point of Care 196 mg/dl (65-105)
--- NOTE | 2022-09-03 15:30 | PM.IMPN ---
Progress Note: A&P Assessment and Plan (1) Bradycardia: Code(s): R00.1 - Bradycardia, unspecified Status: Acute Assessment and Plan: EKG on presentation showed sinus bradycardia with a rate of 48. Patient in sinus bradycardia. Continue to monitor on telemetry. Rate is stable at this time. Has been restarted on low-dose metoprolol succinate 25 mg daily per Cardiology. Appreciate cardiology consultation and recommendations. (2) Diarrhea: Code(s): R19.7 - Diarrhea, unspecified Status: Acute Assessment and Plan: Patient with complaints of loose stools for 4 days prior to presentation. Attributes this to recent antibiotic use. Infectious etiology unlikely based on history and clinical picture. C diff negative. Patient reports increase in diarrhea today. Will stop Augmentin at this time and transition to Rocephin to complete course of antibiotics. Patient took Rocephin during last admission and tolerated well without diarrhea. Continue probiotic. Monitor closely. (3) Dyspnea: Code(s): R06.00 - Dyspnea, unspecified Status: Acute Assessment and Plan: Patient presented with complaints of dyspnea on exertion. CXR and CTA of the chest with no acute findings. Negative for PE. Likely secondary to bradycardia vs dehydration from ongoing diarrhea. Symptoms resolved at this time. Continue with treatment as above (4) Bacteremia: Code(s): R78.81 - Bacteremia Status: Acute Assessment and Plan: E coli bacteremia managed at last admission. Discharged with Augmentin to complete 14 day course of antibiotics. Discussed case with ID PharmD. Will stop Augmentin at this time due to ongoing diarrhea and transition to IV Rocephin for 2 additional doses to complete full course. Blood cultures repeated on 08/31/2022 are negative to date (5) Pneumonia: Code(s): J18.9 - Pneumonia, unspecified organism Status: Acute Assessment and Plan: Managed at last admission. CXR and CTA with no acute cardiopulmonary findings (6) Paroxysmal atrial fibrillation: Code(s): I48.0 - Paroxysmal atrial fibrillation Status: Acute Assessment and Plan: With slow ventricular response. Lower dose metoprolol restarted. Appreciate Cardiology recommendations. 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 Continue accu-Cheks, sliding scale insulin, hypoglycemic protocol. Hold home metformin Subjective Date/time seen: 09/03/22 15:30 Interval history: Date of service: 09/03/2022 Fina Adair is a 77-year-old female with history of atrial fibrillation on chronic anticoagulation, CAD, CHF, type 2 diabetes mellitus, and recent hospital admission from 08/22-08/28/2022 for atrial fibrillation, pneumonia, and bacteremia currently on p.o. antibiotics who?is seen in follow-up for bradycardia. Patient is feeling poorly today. She reports 5 episodes of soft, loose stools today. With the onset of diarrhea she has some lightheadedness. She has not been able to tolerate breakfast or lunch today. Endorse abdominal cramping just prior to having a bowel movement but this time as no abdominal pain. Denies bloating. No fevers or chills. Lightheadedness has resolved. Patient denies any shortness of breath. No chest pain or palpitations. Review of Systems Review of Systems: All systems reviewed & are unremarkable except as noted in HPI and below Exam Narrative: General: Well-nourished, well-appearing 77-year-old female, sitting up in bed, comfortable, NARD Neuro: awake, alert and oriented x4, speech clear, no focal neuro deficits noted HEENMT: norm
[2022-09-03] MEDS: cefTRIAXone 2 GM/NS 100 ML 2 GM/100 ML BAG IVPB (16:43)
[2022-09-03 17:06] LABS: Glucose Point of Care 175 mg/dl (65-105)
[2022-09-03 20:35] LABS: Glucose Point of Care 192 mg/dl (65-105)
[2022-09-04] VITALS (11 sets, daily range): BP systolic 105–130; BP diastolic 51–59; PULSE 50–72; RESP 17–18; TEMP 36.3–36.8; O2SAT 98–100
[2022-09-04] MEDS: ACETAMINOPHEN 325 MG TABLET 650 MG PO ×2 (00:07→13:35)
[2022-09-04 05:27] LABS: Hematocrit 36.4 % (37.0-47.0); Hemoglobin 11.6 g/dL (12.0-15.0); Mean Corpuscular HGB Conc 31.9 g/dl (32-36); Mean Corpuscular Hemoglobin 29.5 pg (26-34); Mean Corpuscular Volume 92.6 fl (80-100); Mean Platelet Volume 11.1 fl (7.4-10.4); Platelet Count Result 278 k/mm3 (150-375); Red Blood Count 3.93 M/mm3 (4.2-5.4); Red Cell Distribution Width 14.2 % (11.5-14.5); White Blood Count 9.5 K/mm3 (4.5-10.0)
[2022-09-04 05:38] LABS: Anion Gap 7 mmol/L (8-16); Blood Urea Nitrogen 15 mg/dL (7-17); Calcium 8.8 mg/dL (8.4-10.2); Carbon Dioxide 26 mmol/L (22-30); Chloride 104 mmol/L (98-107); Estimated CRCL calculation 51 ml/min; Estimated Glomerular Filt Rate > 60; Glucose 155 mg/dL (65-110); Magnesium 2.3 mg/dL (1.6-2.3); Potassium 3.7 mmol/L (3.4-5.0); Sodium 137 mmol/L (137-145)
[2022-09-04] MEDS: CYANOCOBALAMIN 500 MCG TABLET PO (08:25)
[2022-09-04] MEDS: POTASSIUM CHLORIDE 10 MEQ TABLET.ER PO (08:25)
[2022-09-04] MEDS: FUROSEMIDE 40 MG TABLET PO ×2 (08:25→17:22)
[2022-09-04] MEDS: APIXABAN 5 MG TABLET PO ×2 (08:25→20:50)
[2022-09-04] MEDS: ASPIRIN 81 MG CHEWABLE TABLET PO (08:25)
[2022-09-04] MEDS: SACCHAROMYCES BOULARDII 250 MG CAPSULE PO ×3 (08:25→17:21)
[2022-09-04 08:31] LABS: Glucose Point of Care 170 mg/dl (65-105)
[2022-09-04] MEDS: cefTRIAXone 2 GM/NS 100 ML 2 GM/100 ML BAG IVPB (11:10)
[2022-09-04 12:12] LABS: Glucose Point of Care 238 mg/dl (65-105)
[2022-09-04] MEDS: INSULIN ASPART (*BKC) 100 UNITS/ML SUB-Q (12:21)
[2022-09-04] MEDS: PANTOPRAZOLE 40 MG TABLET PO (12:22)
--- NOTE | 2022-09-04 13:06 | PC.NURSE ---
On 09/04/22, the student, [Aurelia Oconnell], provided care and completed [facility] documentation on this patient. I have reviewed the student's documentation and agree with the findings.
--- NOTE | 2022-09-04 15:23 | PM.IMPN ---
Progress Note: A&P Assessment and Plan (1) Bradycardia: Code(s): R00.1 - Bradycardia, unspecified Status: Acute Assessment and Plan: EKG on presentation showed sinus bradycardia with a rate of 48. Continue to monitor on telemetry. Rate is stable at this time. Has been restarted on low-dose metoprolol succinate 25 mg daily per Cardiology. Appreciate cardiology consultation and recommendations. (2) Diarrhea: Code(s): R19.7 - Diarrhea, unspecified Status: Acute Assessment and Plan: Patient with complaints of loose stools for 4 days prior to presentation. Attributes this to recent antibiotic use. Infectious etiology unlikely based on history and clinical picture. C diff negative. Augmentin discontinued on 09/03/2022 given increased diarrhea. Transition to IV ceftriaxone and diarrhea has improved. Continue with probiotic. Monitor stool patterns closely (3) Dyspnea: Code(s): R06.00 - Dyspnea, unspecified Status: Acute Assessment and Plan: Patient presented with complaints of dyspnea on exertion. CXR and CTA of the chest with no acute findings. Negative for PE. Likely secondary to bradycardia vs dehydration from ongoing diarrhea. Symptoms resolved at this time. Continue with treatment as above (4) Bacteremia: Code(s): R78.81 - Bacteremia Status: Acute Assessment and Plan: E coli bacteremia managed at last admission. Discharged with Augmentin to complete 14 day course of antibiotics. Discussed case with ID PharmD. Augmentin discontinued due to ongoing diarrhea and transitioned to IV Rocephin for 2 additional doses to complete full course. patient has completed antibiotic course today. Blood cultures repeated on 08/31/2022 are negative to date (5) Pneumonia: Code(s): J18.9 - Pneumonia, unspecified organism Status: Acute Assessment and Plan: Managed at last admission. CXR and CTA with no acute cardiopulmonary findings (6) Paroxysmal atrial fibrillation: Code(s): I48.0 - Paroxysmal atrial fibrillation Status: Acute Assessment and Plan: With slow ventricular response. Lower dose metoprolol restarted. Appreciate Cardiology recommendations. 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 Continue accu-Cheks, sliding scale insulin, hypoglycemic protocol. Hold home metformin Subjective Date/time seen: 09/04/22 15:23 Interval history: Date of service: 09/04/2022 Fina Adair is a 77-year-old female with history of atrial fibrillation on chronic anticoagulation, CAD, CHF, type 2 diabetes mellitus, and recent hospital admission from 08/22-08/28/2022 for atrial fibrillation, pneumonia, and bacteremia on antibiotic therapy who?is seen in follow-up for bradycardia. she is starting to feel a bit better today. She did have diarrhea again today but states that is slowly improving. Today she complains of a headache after receiving her IV antibiotic infusion. Otherwise, she offers no concerns. Denies nausea, vomiting. She is tolerating her diet. No fevers or chills. Denies shortness of breath. No dizziness or lightheadedness. No chest pain. Patient does not feel that she can go home at this time given ongoing diarrhea but is hopeful for discharge tomorrow if diarrhea continues to improve. Review of Systems Review of Systems: All systems reviewed & are unremarkable except as noted in HPI and below Exam Narrative: General: Well-nourished, well-appearing 77-year-old female, sitting up in bed, comfortable, NARD Neuro: awake, alert and oriented x4, speech clear, no focal neuro deficits noted HEENMT:
[2022-09-04 17:14] LABS: Glucose Point of Care 160 mg/dl (65-105)
[2022-09-04 20:18] LABS: Glucose Point of Care 274 mg/dl (65-105)
[2022-09-05] VITALS (7 sets, daily range): BP systolic 134; BP diastolic 57; PULSE 61–662; RESP 17–18; TEMP 37; O2SAT 97
[2022-09-05 06:00] LABS: Hematocrit 33.8 % (37.0-47.0); Hemoglobin 10.9 g/dL (12.0-15.0); Mean Corpuscular HGB Conc 32.2 g/dl (32-36); Mean Corpuscular Hemoglobin 29.5 pg (26-34); Mean Corpuscular Volume 91.6 fl (80-100); Mean Platelet Volume 11.5 fl (7.4-10.4); Platelet Count Result 266 k/mm3 (150-375); Red Blood Count 3.69 M/mm3 (4.2-5.4); Red Cell Distribution Width 14.1 % (11.5-14.5); White Blood Count 11.9 K/mm3 (4.5-10.0)
[2022-09-05 06:10] LABS: Anion Gap 8 mmol/L (8-16); Blood Urea Nitrogen 13 mg/dL (7-17); Calcium 8.5 mg/dL (8.4-10.2); Carbon Dioxide 27 mmol/L (22-30); Chloride 103 mmol/L (98-107); Estimated CRCL calculation 60 ml/min; Estimated Glomerular Filt Rate > 60; Glucose 169 mg/dL (65-110); Potassium 3.3 mmol/L (3.4-5.0); Sodium 138 mmol/L (137-145)
[2022-09-05] MEDS: POTASSIUM CHLORIDE 20 MEQ PACKET (FOR LIQUID) PO (08:20)
[2022-09-05] MEDS: POTASSIUM CHLORIDE 10 MEQ TABLET.ER PO (08:21)
[2022-09-05] MEDS: FUROSEMIDE 40 MG TABLET PO (08:21)
[2022-09-05] MEDS: METOPROLOL SUCCINATE EXT REL 25 MG TABCR PO (08:21)
[2022-09-05] MEDS: APIXABAN 5 MG TABLET PO (08:22)
[2022-09-05] MEDS: CYANOCOBALAMIN 500 MCG TABLET PO (08:23)
[2022-09-05] MEDS: SACCHAROMYCES BOULARDII 250 MG CAPSULE PO ×2 (08:23→12:11)
[2022-09-05] MEDS: ASPIRIN 81 MG CHEWABLE TABLET PO (08:23)
[2022-09-05 08:34] LABS: Glucose Point of Care 183 mg/dl (65-105)
[2022-09-05] MEDS: ACETAMINOPHEN 325 MG TABLET 650 MG PO (08:53)
[2022-09-05] MEDS: ALPRAZolam (*CRX) 0.125 MG TABLET PO (08:53)
--- NOTE | 2022-09-05 10:54 | PC.NURSE ---
On 09/05/22, the student, [Hyacinth Padgett], provided care and completed [facility] documentation on this patient. I have reviewed the student's documentation and agree with the findings.
--- NOTE | 2022-09-05 11:40 | PM.DS ---
DS: Admitting Diagnosis Discharge Date September 05, 2022 Admitting Diagnosis Bradycardia, diarrhea DS: Discharge Diagnosis Discharge Diagnosis (1) Bradycardia: Code(s): R00.1 - Bradycardia, unspecified Status: Acute Assessment and Plan: EKG on presentation showed sinus bradycardia with a rate of 48. Continue to monitor on telemetry. Rate is stable at this time. Has been restarted on low-dose metoprolol succinate 25 mg daily per Cardiology. Appreciate cardiology consultation and recommendations. (2) Diarrhea: Code(s): R19.7 - Diarrhea, unspecified Status: Acute Assessment and Plan: Patient with complaints of loose stools for 4 days prior to presentation. Attributes this to recent antibiotic use. Infectious etiology unlikely based on history and clinical picture. C diff negative. Augmentin discontinued on 09/03/2022 given increased diarrhea. Transition to IV ceftriaxone and diarrhea has improved. Continue with probiotic. Monitor stool patterns closely (3) Dyspnea: Code(s): R06.00 - Dyspnea, unspecified Status: Acute Assessment and Plan: Patient presented with complaints of dyspnea on exertion. CXR and CTA of the chest with no acute findings. Negative for PE. Likely secondary to bradycardia vs dehydration from ongoing diarrhea. Symptoms resolved at this time. Continue with treatment as above (4) Bacteremia: Code(s): R78.81 - Bacteremia Status: Acute Assessment and Plan: E coli bacteremia managed at last admission. Discharged with Augmentin to complete 14 day course of antibiotics. Discussed case with ID PharmD. Augmentin discontinued due to ongoing diarrhea and transitioned to IV Rocephin for 2 additional doses to complete full course. patient has completed antibiotic course today. Blood cultures repeated on 08/31/2022 are negative to date (5) Pneumonia: Code(s): J18.9 - Pneumonia, unspecified organism Status: Acute Assessment and Plan: Managed at last admission. CXR and CTA with no acute cardiopulmonary findings (6) Paroxysmal atrial fibrillation: Code(s): I48.0 - Paroxysmal atrial fibrillation Status: Acute Assessment and Plan: With slow ventricular response. Lower dose metoprolol restarted. Appreciate Cardiology recommendations. 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 Continue accu-Cheks, sliding scale insulin, hypoglycemic protocol. Hold home metformin DS: Summary Hospital Course Hospital Course: Patient was admitted for bradycardia, beta-nimisha dose was adjusted. Follow-up cardiology. Otherwise patient was found have ongoing diarrhea she was C diff negative. Likely related to antibiotics. We did change antibiotics and she completed her course in the hospital. Otherwise patient is currently stable can discharged Time Spent with Patient Time attestation: Total time spent providing and/or coordinating discharge services: Exam Narrative: General: Well-nourished, well-appearing 77-year-old female, sitting up in bed, comfortable, NARD Neuro: awake, alert and oriented x4, speech clear, no focal neuro deficits noted HEENMT: normocephalic, atraumatic, EOMI, sclerae anicteric, moist oral mucosa Respiratory: clear to auscultation bilaterally, nonlabored breathing Cardio: Regular rate, regular rhythm with S1-S2 Abdomen: nondistended, normoactive bowel sounds, soft, nontender to palpation Extremities: no edema, erythema, or tenderness to palpation, DP pulses 2+ bilaterally Skin: no rashes or lesions, warm and dry Psych: appropriate mood and affect, judgment and insight intact
[2022-09-05 12:08] LABS: Glucose Point of Care 235 mg/dl (65-105)
[2022-09-05] MEDS: PANTOPRAZOLE 40 MG TABLET PO (12:11)
[2022-09-05] MEDS: INSULIN ASPART (*BKC) 100 UNITS/ML SUB-Q (12:11)
== END 2022-09-05 13:50 | disposition home or self-care (01) | DRG 309 ==
LOC: ANHED 23:54 → ANH2MED 09-01 00:37
PROVIDERS: Physician Assistant; Admitting Provider Internal Medicine; Emergency Provider Emergency Medicine; PCP Family Medicine; Visit Provider Chiropractor
DX: R00.1 Bradycardia, unspecified (principal); I50.42 Chronic combined systolic (congestive) and diastolic (congestive) heart failure; K52.1 Toxic gastroenteritis and colitis; R78.81 Bacteremia; T36.0X5A Adverse effect of penicillins, initial encounter; B96.20 Unspecified Escherichia coli [E. coli] as the cause of diseases classified elsewhere; E53.8 Deficiency of other specified B group vitamins; E11.9 Type 2 diabetes mellitus without complications; F41.9 Anxiety disorder, unspecified; I48.0 Paroxysmal atrial fibrillation; I25.5 Ischemic cardiomyopathy; I25.10 Atherosclerotic heart disease of native coronary artery without angina pectoris; J45.909 Unspecified asthma, uncomplicated; Z90.710 Acquired absence of both cervix and uterus; Z95.1 Presence of aortocoronary bypass graft; Z79.82 Long term (current) use of aspirin; Z79.84 Long term (current) use of oral hypoglycemic drugs; Z79.01 Long term (current) use of anticoagulants
CPT/HCPCS: 36415; 71045; 71275; 80048; 80053; 81003; 82948; 83605; 83690; 83735; 83880; 84145; 84484; 85025; 85027; 85610; 85730; 87040; 87493; 93005; 96365; 96366; 99285; A9270; G0378; J0696; J1815; J7040; Q9967

== ENCOUNTER → 2022-10-15 09:24 | Outpatient (CLI) | payer MEDICARE, SELFPAY ==
--- NOTE | ~2022-10-15 | MR_ITS ---
EXAMINATION: MR brain IAC wo/w con DATE: 10/15/2022 10:32 INDICATION: Asymmetrical hearing loss, right ear. Right-sided tinnitus. TECHNIQUE: Magnetic resonance imaging (MRI) of the brain, brainstem, and internal auditory canals was performed without and with 12 mL MultiHance intravenous contrast. COMPARISON: None. FINDINGS: There are scattered areas of nonspecific increased T2-weighted signal intensity in the cere bral white matter and rajan. There is no intracranial hemorrhage, acute infarction, or abnormal intrac ranial mass lesion. The ventricles are normal in size. There is mucosal thickening in sphenoid sinus. There are likely changes of ocular lens replacement surgeries. The internal auditory canals and inne r and middle ears are normal. The mastoid air cells are normal. IMPRESSION: 1. Mild nonspecific cerebral white matter disease and pontine disease, which likely represents chroni c small vessel ischemic disease. Reviewed, dictated and finalized at location A. IMPRESSION: 1. Mild nonspecific cerebral white matter disease and pontine disease, which concepción carrera represents chronic small vessel ischemic disease.
== END ==
PROVIDERS: PCP Family Medicine; Visit Provider Otolaryngology
DX: H91.8X9 Other specified hearing loss, unspecified ear (principal); R93.0 Abnormal findings on diagnostic imaging of skull and head, not elsewhere classified
CPT/HCPCS: 70553; A9577

== ENCOUNTER 2022-11-04 09:29 | Outpatient (CLI) | payer MEDICARE, SELFPAY ==
[2022-11-04 10:05] LABS: Hemoglobin A1C 8.1 % (<5.7)
[2022-11-04 10:10] LABS: Alanine Aminotransferase 22 U/L (6-35); Albumin Level 4.5 g/dL (3.5-5.1); Alkaline Phosphatase 90 U/L (38-126); Anion Gap 8 mmol/L (8-16); Aspartate Amino Transferase 26 U/L (14-36); Blood Urea Nitrogen 20 mg/dL (7-17); Calcium 8.9 mg/dL (8.4-10.2); Carbon Dioxide 31 mmol/L (22-30); Chloride 99 mmol/L (98-107); Estimated Glomerular Filt Rate > 60; Glucose 199 mg/dL (65-110); Sodium 138 mmol/L (137-145)
== END 2022-11-04 09:30 | disposition home or self-care (01) ==
PROVIDERS: PCP Family Medicine; Visit Provider Physician Assistant
DX: E11.9 Type 2 diabetes mellitus without complications (principal); I10 Essential (primary) hypertension
CPT/HCPCS: 36415; 80053; 83036

== ENCOUNTER 2023-02-11 14:05 | Inpatient (IN) | payer MEDICARE, SELFPAY ==
[2023-02-11] VITALS (9 sets, daily range): BP systolic 107–117; BP diastolic 62–80; PULSE 104–118; RESP 13–22; TEMP 36.4; O2SAT 94–99
--- NOTE | ~2023-02-11 | XR_ITS ---
EXAMINATION: XR chest 2V DATE: 02/11/2023 15:17 INDICATION: Arrhythmia. TECHNIQUE: Frontal and lateral views of the chest were obtained. COMPARISON: Chest single view 08/31/2022 FINDINGS: There is mild atelectasis at left lung base. No pleural effusion or pneumothorax. Cardiomeg eliana is noted. Median sternotomy wires and mediastinal surgical clips are seen, likely from prior tyler nary artery bypass grafting. IMPRESSION: 1. Mild atelectasis at left lung base. 2. Cardiomegaly. Reviewed, dictated and finalized at location A.
--- NOTE | 2023-02-11 14:25 | ECG_ITS ---
Measurements Intervals [place] Rate: 118 P: MS: 0 QRS: -45 QRSD: 130 T: 89 QT: 351 QTc: 493 Interpretive Statements ATRIAL FLUTTER/TACHYCARDIA WITH RAPID VENTRICULAR RESPONSE LEFT AXIS DEVIATION LEFT BUNDLE BRANCH BLOCK ANTEROSEPTAL INFARCT OR DUE TO LBBB INFERIOR INFARCT OR DUE TO LBBB BASELINE ARTIFACT- I, II, III, AVR, AVL, AVF, V1 ABNORMAL ECG COMPARED TO ECG 08/31/2022 19:33:12 ATRIAL FLUTTER NOW PRESENT LEFT-AXIS DEVIATION NOW PRESENT Electronically Signed On 02-11-2023 15:43:53 CDT by Martínez Steinberg D.O.
[2023-02-11 15:49] LABS: Basophils Absolute Auto 0.1 K/mm3 (0.0-0.1); Basophils Percent Auto 0.5 % (0.2-1.2); Eosinophils Absolute Auto 0.1 K/mm3 (0-0.3); Eosinophils Percent Auto 1.5 % (0-4.4); Hematocrit 42.5 % (37.0-47.0); Hemoglobin 13.9 g/dL (12.0-15.0); Immature Granulocyte Absolute 0.04 K/mm3 (0.00-0.031); Immature Granulocyte Percent A 0.4 % (0-0.5); Lymphocytes Absolute Auto 1.95 K/mm3 (0.9-3.2); Lymphocytes Percent Auto 20.7 % (18.3-44.2); Mean Corpuscular HGB Conc 32.7 g/dl (32-36); Mean Corpuscular Volume 91.8 fl (80-100); Mean Platelet Volume 11.2 fl (7.4-10.4); Monocytes Absolute Auto 0.7 K/mm3 (0.1-0.6); Monocytes Percent Auto 7.1 % (2.6-8.5); Neutrophils Absolute Auto 6.6 K/mm3 (1.3-6.7); Neutrophils Percent Auto 69.8 % (45.5-73.1); Platelet Count Result 246 k/mm3 (150-375); Red Blood Count 4.63 M/mm3 (4.2-5.4); Red Cell Distribution Width 13.4 % (11.5-14.5); White Blood Count 9.4 K/mm3 (4.5-10.0)
[2023-02-11 16:00] LABS: INR 1.1; Prothrombin Time 14.2 Seconds (11.1-14.7)
[2023-02-11 16:04] LABS: Alanine Aminotransferase 25 U/L (6-35); Albumin Level 4.4 g/dL (3.5-5.1); Alkaline Phosphatase 109 U/L (38-126); Anion Gap 11 mmol/L (8-16); Aspartate Amino Transferase 29 U/L (14-36); Bilirubin,Total 0.8 mg/dL (0.2-1.3); Blood Urea Nitrogen 21 mg/dL (7-17); Calcium 9.3 mg/dL (8.4-10.2); Carbon Dioxide 24 mmol/L (22-30); Chloride 101 mmol/L (98-107); Estimated CRCL calculation 44 ml/min; Estimated Glomerular Filt Rate > 60; Glucose 160 mg/dL (65-110); Lipase 70 U/L (23-300); Potassium 4.1 mmol/L (3.4-5.0); Sodium 136 mmol/L (137-145)
[2023-02-11 16:15] LABS: Troponin I < 0.012 ng/mL (0.000-0.034)
[2023-02-11] MEDS: SODIUM CHLORIDE 0.9% IV 500 ML 999 ML IV CONT (16:47)
--- NOTE | 2023-02-11 17:06 | ED.ARRPALP ---
HPI - Arrhythmia/Palpitations General Chief Complaint: Arrhythmia/Palpitations Stated Complaint: A fib Time Seen by Provider: 02/11/23 16:02 History of Present Illness HPI narrative: 77-year-old female present emergency department for evaluation for episode of near syncope. Patient does have a history of A-fib a flutter and does have a previous cardioversion by Dr. Arce. Patient does follow-up with Dr. Nieto. Patient was following up with cardiology today in the office for increased generalized weakness when she had a near syncopal episode. Patient was encouraged to present to the ED for evaluation. Upon arrival to the ED patient states she does feel improved but patient is lying in bed and resting. Dr. Wadsworth did call the emergency department and stated that the patient has a complex past medical history and she should not be rate controlled with amiodarone but did recommend treatment with beta-blockers or diltiazem. At time of evaluation patient states she does feel improved and denies any chest pain or shortness of breath. Patient does report decreased p.o. intake but denies any associated nausea vomiting or diarrhea. Related Data Home Medications Medication Instructions Recorded Confirmed cyanocobalamin (vitamin B-12) 500 500 mcg PO DAILY 01/03/21 02/11/23 mcg tablet (Vitamin B-12) furosemide 40 mg tablet 40 mg PO BID 12/11/21 02/11/23 metformin 500 mg tablet 500 mg PO TID 08/22/22 02/11/23 calcium carb-vit D3-minerals 600 1 tablet PO BID 09/01/22 02/11/23 mg calcium-400 unit tablet alprazolam 0.25 mg tablet (Xanax) 0.25 mg PO BID PRN anxiety 02/11/23 02/11/23 ferrous sulfate 325 mg (65 mg 325 mg PO 02/11/23 iron) tablet (FeroSul) Allergies Allergy/AdvReac Type Severity Reaction Status Date / Time Sulfa (Sulfonamide Allergy Intermediate Difficulty Verified 11/11/22 09:49 Antibiotics) Breathing atorvastatin [From Lipitor] AdvReac Severe Swelling / Verified 11/11/22 09:49 painful legs / hard to walk codeine AdvReac Mild Gastrointestinal Verified 11/11/22 09:49 Upset Review of Systems Review of Systems: All systems reviewed & are unremarkable except as noted in HPI and below PMFSH Past Medical History Medical History Anxiety Chronic anticoagulation Chronic GERD Combined systolic and diastolic congestive heart failure Coronary artery disease Ischemic cardiomyopathy Mild asthma Paroxysmal atrial fibrillation Paroxysmal atrial flutter Type 2 diabetes mellitus Vertigo Vitamin B12 deficiency Surgical History Surgical History History of hysterectomy History of three vessel coronary artery bypass (2016) Family History Family History Sibling Family history of chronic obstructive pulmonary disease Father Family history of diabetes mellitus in first degree relative Family history of heart disease in male family member before age 55 Diabetes mellitus Family history of cardiovascular disease Mother Family history of lung cancer Social History Social History Social History: Surrogate decision maker: Madhavi Weems, daughter. Code status: Full code. Smoking status: Never smoker Second hand tobacco smoke exposure: No Alcohol intake: never Substance use: never Substance use type: does not use Lack of Transportation: No Lack of Food: Never True Current Housing: I Have Housing Concerned About Future Housing: No Difficulty Paying Gas/Electric Bills: No Difficulty Paying for Meds: No Currently Unemployed: No Education: High School Diploma/GED Difficulty w/ Childcare or Family Care: No Living arrangements: alone Occupation/Education: retired Spiritual care concerns: No Exam Narrative: APPEARANCE: Well appearing,
--- NOTE | 2023-02-11 17:41 | PC.NURSE ---
called dietary and ordered a dinner tray for pt at this time, per [facility] EDP Dr Gonzalez
[2023-02-11 17:56] LABS: Magnesium 2.1 mg/dL (1.6-2.3)
--- NOTE | 2023-02-11 19:15 | ADMGEN ---
This patient, Fina Adair, was admitted to IMU Room 205-02. Patient/family oriented to hospital policies and general routines including ID bracelet, bed and alarms, visiting hours, pain management, procedures, bathroom and other care routines, personal items, smoking policy, room service/diet, and visiting hours. Information on how to activate the Rapid Response Team has been discussed. Patient/Family are encouraged to report perceived risks to care and to ask questions if they do not understand what they are told or what they should do.
[2023-02-12] VITALS (18 sets, daily range): BP systolic 100–127; BP diastolic 56–79; PULSE 74–115; RESP 16–24; TEMP 36.1–36.9; O2SAT 93–98
--- NOTE | 2023-02-12 00:40 | PM.IMHP ---
H&P: HPI History of Present Illness Date/Time: 02/12/23 00:40 Chief Complaint: Near-Syncope Narrative: 77 y/o F presents here with episode of near-syncope, lightheadedness, and SOB today as well as fatigue over the last week. PMH of A-Fib s/p ablation, HLD, DM, and HTN. Patient presented here today with near-syncope, lightheadedness, and shortness of breath. Initial episode occurred while patient was waiting for Cardiology appointment. Lightheadedness worsens with standing. Also reports fatigue and decreased appetite for the past week. since this morning she denies any palpitations, shortness of breath, or chest pain. No nausea, vomiting, or diarrhea. No other complaints. A/Ox4. [facility] Past Medical History Medical History Anxiety Chronic anticoagulation Chronic GERD Combined systolic and diastolic congestive heart failure Coronary artery disease Ischemic cardiomyopathy Mild asthma Paroxysmal atrial fibrillation Paroxysmal atrial flutter Type 2 diabetes mellitus Vertigo Vitamin B12 deficiency Surgical History Surgical History History of hysterectomy History of three vessel coronary artery bypass (2016) Family History Family History Sibling Family history of chronic obstructive pulmonary disease Father Family history of diabetes mellitus in first degree relative Family history of heart disease in male family member before age 55 Diabetes mellitus Family history of cardiovascular disease Mother Family history of lung cancer Social History Social History (Updated 02/12/23 @ 00:45 by Lisa Abraham APRN) Social History: Lives at home alone. . Surrogate decision maker: Madhavi Weems, daughter. Code status: Full Code. Smoking status: Never smoker Second hand tobacco smoke exposure: No Alcohol intake: never Substance use: never Substance use type: does not use Lack of Transportation: No Lack of Food: Never True Current Housing: I Have Housing Concerned About Future Housing: No Difficulty Paying Gas/Electric Bills: No Difficulty Paying for Meds: No Currently Unemployed: No Education: High School Diploma/GED Difficulty w/ Childcare or Family Care: No Living arrangements: alone Occupation/Education: retired Spiritual care concerns: No Meds Home Medications and Allergies Home Medications Medication Instructions Recorded Confirmed Type cyanocobalamin (vitamin B-12) 500 500 mcg PO DAILY 01/03/21 02/11/23 History mcg tablet (Vitamin B-12) aspirin 81 mg chewable tablet 81 mg PO DAILY@0800 #0 tabs 01/15/21 02/11/23 Rx (Children's Aspirin) meclizine 25 mg tablet 25 mg PO TID PRN dizziness #60 tabs 04/05/21 02/11/23 Rx sacubitril 24 mg-valsartan 26 mg 1 tablet PO Q12HR #60 tabs 10/10/21 02/11/23 Rx tablet (Entresto) gabapentin 100 mg capsule 100 mg PO Q8H PRN nerve pain #90 10/22/21 02/11/23 Rx caps furosemide 40 mg tablet 40 mg PO BID 12/11/21 02/11/23 History potassium chloride 10 mEq 10 meq PO DAILY #90 caps 12/11/21 02/11/23 Rx capsule,extended release lancets 30 gauge (P[employer]ican [employer]Touch Delica #100 ea 02/10/22 02/11/23 Rx Plus Lancet) blood sugar diagnostic (Know[employer] #100 strips 03/10/22 02/11/23 Rx Ultra Test strips) dapagliflozin propanediol 10 mg 10 mg PO DAILY #90 tabs 05/15/22 02/11/23 Rx tablet (Farxiga) apixaban 5 mg tablet (Eliquis) 5 mg PO Q12HR 30 days #180 tabs 06/20/22 02/11/23 Rx metformin 500 mg tablet 500 mg PO TID 08/22/22 02/11/23 History calcium carb-vit D3-minerals 600 1 tablet PO BID 09/01/22 02/11/23 History mg calcium-400 unit tablet metoprolol succinate 25 mg 25 mg PO QAM 30 days #90 tabs 12/30/22 02/11/23 Rx tablet,extended release 24 hr (Toprol XL) omeprazole 40 mg capsule,delayed 40 mg PO DAILY #90 caps 01/19/23 02/11/23 Rx release
[2023-02-12 05:34] LABS: Hemoglobin A1C 8.3 % (<5.7)
--- NOTE | 2023-02-12 08:30 | PM.CNCAR ---
Assessment and Plan Assessment and plan (1) Atrial fibrillation with rapid ventricular response: Code(s): I48.91 - Unspecified atrial fibrillation Status: Acute Assessment and Plan: Patient with a history of persistent AFib flutter, previously tolerating miildly increased ventricular response on minimal dose of metoprolol XL, 25 mg daily, now symptomatic. Failed cardioversion, failed Tikosyn. Followed by Dr. Arce at [facility] for her atrial arrhythmias. --increase metoprolol XL to 50 mg daily (rather than diltiazem, to avoid polypharmacy and because the patient has a history of ischemic cardiomyopathy and would benefit more from beta-nimisha therapy) --IV Lopressor x1 (2) Lightheadedness: Code(s): R42 - Dizziness and giddiness Status: Acute Assessment and Plan: Likely due to AFib RVR. BP stable. (3) Acute on chronic combined systolic and diastolic CHF (congestive heart failure): Code(s): I50.43 - Acute on chronic combined systolic (congestive) and diastolic (congestive) heart failure Status: Acute Assessment and Plan: GALLAGHER, cough, 1 episode orthopnea, rales all suggest patient has developed some mild heart failure related to the AFib/flutter RVR. --check proBNP --extra furosemide 20 mg IV push x1 (4) History of ventricular tachycardia: Code(s): Z86.79 - Personal history of other diseases of the circulatory system Status: Acute Assessment and Plan: History of polymorphic V-tach when loaded with Tikosyn. --[facility]al recommends against any antiarrhythmic drug therapy including amiodarone. (5) Ischemic cardiomyopathy: Code(s): I25.5 - Ischemic cardiomyopathy Status: Acute Assessment and Plan: History of CAD, CABG, and ischemic cardiomyopathy, EF 40% 07/2022. Has some atypical epigastric discomfort but no typical angina. --continue aspirin, Jardiance, Entresto, furosemide --perceived intolerance to statins and has declined repassed the therapy. --repeat echo as outpatient History of Present Illness History of Present Illness Consult date/time: 02/12/23 08:30 Reason For Visit: Near Syncope, A Flutter with RVR Narrative: Fina Adair is a 74-year-old female who were asked to see at the request of Dr. Sherwin Gonzalez for advice and opinion regarding her AFib RVR, in consultation. This is still is followed by Dr. Nieto for her paroxysmal atrial fibrillation and atypical atrial flutter, CAD, CABG, diastolic dysfunction, and LBBB. In the late summer and fall 2020 she had a cardioversion and maintained on low-dose amiodarone but had recurrent atrial fibrillation shortly thereafter. The amiodarone was increased. She was maintained on rate control and anticoagulation, later spontaneously converted to NSR. She had problems with bradycardia in 2021 and was told after an ER visit to stop her amiodarone and metoprolol. In September 2021 she was admitted with atrial flutter and decompensated heart failure with an ejection fraction down to 30-35%. In October of 2021 she underwent atrial flutter ablation by Dr. Arce at [place], complicated by perforation. She was started on Tikosyn but had polymorphic ventricular tachycardia and was placed in the ICU. Benjie recommended avoiding anti arrhythmic drugs including amiodarone after that. She was admitted to [facility] July 2022 with pneumonia and bacteremia was back in atrial fib/flutter. When she was last seen by Dr. Nieto, 11/25/2022, she was in a persistent atrial rhythm with a heart rate of 112 but asymptomatic. Eliquis and metoprolol XL 25 mg daily were continued. He recommended follow-up soon with Benjie for arrhythmia management. The patient was doing well and able to do deep cleaning until recently. She called our office complaining of GALLAGHER, palpitations and lightheadedness for the past 1.5 weeks. HR 114-120's. BP has been fine. She has developed a mild cough over the past week or so
[2023-02-12] MEDS: ASPIRIN 81 MG CHEWABLE TABLET PO (09:32)
[2023-02-12] MEDS: FERROUS SULFATE 325 MG TABLET DR PO (09:32)
[2023-02-12] MEDS: metFORMIN HCL 500 MG TABLET PO ×3 (09:32→17:17)
[2023-02-12] MEDS: CYANOCOBALAMIN 500 MCG TABLET PO (09:33)
[2023-02-12] MEDS: POTASSIUM CHLORIDE 10 MEQ ER TABLET PO (09:33)
[2023-02-12] MEDS: PANTOPRAZOLE 40 MG TABLET PO (09:34)
[2023-02-12] MEDS: METOPROLOL SUCCINATE EXT REL 25 MG TABCR PO (09:34)
[2023-02-12] MEDS: SACUBITRIL/VALSARTAN 24-26 MG TABLET 1 TAB PO ×2 (09:34→20:40)
[2023-02-12] MEDS: FUROSEMIDE 40 MG TABLET PO ×2 (09:34→17:17)
[2023-02-12] MEDS: EMPAGLIFLOZIN 25 MG TABLET BY MOUTH (09:34)
[2023-02-12] MEDS: ALPRAZolam (*CRX) 0.25 MG TABLET PO (09:34)
[2023-02-12] MEDS: APIXABAN 5 MG TABLET PO ×2 (09:34→20:40)
[2023-02-12] MEDS: dilTIAZem HCL CD 120 MG CAP.24HR PO (09:34)
[2023-02-12 11:04] LABS: NT Pro B Type Natriuretic Pept 2530 pg/mL (19.9-100)
[2023-02-12] MEDS: METOPROLOL TARTRATE INJ 5 MG/5 ML VIAL IV PUSH (11:18)
[2023-02-12] MEDS: FUROSEMIDE INJ 40 MG/4 ML VIAL 20 MG IV PUSH (11:18)
[2023-02-12] MEDS: INSULIN ASPART (*BKC) 100 UNITS/ML SUB-Q ×2 (11:20→21:48)
[2023-02-12 11:55] LABS: Glucose Point of Care 205 mg/dl (65-105)
[2023-02-12 13:08] LABS: Glucose Point of Care 347 mg/dl (65-105)
[2023-02-12 13:09] LABS: Glucose Point of Care 144 mg/dl (65-105)
--- NOTE | 2023-02-12 16:25 | PM.IMPN ---
Progress Note: A&P Assessment and Plan (1) Acute on chronic combined systolic and diastolic CHF (congestive heart failure): Code(s): I50.43 - Acute on chronic combined systolic (congestive) and diastolic (congestive) heart failure Status: Acute (2) Atrial flutter with rapid ventricular response: Code(s): I48.92 - Unspecified atrial flutter Status: Acute Plan 77F w/ PMH a fib/aflutter failed cardioversion and tikosyn, combined CHF w/ EF 40%, hx of v tach, ischemic cardiomoyopathy, CAD, CABG presented with near syncope and admitted as inpatient on 02/11/23 1) a flutter/afib w/ RVR - s/p lopressor x1 - per cardiology recommendations will continue with increased metoprolol succinate from 25mg to 50mg po daily. she is now w/ controlled rate. pt asymptomatic. assess for response to new medication regimen and consider discharge tomorrow. 2) acute on chronic combined CHF w/ EF of 40% - follow cardiology recommendations. she received one time dose lasix, appears euvolemic now. CPM FEN: saline lock IV, fluid restriction GI prophylaxis: protonix DVT prophylaxis: eliquis Lines: pIV Code Status: Full code Dispo: pending home. Subjective Date/time seen: 02/12/23 16:25 Interval history: NAOE. pt denies complaints aside from a transient episode of SOB around noon, at which point the tele demonstrated PVCs and HR of 111. She is satisfied with the cardiology recommendations Review of Systems Cardiovascular: Cardiovascular: Denies chest pain and Denies dyspnea Respiratory: Respiratory: Denies cough and Denies dyspnea Gastrointestinal: Gastrointestinal: Denies abdominal pain and Denies vomiting Exam Const: General: no acute distress, alert and Physically active Resp: Effort & Inspection: normal respiratory effort Auscultation: clear to auscultation bilaterally Cardio: Rate: regular rate Rhythm: regular rhythm Heart sounds: S1 normal heart sound present and S2 normal heart sound present GI: Inspection: non-distended GI Palp: No abdominal tenderness Auscultation: normal bowel sounds Extrem: Right upper extremity: no edema Objective Data Vital Signs Vital Signs: Vital Signs - 24 hr 02/11/23 16:40 02/11/23 17:36 02/11/23 18:18 Temperature Pulse Rate 115 H 104 H 112 H Respiratory Rate 19 15 21 H Blood Pressure 117/75 109/75 113/71 Pulse Oximetry 95 97 95 Oxygen Delivery Oxygen Flow Rate 02/11/23 18:35 02/11/23 19:02 02/11/23 20:00 Temperature 97.6 F 97.6 F Pulse Rate 111 H 111 H 110 H Respiratory Rate 22 H 16 16 Blood Pressure 108/62 107/67 111/66 Pulse Oximetry 99 94 94 Oxygen Delivery Oxygen Flow Rate 02/11/23 20:00 02/11/23 22:00 02/12/23 00:00 Temperature 97.7 F Pulse Rate 109 H 112 H 111 H Respiratory Rate 18 Blood Pressure 111/65 Pulse Oximetry 96 Oxygen Delivery Oxygen Flow Rate 02/12/23 00:00 02/12/23 02:00 02/12/23 04:00 Temperature Pulse Rate 112 H 104 H 112 H Respiratory Rate Blood Pressure Pulse Oximetry Oxygen Delivery Oxygen Flow Rate 02/12/23 04:00 02/12/23 05:59 02/12/23 08:00 Temperature 97.6 F 98.5 F Pulse Rate 113 H 99 112 H Respiratory Rate 18 24 H Blood Pressure 117/74 118/73 Pulse Oximetry 95 93 Oxygen Delivery Oxygen Flow Rate 02/12/23 08:00 02/12/23 08:00 02/12/23 08:39 Temperature 98.0 F Pulse Rate 114 H Respiratory Rate 20 Blood Pressure 127/79 124/66 122/69 Pulse Oximetry 97 Oxygen Delivery Oxygen Flow Rate 02/12/23 08:39 02/12/23 09:34 02/12/23 08:00 Temperature Pulse Rate 111 H 115 H Respiratory Rate Blood Pressure 122/72 Pulse Oximetry Oxygen Delivery Oxygen Flow Rate 02/12/23 10:00 02/12/23 11:18 02/12/23 11:26 Temperature 98.5 F Pulse Rate 111 H 113 H 112 H Respiratory Rate 16 Blood Pressure 100/63 Pulse Oximetry 95 Oxygen Delivery Oxygen Flow Rate 02/12/23 12:00 02/12/23 12:00 02/12/23 14
[2023-02-12 17:00] LABS: Glucose Point of Care 165 mg/dl (65-105)
--- NOTE | 2023-02-12 17:15 | PC.NURSE ---
On 02/12/23, the student, [facility], provided care and completed [facility] documentation on this patient. I have reviewed the student's documentation and agree with the findings.
[2023-02-12 20:56] LABS: Glucose Point of Care 252 mg/dl (65-105)
[2023-02-13] VITALS (21 sets, daily range): BP systolic 95–115; BP diastolic 58–78; PULSE 82–113; RESP 18–20; TEMP 36.1–36.6; O2SAT 91–99
[2023-02-13] MEDS: METOPROLOL TARTRATE INJ 5 MG/5 ML VIAL IV PUSH (04:38)
[2023-02-13] MEDS: METOPROLOL SUCCINATE EXT REL 50 MG TABCR PO (07:16)
[2023-02-13 08:00] LABS: Glucose Point of Care 155 mg/dl (65-105)
--- NOTE | 2023-02-13 08:26 | PM.PNCARD ---
Progress Note: A&P Assessment and Plan (1) Atrial flutter with rapid ventricular response: Code(s): I48.92 - Unspecified atrial flutter Status: Acute Plan 77-year-old lady with: Ischemic heart disease with surgical revascularization mild systolic dysfunction and problematic atrial arrhythmias. Currently in persistent atrial flutter for something like 2-3 months at this time. She is hemodynamically not tolerating this for the [facility]. She has exhausted antiarrhythmic options and for this arrhythmia to be more effectively treated will require either an atrial flutter ablation or an AV node ablation with device implantation. We will try to slowly advance her metoprolol dosage and a for able to provide reasonable rate control and improve her symptoms she can be discharged and follow up with her hide curer. She does not have an appointment until April. If this cannot be achieved then inpatient inpatient transfer may be necessary to accomplish this in a more expedient fashion Pierre Nieto MD [facility] Subjective Date/time seen: Date of service: 02/13/23 08:26 Interval history: Follow-up visit in this 77-year-old lady with: History of coronary artery disease, previous bypass grafting and mild ischemic LV dysfunction. Patient has recurrent problematic/symptomatic atrial flutter with shortness of breath and hemodynamic decompensation. She has failed medical attempts at maintaining sinus rhythm as discussed in my partner's notes. We are attempting to provide rate control with higher doses of metoprolol. The patient is followed for her arrhythmias by electrophysiology at [place]. This morning she had some additional symptoms/recurrent symptoms of tachycardia some mild chest pain and palpitations. Received an extra dose of intravenous metoprolol feels better at this time. Exam Const: General: cooperative, healthy appearing and comfortable; No confusion Orientation/consciousness: oriented to person, patient oriented x3 and No confusion HENMT: Mouth: Yes moist mucous membranes Eyes: General: appearance normal, both eyes and all related structures EOM: EOMs intact bilaterally Neck: Neck: supple and no JVD Thyroid: thyroid normal Carotids: no bruits Resp: Effort & Inspection: normal respiratory effort Auscultation: rales (Rales in both bases) Cardio: Rate: regular rate and tachycardic Rhythm: regular rhythm and abnormal rhythm irregularly irregular Heart sounds: no murmurs GI: Inspection: normal to inspection Skin: General skin exam: normal color and no rashes or lesions noted Neuro: General: oriented to person, patient oriented x3 and No confusion Extrem: Right lower extremity: no edema Left lower extremity: no edema Other: Intact pedal pulses Psych: Appearance: grossly normal Mental Status: mental status grossly normal Objective Data Vital Signs Vital Signs: Vital Signs - 24 hr 02/12/23 08:39 02/12/23 08:39 02/12/23 09:34 Temperature Pulse Rate 111 H Respiratory Rate Blood Pressure 122/69 122/72 Pulse Oximetry Oxygen Delivery Oxygen Flow Rate 02/12/23 10:00 02/12/23 11:18 02/12/23 11:26 Temperature 36.9 C Pulse Rate 111 H 113 H 112 H Respiratory Rate 16 Blood Pressure 100/63 Pulse Oximetry 95 Oxygen Delivery Oxygen Flow Rate 02/12/23 12:00 02/12/23 12:00 02/12/23 14:00 Temperature Pulse Rate 111 H 86 Respiratory Rate Blood Pressure Pulse Oximetry 97 Oxygen Delivery Nasal Cannula Oxygen Flow Rate 2 02/12/23 16:00 02/12/23 16:00 02/12/23 16:00 Temperature 36.5 C Pulse Rate 83 74 Respiratory Rate 16 Blood Pressure 106/58 L Pulse Oximetry 98 98 Oxygen Delivery Nasal Cannula Oxygen Flow Rate 2 02/12/23 18:00 02/12/23 20:13 02/12/23 20:00 Temperature 36.1 C L Pulse Rate 80 89 Respiratory Rate 18 Blood Pressure 106/56 L Pulse Oximetry 97 97 Oxygen Delivery Nasal Cannul
[2023-02-13] MEDS: METOPROLOL SUCCINATE EXT REL 25 MG TABCR PO (08:39)
[2023-02-13] MEDS: CYANOCOBALAMIN 500 MCG TABLET PO (08:40)
[2023-02-13] MEDS: SACUBITRIL/VALSARTAN 24-26 MG TABLET 1 TAB PO ×2 (08:40→20:09)
[2023-02-13] MEDS: metFORMIN HCL 500 MG TABLET PO ×3 (08:40→17:33)
[2023-02-13] MEDS: ASPIRIN 81 MG CHEWABLE TABLET PO (08:40)
[2023-02-13] MEDS: EMPAGLIFLOZIN 25 MG TABLET BY MOUTH (08:41)
[2023-02-13] MEDS: PANTOPRAZOLE 40 MG TABLET PO (08:41)
[2023-02-13] MEDS: POTASSIUM CHLORIDE 10 MEQ ER TABLET PO (08:41)
[2023-02-13] MEDS: FUROSEMIDE 40 MG TABLET PO ×2 (08:41→17:33)
[2023-02-13] MEDS: FERROUS SULFATE 325 MG TABLET DR PO (08:41)
[2023-02-13] MEDS: ALPRAZolam (*CRX) 0.25 MG TABLET PO (08:41)
[2023-02-13] MEDS: APIXABAN 5 MG TABLET PO ×2 (08:41→20:09)
[2023-02-13 11:48] LABS: Glucose Point of Care 188 mg/dl (65-105)
--- NOTE | 2023-02-13 13:49 | PM.IMPN ---
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 was in 110's overnight. in addition to morning 50mg of metoprolol succinate cardiology has added another 25. she is now rate controlled. assess again tomorrow. 2) acute on chronic combined CHF w/ EF of 40% - follow cardiology recommendations. she received one time dose lasix, appears euvolemic now. CPM FEN: saline lock IV, fluid restriction GI prophylaxis: protonix DVT prophylaxis: eliquis Lines: pIV Code Status: Full code Dispo: pending home. Subjective Date/time seen: 02/13/23 13:49 Interval history: feeilng well, denies palpitations, chest pain, or sob Review of Systems Cardiovascular: Cardiovascular: Denies chest pain and Denies dyspnea Respiratory: Respiratory: Denies cough and Denies dyspnea Gastrointestinal: Gastrointestinal: Denies abdominal pain and Denies vomiting Exam Const: General: no acute distress, alert and Physically active Resp: Effort & Inspection: normal respiratory effort Auscultation: clear to auscultation bilaterally Cardio: Rate: regular rate Rhythm: regular rhythm Heart sounds: S1 normal heart sound present and S2 normal heart sound present GI: Inspection: non-distended GI Palp: No abdominal tenderness Auscultation: normal bowel sounds Extrem: Right upper extremity: no edema Objective Data Vital Signs Vital Signs: Vital Signs - 24 hr 02/12/23 14:00 02/12/23 16:00 02/12/23 16:00 Temperature Pulse Rate 86 83 Respiratory Rate Blood Pressure Pulse Oximetry 98 Oxygen Delivery Nasal Cannula Oxygen Flow Rate 2 Fraction of Inspired Oxygen 02/12/23 16:00 02/12/23 18:00 02/12/23 20:13 Temperature 97.7 F 97.0 F L Pulse Rate 74 80 89 Respiratory Rate 16 18 Blood Pressure 106/58 L 106/56 L Pulse Oximetry 98 97 Oxygen Delivery Oxygen Flow Rate Fraction of Inspired Oxygen 02/12/23 20:00 02/12/23 23:30 02/13/23 00:00 Temperature 97.5 F L Pulse Rate 99 Respiratory Rate 18 Blood Pressure 103/57 L Pulse Oximetry 97 98 98 Oxygen Delivery Nasal Cannula Nasal Cannula Oxygen Flow Rate 2 2 Fraction of Inspired Oxygen 02/12/23 20:00 02/12/23 22:00 02/13/23 00:00 Temperature Pulse Rate 88 96 94 Respiratory Rate Blood Pressure Pulse Oximetry Oxygen Delivery Oxygen Flow Rate Fraction of Inspired Oxygen 02/13/23 04:19 02/13/23 04:38 02/13/23 04:00 Temperature 97.8 F Pulse Rate 113 H 113 H Respiratory Rate 18 Blood Pressure 115/68 Pulse Oximetry 98 98 Oxygen Delivery Nasal Cannula Oxygen Flow Rate 2 Fraction of Inspired Oxygen 02/13/23 02:00 02/13/23 04:00 02/13/23 05:52 Temperature Pulse Rate 89 103 H 90 Respiratory Rate Blood Pressure Pulse Oximetry Oxygen Delivery Oxygen Flow Rate Fraction of Inspired Oxygen 02/13/23 07:04 02/13/23 07:16 02/13/23 07:32 Temperature 97.2 F L Pulse Rate 103 H 113 H Respiratory Rate 18 Blood Pressure 112/65 100/63 Pulse Oximetry 91 Oxygen Delivery Oxygen Flow Rate Fraction of Inspired Oxygen 02/13/23 08:39 02/13/23 08:44 02/13/23 08:00 Temperature Pulse Rate 100 Respiratory Rate Blood Pressure Pulse Oximetry 93 99 Oxygen Delivery Nasal Cannula Nasal Cannula Oxygen Flow Rate 2 2 Fraction of Inspired Oxygen 28 02/13/23 08:00 02/13/23 10:00 02/13/23 11:52 Temperature 97.7 F Pulse Rate 111 H 91 82 Respirato
[2023-02-13 17:56] LABS: Glucose Point of Care 177 mg/dl (65-105)
--- NOTE | 2023-02-13 18:17 | PC.NURSE ---
This patient, Fina Adair, was transferred to [ 242] on 02/13/23 at 1815. Personal belongings sent with patient. Report given to [ BA Ortiz]. Appropriate documentation sent with patient.
[2023-02-13 20:50] LABS: Glucose Point of Care 177 mg/dl (65-105)
[2023-02-13] MEDS: ACETAMINOPHEN 500 MG TABLET 1000 MG PO (21:23)
[2023-02-14] VITALS (8 sets, daily range): BP systolic 104–108; BP diastolic 59–60; PULSE 84–111; RESP 14–20; TEMP 36.1–36.4; O2SAT 96–100; BMI 24.7
[2023-02-14 05:56] LABS: Hematocrit 41.7 % (37.0-47.0); Hemoglobin 13.5 g/dL (12.0-15.0); Mean Corpuscular HGB Conc 32.4 g/dl (32-36); Mean Corpuscular Hemoglobin 30.1 pg (26-34); Mean Corpuscular Volume 93.1 fl (80-100); Mean Platelet Volume 11.3 fl (7.4-10.4); Platelet Count Result 229 k/mm3 (150-375); Red Blood Count 4.48 M/mm3 (4.2-5.4); Red Cell Distribution Width 13.2 % (11.5-14.5); White Blood Count 8.3 K/mm3 (4.5-10.0)
[2023-02-14 06:04] LABS: Anion Gap 10 mmol/L (8-16); Blood Urea Nitrogen 24 mg/dL (7-17); Calcium 9.1 mg/dL (8.4-10.2); Carbon Dioxide 28 mmol/L (22-30); Chloride 98 mmol/L (98-107); Estimated CRCL calculation 39 ml/min; Estimated Glomerular Filt Rate > 60; Glucose 149 mg/dL (65-110); Magnesium 2.3 mg/dL (1.6-2.3); Potassium 3.7 mmol/L (3.4-5.0); Sodium 136 mmol/L (137-145)
[2023-02-14 08:00] LABS: Glucose Point of Care 154 mg/dl (65-105)
--- NOTE | 2023-02-14 08:51 | PM.PNCARD ---
Progress Note: A&P Assessment and Plan (1) Atrial flutter with rapid ventricular response: Code(s): I48.92 - Unspecified atrial flutter Status: Acute Assessment and Plan: Her heart rate is reasonably controlled at current dosage of metoprolol. Continue metoprolol succinate 50 mg daily. Blood pressure also seems to be tolerating. Continue Eliquis. DC home later today or tomorrow (2) Acute on chronic combined systolic and diastolic CHF (congestive heart failure): Code(s): I50.43 - Acute on chronic combined systolic (congestive) and diastolic (congestive) heart failure Status: Acute Assessment and Plan: Continue Entresto, furosemide and other CHF regimen (3) Chronic anticoagulation: Code(s): Z79.01 - intermediate (current) use of anticoagulants Status: Acute Assessment and Plan: On Eliquis Subjective Date/time seen: 02/14/23 08:51 Interval history: 77-year-old with recurrent atrial flutter with rapid ventricular response. Date of service 02/14/2023: Feels okay today. No chest pain or shortness of breath. Heart rate is reasonably controlled Review of Systems Constitutional: Constitutional: Denies fever(s) Eyes: Eyes: Reports no additional eye complaints ENT: Denies epistaxis Cardiovascular: Cardiovascular: Denies chest pain, Denies pedal edema, Denies lightheadedness, Reports dyspnea and Reports dyspnea on exertion Respiratory: Respiratory: Denies chest congestion, Reports dyspnea and Reports dyspnea on exertion Gastrointestinal: Gastrointestinal: Denies abdominal pain and Denies hematochezia Genitourinary: Genitourinary: Denies hematuria Musculoskeletal: Musculoskeletal: Reports no additional musculoskeletal complaints Integumentary/Breasts: Skin/Breast: Reports system reviewed and no additional complaints, except as docu Neurologic: Reports system reviewed and no additional complaints, except as documented, Denies behavioral changes and Denies confusion Psychiatric: Psychiatric: Denies behavioral changes and Denies confusion Exam Const: General: cooperative, healthy appearing and comfortable; No confusion Orientation/consciousness: oriented to person, patient oriented x3 and No confusion HENMT: Mouth: Yes moist mucous membranes Eyes: General: appearance normal, both eyes and all related structures EOM: EOMs intact bilaterally Neck: Neck: supple and no JVD Thyroid: thyroid normal Carotids: no bruits Resp: Effort & Inspection: normal respiratory effort Auscultation: rales (Rales in both bases) Cardio: Rate: regular rate Rhythm: abnormal rhythm irregularly irregular Heart sounds: no murmurs GI: Inspection: normal to inspection Skin: General skin exam: normal color and no rashes or lesions noted Neuro: General: oriented to person, patient oriented x3 and No confusion Extrem: Right lower extremity: no edema Left lower extremity: no edema Other: Intact pedal pulses Psych: Appearance: grossly normal Mental Status: mental status grossly normal Objective Data Vital Signs Vital Signs: Vital Signs - 24 hr 02/13/23 10:00 02/13/23 11:52 02/13/23 12:00 Temperature 36.5 C Pulse Rate 91 82 Respiratory Rate 18 Blood Pressure 95/65 L Pulse Oximetry 98 98 Oxygen Delivery Nasal Cannula Oxygen Flow Rate 2 02/13/23 12:00 02/13/23 16:00 02/13/23 16:00 Temperature 36.3 C L Pulse Rate 88 82 82 Respiratory Rate 18 Blood Pressure 103/58 L Pulse Oximetry 98 Oxygen Delivery Oxygen Flow Rate 02/13/23 18:24 02/13/23 19:47 02/13/23 20:20 Temperature 36.4 C L 36.1 C L Pulse Rate 86 110 H Respiratory Rate 18 18 Blood Pressure 106/64 113/68 Pulse Oximetry 94 94 98 Oxygen Delivery Nasal Cannula Oxygen Flow Rate 2 02/13/23 20:01 02/13/23 23:52 02/14/23 00:04 Temperature 36.1 C L Pulse Rate 109 H 82 111 H Respiratory Rate 20 Blood Pressure 115/78 Pulse Oximetry 94 Oxygen Deliver
--- NOTE | 2023-02-14 09:36 | PM.DS ---
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 Cardiology was consulted, her metoprolol succinate was increased from 25mg qday to 50mg qday with good control of HR. She is stable for discharge to home. F/u with cardiology and PCP. Time Spent with Patient Time attestation: Total time spent providing and/or coordinating discharge services: Exam Const: General: cooperative and no acute distress Resp: Effort & Inspection: normal respiratory effort Auscultation: clear to auscultation bilaterally Cardio: Rate: regular rate Rhythm: regular rhythm Heart sounds: S1 normal heart sound present and S2 normal heart sound present GI: GI Palp: No abdominal tenderness Auscultation: normal bowel sounds DS: Data Data Completed and Pending Labs on day of discharge: Labs from last 24 hours 02/14/23 02/14/23 02/13/23 07:57 05:22 19:56 WBC 8.3 RBC 4.48 Hgb 13.5 Hct 41.7 MCV 93.1 MCH 30.1 MCHC 32.4 RDW 13.2 Plt Count 229 MPV 11.3 H Sodium 136 L Potassium 3.7 Chloride 98 Carbon Dioxide 28 Anion Gap 10 BUN 24 H Creatinine 0.80 Estim Creat Clear Calc 39 Estimated GFR > 60 Glucose 149 H POC Capillary Glucose 154 H 177 H Calcium 9.1 Magnesium 2.3 02/13/23 02/13/23 16:16 11:43 WBC RBC Hgb Hct MCV MCH MCHC RDW Plt Count MPV Sodium Potassium Chloride Carbon Dioxide Anion Gap BUN Creatinine Estim Creat Clear Calc Estimated GFR Glucose POC Capillary Glucose 177 H 188 H Calcium Magnesium Discharge Plan Discharge Attending physician on discharge: Vashti Mojica Consulting providers: David Chopra; Terri Wadsworth Discharging Clinician: Vashti Mojica Patient Disposition: Home, Self-Care Activity: may shower Diet: heart healthy Patient Instructions: Apixaban (By mouth), Safe Use of Anticoagulants (GEN), Blood Thinners (GEN) Stand Alone Forms: General Discharge Information Follow-up/Referrals: Ayden Gardner MD [Primary Care Provider] - Terri Wadsworth MD [Physician] - Discharge Medications: New metoprolol succinate 50 mg Tablet Extended Release 24 Hr 50 mg PO QAM 90 Days Qty: 90 1RF Continued Farxiga 10 mg tablet 10 mg PO DAILY Qty: 90 0RF furosemide 40 mg tablet 40 mg PO BID potassium chloride 10 mEq capsule, extended release 10 meq PO DAILY Qty: 90 2RF Rx Instructions: with food cyanocobalamin (vitamin B-12) [Vitamin B-12] 500 mcg Tablet 500 mcg PO DAILY calcium carbonate-vit D3-min 600 mg calcium- 400 unit Tablet 1 tablet PO BID aspirin [Children's Aspirin] 81 mg Tablet,Chewable 81 mg PO DAILY@0800 Qty: 0 0RF Entresto 24-26 mg tablet 1 tablet PO Q12HR Qty: 60 0RF metformin 500 mg tablet 500 mg PO TID ferrous sulfate [FeroSul] 325 mg (65 mg iron) tablet See Rx Instructions .ROUTE .COMPLEX Rx Instructions: 325 mg orally every other day alprazolam [Xanax] 0.25 mg tablet 0.25 mg PO BID PRN (Reason: anxiety) Rx Instructions: Patient states she takes this QAM, and PRN at HS meclizine 25 mg tablet 25 mg PO TID PRN (Reason: dizziness) Qty: 60 0RF gabapentin 100 mg capsule 100 mg PO Q8H PRN (Reason: nerve pain) Qty: 90 0RF (DME) lancets [One
[2023-02-14] MEDS: ASPIRIN 81 MG CHEWABLE TABLET PO (10:09)
[2023-02-14] MEDS: SACUBITRIL/VALSARTAN 24-26 MG TABLET 1 TAB PO (10:09)
[2023-02-14] MEDS: CYANOCOBALAMIN 500 MCG TABLET PO (10:19)
[2023-02-14] MEDS: METOPROLOL SUCCINATE EXT REL 50 MG TABCR PO (10:19)
[2023-02-14] MEDS: APIXABAN 5 MG TABLET PO (10:20)
[2023-02-14] MEDS: EMPAGLIFLOZIN 25 MG TABLET BY MOUTH (10:20)
[2023-02-14] MEDS: FERROUS SULFATE 325 MG TABLET DR PO (10:20)
[2023-02-14] MEDS: ALPRAZolam (*CRX) 0.25 MG TABLET PO (10:20)
[2023-02-14] MEDS: metFORMIN HCL 500 MG TABLET PO ×2 (10:20→12:28)
[2023-02-14] MEDS: PANTOPRAZOLE 40 MG TABLET PO (10:20)
[2023-02-14] MEDS: POTASSIUM CHLORIDE 10 MEQ ER TABLET PO (10:20)
[2023-02-14] MEDS: FUROSEMIDE 40 MG TABLET PO (10:20)
[2023-02-14 12:22] LABS: Glucose Point of Care 219 mg/dl (65-105)
[2023-02-14] MEDS: INSULIN ASPART (*BKC) 100 UNITS/ML SUB-Q (12:29)
== END 2023-02-14 13:20 | disposition home or self-care (01) | DRG 309 ==
LOC: ANHED 16:02 → ANHIMU 18:30 → ANH2MED 02-13 18:09
PROVIDERS: Internal Medicine Cardiovascular Disease; Student in an Organized Health Care Education/Training Program; Admitting Provider Internal Medicine; Emergency Provider Emergency Medicine; PCP Family Medicine; Visit Provider General Practice
DX: I48.92 Unspecified atrial flutter (principal); I50.42 Chronic combined systolic (congestive) and diastolic (congestive) heart failure; I48.0 Paroxysmal atrial fibrillation; I11.0 Hypertensive heart disease with heart failure; R55 Syncope and collapse; E11.42 Type 2 diabetes mellitus with diabetic polyneuropathy; I25.10 Atherosclerotic heart disease of native coronary artery without angina pectoris; K21.9 Gastro-esophageal reflux disease without esophagitis; I25.5 Ischemic cardiomyopathy; E53.8 Deficiency of other specified B group vitamins; E78.5 Hyperlipidemia, unspecified; Z79.01 Long term (current) use of anticoagulants; Z86.79 Personal history of other diseases of the circulatory system; Z95.1 Presence of aortocoronary bypass graft; Z79.82 Long term (current) use of aspirin
CPT/HCPCS: 36415; 71046; 80048; 80053; 82948; 83036; 83690; 83735; 83880; 84443; 84484; 85025; 85027; 85610; 85730; 93005; 96360; 96374; 96375; 96376; 99285; A9270; G0378; J1815; J1940; J7040

== ENCOUNTER 2023-02-19 11:31 | Emergency (ER) | payer MEDICARE, SELFPAY ==
[2023-02-19] VITALS (18 sets, daily range): BP systolic 95–131; BP diastolic 65–96; PULSE 89–111; RESP 15–24; TEMP 36.4; O2SAT 91–98
--- NOTE | ~2023-02-19 | XR_ITS ---
Clinical Indication: Shortness of breath AP and lateral views of the chest: Comparison: 02/11/2023 Findings: The lungs are clear, without evidence of focal consolidation or pleural effusion. Cardiome diastinal silhouette is stable, status post probable CABG. Bones and soft tissues are unremarkable. Impression: Clear lungs. Reviewed, dictated and finalized at location . Impression: Clear lungs.
--- NOTE | 2023-02-19 11:40 | ECG_ITS ---
Measurements Intervals [place] Rate: 120 P: NM: 0 QRS: -37 QRSD: 125 T: 76 QT: 352 QTc: 499 Interpretive Statements ATRIAL FIBRILLATION WITH RAPID VENTRICULAR RESPONSE LEFT AXIS DEVIATION LEFT BUNDLE BRANCH BLOCK ABNORMAL ECG COMPARED TO ECG 02/11/2023 14:30:50 ATRIAL FIBRILLATION NOW PRESENT Electronically Signed On 02-19-2023 13:19:36 CDT by Martínez Steinberg D.O.
[2023-02-19 12:06] LABS: Basophils Absolute Auto 0.1 K/mm3 (0.0-0.1); Basophils Percent Auto 0.5 % (0.2-1.2); Eosinophils Absolute Auto 0.1 K/mm3 (0-0.3); Eosinophils Percent Auto 1.1 % (0-4.4); Hematocrit 36.7 % (37.0-47.0); Hemoglobin 12.1 g/dL (12.0-15.0); Immature Granulocyte Absolute 0.04 K/mm3 (0.00-0.031); Immature Granulocyte Percent A 0.4 % (0-0.5); Lymphocytes Absolute Auto 1.47 K/mm3 (0.9-3.2); Lymphocytes Percent Auto 15.2 % (18.3-44.2); Mean Corpuscular Hemoglobin 30.3 pg (26-34); Mean Corpuscular Volume 91.8 fl (80-100); Mean Platelet Volume 11.3 fl (7.4-10.4); Monocytes Absolute Auto 0.5 K/mm3 (0.1-0.6); Monocytes Percent Auto 5.6 % (2.6-8.5); Neutrophils Absolute Auto 7.5 K/mm3 (1.3-6.7); Neutrophils Percent Auto 77.2 % (45.5-73.1); Platelet Count Result 252 k/mm3 (150-375); Red Cell Distribution Width 13.5 % (11.5-14.5); White Blood Count 9.7 K/mm3 (4.5-10.0)
[2023-02-19 12:19] LABS: Albumin Level 4.1 g/dL (3.5-5.1); Alkaline Phosphatase 115 U/L (38-126); Anion Gap 12 mmol/L (8-16); Aspartate Amino Transferase 40 U/L (14-36); Bilirubin,Total 0.9 mg/dL (0.2-1.3); Blood Urea Nitrogen 17 mg/dL (7-17); Carbon Dioxide 20 mmol/L (22-30); Chloride 102 mmol/L (98-107); Estimated CRCL calculation 44 ml/min; Estimated Glomerular Filt Rate > 60; Glucose 350 mg/dL (65-110); Potassium 3.6 mmol/L (3.4-5.0); Sodium 134 mmol/L (137-145)
[2023-02-19 12:27] LABS: Alanine Aminotransferase 65 U/L (6-35)
--- NOTE | 2023-02-19 13:14 | ED.SOB ---
HPI - SOB/Dyspnea General Chief Complaint: Shortness of Breath/Dyspnea Stated Complaint: sob, light headed Time Seen by Provider: 02/19/23 12:37 History of Present Illness HPI Narrative: Patient is a 77-year-old female with a history of A-fib on Eliquis presenting with shortness of breath. Patient states that she is a patient of Dr. Mcintyre's. She had an ablation sometime last year for A-fib which seem to help. States that unfortunately over the last several months her A-fib has been acting up again. She was recently hospitalized here and had some medication changes. States that she continues to have exertional dyspnea as well as lightheadedness. She was advised to come to the ER for stabilization and then likely transfer to [facility]. [facility] She denies chest pain, leg swelling, fevers or chills, cough. Denies other concerns or symptoms. Related Data Home Medications Medication Instructions Recorded Confirmed cyanocobalamin (vitamin B-12) 500 500 mcg PO DAILY 01/03/21 02/11/23 mcg tablet (Vitamin B-12) furosemide 40 mg tablet 40 mg PO BID 12/11/21 02/11/23 metformin 500 mg tablet 500 mg PO TID 08/22/22 02/11/23 calcium carb-vit D3-minerals 600 1 tablet PO BID 09/01/22 02/11/23 mg calcium-400 unit tablet alprazolam 0.25 mg tablet (Xanax) 0.25 mg PO BID PRN anxiety 02/11/23 02/11/23 ferrous sulfate 325 mg (65 mg See Rx Instructions .Route .COMPLEX 02/11/23 02/11/23 iron) tablet (FeroSul) Allergies Allergy/AdvReac Type Severity Reaction Status Date / Time Sulfa (Sulfonamide Allergy Intermediate Difficulty Verified 11/11/22 09:49 Antibiotics) Breathing atorvastatin [From Lipitor] AdvReac Severe Swelling / Verified 11/11/22 09:49 painful legs / hard to walk codeine AdvReac Mild Gastrointestinal Verified 11/11/22 09:49 Upset Review of Systems Review of Systems: All systems reviewed & are unremarkable except as noted in HPI and below PMFSH Past Medical History Medical History Anxiety Chronic anticoagulation Chronic GERD Combined systolic and diastolic congestive heart failure Coronary artery disease Ischemic cardiomyopathy Mild asthma Paroxysmal atrial fibrillation Paroxysmal atrial flutter Type 2 diabetes mellitus Vertigo Vitamin B12 deficiency Surgical History Surgical History History of hysterectomy History of three vessel coronary artery bypass (2016) Family History Family History Sibling Family history of chronic obstructive pulmonary disease Father Family history of diabetes mellitus in first degree relative Family history of heart disease in male family member before age 55 Diabetes mellitus Family history of cardiovascular disease Mother Family history of lung cancer Social History Social History Social History: Lives at home alone. . Surrogate decision maker: Madhavi Weems, daughter. Code status: Full Code. Smoking status: Never smoker Second hand tobacco smoke exposure: No Alcohol intake: never Substance use: never Substance use type: does not use Lack of Transportation: No Lack of Food: Never True Current Housing: I Have Housing Concerned About Future Housing: No Difficulty Paying Gas/Electric Bills: No Difficulty Paying for Meds: No Currently Unemployed: No Education: High School Diploma/GED Difficulty w/ Childcare or Family Care: No Living arrangements: alone Occupation/Education: retired Spiritual care concerns: No Exam Narrative: GENERAL: Well-appearing and in no acute distress. HEAD: Normocephalic, atraumatic. EYES: PERRLA and EOMI. ENT: Grossly unremarkable NECK: Supple. CHEST: Clear to auscultation. No respirator
--- NOTE | 2023-02-19 13:58 | PC.NURSE ---
notified ER yard labor supervisor of re-draw blue top
[2023-02-19 14:09] LABS: Troponin I < 0.012 ng/mL (0.000-0.034)
[2023-02-19] MEDS: SODIUM CHLORIDE 0.9% IV 1,000 ML 999 ML IV CONT (14:10)
[2023-02-19 14:13] LABS: Magnesium 2.4 mg/dL (1.6-2.3)
[2023-02-19 14:28] LABS: INR 1.1; Prothrombin Time 15.2 Seconds (11.1-14.7)
[2023-02-19 14:29] LABS: Partial Thromboplastin Time 31.1 SECONDS (22.3-36.8)
[2023-02-19 14:55] LABS: SARS-CoV-2 RNA PCR Negative (Negative)
--- NOTE | 2023-02-19 19:58 | PC.NURSE ---
At this moment, we are still waiting for Andreas cardiology ep to call back. Transfer line states they have paged the provider multiple times and messaged the provider. Transfer line stated they paged the provider again 30 minutes ago (1929). The provider the transfer line and us are trying to get ahold of is Dr. Barney. We first called the transfer line around 1500 (estimated by Dr. Musa)
== END 2023-02-19 21:45 | disposition home or self-care (01) ==
PROVIDERS: Emergency Medicine; Emergency Provider Emergency Medicine; PCP Family Medicine
DX: R06.00 Dyspnea, unspecified (principal); I48.0 Paroxysmal atrial fibrillation; Z20.822 Contact with and (suspected) exposure to COVID-19; I48.92 Unspecified atrial flutter; I50.40 Unspecified combined systolic (congestive) and diastolic (congestive) heart failure; I25.10 Atherosclerotic heart disease of native coronary artery without angina pectoris; I25.5 Ischemic cardiomyopathy; J45.909 Unspecified asthma, uncomplicated; E53.8 Deficiency of other specified B group vitamins; K21.9 Gastro-esophageal reflux disease without esophagitis; Z95.1 Presence of aortocoronary bypass graft; Z90.710 Acquired absence of both cervix and uterus; Z79.01 Long term (current) use of anticoagulants; I44.7 Left bundle-branch block, unspecified
CPT/HCPCS: 36415; 71046; 80053; 83735; 84484; 85025; 85610; 85730; 87635; 93005; 96360; 96361; 99284; J7030

== ENCOUNTER 2023-03-11 08:20 | Outpatient (CLI) | payer MEDICARE, SELFPAY ==
[2023-03-11 08:59] LABS: Basophils Percent Auto 0.7 % (0.2-1.2); Eosinophils Absolute Auto 0.2 K/mm3 (0-0.3); Eosinophils Percent Auto 3.2 % (0-4.4); Hematocrit 41.6 % (37.0-47.0); Hemoglobin 13.2 g/dL (12.0-15.0); Immature Granulocyte Absolute 0.02 K/mm3 (0.00-0.031); Immature Granulocyte Percent A 0.4 % (0-0.5); Lymphocytes Absolute Auto 1.77 K/mm3 (0.9-3.2); Lymphocytes Percent Auto 31.1 % (18.3-44.2); Mean Corpuscular HGB Conc 31.7 g/dl (32-36); Mean Corpuscular Hemoglobin 29.7 pg (26-34); Mean Corpuscular Volume 93.7 fl (80-100); Mean Platelet Volume 11.5 fl (7.4-10.4); Monocytes Absolute Auto 0.4 K/mm3 (0.1-0.6); Neutrophils Absolute Auto 3.3 K/mm3 (1.3-6.7); Neutrophils Percent Auto 57.6 % (45.5-73.1); Platelet Count Result 217 k/mm3 (150-375); Red Blood Count 4.44 M/mm3 (4.2-5.4); Red Cell Distribution Width 13.5 % (11.5-14.5); White Blood Count 5.7 K/mm3 (4.5-10.0)
[2023-03-11 09:01] LABS: Appearance Urine Clear (Clear); Bilirubin Urine Negative (Negative); Blood Urine Negative (Negative); Color Urine Yellow (Yellow); Glucose Urine UA 3+ mg/dL (Negative); Ketones Urine Trace mg/dL (Negative); Leukocyte Esterase Ur Negative LEU/UL (NEGATIVE); Nitrate Urine Negative (Negative); Protein Urine Negative (Negative); Specific Grav Ur 1.027 (1.001-1.035); Urobilinogen Urine 0.2 mg/dL (<2.0)
[2023-03-11 09:05] LABS: Add Urine Microscopic? NO
[2023-03-11 09:09] LABS: Hemoglobin A1C 7.9 % (<5.7)
[2023-03-11 09:11] LABS: Alanine Aminotransferase 23 U/L (6-35); Albumin Level 4.3 g/dL (3.5-5.1); Alkaline Phosphatase 91 U/L (38-126); Anion Gap 8 mmol/L (8-16); Aspartate Amino Transferase 23 U/L (14-36); Blood Urea Nitrogen 19 mg/dL (7-17); Calcium 9.1 mg/dL (8.4-10.2); Carbon Dioxide 27 mmol/L (22-30); Chloride 100 mmol/L (98-107); Cholesterol 251 mg/dL (0-200); Estimated Glomerular Filt Rate > 60; Glucose 205 mg/dL (65-110); HDL Direct 59 mg/dL; Potassium 4.2 mmol/L (3.4-5.0); Sodium 135 mmol/L (137-145); Triglycerides 192 mg/dL (<150)
[2023-03-11 09:22] LABS: LDL Cholesterol Direct 138 mg/dL
[2023-03-11 09:26] LABS: Creatinine Urine 129.2 mg/dL
[2023-03-11 09:31] LABS: MALB Creatinine Ratio 8.3 mg/g (0-30); Microalbumin Urine Random 10.7 mg/L (0-16.7)
[2023-03-11 10:17] LABS: Folic Acid 12.1 ng/mL (2.76->20)
== END 2023-03-11 08:21 | disposition home or self-care (01) ==
PROVIDERS: PCP Family Medicine; Visit Provider Physician Assistant
DX: E53.8 Deficiency of other specified B group vitamins (principal); I50.20 Unspecified systolic (congestive) heart failure; I11.0 Hypertensive heart disease with heart failure; E11.65 Type 2 diabetes mellitus with hyperglycemia; I25.10 Atherosclerotic heart disease of native coronary artery without angina pectoris
CPT/HCPCS: 36415; 80053; 80061; 81003; 82043; 82607; 82746; 83036; 84443; 85025

== ENCOUNTER 2023-05-03 05:53 | Emergency (ER) | payer MEDICARE, SELFPAY ==
[2023-05-03] VITALS (24 sets, daily range): BP systolic 100–116; BP diastolic 63–79; PULSE 96–100; RESP 14–20; O2SAT 92–99
--- NOTE | ~2023-05-03 | XR_ITS ---
EXAMINATION: XR chest 2V DATE: 05/03/2023 08:03 INDICATION: Chest pain TECHNIQUE: frontal and lateral views of the chest were obtained. COMPARISON: Chest radiograph dated 02/19/23 FINDINGS: Mild streaky bibasilar atelectasis. No other airspace opacities, pulmonary edema, pleural effusion or pneumothorax. Cardiomegaly. Median sternotomy wires, ostial markers and mediastinal surgical clips c onsistent with prior coronary artery bypass grafting. Mild thoracolumbar levocurvature with moderate spondylosis. IMPRESSION: 1. Mild streaky bibasilar atelectasis. No acute cardiopulmonary disease. 2. Cardiomegaly. Reviewed, dictated and finalized at location A. [employer]
--- NOTE | 2023-05-03 06:01 | ECG_ITS ---
Measurements Intervals [place] Rate: 97 P: OR: 0 QRS: -46 QRSD: 128 T: 129 QT: 401 QTc: 511 Interpretive Statements PROBABLE SINUS RHYTHM LEFT AXIS DEVIATION LEFT BUNDLE BRANCH BLOCK ABNORMAL ECG COMPARED TO ECG 02/19/2023 11:48:31 SINUS RHYTHM HAS REPLACED ATRIAL FIBRILLATION Electronically Signed On 05-03-2023 12:03:57 SLOT HOST by Power Brito M.D.
[2023-05-03] MEDS: ONDANSETRON INJ 4 MG/2 ML VIAL IV PUSH (06:47)
[2023-05-03 06:57] LABS: Basophils Percent Auto 0.3 % (0.2-1.2); Eosinophils Absolute Auto 0.1 K/mm3 (0-0.3); Eosinophils Percent Auto 0.6 % (0-4.4); Hematocrit 44.7 % (37.0-47.0); Hemoglobin 14.8 g/dL (12.0-15.0); Immature Granulocyte Absolute 0.06 K/mm3 (0.00-0.031); Immature Granulocyte Percent A 0.6 % (0-0.5); Lymphocytes Absolute Auto 1.35 K/mm3 (0.9-3.2); Lymphocytes Percent Auto 13.9 % (18.3-44.2); Mean Corpuscular HGB Conc 33.1 g/dl (32-36); Mean Corpuscular Hemoglobin 29.2 pg (26-34); Mean Corpuscular Volume 88.3 fl (80-100); Mean Platelet Volume 11.7 fl (7.4-10.4); Monocytes Absolute Auto 0.4 K/mm3 (0.1-0.6); Monocytes Percent Auto 4.1 % (2.6-8.5); Neutrophils Absolute Auto 7.8 K/mm3 (1.3-6.7); Neutrophils Percent Auto 80.5 % (45.5-73.1); Platelet Count Result 185 k/mm3 (150-375); Red Blood Count 5.06 M/mm3 (4.2-5.4); Red Cell Distribution Width 13.5 % (11.5-14.5); White Blood Count 9.7 K/mm3 (4.5-10.0)
[2023-05-03 07:10] LABS: Alanine Aminotransferase 21 U/L (6-35); Albumin Level 4.4 g/dL (3.5-5.1); Alkaline Phosphatase 86 U/L (38-126); Anion Gap 13 mmol/L (8-16); Aspartate Amino Transferase 28 U/L (14-36); Blood Urea Nitrogen 21 mg/dL (7-17); Calcium 9.3 mg/dL (8.4-10.2); Carbon Dioxide 21 mmol/L (22-30); Chloride 102 mmol/L (98-107); Estimated CRCL calculation 50 ml/min; Estimated Glomerular Filt Rate > 60; Glucose 245 mg/dL (65-110); Potassium 4.1 mmol/L (3.4-5.0); Sodium 136 mmol/L (137-145)
--- NOTE | 2023-05-03 07:33 | ED.GENADULT ---
HPI - General Adult General Chief complaint: Dizziness Stated complaint: LIGHTHEADEDNESS, DIZZY, h/o VERTIGO Time Seen by Provider: 05/03/23 07:07 Source: patient, family, EMS, RN notes reviewed and old records reviewed Mode of arrival: EMS Limitations: no limitations History of Present Illness HPI narrative: This is an 78 year old female with history of vertigo, afib, chronic anticoagulation who presents for evaluation of vertigo. Patient states she woke up at 2 am this morning with vertigo and nausea. She states she was spinning and it was worse with movement. She took an old prescription of Zofran and meclizine. She did not feel relief at that time so she became worked up per her daughter. Patient then developed left chest pain and left hand pain. She took Xanax and they called 911. Patient states that all of her symptoms have resolved now. She denies headache, vertigo, nausea, vomiting, chest pain or shortness of breath. Related Data Home Medications Medication Instructions Recorded Confirmed cyanocobalamin (vitamin B-12) 500 500 mcg PO DAILY 01/03/21 02/11/23 mcg tablet (Vitamin B-12) furosemide 40 mg tablet 40 mg PO BID 12/11/21 02/11/23 calcium carb-vit D3-minerals 600 1 tablet PO BID 09/01/22 02/11/23 mg calcium-400 unit tablet spironolactone 25 mg tablet 25 mg PO DAILY 03/17/23 Allergies Allergy/AdvReac Type Severity Reaction Status Date / Time Sulfa (Sulfonamide Allergy Intermediate Difficulty Verified 03/17/23 10:29 Antibiotics) Breathing atorvastatin [From Lipitor] AdvReac Severe Swelling / Verified 03/17/23 10:29 painful legs / hard to walk codeine AdvReac Mild Gastrointestinal Verified 03/17/23 10:29 Upset Review of Systems Constitutional: Constitutional: Denies weakness Cardiovascular: Cardiovascular: Denies syncope, Denies rapid heart rate, Denies irregular heart rhythm, Denies leg edema and Denies dyspnea Respiratory: Respiratory: Denies chest congestion, Denies hemoptysis, Denies excessive phlegm production and Denies dyspnea Gastrointestinal: Gastrointestinal: Denies abdominal pain, Denies hematochezia, Denies diarrhea, Reports nausea and Denies vomiting Genitourinary: Genitourinary: Denies hematuria and Denies dysuria Musculoskeletal: Musculoskeletal: Denies joint swelling, Denies loss of height and Denies muscle weakness Neurologic: Reports dizziness, Denies syncope, Reports headache(s), Denies focal weakness and Denies weakness PMFSH Past Medical History Medical History Anxiety Chronic anticoagulation Chronic GERD Combined systolic and diastolic congestive heart failure Coronary artery disease Ischemic cardiomyopathy Mild asthma Paroxysmal atrial fibrillation Paroxysmal atrial flutter Type 2 diabetes mellitus Vertigo Vitamin B12 deficiency Surgical History Surgical History History of hysterectomy History of three vessel coronary artery bypass (2016) Family History Family History Sibling Family history of chronic obstructive pulmonary disease Father Family history of diabetes mellitus in first degree relative Family history of heart disease in male family member before age 55 Diabetes mellitus Family history of cardiovascular disease Mother Family history of lung cancer Social History Social History Social History: Lives at home alone. . Surrogate decision maker: Madhavi Weems, daughter. Code status: Full Code. Smoking status: Never smoker Second hand tobacco smoke exposure: No Alcohol intake: never Substance use: never Substance use type: does not use Lack of Transportation: No Lack of Food: Never True Current Housing: I Have Housing Concerned About Future Housing: No Difficulty Payin
[2023-05-03 08:14] LABS: Lipase 58 U/L (23-300)
[2023-05-03 08:26] LABS: Troponin I < 0.012 ng/mL (0.000-0.034)
[2023-05-03 08:49] LABS: INR 1.1
[2023-05-03 08:50] LABS: Partial Thromboplastin Time 25.7 SECONDS (22.3-36.8)
[2023-05-03 10:54] LABS: Troponin I < 0.012 ng/mL (0.000-0.034)
== END 2023-05-03 11:30 | disposition home or self-care (01) ==
PROVIDERS: Emergency Medicine; Emergency Provider General Practice; PCP Family Medicine
DX: R42 Dizziness and giddiness (principal); I48.0 Paroxysmal atrial fibrillation; I48.92 Unspecified atrial flutter; I50.40 Unspecified combined systolic (congestive) and diastolic (congestive) heart failure; I25.10 Atherosclerotic heart disease of native coronary artery without angina pectoris; I25.5 Ischemic cardiomyopathy; J45.909 Unspecified asthma, uncomplicated; E53.8 Deficiency of other specified B group vitamins; K21.9 Gastro-esophageal reflux disease without esophagitis; Z95.1 Presence of aortocoronary bypass graft; Z90.710 Acquired absence of both cervix and uterus; Z79.01 Long term (current) use of anticoagulants; Z79.82 Long term (current) use of aspirin; I51.7 Cardiomegaly; I44.7 Left bundle-branch block, unspecified
CPT/HCPCS: 36415; 71046; 80053; 83690; 84484; 85025; 85610; 85730; 93005; 96374; 99284; J2405

== ENCOUNTER 2023-06-24 08:01 | Outpatient (CLI) | payer MEDICARE, SELFPAY ==
[2023-06-24 09:03] LABS: Anion Gap 9 mmol/L (8-16); Blood Urea Nitrogen 24 mg/dL (7-17); Calcium 9.3 mg/dL (8.4-10.2); Carbon Dioxide 30 mmol/L (22-30); Chloride 97 mmol/L (98-107); Estimated Glomerular Filt Rate 60; Glucose 191 mg/dL (65-110); Potassium 4.1 mmol/L (3.4-5.0); Sodium 136 mmol/L (137-145)
== END 2023-06-24 08:02 | disposition home or self-care (01) ==
LOC: ANHLAB 08:03
PROVIDERS: PCP Family Medicine; Visit Provider Specialist
DX: I50.22 Chronic systolic (congestive) heart failure (principal)
CPT/HCPCS: 36415; 80048

== ENCOUNTER 2023-07-13 11:05 | Outpatient (CLI) | payer MEDICARE, SELFPAY ==
[2023-07-13 12:18] LABS: Alanine Aminotransferase 19 U/L (6-35); Albumin Level 4.6 g/dL (3.5-5.1); Alkaline Phosphatase 93 U/L (38-126); Anion Gap 13 mmol/L (8-16); Aspartate Amino Transferase 28 U/L (14-36); Bilirubin,Total 0.6 mg/dL (0.2-1.3); Blood Urea Nitrogen 23 mg/dL (7-17); Calcium 9.6 mg/dL (8.4-10.2); Carbon Dioxide 21 mmol/L (22-30); Chloride 103 mmol/L (98-107); Estimated Glomerular Filt Rate > 60; Glucose 270 mg/dL (65-110); Potassium 4.7 mmol/L (3.4-5.0); Sodium 137 mmol/L (137-145)
[2023-07-13 12:24] LABS: Hemoglobin A1C 7.9 % (<5.7)
== END 2023-07-13 11:06 | disposition home or self-care (01) ==
LOC: ANHLAB 11:07
PROVIDERS: PCP Family Medicine; Visit Provider Physician Assistant
DX: E11.9 Type 2 diabetes mellitus without complications (principal)
CPT/HCPCS: 36415; 80053; 83036

== ENCOUNTER 2023-10-14 12:07 | Outpatient (CLI) | payer MEDICARE, SELFPAY ==
[2023-10-14 13:27] LABS: Appearance Urine Cloudy (Clear); Bacteria Urine 4+ /hpf; Bilirubin Urine Negative (Negative); Blood Urine 1+ (Negative); Color Urine Yellow (Yellow); Glucose Urine UA 3+ mg/dL (Negative); Ketones Urine Negative (Negative); Leukocyte Esterase Ur 2+ LEU/UL (Negative); Nitrate Urine Positive (Negative); Non Pathogenic Casts 0-2; Protein Urine Negative (Negative); RBC Urine 0-2 /hpf (0-2); Specific Grav Ur 1.017 (1.001-1.035); Squamous Epithelial Cell Urine None Seen /hpf (Few); WBC Urine >100 /hpf (0-3)
[2023-10-14 13:33] LABS: Add Urine Microscopic? YES
== END 2023-10-14 12:08 | disposition home or self-care (01) ==
PROVIDERS: PCP Family Medicine; Visit Provider Physician Assistant
DX: N39.0 Urinary tract infection, site not specified (principal)
CPT/HCPCS: 81001; 87077; 87086; 87088; 87186